=== PATIENT | female | born 1940 | race African-American/Black ===

== ENCOUNTER 2024-10-21 05:39 | Outpatient (REF) | payer MEDICARE, SELFPAY ==
--- OUTSIDE RECORDS SUMMARY | 2024-10-21 05:44 | XMS_ITS | Clinical Summary ---
Author Organization [facility] Address [address] [place] [address] Care Team Providers Care Communications Manager Name Role Phone Wander Hercules MD Primary Care Provider [phone] Social History Tobacco Use Types Packs/Day Years Used Date Smoking Tobacco: Never Assessed Comments Unknown Sex and Gender Information Value Date Recorded Sex Assigned at Female 09/03/2022 12:28 PM EDT Legal Sex Female 11:53 AM EST Gender Identity Female 09/03/2022 12:28 PM EDT Sexual Orientation Heterosexual (straight) 09/03 12:28 PM EDT Plan of Treatment Health Maintenance Due Date Last Done Comments DTaP/Tdap/Td Vaccines (1 - Tdap) 1960 Pneumococcal Vaccines 50+ (1 of 1 - PCV) 1991 Zoster (Shingles) Vaccine (1 of 2) 1991 DXA Bone Density (Females,Ages 65 and older) 2006 RSV Vaccine 60 years and older and Patients (1 - 1-dose 75+ series) 2016 COVID-19 Vaccine ( season) 2023 10/20/2021, 12/31/2020, 05/24/2020, Additional history exists Influenza Vaccine 10/30/2024 01/07/2020, 01/07/2020 Hepatitis B Vaccines Aged Out No long er eligible based on patient's age to complete this topic Insurance [employer] Care Teams Communications Manager Relationship Specialty Start Date End Date Wander Hercules MD [address] [place] [id number] PCP - General 09/03/22
--- OUTSIDE RECORDS SUMMARY | 2024-10-21 05:44 | XMS_ITS ---
Author Name [place] Organization Unknown Problems Problem Status Onset Date Problem Type Date of Resoluti on Source Pain in both knees, unspecified chronicity active EncounterDiagnosisAct CCT Arthritis pain active EncounterDiagnosisAct CCT Encounters Encounter Type Encounter Reason Primary Diagnosis Location Date Ambulatory Unspecified osteoarthritis, unspecified site [facility] 09/03/2022 Care Team Organization Name Specialty Phone Email Start Date End Da te [facility] Thu Smith Primary Care 09/03/2022 09/04/19 [facility] NO PCP Primary Care 09/03/2022 09/03/2022 [facility] THU SMITH Primary Care 09/03/2022
--- OUTSIDE RECORDS SUMMARY | 2024-10-21 05:44 | XMS_ITS | Clinical Summary ---
Author Organization [facility] Address [address] [place] [address] Phone Care Team Providers Care Motel Keeper Name Role Phone Wander Hercules MD Primary Care Provider [phone] Allergies Active Allergy Reactions Criticality Noted Date Comments Oscar Inhibitors Other (see comments) 01/13/2021 Egg White (Egg Protein) Nausea Low 06/22/2019 Furosemide 12/14/2021 Penicillins Other (see comments),Rash Low 0 Medications acetaminophen (TYLENOL) 500 MG tablet Take 1,000 mg by mouth every 6 (six) hours if needed Active albuterol HFA (PROVENTIL HFA;VENTOLIN HFA) 108 (90 Base) MCG/ACT inhaler albuterol sulfate HFA 90 mcg/actuation aerosol inhaler Active Azelastine HCl 137 MCG/SPRAY solution USE 1 SPRAY(S) IN EACH NOSTRIL TWICE DAILY 1 Active Beclomethasone Diprop HFA (Qvar RediHaler) 80 MCG/ACT aerosol 9 Active fluticasone (FLONASE) 50 MCG/ACT nasal spray 0 Active fluticasone HFA (Flovent HFA) 110 MCG/ACT inhaler Flovent HFA 110 mcg/actuation aerosol inhaler Active simvastatin (ZOCOR) 20 MG tablet simvastatin 20 mg tablet 0 Active ascorbic acid (VITAMIN C) 500 MG tablet Take by mouth 1 Active apixaban (ELIQUIS) 5 MG tablet Take 5 mg by mouth in the morning and 5 mg in the evening. Active metoprolol succinate XL (TOPROL XL) 50 MG 24 hr tablet Take 1 tablet (50 mg total) by mouth 1 (one) time each day Do not crush or chew. 90 tablet 11 2 Active Pulmicort Flexhaler 180 MCG/ACT inhaler 3 Active calcitriol (Rocaltrol) 0.25 MCG capsule Take 1 capsule (0.25 mcg total) by mouth 1 (one) time each day 90 capsule 3 4 01/07/20 25 Active furosemide (LASIX) 20 MG tablet Take 4 tablets (80 mg total) by mouth 1 (one) time each day 360 tablet 3 4 Active hydrALAZINE 25 MG tablet TAKE 1 TABLET BY MOUTH IN THE MORNING AND 1 TABLET BY MOUTH IN THE EVENING AND 1 TABLET BY MOUTH BEFORE BEDTIME 270 tablet 3 4 Active sodium bicarbonate 650 MG tablet Take 1 tablet (650 mg total) by mouth in the morning and 1 tablet (650 mg total) in the evening. 180 tablet 2 5 02/08/20 25 Active ferrous sulfate 325 (65 Fe) MG EC tablet TAKE 1 TABLET(325 MG) BY MOUTH IN THE MORNING AND IN THE EVENING. DO NOT CRUSH, CHEW, OR SPLIT 60 tablet 2 5 Active calcium carbonate (Tums) 500 MG chewable tabletIndication s:Stage 5 chronic kidney disease (HCC),Hyperphosp hatemia Chew 1 tablet (500 mg total) in the morning and 1 tablet (500 mg total) at noon and 1 tablet (500 mg total) in the evening. Chew with meals. 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 Hypertension 05/29/2021 Hyperlipidemia 05/29/2021 Nontoxic multinodular goiter 05/29/2021 Obese class I 05/29/2021 Pulmonary embolism 05/29/2021 Hemorrhage into subarachnoid space of neuraxis 0 05/29/2021 Subarachnoid hemorrhage 05/29/2021 Fibrocystic disease of liver 05/29/2021 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 Replacing diagnoses that were inactivated after the 12/31/23 Regulatory Import Stage 3 chronic kidney disease 01/10/2021 Chronic kidney disease stage 3 01/10/2021 Hypertensive chronic kidney disease, unspecified, with chronic kidney disease stage I through stage IV, or unspecified 01/10/2021 Polycystic kidney disease, adult type 01/10/2021 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 [address] [phone] Linda Smiley ARNP Stage 5 chronic kidney disease (HCC); Hypertension; Anemia in chronic kidney disease; Secondary hyperparathyroidism of renal origin (HCC); Hyperphosphatemia; Chronic metabolic acidosis 09/10/2024 10:30 AM EDT Office Visit [facility] [address] [address] Linda Smiley ARNP Stage 5 chronic kidney disease (HCC) (Primary Dx); Hypertension; Anemia in chronic kidney disease; Secondary hyperparathyroidism of renal origin (HCC); Hyperphosphatemia; Chronic metabolic acidosis 08/30/2024 Orders Only [facility] [address] [place] [phone] Linda Smiley ARNP Stage 5 chronic kidney disease (HCC); Anemia in chronic kidney disease; Hypertension; Secondary hyperparathyroidism of renal origin (HCC); Hyperphosphatemia 07/30/2024 11:00 AM EDT [facility] [address] [place] [address] Linda Smiley ARNP Stage 5 chronic kidney disease (HCC) (Primary Dx); Anemia in chronic kidney disease; Hypertension; Secondary hyperparathyroidism of renal origin (HCC); Hyperphosphatemia 07/29/2024 Refill [facility] [address] [facility] [address] [place] [phone] Raymond Prado MD from Last 3 Months Immunizations Immunization Administration Dates Next Due Influenza Split High Dose Pr eservative Free IM 01/07/2020 Influenza, Unspecified 01/07/2020 Pfizer SARS-COV-2 12/31/2020,05/24/2020,05/03/19 21 Pneumococcal Polysaccharide 04/01/2013 Family History Medical History Relation Comments Kidney disease Child 1 Hypertension Child 2 Cancer Father Stroke Father Heart disease Mother Relation Status Comments Child 1 Child 2 Father Mother Social History Tobacco Use Types Packs/Day Years Used Date Smoking Tobacco: Never Smokeless Tobacco: Never Tobacco Cessation:Counseling Given: Not Answered Alcohol Use Standard Drinks/Week Comments No 0 (1 standard drink = 0.6 oz pur e alcohol) Comments No Sex and Gender Information Value Date Recorded Sex Assigned at Not on file Legal Sex Female 5:00 PM EST Gender Identity Not on file Sexual Orientation Not on file Last Filed Vital Signs Vital Sign Reading Time Taken Comments Blood Pressure 122/56 09/10/2024 10:29 AM EDT Pulse 59 09/10/2024 10:29 AM EDT Temperature - - Respiratory Rate - - Oxygen Saturation 100% 07/30/2024 11:19 AM EDT Inhaled Oxygen Concentration - - Weight 81.3 kg (179 lb 3.2 oz) 09/10/2024 10:29 AM EDT Height 167.6 cm (5' 6 ) 05/02/2020 12:00 PM EST Body Mass Index 28.92 05/02/2020 12:00 PM EST Plan of Treatment Health Maintenance Due Date Last Done Comments Pneumococcal Vaccine: 50+ Years (2 of 2 - PCV) 04/01/2014 04/01/2013 Influenza Vaccine (#1) 2024 0, 01/07/2020 Pneumococcal Vaccine: Peds (0 to 5 Years) and At-Risk Patients (6 to 49 Years) Discontinued 04/01/2013 Hepatitis B Vaccine Aged Out No longe r eligible based on patient's age to complete this topic Procedures Procedure Name Priority Date/Time Associated Diagnosis Comments IRON PANEL (FE, TIBC, TSAT) Routine 09/04/2024 10:09 AM EDT Stage 5 chronic kidney disease (HCC) Anemia in chronic kidney disease Hypertension Secondary hyperparathyroidism of renal origin (HCC) Hyperphosphatemia FERRITIN Routine 09/04/2024 10:09 AM EDT Stage 5 chronic kidney disease (HCC) Anemia in chronic kidney disease Hypertension Secondary hyperparathyroidism of renal origin (HCC) Hyperphosphatemia CBC Routine 09/04/2024 10:09 AM EDT Stage 5 chronic kidney disease (HCC) Anemia in chronic kidney disease Hypertension Secondary hyperparathyroidism of renal origin (HCC) Hyperphosphatemia RENAL FUNCTION PANEL Routine 09/04/2024 10:09 AM EDT Stage 5 chronic kidney disease (HCC) Anemia in chronic kidney disease Hypertension Secondary hyperparathyroidism of renal origin (HCC) Hyperphosphatemia PTH, INTACT Routine 09/04/2024 10:09 AM EDT Stage 5 chronic kidney disease (HCC) Anemia in chronic kidney disease Hypertension Secondary hyperparathyroidism of renal origin (HCC) Hyperphosphatemia IRON PANEL (FE, TIBC, TSAT) Routine 07/22/2024 9:49 AM EDT Stage 5 chronic kidney disease (HCC) Anemia in chronic kidney disease Secondary hyperparathyroidism of renal origin (HCC) FERRITIN Routine 07/22/2024 9:49 AM EDT Stage 5 chronic kidney disease (HCC) Anemia in chronic kidney disease Secondary hyperparathyroidism of renal origin (HCC) CBC Routine 07/22/2024 9:49 AM EDT Stage 5 chronic kidney disease (HCC) Anemia in chronic kidney disease Secondary hyperparathyroidism of renal origin (HCC) RENAL FUNCTION PANEL Routine 07/22/2024 9:49 AM EDT Stage 5 chronic kidney disease (HCC) Anemia in chronic kidney disease Secondary hyperparathyroidism of renal origin (HCC) PTH, INTACT Routine 07/22/2024 9:49 AM EDT Stage 5 chronic kidney disease (HCC) Anemia in chronic kidney disease Secondary hyperparathyroidism of renal origin (HCC) from Last 3 Months Results * (ABNORMAL) Iron Panel (Fe, TIBC, TSAT) (09/04/2024 10:09 AM EDT) Only the most recent of2 resultswithin the time period is included. UIBC 130 118 - 369 ug/dL [facility] TIBC 188(L) 250 - 450 ug/dL [facility] Iron 58 27 - 139 ug/dL [facility] Iron Saturation (TSat) 31 15 - 55 % [facility] Blood specimen (specimen) Venous blood / Unknown 09/04/2024 10:09 AM EDT 09/04/2024 Linda PICKETT LAB BLOOD ORDERABLES Final Result [facility] [address] [place] [address] * (ABNORMAL) CBC (09/04/2024 10:09 AM EDT) Only the most recent of2 resultswithin the time period is included. WBC 6.7 3.4 - 10.8 x10E3/uL [facility] RBC 3.29(L) 3.77 - 5.28 x10E6/uL [facility] Hemoglobin 9.3(L) 11.1 - 15.9 g/dL [facility] Hematocrit 30.2(L) 34.0 - 46.6 % [facility] MCV 92 79 - 97 fL [facility] MCH 28.3 26.6 - 33.0 pg [facility] MCHC 30.8(L) 31.5 - 35.7 g/dL [facility] RDW 13.8 11.7 - 15.4 % [facility] Platelets 182 150 - 450 x10E3/uL [facility] Blood specimen (specimen) Venous blood / Unknown 09/04/2024 10:09 AM EDT 09/04/[address] [facility] LAB BLOOD ORDERABLES Final Result Performing Organization Address City/[facility]/ZIP Co de Phone Number [facility] [address] [place] [address] * (ABNORMAL) PTH, intact (09/04/2024 10:09 AM EDT) Only the most recent of2 resultswithin the time period is included. PTH 157(H) 15 - 65 pg/mL [facility] Blood specimen (specimen) Venous blood / Unknown 09/04/2024 10:09 AM EDT 09/04/[address] [facility] LAB BLOOD ORDERABLES Final Result [facility] [address] [place] [address] * (ABNORMAL) Ferritin (09/04/2024 10:09 AM EDT) Only the most recent of2 resultswithin the time period is included. Ferritin 373(H) 15 - 150 ng/mL [facility] Blood specimen (specimen) Venous blood / Unknown 09/04/2024 10:09 AM EDT 09/04/2024 Linda TODDP LAB BLOOD ORDERABLES Final Result Performing Organization Address City/[facility] Co de Phone Number [facility] [address] [place] [address] * (ABNORMAL) Renal function panel (09/04/2024 10:09 AM EDT) Only the most recent of2 resultswithin the time period is included. Glucose 115(H) 70 - 99 mg/dL [facility] BUN 89(HH) 8 - 27 mg/dL [facility] Creatinine 7.70(H) 0.57 - 1.00 mg/dL [facility] eGFR CKD-EPI CR 2020 5(L) >59 mL/min/1.7 3 [facility] BUN/Creatinine Ratio 12 12 - 28 [facility] Sodium 142 134 - 144 mmol/L [facility] Potassium 4.2 3.5 - 5.2 mmol/L [facility] Chloride 105 96 - 106 mmol/L [facility] Bicarbonate (CO2) 16(L) 20 - 29 mmol/L [facility] Calcium 9.1 8.7 - 10.3 mg/dL [facility] Albumin 4.1 3.7 - 4.7 g/dL [facility] Phosphorus 5.3(H) 3.0 - 4.3 mg/dL [facility] Blood specimen (specimen) Venous blood / Unknown 09/04/2024 10:09 AM EDT 09/04/2024 Linda Baljit [facility] LAB BLOOD ORDERABLES Final Result [facility] [address] [place] [address] from Last 3 Months Insurance [facility] Care Teams Motel Keeper Relationship Specialty Start Date End Date Wander Hercules MD [address] [place] [address] PCP - General 04/11/20
--- OUTSIDE RECORDS SUMMARY | 2024-10-21 05:44 | XMS_ITS | Clinical Summary ---
Author Organization [address] Address [address] [place] [phone] Phone Care Team Providers Care Wet Crown Blocking Operator Name Role Phone Wander Hercules MD Primary Care Provider [phone] Allergies Active Allergy Reactions Criticality Noted Date Comments Oscar Inhibitors Other (See Comments) Medium 01/13/2021 Other reaction(s): Other (See Comments) Egg Nausea Low 06/22/2019 Other reaction(s): upset stomach Egg White Nausea Low 06/22/2019 Furosemide Unknown 12/14/2021 Penicillins Rash,Other (See Comments) Medium 06/22/2019 Other reaction(s): Other (See Comments) Medications simvastatin (ZOCOR) 20 mg tablet TAKE 1 TABLET BY MOUTH ONCE DAILY AT BEDTIME 0 Active metoprolol succinate (TOPROL-XL) 50 mg XL 24 hr extended release tablet metoprolol succinate ER 50 mg tablet,extended release 24 hr Active fluticasone propionate (FLONASE) 50 mcg/actuation nasal spray USE 2 SPRAY(S) IN EACH NOSTRIL ONCE DAILY FOR 30 DAYS 0 Active QVAR REDIHALER 80 mcg/actuation HFA aerosol inhaler INHALE 2 PUFFS BY MOUTH TWICE DAILY 9 Active albuterol sulfate 90 mcg/actuation HFA aerosol inhaler ProAir HFA 90 mcg/actuation aerosol inhaler Active acetaminophen (TYLENOL) 500 mg tablet Take 2 tablets (1,000 mg total) by mouth every 6 (six) hours as needed. Active albuterol sulfate 90 mcg/actuation HFA aerosol inhaler albuterol sulfate HFA 90 mcg/actuation aerosol inhaler Active flu vac ts ,4 yr,up,-PF 45 mcg (15 mcg x 3)/0.5 mL Syrg Fluad 65yr up(PF)45 mcg(15 mcgx3)/0.5 mL intramuscular syringe Active ascorbic acid, vitamin C, (VITAMIN C) 500 mg tablet Take by mouth. 1 Active azelastine (ASTELIN) 137 mcg (0.1 %) nasal spray 2 Active amLODIPine (NORVASC) 5 mg tablet Take 1 tablet (5 mg total) by mouth every 24 hours. 2 Active ELIQUIS 5 mg Tab tablet Take 1 tablet (5 mg total) by mouth 2 (two) times daily. 3 Active furosemide (LASIX) 20 mg tablet Take 4 tablets (80 mg total) by mouth every 24 hours. 2 Active hydrALAZINE (APRESOLINE) 25 mg tablet Take 1 tablet (25 mg total) by mouth 2 (two) times daily (0800, 1800). 2 Active PULMICORT FLEXHALER 180 mcg/actuation powder inhaler 2 (two) times daily. 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 Stage 3 chronic kidney disease (HC CODE) 021 Polycystic kidney, adult type 01/10/2021 Unspecified hypertensive kid rachel disease with chronic kidney disease stage I through stage IV, or unspecified 01/10/2021 Immunizations Immunization Administration Dates Next Due Influenza, high dose, quad, 0.7 mL, preservative free 01/07/2020 Family History Medical History Relation Name Comments Head & Neck cancer Father Stroke Father Heart disease Mother Relation Name Status Comments Father Mother Social History Tobacco Use Types Packs/Day Years Used Date Smoking Tobacco: Never Smokeless Tobacco: Never Tobacco Cessation:Counseling Given: Not Answered Alcohol Use Standard Drinks/Week Comments Never 0 (1 standard drink = 0.6 oz pur e alcohol) AUDIT-C Answer Date Recorded Q1: How often do you have a drink containing alc ohol? Never 05/16/2020 Average Number of Drinks Not on file 021 Frequency of Binge Drinking Not on file 05/02 Comments Unknown Sex and Gender Information Value Date Recorded Sex Assigned at Not on file Legal Sex Female 5:38 PM EST Gender Identity Not on file Sexual Orientation Not on file Last Filed Vital Signs Vital Sign Reading Time Taken Comments Blood Pressure 124/82 06/22/2019 9:45 AM EDT Pulse - - Temperature - - Respiratory Rate - - Oxygen Saturation - - Inhaled Oxygen Concentration - - Weight 93.9 kg (207 lb) 06/03/2023 9:47 AM EST p er patient Height 167.6 cm (5' 6 ) 06/03/2023 9:47 AM EST Body Mass Index 33.41 06/03/2023 9:47 AM EST Plan of Treatment Health Maintenance Due Date Last Done Comments HIV screening 1954 Diabetes screening 1959 Tetanus adult (Td q 10,TDAP once) 1961 Lipid disorder screening 1981 Shingles vaccine (Shingrix) (1 of 2 - Shingrix (RZV) 2 Dose Standard Series) 1991 Osteoporosis screening (bone density) 2006 Pneumococcal Vaccine (50+ years) (2 of 2 - PCV) 04/01/2014 04/01/2013 RSV Immunization (1 - 1-dose 75+ series) 2016 Covid-19 vaccine series ( season) 2023 10/20/2021, 12/31/2020, 05/24/2020, Additional history exists Influenza vaccine 11/30/2024 01/07/2020 Breast cancer screening Discontinued Cervical cancer screening Discontinued Colon cancer screening, Colonoscopy Discontinued Meningococcal Vaccine Aged Out No benny umm eligible based on patient's age to complete this topic Insurance [place]IC[place] [facility] [place] [facility] [place] [facility] Care Teams Wet Crown Blocking Operator Relationship Specialty Start Date End Date Wander Hercules MD [address] [place] [phone] PCP - General Internal Medicine 04/29/19
[2024-10-21 06:24] LABS: Hematocrit 21.9 % (37.0-47.0); Hemoglobin 7.2 g/dl (12.0-16.0); Imm Gran Abs Auto 0.06 X10*3/uL (0.00-0.03); Imm Gran Pct Auto 0.6 % (0.0-0.4); Lymphocytes Absolute Auto 0.6 X10*3/uL (1.2-4.9); MANUAL DIFF FLAG SCAN; Mean Corpuscular HGB Conc 32.9 g/dl (31.0-35.0); Mean Corpuscular Hemoglobin 29.1 pg (27.0-33.0); Mean Corpuscular Volume 88.7 fL (80.0-98.0); NRBC Abs Auto 0.000 X10*3/uL (0.0-0.012); NRBC Pct Auto 0.0 /100WBC (0.0-0.2); Platelet Count 192 X10*3/uL (160-400); Red Blood Count 2.47 X10*6/uL (4.20-5.50); SCAN SMEAR FLAG 1; White Blood Count 10.7 X10*3/uL (4.8-10.8)
[2024-10-21 06:53] LABS: Alanine Aminotransferase 95 U/L (0-31); Albumin Level 2.4 g/dL (3.5-5.0); Alkaline Phosphatase 777 U/L (39-117); Anion Gap 12 (12-20); Aspartate Amino Transferase 313 U/L (5-31); Blood Urea Nitrogen 44 mg/dL (9-16); Calcium 7.7 mg/dL (8.4-10.2); Carbon Dioxide 26 mmol/L (22-29); Chloride 99 mmol/L (96-108); Estimated Glomerular Filt Rate 10; Potassium 3.9 mmol/L (3.3-5.1); Sodium 133 mmol/L (135-145); Total Protein 5.8 g/dL (6.5-8.0)
[2024-10-21 07:18] LABS: Hemoglobin A1C 55.8995 umol/L; Total Hemoglobin (HGBA1C) 1981.5737 umol/L
== END 2024-10-21 05:40 | disposition home or self-care (01) ==
LOC: HO.MMNH2L 05:39
PROVIDERS: Visit Provider Student in an Organized Health Care Education/Training Program
DX: N18.6 End stage renal disease (principal)
CPT/HCPCS: 36415; 80053; 83036; 85025

== ENCOUNTER 2024-10-26 06:14 | Outpatient (REF) | payer MEDICARE, SELFPAY ==
[2024-10-26 05:52] LABS: MANUAL DIFF FLAG NO
--- OUTSIDE RECORDS SUMMARY | 2024-10-26 06:17 | XMS_ITS | Clinical Summary ---
Author Organization [facility] Address [address] [place] [address] Care Team Providers Care Producer Name Role Phone Wander Hercules MD Primary Care Provider [phone] Social History Tobacco Use Types Packs/Day Years [...] [employer] [place] MED[employer] Care Teams Producer Relationship Specialty Start Date End Date Wander Hercules MD [address] [place] [id number] PCP - General 09/03/22
--- OUTSIDE RECORDS SUMMARY | 2024-10-26 06:17 | XMS_ITS | Clinical Summary ---
Author Organization [address] Address [address] [place] [phone] Phone Care Team Providers Care Mental Health Program Specialist Name Role Phone Wander Hercules MD Primary Care Provider [phone] Allergies Active Allergy Reactions Criticality Noted Date [...] to complete this topic Insurance [place]IC[place] [facility] Sub[place] Plan / Payer (Ef fective 2010-Present) Name:Christal Woodward Relation to Subscriber:Self Name:Christal Woodward Payer ID:[id number] Group ID:[id number] [facility] Type:Not on file Address: [address] [place] [address] MEDICARE [place] [facility] [place] Sub[place] Plan / Payer (Ef fective 2010-Present) Name:Christal Woodward Relation to Subscriber:Self Name:Christal Woodward Payer ID:[id number] Group ID:[id number] [place] Type:Not on file Address: [address] [place] [address] MEDICARE [place] [facility] Care Teams Mental Health Program Specialist Relationship Specialty Start Date End Date Wander Hercules MD [address] [place] [phone] PCP - General Internal Medicine 04/29/19
--- OUTSIDE RECORDS SUMMARY | 2024-10-26 06:17 | XMS_ITS | Clinical Summary ---
Author Organization [facility] Address [address] [facility] [address] [place] [address] Phone Care Team Providers Care Community Engagement Manager Name Role Phone Wander Hercules MD Primary Care Provider [phone] Allergies Active Allergy Reactions Criticality Noted Date [...] Orders Only [facility] [address] [address] Linda Smiley ARNP Stage 5 chronic kidney disease (HCC); Hypertension; Anemia in chronic kidney disease; Secondary hyperparathyroidism of renal origin (HCC); Hyperphosphatemia; Chronic metabolic acidosis 09/10/2024 10:30 AM EDT Office Visit [facility] [address] [address] Linda Smiley ARNP Stage 5 chronic kidney disease (HCC) (Primary Dx); Hypertension; Anemia in chronic kidney disease; Secondary hyperparathyroidism of renal origin (HCC); Hyperphosphatemia; Chronic metabolic acidosis 08/30/2024 Orders Only [facility] [address] [place] [phone] Linda Smiley ARNP Stage 5 chronic kidney disease (HCC); Anemia in chronic kidney disease; Hypertension; Secondary hyperparathyroidism of renal origin (HCC); Hyperphosphatemia 07/30/2024 11:00 AM EDT Office Visit [facility] [address] [place] [address] Linda Smiley ARNP Stage 5 chronic kidney disease (HCC) (Primary Dx); Anemia in chronic kidney disease; Hypertension; Secondary hyperparathyroidism of renal origin (HCC); Hyperphosphatemia 07/29/2024 Refill [facility] [place] [address] [facility] [address] [place] [phone] Raymond Prado MD from Last 3 Months [...] Procedure Name Priority Date/Time Associated Diagnosis Comments LIH () Routine 10/23/2024 3:00 AM EDT KT/V NATURAL LOG, URR () Routine 10/23/2024 3:00 AM EDT HEPATITIS C ABS W/REFLEX RNA DETECTR Routine 10/21/2024 3:00 AM EDT CONFIRMATION TEST HCV Routine 10/21/2024 3:00 AM EDT HEPATITIS B CORE AB TOTAL Routine 10/21/2024 3:00 AM EDT HEPATITIS B SURFACE ANTIGEN W/REFL CONFIRM Routine 10/21/2024 3:00 AM EDT FERRITIN Routine 10/21/2024 3:00 AM EDT VITAMIN D 25 HYDROXY Routine 10/21/2024 3:00 AM EDT HEPATITIS B SURFACE ANTIBODY QUANT Routine 10/21/2024 3:00 AM EDT PROTEIN, TOTAL, SERUM Routine 10/21/2024 3:00 AM EDT URIC ACID Routine 10/21/2024 3:00 AM EDT TRANSFERRIN SATURATION Routine 10/21/2024 3:00 AM EDT KT/V NATURAL LOG, URR (HC) Routine 10/21/2024 3:00 AM EDT ELECTROLYTE PANEL Routine 10/21/2024 3:0 0 AM EDT MAGNESIUM Routine 10/21/2024 3:00 AM EDT LIPID PANEL Routine 10/21/2024 3:00 AM EDT LIH (HC) Routine 10/21/2024 3:00 AM EDT LACTATE DEHYDROGENASE Routine 10/21/2024 3:00 AM EDT GLUCOSE, RANDOM Routine 10/21/2024 3:00 AM EDT BUN/CREATININE RATIO Routine 10/21/2024 3:00 AM EDT CREATININE, SERUM Routine 10/21/2024 3:0 0 AM EDT BILIRUBIN, TOTAL Routine 10/21/2024 3:00 AM EDT AST Routine 10/21/2024 3:00 AM EDT ALKALINE PHOSPHATASE Routine 10/21/2024 3:00 AM EDT ALT Routine 10/21/2024 3:00 AM EDT CALCIUM PHOSPHORUS PRODUCT, ADJUSTED (HC) Routine 10/21/2024 3:00 AM EDT CBC AND DIFFERENTIAL Routine 10/21/2024 3:00 AM EDT PTH, INTACT Routine 10/21/2024 3:00 AM EDT Stage 5 chronic kidney disease (HCC) Hypertension Anemia in chronic kidney disease Secondary hyperparathyroidism of renal origin (HCC) Hyperphosphatemia Chronic metabolic acidosis IRON PANEL (FE, TIBC, TSAT) Routine 09/04/2024 [...] Secondary hyperparathyroidism of renal origin (HCC) Hyperphosphatemia from Last 3 Months Results * LIH (10/23/2024 3:00 AM EDT) Only the most recent of2 resultswithin the time period is included. Lipemia Normal Normal [facility] Icterus Normal Normal [facility] Hemolysis Normal Normal [facility] 10/23/2024 3:00 AM EDT 10/24/2024 1:20 PM EDT us Jl Velazquez MD LAB [id number] SOLICITED RESULTS Final Result [facility] [address] [place] [address] * (ABNORMAL) Kt/V Natural Log, URR (10/23/2024 3:00 AM EDT) Treatment Time 222 min [facility] Pre-Weight, lb 92.8 kg [facility] Post-Weight, lb 90.7 kg [facility] Ultrafiltration Rate 6 <=13 mL/kg/hr [facility] Comment: Recommend achieving Ultrafiltration Rate (UFR) <=10 mL/kg/hr References: Austen SANTA et al. Kidney Int. 2010; 79(2):250-257 BUN 31(H) 7 - 25 mg/dL [facility] BUN Post Dialysis 7 7 - 25 mg/dL [facility] UREA REDUCTION RATIO (%) 77 >=65 % [facility] Kt/V Natural Log 1.70 >=1.2 [facility] 10/23/2024 3:00 AM EDT 10/24/2024 1:20 PM EDT Jl Velazquez MD LAB [id number] SOLICITED RESULTS Final Result Performing Organization Address [facility] Co de Phone Number [facility]PS [facility] [address] [place] [address] * Confirmation Test HCV (10/21/2024 3:00 AM EDT) Hep C Ab Confirmation Not needed [facility] 10/21/2024 3:00 AM EDT 10/23/2024 12:49 PM EDT Jl Velazquez MD LAB BLOOD ORDERABLES Final Re sult Performing Organization Address [facility] de Phone Number [facility]PS [facility] [address] [place] [address] * (ABNORMAL) Calcium Phosphorus Product, Adjusted (10/21/2024 3:00 AM EDT) Albumin 2.8(L) 3.6 - 5.4 g/dL [facility] Calcium 7.7(L) 8.6 - 10.3 mg/dL [facility] Phosphorus, Serum 5.4(H) 2.5 - 5.0 mg/dL [facility] Ca*PO4 41.6 <55.0 mg2/dL2 [facility] Calcium, Adjusted Total 8.7 8.6 - 10.3 mg/dL [facility] CA*PO4 CORRCTD 47.0 <55.0 mg2/dL2 [facility] 10/21/2024 3:00 AM EDT 10/23/2024 1:48 PM EDT us Jl Velazquez MD LAB [id number] SOLICITED RESULTS Final Result Performing Organization Address [facility] de Phone Number [facility]PS [facility] [address] [place] [address] * HEPATITIS C ABS W/REFLEX RNA DETECTR (10/21/2024 3:00 AM EDT) Hep C Virus Ab Non-Reacti ve Non-Reacti ve [facility] 10/21/2024 3:00 AM EDT 10/23/2024 1:48 PM EDT us Jl Velazquez MD LAB [id number] SOLICITED RESULTS Final Result Performing Organization Address [facility] de Phone Number [facility]PS [facility] [address] [place] [address] * Hepatitis B Surface Ag w/Reflex Confirmation (10/21/2024 3:00 AM EDT) Hep B Surface Antigen Negative Negative [facility] 10/21/2024 3:00 AM EDT 10/23/2024 1:48 PM EDT us Jl Velazquez MD LAB BLOOD ORDERABLES Final Re sult Performing Organization Address [facility] de Phone Number [facility]PS [facility] [address] [place] [address] * BUN/CREATININE RATIO (10/21/2024 3:00 AM EDT) BUN/Creatinine Ratio 7.8 <=23.0 [facility] 10/21/2024 3:00 AM EDT 10/23/2024 1:48 PM EDT us Jl Velazquez MD LAB [id number] SOLICITED RESULTS Final Result Performing Organization Address [facility] de Phone Number [facility] [address] [place] [address] * (ABNORMAL) TSAT (10/21/2024 3:00 AM EDT) Pathologist [facility] Iron 10(L) 50 - 170 ug/dL [facility] Transferrin 75(L) 250 - 380 mg/dL [facility] TIBC 105(L) 211 - 406 ug/dL [facility] Iron Saturation (TSat) 10(L) 22 - 52 % [facility] 10/21/2024 3:00 AM EDT 10/23/2024 1:48 PM EDT Jl Velazquez MD LAB BLOOD ORDERABLES Final Re sult Performing Organization Address [facility] de Phone Number [facility] [address] [place] [address] * Hepatitis B Core Antibody, Total (10/21/2024 3:00 AM EDT) [facility] HBc Total Ab, S Negative Negative [facility] 10/21/2024 3:00 AM EDT 10/23/2024 1:48 PM EDT Jl Velazquez MD LAB BLOOD ORDERABLES Final Re sult Performing Organization Address [facility] Phone Number [facility] [address] [place] [address] * Vitamin D 25 Hydroxy (10/21/2024 3:00 AM EDT) [facility] Vitamin D, 25-Hydroxy 40 30 - 100 ng/mL [facility] Comment: Status Adult Pediatric Deficient: <20 <15 Insufficient: 20-29 15-19 Sufficient: 30-100 20-100 10/21/2024 3:00 AM EDT 10/23/2024 1:48 PM EDT us Jl Velazquez MD LAB BLOOD ORDERABLES Final Re sult Performing Organization Address [facility] de Phone Number [facility]PS [facility] [address] [place] [address] * (ABNORMAL) Hepatitis B Surface Antibody (10/21/2024 3:00 AM EDT) Pathologist [facility] Hep B Surface Antibody <4(A) mIU/mL [facility] Comment: Interpretation: <10: No Immunity >=10: Probable Immunity 10/21/2024 3:00 AM EDT 10/23/2024 1:48 PM EDT us Jl Velazquez MD LAB BLOOD ORDERABLES Final Re sult [facility] [address] [place] [address] * (ABNORMAL) CBC and Differential (10/21/2024 3:00 AM EDT) [facility] DIFFERENTIAL MANUAL, 2 Not Indicated [facility] White Blood Cells 11.2(H) 4.0 - 10.0 K/uL [facility] RBC 2.43(L) 3.93 - 5.22 M/uL [facility] Hgb 7.0(L) 11.2 - 15.7 g/dL [facility] Hemoglobin x 3 21.0(L) 33.6 - 47.1 g/dL [facility] Hematocrit 22.5(L) 34.1 - 44.9 % [facility] MCV 92.6 79.4 - 94.8 fL [facility] MCH 28.8 25.6 - 32.2 pg [facility] MCHC 31.1(L) 32.2 - 35.5 g/dL [facility] RDW 17.7(H) 11.7 - 14.4 % [facility] Platelets 196 182 - 369 K/uL [facility] Neutrophils Relative 90.5(H) 34.0 - 71.1 % [facility] Lymphocytes Relative 4.8(L) 19.3 - 51.7 % [facility] Monocytes 3.7(L) 4.7 - 12.5 % [facility] Eosinophils Relative 0.2(L) 0.7 - 5.8 % [facility] Basophils Relative 0.4 0.1 - 1.2 % [facility] Immature Granulocytes 0.4 0.0 - 1.0 % [facility] 10/21/2024 3:00 AM EDT 10/23/2024 12:49 PM EDT us Jl Velazquez MD LAB BLOOD ORDERABLES Final Re sult Performing Organization Address [facility] de Phone Number [facility] [address] [place] [address] * Uric Acid (10/21/2024 3:00 AM EDT) Uric Acid 6.3 2.3 - 6.6 mg/dL [facility] 10/21/2024 3:00 AM EDT 10/23/2024 1:48 PM EDT Jl Velazquez MD LAB BLOOD ORDERABLES Final Re sult Performing Organization Address [facility] de Phone Number [facility] [address] [place] [address] * (ABNORMAL) ALT (10/21/2024 3:00 AM EDT) ALT (SGPT) 101(H) 10 - 49 U/L [facility] 10/21/2024 3:00 AM EDT 10/23/2024 1:48 PM EDT Jl Velazquez MD LAB BLOOD ORDERABLES Final Re sult Performing Organization Address [facility] de Phone Number [facility] [address] [place] [address] * (ABNORMAL) AST (10/21/2024 3:00 AM EDT) AST (SGOT) 313(H) <34 U/L [facility] 10/21/2024 3:00 AM EDT 10/23/2024 1:48 PM EDT us Jl Velazquez MD LAB BLOOD ORDERABLES Final Re sult Performing Organization Address [facility] de Phone Number [facility] [address] [place] [address] * (ABNORMAL) Protein, total (10/21/2024 3:00 AM EDT) Total Protein 5.5(L) 6.4 - 8.9 g/dL [facility] 10/21/2024 3:00 AM EDT 10/23/2024 1:48 PM EDT Jl Velazquez MD LAB BLOOD ORDERABLES Final Re sult Performing Organization Address [facility] Co de Phone Number [facility] [address] [place] [address] * (ABNORMAL) Alkaline phosphatase (10/21/2024 3:00 AM EDT) Alkaline Phosphatase 728(H) 46 - 116 U/L [facility] 10/21/2024 3:00 AM EDT 10/23/2024 1:48 PM EDT Jl Velazquez MD LAB BLOOD ORDERABLES Final Re sult Performing Organization Address [facility] de Phone Number [facility] [address] [place] [address] * PTH, intact (10/21/2024 3:00 AM EDT) Only the most recent of2 resultswithin the time period is included. PTH, Intact 240 160 - 721 pg/mL [facility] Comment: Suggested (KDIGO) ESRD maintenance range is two to nine times the upper normal limit (80.1 pg/mL) for the laboratory. Blood Venous blood / Unknown 10/21/2024 3:00 AM EDT 10/23/2024 1:48 PM EDT Linda PICKETT LAB BLOOD ORDERABLES Final Result Performing Organization Address [facility] de Phone Number [facility] [address] [place] [address] * Magnesium (10/21/2024 3:00 AM EDT) Magnesium 2.0 1.9 - 2.7 mg/dL [facility] 10/21/2024 3:00 AM EDT 10/23/2024 1:48 PM EDT us Jl Velazquez MD LAB BLOOD ORDERABLES Final Re sult Performing Organization Address [facility] de Phone Number [facility] [address] [place] [address] * (ABNORMAL) Lactate dehydrogenase (10/21/2024 3:00 AM EDT) LDH 344(H) 120 - 246 U/L [facility] 10/21/2024 3:00 AM EDT 10/23/2024 1:48 PM EDT us Jl Velazquez MD LAB BLOOD ORDERABLES Final Re sult Performing Organization Address [facility] Phone Number [facility] [address] [place] [address] * (ABNORMAL) Glucose, random (10/21/2024 3:00 AM EDT) Glucose 61(L) 70 - 99 mg/dL [facility] Comment: ADA guidelines outline the following fasting glucose ranges: Normal: <100 Prediabetes: 100-125 Diabetes: >125 10/21/2024 3:00 AM EDT 10/23/2024 1:48 PM EDT us Jl Velazquez MD LAB BLOOD ORDERABLES Final Re sult Performing Organization Address [facility] de Phone Number [facility] [address] [place] [address] * (ABNORMAL) Ferritin (10/21/2024 3:00 AM EDT) Only the most recent of2 resultswithin the time period is included. Ferritin 1,267(H) 10 - 291 ng/mL [facility] 10/21/2024 3:00 AM EDT 10/23/2024 1:48 PM EDT us Jl Velazquez MD LAB BLOOD ORDERABLES Final Re sult Performing Organization Address [facility] de Phone Number [facility] [address] [place] [address] * (ABNORMAL) Creatinine, serum (10/21/2024 3:00 AM EDT) Creatinine 3.97(H) 0.55 - 1.02 mg/dL [facility] 10/21/2024 3:00 AM EDT 10/23/2024 1:48 PM EDT Jl Velazquez MD LAB BLOOD ORDERABLES Final Re sult Performing Organization Address [facility] de Phone Number [facility] [address] [place] [address] * Bilirubin, total (10/21/2024 3:00 AM EDT) Total Bilirubin 0.6 0.3 - 1.2 mg/dL [facility] 10/21/2024 3:00 AM EDT 10/23/2024 1:48 PM EDT Jl Velazquez MD LAB BLOOD ORDERABLES Final Re sult Performing Organization Address [facility] de Phone Number [facility] [address] [place] [address] * (ABNORMAL) Lipid panel (10/21/2024 3:00 AM EDT) Cholesterol 72 mg/dL [facility] Comment: Optimal: <200 Borderline: 200-239 High Risk: >239 Triglycerides 110 mg/dL [facility] Comment: Optimal: <150 Borderline: 150-200 High Risk: >200 HDL 9(L) mg/dL [facility] Comment: Optimal: >59 Borderline: 40-59 High Risk: <40 LDL-Calc 41 mg/dL [facility] Comment: Optimal: <100 Borderline: 100-159 High Risk: >159 VLDL Cholesterol Ronald 22 mg/dL [facility] Comment: Optimal: <30 Borderline: 30-40 High Risk: >40 Chol/HDL Ratio 8.0(H) [facility] Comment: Optimal: <3.3 High Risk: >6.2 10/21/2024 3:00 AM EDT 10/23/2024 1:48 PM EDT Jl Velazquez MD LAB BLOOD ORDERABLES Final Re sult Performing Organization Address [facility]/ZIP Co de Phone Number [facility] [address] [place] [address] * (ABNORMAL) Electrolyte panel (10/21/2024 3:00 AM EDT) Sodium 133(L) 136 - 145 mEq/L [facility] Potassium 3.9 3.4 - 5.0 mEq/L [facility] Chloride 95(L) 98 - 107 mEq/L [facility] Bicarbonate (CO2) 26 21 - 31 mEq/L [facility] Anion Gap 12 3 - 14 mEq/L [facility] 10/21/2024 3:00 AM EDT 10/23/2024 1:48 PM EDT Jl Velazquez MD LAB BLOOD ORDERABLES Final Re sult Performing Organization Address [facility] Co de Phone Number [facility] [address] [place] [address] * (ABNORMAL) Iron Panel (Fe, TIBC, TSAT) (09/04/2024 10:09 AM EDT) UIBC 130 118 - 369 ug/dL [facility] TIBC 188(L) 250 - 450 ug/dL [facility] Iron 58 27 - 139 ug/dL [facility] Iron Saturation (TSat) 31 15 - 55 % [facility] Blood specimen (specimen) Venous blood / Unknown 09/04/2024 10:09 AM EDT 09/04/2024 Linda PICKETT LAB BLOOD ORDERABLES Final Result [facility] [address] [place] [address] * (ABNORMAL) CBC (09/04/2024 10:09 AM EDT) WBC 6.7 3.4 - 10.8 x10E3/uL [facility] RBC 3.29(L) 3.77 - 5.28 x10E6/uL [facility] Hemoglobin 9.3(L) 11.1 - 15.9 g/dL [facility] Hematocrit 30.2(L) 34.0 - 46.6 % [facility] MCV 92 79 - 97 fL [facility] MCH 28.3 26.6 - 33.0 pg [facility] MCHC 30.8(L) 31.5 - 35.7 g/dL [facility] RDW 13.8 11.7 - 15.4 % [facility] Platelets 182 150 - 450 x10E3/uL [facility] Blood specimen (specimen) Venous blood / Unknown 09/04/2024 10:09 AM EDT 09/04/2024 Linda Smiley [facility] LAB BLOOD ORDERABLES Final Result [facility] [address] [place] [address] * (ABNORMAL) Renal function panel (09/04/2024 10:09 AM EDT) Glucose 115(H) 70 - 99 mg/dL [facility] BUN 89(HH) 8 - 27 mg/dL [facility] Creatinine 7.70(H) 0.57 - 1.00 mg/dL [facility] eGFR CKD-EPI CR 2020 5(L) >59 mL/min/1.7 3 [facility] BUN/Creatinine Ratio 12 12 - 28 [facility] Sodium 142 134 - 144 mmol/L [facility] Potassium 4.2 3.5 - 5.2 mmol/L [facility] Chloride 105 96 - 106 mmol/L [facility] Bicarbonate (CO2) 16(L) 20 - 29 mmol/L [facility] Calcium 9.1 8.7 - 10.3 mg/dL [facility] Albumin 4.1 3.7 - 4.7 g/dL [facility] Phosphorus 5.3(H) 3.0 - 4.3 mg/dL [facility] Blood specimen (specimen) Venous blood / Unknown 09/04/2024 10:09 AM EDT 09/04/2024 Linda Smiley [facility] LAB BLOOD ORDERABLES Final Result [facility] [address] [place] [address] from Last 3 Months Insurance [facility] Care Teams Community Engagement Manager Relationship Specialty Start Date End Date Wander Hercules MD [address] [place] [address] PCP - General 04/11/20
[2024-10-26 06:27] LABS: Anion Gap 12 (12-20); Blood Urea Nitrogen 38 mg/dL (9-16); Calcium 7.5 mg/dL (8.4-10.2); Carbon Dioxide 27 mmol/L (22-29); Chloride 102 mmol/L (96-108); Estimated Glomerular Filt Rate 10; Potassium 3.6 mmol/L (3.3-5.1); Sodium 137 mmol/L (135-145)
[2024-10-26 06:40] LABS: Hematocrit 23.0 % (37.0-47.0); Hemoglobin 7.4 g/dl (12.0-16.0); Imm Gran Abs Auto 0.05 X10*3/uL (0.00-0.03); Imm Gran Pct Auto 0.5 % (0.0-0.4); Lymphocytes Absolute Auto 1.3 X10*3/uL (1.2-4.9); Mean Corpuscular HGB Conc 32.2 g/dl (31.0-35.0); Mean Corpuscular Hemoglobin 28.4 pg (27.0-33.0); Mean Corpuscular Volume 88.1 fL (80.0-98.0); NRBC Abs Auto 0.000 X10*3/uL (0.0-0.012); NRBC Pct Auto 0.0 /100WBC (0.0-0.2); Platelet Count 296 X10*3/uL (160-400); Red Blood Count 2.61 X10*6/uL (4.20-5.50); White Blood Count 9.5 X10*3/uL (4.8-10.8)
== END 2024-10-26 06:15 | disposition home or self-care (01) ==
LOC: HO.MMNH2L 06:14
PROVIDERS: Visit Provider Student in an Organized Health Care Education/Training Program
DX: N18.6 End stage renal disease (principal)
CPT/HCPCS: 36415; 80048; 85025

== ENCOUNTER 2024-11-02 06:40 | Outpatient (REF) | payer MEDICARE, SELFPAY ==
[2024-11-02 06:13] LABS: MANUAL DIFF FLAG NO
--- OUTSIDE RECORDS SUMMARY | 2024-11-02 06:42 | XMS_ITS | Encounter Summary ---
Author Organization [facility]. Address [address] [facility] [address] [place] [address] Phone Care Team Providers Care Preparation Supervisor Canning Name Role Phone Wander Hercules MD Primary Care Provider [phone] Encounter Details Date Type Department Care Team (Late st Contact Info) Description 10/23/2024 Treatment [facility] [address] [facility] [address] [place] [address] Debbie Norton MD [address] [facility] [address] [place] [address] End stage renal disease; Dependence on renal dialysis Social History Tobacco Use Types Packs/Day Years Used Date Smoking Tobacco: Never Smokeless Tobacco: Never Alcohol Use Standard Drinks/Week Comments No 0 (1 standard drink = 0.6 oz pur e alcohol) Comments No Sex and Gender Information Value Date Recorded Sex Assigned at Not on file Legal Sex Female 5:00 PM EST Gender Identity Not on file Sexual Orientation Not on file documented as of this encounter Miscellaneous Notes * Dialysis Note - Debbie Norton MD - 10/23/2024 12:00 AM EDT BASIC NOTE Patient: Christal Woodward : 1940 Note Author: DEBBIE NOROTN MD Service Date: 10/23/2024 Telehealth encounter using audiovisual technology, performed according to state requirements. Appropriate patient consent obtained. This patient was personally seen [id number] for a basic visit as part of routine monthly dialysis care for end stage renal disease. Attending Allergist/Md: DEBBIE NORTON Dialysis Location: [facility] Schedule: Shift: 2 OVERVIEW COMMENTS: 10/24/27 adjusting 10/26/24 adjusting to HD 10/30/24 cont ot adjust ADEQUACY ASSESSMENT Kt/V, Natural Log 1.70 (10/23/24) UREA REDUCTION RATIO (%) 77 (10/23/24) BUN 31 (10/23/24) 31 (10/21/24) 89 (09/04/24) BUN Post Dialysis 7 (10/23/24) Creatinine 3.97 (10/21/24) 7.70 (09/04/24) 7.37 (07/22/24) Bicarbonate (CO2) 26 (10/21/24) 16 (09/04/24) 16 (07/22/24) Sodium 133 (10/21/24) 142 (09/04/24) 143 (07/22/24) ANEMIA ASSESSMENT Hgb 7.2 (10/28/24) 7.0 (10/21/24) Hemoglobin 9.3 (09/04/24) 9.6 (07/22/24) 9.8 (04/24/24) Iron Saturation (TSat) 10 (10/21/24) 31 (09/04/24) 38 (07/22/24) Ferritin 1,267 (10/21/24) 373 (09/04/24) 429 (07/22/24) Iron 10 (10/21/24) 58 (09/04/24) 65 (07/22/24) TIBC 105 (10/21/24) 188 (09/04/24) 170 (07/22/24) MCV 92.6 (10/21/24) 92 (09/04/24) 89 (07/22/24) Platelets 196 (10/21/24) 182 (09/04/24) 205 (07/22/24) BMM ASSESSMENT Calcium, Adjusted Total 8.7 10/21/24 Calcium 7.7 10/21/24 9.1 09/04/24 9.2 07/22/24 Phosphorus, Serum 5.4 10/21/24 Phosphorus 5.3 09/04/24 7.0 07/22/24 5.9 04/24/24 Ca*PO4 41.6 10/21/24 PTH, Intact 240 10/21/24 PTH 157 09/04/24 165 07/22/24 121 04/24/24 Vitamin D, 25-Hydroxy 40 10/21/24 Magnesium 2.0 10/21/24 Alkaline Phosphatase 728 10/21/24 Aluminum 3 10/21/24 NUTRITION ASSESSMENT Albumin 2.8 10/21/24 4.1 09/04/24 4.1 07/22/24 Potassium 3.9 10/21/24 4.2 09/04/24 4.2 07/22/24 ADDITIONAL LABS White Blood Cells 11.2 (10/21/24) WBC 6.7 (09/04/24) 6.4 (07/22/24) 7.2 (04/24/24) Cholesterol 72 (10/21/24) HDL 9 (10/21/24) LDL-Calc 41 (10/21/24) Triglycerides 110 (10/21/24) Hep B Surface Antibody ?4 (10/21/24) Uric Acid 6.3 (10/21/24) Signed by: DEBBIE NORTON MD on 11/02/2024 at 04:10:20 AM Transcribed by: DEBBIE NORTON MD on 11/02/2024 at 04:10:20 AM documented in this encounter Plan of Treatment Not on file documented as of this encounter Visit Diagnoses Diagnosis End stage renal disease Dependence on renal dialysis documented in this encounter Care Teams Preparation Supervisor Canning Relationship Specialty Start Date End Date Wander Hercules MD [address] [place], [place] PCP - General 04/11/20 documented as of this encounter
--- OUTSIDE RECORDS SUMMARY | 2024-11-02 06:42 | XMS_ITS | Clinical Summary ---
Author Organization [address] Address [address] [place] [phone] Phone Care Team Providers Care Gantry Rigger Name Role Phone Wander Hercules MD Primary Care Provider [phone] Allergies Active Allergy Reactions Criticality Noted Date [...] to complete this topic Insurance MEDICARE [place]NAGED [facility] [place]IC[place] [facility] [place]IC[place] [facility] [facility] Care Teams Gantry Rigger Relationship Specialty Start Date End Date Wander Hercules MD [address] [place] [phone] PCP - General Internal Medicine 04/29/19
--- OUTSIDE RECORDS SUMMARY | 2024-11-02 06:42 | XMS_ITS | Clinical Summary ---
Author Organization [facility] Address [address] [place] [address] Care Team Providers Care Contracts Advisor Name Role Phone Wander Hercules MD Primary Care Provider Social History Tobacco Use Types Packs/Day Years [...] [facility] [place] [facility] MEDIC[employer] Care Teams Contracts Advisor Relationship Specialty Start Date End Date Wander Hercules MD [address] [place] [address] PCP - General 09/03/22
[2024-11-02 07:15] LABS: Hematocrit 24.0 % (37.0-47.0); Hemoglobin 7.4 g/dl (12.0-16.0); Imm Gran Abs Auto 0.16 X10*3/uL (0.00-0.03); Imm Gran Pct Auto 1.1 % (0.0-0.4); Lymphocytes Absolute Auto 3.1 X10*3/uL (1.2-4.9); Mean Corpuscular HGB Conc 30.8 g/dl (31.0-35.0); Mean Corpuscular Hemoglobin 27.8 pg (27.0-33.0); Mean Corpuscular Volume 90.2 fL (80.0-98.0); NRBC Abs Auto 0.000 X10*3/uL (0.0-0.012); NRBC Pct Auto 0.0 /100WBC (0.0-0.2); Platelet Count 349 X10*3/uL (160-400); Red Blood Count 2.66 X10*6/uL (4.20-5.50); White Blood Count 14.6 X10*3/uL (4.8-10.8)
[2024-11-02 07:32] LABS: Anion Gap 15 (12-20); Blood Urea Nitrogen 47 mg/dL (9-16); Calcium 7.9 mg/dL (8.4-10.2); Carbon Dioxide 29 mmol/L (22-29); Chloride 102 mmol/L (96-108); Potassium 3.8 mmol/L (3.3-5.1); Sodium 142 mmol/L (135-145)
[2024-11-02 08:33] LABS: Estimated Glomerular Filt Rate 9
== END 2024-11-02 06:41 | disposition home or self-care (01) ==
LOC: HO.MMNH2L 06:40
PROVIDERS: Visit Provider Student in an Organized Health Care Education/Training Program
DX: N18.6 End stage renal disease (principal)
CPT/HCPCS: 36415; 80048; 85025

== ENCOUNTER 2024-11-03 05:40 | Outpatient (REF) | payer MEDICARE, SELFPAY ==
--- OUTSIDE RECORDS SUMMARY | 2024-11-03 05:42 | XMS_ITS | Clinical Summary ---
Author Organization [address] Address [address] [place] [phone] Phone Care Team Providers Care Minibus Driver Name Role Phone Wander Hercules MD Primary Care Provider [phone] Allergies Active Allergy Reactions Criticality Noted Date [...] to complete this topic Insurance MEDICARE MANAGED [facility] Member Subscriber Plan / Payer (Ef fective 2010-Present) Name:Christal Woodward Relation to Subscriber:Self Name:Christal Woodward Payer ID:[id number] Group ID:[employer] [facility] [place] Type:Not on file Address: [address] [place] [address] MEDICARE MANAGED [facility] MEDICARE MANAGED [facility] Care Teams Minibus Driver Relationship Specialty Start Date End Date Wander Hercules MD [address] [place] [phone] PCP - General Internal Medicine 04/29/19
--- OUTSIDE RECORDS SUMMARY | 2024-11-03 05:42 | XMS_ITS | Encounter Summary ---
Author Organization [facility]. Address [address] [place] [address] Phone Care Team Providers Care Real Estate Professor Name Role Phone Wander Hercules MD Primary Care Provider [phone] Encounter Details Date Type Department Care Team (Late st Contact Info) Description 10/23/2024 Treatment [facility] [address] [place] [address] Debbie Norton MD [address] [place] [address] End stage renal disease; Dependence [...] Christal Woodward : 1940 Note Author: DEBBIE NORTON MD Service Date: 10/23/2024 Telehealth encounter using audiovisual technology, performed according to state requirements. Appropriate patient consent obtained. This patient was personally seen [id number] for a basic visit as part of routine monthly dialysis care for end stage renal disease. Attending Paper Cleaner: DEBBIE NORTON Dialysis Location: [facility] Schedule: Shift: 2 OVERVIEW COMMENTS: 10/24/27 [...] dialysis documented in this encounter Care Teams Real Estate Professor Relationship Specialty Start Date End Date Wander Hercules MD [address] [place], [place] PCP - General 04/11/20 documented as of this encounter
[2024-11-03 06:29] LABS: Uric Acid 4.0 mg/dL (2.4-5.7)
== END 2024-11-03 05:41 | disposition home or self-care (01) ==
LOC: HO.MMNH2L 05:40
PROVIDERS: Visit Provider Nurse Practitioner Family
DX: N18.6 End stage renal disease (principal); A41.9 Sepsis, unspecified organism; Z99.2 Dependence on renal dialysis
CPT/HCPCS: 36415; 84550

== ENCOUNTER 2024-11-04 06:26 | Inpatient (IN) | payer MEDICARE, SELFPAY ==
[2024-11-04] VITALS (26 sets, daily range): BP systolic 68–117; BP diastolic 36–64; PULSE 73–91; RESP 18–76; TEMP 35.8–36.6; O2SAT 96–100; BMI 31.7
--- NOTE | ~2024-11-04 | IR_ITS ---
History: 84-year-old female with life-threatening gastrointestinal bleed status post upper endoscopy with placement of clips at the duodenal bulb by report. Unfortunately, she has had persistent bleeding and presents for emergent embolization. Procedures performed: 1. Ultrasound-guided catheterization of the right common femoral artery. 2. Catheterization of the superior mesenteric artery with selective arteriography. 3. Catheterization of two third order branches of the superior mesenteric artery with selective angiography in each and embolization of the more proximal one, which represents a proximal jejunal artery. 4. Follow-up angiography in the proximal jejunal artery from the superior mesenteric artery post-ablation. 5. Selective catheterization of the celiac artery, the common hepatic artery, and the gastroduodenal artery with selective arteriography in each. 7. Use of the arterial closure device. Physician: Remedios Guillen MD Anesthesia: IV moderate sedation with intravenous fentanyl and Versed was administered under my direct supervision with continuous physiologic monitoring for a total of 60 minutes. Specimen: None Drain: None Estimated blood loss: Minimal Complications: None Procedure in detail: Informed and written consent was obtained from the patient and placed in the chart. The patient was positioned spine on the angiography table sterile preparation of both groins. Ultrasound of the right groin showed patency of the common femoral artery. 1% lidocaine was injected subcutaneously and extended to the artery. A small incision was made in the skin with a #11 blade. Through the incision and under ultrasound guidance with permanent recordings and direct visualization of needle entry into the artery, the patent right common femoral artery was catheterized in a retrograde fashion. Using the Seldinger technique, a 5 [place] x 45 cm [employer] sheath was placed with the tip in the aorta. A Sos 2 catheter was used to select the superior mesenteric artery. Selective arteriography suggested active hemorrhage from the duodenum or proximal jejunum. Using a combination of the Sos 2 catheter and a [place] catheter and alternating use of stiff and regular Glidewires, we are able to advance the sheath into the proximal superior mesenteric artery. This was a bit difficult because the artery was spasmed from blood loss and had a steep caudal angulation. In conjunction with a [place] catheter, a Progreat 2.4 microcatheter in conjunction with a [place] GT wire was used to select a candidate jejunal branch distally, entering a third order branch. Selective arteriography showed that this did not supply the area of hemorrhage. We then catheterized a more proximal jejunal branch, again obtaining third order catheterization more distally and identified active hemorrhage from this branch. Embolization was immediately commenced with coils ranging between 2 and 4 mm. Follow-up arteriography showed no residual bleeding. Next, the Sos 2 catheter was similarly used to catheterize the celiac artery where selective arteriography did not show any active hemorrhage. We used the same catheter and wire combination to obtain catheterization of the common hepatic artery as well as the gastroduodenal artery with selective arteriography in each showing no active bleeding. Satisfied with this, we elected to terminate the case. We exchanged for a short 5 [place] sheath and obtained hemostasis with a 5 [place] Celt device. A sterile dressing was applied. Summary: Active hemorrhage demonstrated from a proximal jejunal branch that was successfully coil embolized. Extensive angiography was performed in the celiac and superior mesenteric arteries as described above and no other bleeding was identified. Electronically signed by: Bartolome Guillen MD 11/06/2024 01:54 PM EDT
--- NOTE | ~2024-11-04 | CT_ITS ---
CLINICAL HISTORY: rule out infection CT abdomen and pelvis with contrast Comparison: None provided Findings: Small bilateral pleural effusions. The liver is enlarged and there are innumerable cysts within the liver and bilateral kidneys. One of the liver cysts has mass effect on the inferior vena cava without associated occlusion or thrombus. There is a small focus of hypodensity within the anterior aspect of the spleen. There is no suspicious pancreatic mass. The left adrenal gland is unremarkable. The right adrenal gland is not definitively seen. There is a small gallstone. No bowel obstruction, pneumoperitoneum, or pneumatosis. There is a small amount of pelvic free fluid. There has been a prior hysterectomy. No acute fracture. There is edema of the soft tissues. IMPRESSION: 1. Small bilateral pleural effusions. 2. There is a small focus of splenic infarction. 3. There are changes of polycystic kidney disease. 4. There is edema of the soft tissues. This document has been electronically signed by: Noelle Galaviz MD on 11/16/2024 18:28:19
--- NOTE | ~2024-11-04 | XR_ITS ---
CLINICAL HISTORY: NGT placement CHEST X-RAY FRONTAL VIEW COMPARISON: 11/17/2024. FINDINGS: A single frontal view of the chest was performed. Previously noted endotracheal tube has been removed. Malpositioned enteric tube is noted, with tip projecting at the level of the upper esophagus. Adjacent tubing material is noted which could be either internal or external to the patient. Bilateral central lines are again noted in satisfactory position. Cardiac silhouette is accentuated by the portable technique. Retrocardiac atelectasis versus infiltrate is suspected. There is also mild right basilar atelectasis. Tiny right-sided pleural effusion is noted. No pneumothorax. IMPRESSION: 1. A malpositioned enteric tube is noted, with tip projecting at the level of the upper esophagus. Repositioning is advised. 2. There is adjacent tubing material which could be either internal or external to the patient, And can be correlated with physical exam. 3. Retrocardiac atelectasis versus infiltrate is suspected. 4. Mild right basilar atelectasis. Tiny right pleural effusion. This document has been electronically signed by: Alphonso Rick M.D. on 11/20/2024 02:18:36
--- NOTE | ~2024-11-04 | XR_ITS ---
CLINICAL HISTORY: sob 1 view chest x-ray Comparison: CR/SR - XR CHEST 1 VIEW - 11/06/24 10:36 EDT Findings: The lungs are clear. Heart size is normal. No acute fracture. Stable placement of the right IJ vascular catheter. IMPRESSION: 1. No acute findings. This document has been electronically signed by: Shakeel Browning MD on 11/14/2024 18:53:09
--- NOTE | ~2024-11-04 | XR_ITS ---
CLINICAL HISTORY: OGT placement 1 view chest x-ray Comparison: Prior chest radiographs and CTs most recently on 11/16/2024 Findings: Distal end of orogastric tube projecting over left upper abdomen however the tip is out of current field of view. Endotracheal tube remains in stable and satisfactory position. Right chest central venous catheter is unchanged. Left IJ central line in stable position. Patchy bilateral airspace densities most conspicuous in the right lung base. Suspected small bilateral pleural effusions. No pneumothorax. No acute soft tissue or osseous abnormality. Impression: 1. Distal end of orogastric tube projecting over left upper abdomen however the tip is out of current field of view. 2. Mild increase in conspicuity of bilateral patchy airspace densities. 3. Suspected small bilateral pleural effusions. 4. Additional findings as above. This document has been electronically signed by: Chrissie De Santiago MD on 11/17/2024 23:03:03
--- NOTE | ~2024-11-04 | XR_ITS ---
CLINICAL HISTORY: ? source of infection 1 view chest x-ray Comparison: CR - XR CHEST 1V - 11/14/24 18:06 EDT Findings: The lungs are clear. Heart size is normal. No acute fracture. Right IJ vascular catheter is in stable position. IMPRESSION: 1. No acute disease within the chest. Stable placement of the right IJ vascular catheter. This document has been electronically signed by: Shakeel Browning MD on 11/14/2024 21:31:55
--- NOTE | ~2024-11-04 | XR_ITS ---
EXAMINATION: XR CHEST 1 VIEW HISTORY: TLC placement COMPARISON: Comparison is made with the prior examination dated 11/04/2024. FINDINGS: A single AP portable view of the chest performed at 10:36 AM is submitted. A right-sided dual-lumen dialysis catheter is unchanged in position given differences in technique. There is been interval insertion of a left-sided central venous catheter which is superimposed over the aortic arch. The catheter extends horizontally to the right and crosses the midline. The exact position is uncertain on the basis of this examination. 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 There is no pleural effusion, pneumothorax, or pulmonary vascular congestion. The heart is normal in size. The bones are intact. XR/XR chest 1V IMPRESSION: The exact location of the left-sided central venous catheter is uncertain as the catheter is superimposed on the aortic arch and extends horizontally across the midline. This could be further evaluated with CT. Findings were sent to Dr. Santos and acknowledged by secure text message on 11/06/2024 at 10:58 AM. Electronically signed by: Prince Irziarry MD 11/06/2024 10:59 AM EDT
--- NOTE | ~2024-11-04 | US_ITS ---
CLINICAL HISTORY: swelkling Venous duplex ultrasound bilateral lower extremity COMPARISON: None provided. FINDINGS: Expansile occlusive thrombus present within the posterior tibial veins on the right. Remaining visualized veins of the right lower extremity have normal Doppler flow and spectral tracings. The visualized deep veins of the left lower extremity are fully compressible with normal Doppler color flow and spectral tracings. No popliteal cyst bilaterally. IMPRESSION: 1. Acute deep venous thrombosis present within the right posterior tibial vein. 2. No evidence of deep venous thrombosis within the visualized left lower extremity veins. This document has been electronically signed by: Clay Richter MD on 11/11/2024 17:45:02
--- NOTE | ~2024-11-04 | XR_ITS ---
EXAMINATION: XR CHEST 1 VIEW HISTORY: Upper GI Bleed COMPARISON: There are no prior studies available for comparison. FINDINGS: A single AP portable view of the chest performed at 8:17 AM is submitted. A right-sided dual-lumen catheter is noted with its tip in the superior vena cava. There is linear subsegmental atelectasis versus scarring at the right lung base. There is mild elevation of the right hemidiaphragm. The left lung is clear. There is no pleural effusion, pneumothorax, or pulmonary vascular congestion. The heart is normal in size. There is degenerative disc disease of the spine. XR/XR chest 1V IMPRESSION: Right basilar subsegmental atelectasis versus scar. Electronically signed by: Prince Irizarry MD 11/04/2024 08:36 AM EDT
--- NOTE | ~2024-11-04 | XR_ITS ---
CLINICAL HISTORY: Line Tube Placement 1 view chest x-ray Comparison: CR - XR CHEST 1V - 11/14/24 20:00 EDT Findings: Unchanged asymmetric elevation of the right hemidiaphragm. No acute airspace opacity. No pleural effusion or pneumothorax. Right IJ dual lumen catheter is in appropriate position. Left IJ catheter is in appropriate position. Right IJ catheter is in appropriate position. Mild cardiomegaly. IMPRESSION: 1. Multiple vascular catheters appear to be in appropriate position. This document has been electronically signed by: Arian Miller MD on 11/15/2024 00:14:26
--- NOTE | ~2024-11-04 | CT_ITS ---
EXAMINATION: CT HEAD WITHOUT CONTRAST CLINICAL INFORMATION: Encephalopathy COMPARISON: None available. TECHNIQUE: Contiguous axial imaging was performed from the skull base to vertex without intravenous administration of contrast. This CT examination was performed using dose optimization techniques as appropriate, variously including the following: *Automated exposure control *Adjustment of mA and/or kV according to patient size (this includes techniques or standardized protocols for targeted exams where dose is matched to indication/reason for exam; i.e. extremities or head) *Use of iterative reconstruction technique DLP: 702 mGY*cm FINDINGS: There is no acute ischemic change. Mild chronic periventricular deep white matter hypodensities are present. There is no intracranial hemorrhage. There is no mass-effect or midline shift. Basal cisterns and ventricles are within normal limits for age/cerebral volume. Orbits are symmetrical and unremarkable. There is a mucous retention cyst in the left sphenoid sinus. There are no bony abnormalities. CT/CT head/brain wo IV con IMPRESSION: No acute intracranial abnormality. Chronic small vessel disease changes. Mucous retention cyst, left sphenoid sinus Electronically signed by: Bassam France MD 11/20/2024 11:34 AM EDT
--- NOTE | ~2024-11-04 | CT_ITS ---
CLINICAL HISTORY: rule out infection CT chest without contrast Comparison: None provided Findings: Mildly enlarged heart. The endotracheal tube is 8 mm superior to the ginny. A left internal jugular central venous line tip is at the junction between the left innominate vein and the superior vena cava. There is also a line within the esophagus just distal to the ginny possibly representing a pH probe. The left lobe of the thyroid gland is enlarged and contains multiple nodules measuring up to 3.5 cm in size. Small bilateral pleural effusions. There are mild atelectatic changes within the posterior aspects of the lungs. No consolidative process. The liver is enlarged and contains multiple masses. Some of these have density compatible with simple fluid. Many are slightly denser than fluid and many have peripheral calcifications. The bones are intact. IMPRESSION: 1. Small bilateral pleural effusions. No gross evidence of pneumonia. 2. There are multiple liver masses. These may represent cysts and complex cysts but metastatic disease is not excluded. 3. There are multiple nodules within the left lobe of the thyroid gland. Recommend further evaluation with ultrasound when clinically appropriate. This document has been electronically signed by: Noelle Galaviz MD on 11/16/2024 18:08:52
--- NOTE | 2024-11-04 06:52 | ED.GENADULT ---
HPI - General Adult General Chief complaint: Altered Mental Status Stated complaint: AMS Time Seen by Provider: 11/04/24 06:52 History of Present Illness ED Provider: Mono ALBERTO narrative: The patient is an 84-year-old woman with a history of chronic renal failure on dialysis. She has a history of atrial fibrillation and pulmonary embolism and is on apixaban. The patient has been out the [facility] nursing [facility] since October 20 when she was discharged from [facility]. During that hospitalization she has been found to have renal failure requiring dialysis. She was given a dialysis catheter in her right chest. She has been receiving dialysis at [facility] since then. She has a Saturday, Saturday, Saturday dialysis person. Apparently yesterday at the nursing facility she had an episode of low blood pressure which had no associated symptoms. She was given an oral dose of midodrine with improvement in her blood pressure. Apparently early this morning her blood pressure was again low and she was given another dose of midodrine. She seemed to improve sufficiently to be sent to the dialysis portion of her [facility] facility but when she arrived at dialysis her blood pressure was low and she seemed confused. At that point they called an ambulance and she was brought to the hospital. On arrival here she had a large amount of black stool with hypotension. She is apparently nonambulatory at baseline. She has a dialysis catheter in her right chest. She seems somewhat confused and is not able to give any significant history. When asked when she might have started to have black stool she replied ?I do not know. ? She denies pain currently. Specifically she denies headache, chest pain, abdominal pain. No vomiting. Related Data Home Medications ?Medication ?Instructions ?Recorded ?Confirmed albuterol sulfate 90 mcg/actuation 1 inh inhalation Q4-6H PRN 11/04/24 aerosol inhaler Shortness Of Breath Or Wheezing apixaban 2.5 mg tablet (Eliquis) 2.5 mg PO BID 11/04/24 calcitriol 0.25 mcg capsule 0.25 mcg PO DAILY 11/04/24 metoprolol succinate 50 mg 50 mg PO DAILY 11/04/24 tablet,extended release 24 hr simvastatin 20 mg tablet 20 mg PO BEDTIME 11/04/24 sodium bicarbonate 650 mg tablet 650 mg PO BID 11/04/24 Allergies Allergy/AdvReac Type Severity Reaction Status Date / Time penicillin Allergy Unknown Rash Uncoded 11/04/24 06:40 Review of Systems Review of Systems: Yes all other systems are reviewed and are negative [facility] Social History Social History Advance Directives: No Advance Directives Information Provided: Yes Physical Exam ED Vital Signs: Vital Signs - 24 hr 11/04/24 06:34 11/04/24 07:38 11/04/24 07:53 Temperature 97.5 F 96.5 F L 96.6 F L Pulse Rate 78 73 76 Respiratory Rate 24 H 32 H 30 H Blood Pressure 82/53 L 79/42 L 97/52 L Pulse Oximetry 100 Oxygen Delivery Method Room Air 11/04/24 08:19 11/04/24 08:25 11/04/24 08:29 Temperature 96.4 F L 96.4 F L 96.4 F L Pulse Rate 78 75 73 Respiratory Rate 26 H 26 H 22 H Blood Pressure 89/50 L 84/51 L 84/51 L Pulse Oximetry 100 Oxygen Delivery Method Room Air 11/04/24 09:42 11/04/24 10:04 11/04/24 10:38 Temperature 96.8 F 97.0 F 97 F Pulse Rate 77 78 Respiratory Rate 18 76 H 18 Blood Pressure 99/55 L 105/59 L 105/55 L Pulse Oximetry 100 100 Oxygen Delivery Method Room Air Room Air 11/04/24 11:11 11/04/24 11:48 11/04/24 12:05 Temperature 97.4 F 97.5 F 97.5 F Pulse Rate 80 83 83 Respiratory Rate 20 22 H 20 Blood Pressure 101/54 L 102/56 L 111/51 L Pulse Oximetry 96 Oxygen Delivery Method Room Air 11/04/24 12:14 Temperature Pulse Rate 80 Respiratory Rate 20 Blood Pressure 103/54 L Pulse Oximetry 100 Oxygen Delivery Method Room Air BMI result Body Mass Index 31.7 Const Other: The patient had just produced a very large amount of melena. She was covered in stool. She was awake and alert. She seemed somewhat pleasantly confused. She looked weak and chronically ill. She was pleasant and cooperative. HENMT Other: The face is symmetrical. ?Mucous membranes moist. Eyes Other: Pupils are round equal, conjunctivae clear, extraocular movements intact Neck Neck: Yes normal visual inspection, Yes full ROM and Yes no JVD Resp Other: The patient was tachypneic. Lungs are clear. Cardio Rate: regular rate Rhythm: regular rhythm Heart sounds: S1 normal heart sound present and S2 normal heart sound present GI Other: The abdomen did not seem tender. She seemed to have a very large liver on exam. We did not do a digital rectal exam as the patient had produce a lot of stool which was melenic. This tested heme positive. Skin Other: Skin is pale and dry. Neuro Other: The patient was awake. She was pleasant. She seemed mildly confused. Cranial nerves were intact. She seemed to have symmetrical tone in her extremities. Extrem Other: The lower legs are somewhat edematous but without pitting edema. Medications Administered Generic Name Dose Route Start Last Admin Trade Name Freq PRN Reason Stop Dose Admin Pantoprazole Sodium 80 mg/ 100 mls @ 10 mls/hr 11/04/24 07:45 11/04/24 08:03 Sodium Chloride IV 8 mg/hr .Q10H NAKUL 10 mls/hr 8 MG/HR Administration Discontinued Medications Generic Name Dose Route Start Last Admin Trade Name Freq PRN Reason Stop Dose Admin Prothrombin Complex Concent ( 80 mls @ 480 mls/hr 11/04/24 07:20 11/04/24 08:02 Human) 2,000 unit/ IV IV 11/04/24 07:29 Infused Miscellaneous Supplies .Q10M ONE Infusion Phytonadione 10 mg/ Sodium 51 mls @ 51 mls/hr 11/04/24 09:30 11/04/24 10:21 Chloride IV 11/04/24 10:29 Infused ONCE ONE Infusion Sodium Chloride 500 mls @ 500 mls/hr 11/04/24 09:45 11/04/24 12:02 Ns IV 11/04/24 10:44 Infused .Q1H NAKUL Infusion Lactated Ringer's 500 mls @ 999 mls/hr 11/04/24 13:26 11/04/24 13:58 Lr IV 11/04/24 13:56 999 mls/hr .Q31M STA Administration Desmopressin Acetate 20 mcg/ 55 mls @ 100 mls/hr 11/04/24 13:30 11/04/24 14:29 Sodium Chloride IV 11/04/24 14:03 100 mls/hr ONCE STA Administration Pantoprazole Sodium 80 mg 11/04/24 07:37 11/04/24 08:02 Pantoprazole Sodium 40 Mg/10 Ml Vial IVPUSH 11/04/24 07:38 80 mg ONCE ONE Administration Procedures EJ/Peripheral Line Neck R: Time Out Performed: Yes Skin Cleansed in Sterile Fashion: Yes Size (gauge): 20 IV Secured and Dressing Applied: Yes Patient Tolerated Procedure: well Additional Comments: This was a 20 gauge IV catheter in the patient's right external jugular vein. Medical Decision Making Medical Decision Making [facility] Narrative: The patient is an 84-year-old woman who has recently been started on dialysis at her hospitalization last month at [facility]. She has been at the [facility] receiving Saturday dialysis since October 20 when she was discharged from [facility]. She had some asymptomatic hypotension yesterday treated with midodrine. Hypotension returned today and was associated with confusion and she was sent to the hospital here by ambulance. On arrival here she produced a very large amount of melenic black stool. This was heme-positive. She was hypotensive. She was not tachycardic but she is on beta-blockers. The initial impression was that she was having an acute GI bleed and that she was hypotensive because of the GI bleed. Significant consideration of the fact that she is anticoagulated on apixaban. I ordered for factor PCC to reverse her apixaban, pantoprazole bolus and drip, transfusion of packed red blood cells. She was able to sign consent for the packed [place] cells. She was given initially 2 units of uncross matched blood because of her hypotension. IV access was established including a right 20 gauge Angiocath in her external jugular vein placed by me. The case was discussed with the intensive care unit. Recommendation was for resuscitation and re-consultation if the patient remained unstable. I also consulted Dr. Davila of Gastroenterology who requested that the patient additionally receive IV vitamin K and FFP to address an INR of 2. Therefore the patient was treated in the emergency room with 4 factor PCC, pantoprazole, PRBCs, IV fluids, IV vitamin K, and IV FFP. Her blood pressure improved and she seemed to be clinically much brighter. Given her hemodynamic improvement in the emergency department I was ultimately able to consult hospitalist service for admission. A lactate and blood cultures has been sent on arrival. However I do not feel that there was any evidence of an acute infection at work. The patient's lactate was elevated at 7.8. However it is my impression that this elevated lactate is not secondary to an infection or sepsis. I believe the elevated lactate is due to hypotension from an acute upper GI bleed causing a severe drop in the patient's hemoglobin to 4.8. Her baseline hemoglobin is 7.5. Corroborating the diagnosis of an upper GI bleed is an elevation in her BUN of 68, her baseline is in the 30s or 40s. The Lab Data 11/04/24 12:44 11/04/24 07:19 Labs: Lab Results 11/04/24 11/04/24 11/04/24 Range/Units 06:39 07:18 07:19 WBC 19.3 H (4.8-10.8) X10*3/uL RBC 1.66 L D (4.20-5.50) X10*6/uL Hgb 4.6 L* D (12.0-16.0) g/dl Hct 15.3 L* D (37.0-47.0) % MCV 92.2 (80.0-98.0) fL MCH 27.7 (27.0-33.0) pg MCHC 30.1 L (31.0-35.0) g/dl RDW 17.1 H (11.0-16.0) % Plt Count 278 (160-400) X10*3/uL MPV 10.3 (9.4-12.3) fL Immature Gran % (Auto) 3.3 H (0.0-0.4) % Neut % (Auto) 74.4 H (45-73) % Lymph % (Auto) 17.0 L (20-40) % Cotton % (Auto) 4.0 (2-11) % Eos % (Auto) 1.0 (0-4) % Baso % (Auto) 0.3 (0-2) % Lymph # (Auto) 3.3 (1.2-4.9) X10*3/uL Cotton # (Auto) 0.8 (0.1-1.2) X10*3/uL Eos # (Auto) 0.2 (0.0-0.4) X10*3/uL Baso # (Auto) 0.1 (0.0-0.2) X10*3/uL Abs Immat Gran (auto) 0.64 H (0.00-0.03) X10*3/uL Absolute Neuts (auto) 14.4 H (2.0-8.3) x10*3/uL Absolute Nucleated RBC 0.020 H (0.0-0.012) X10*3/uL Nucleated RBC % (auto) 0.1 (0.0-0.2) /100WBC Smear Path Review SEE NOTE PT 23.6 H (10.9-12.4) SEC INR 2.1 H (0.9-1.1) VBG pH (7.32-7.43) VBG pCO2 mmHg VBG pO2 mmHg VBG HCO3 (22-26) mmol/L VBG O2 Saturation VBG Base Excess mmol/L Sodium 138 (135-145) mmol/L Potassium 4.1 (3.3-5.1) mmol/L Chloride 101 (96-108) mmol/L Carbon Dioxide 20 L (22-29) mmol/L Anion Gap 21 H (12-20) BUN 68 H (9-16) mg/dL Creatinine 4.27 H* (0.5-1.4) mg/dL Estim Creat Clear Calc 11.1 Estimated GFR 10 POC Glucose 96 (60-115) mg/dL Random Glucose 113 (60-115) mg/dL Lactic Acid 7.8 H* (0.5-2.0) mmol/L Lactic Acid F/U @ 2Hr (0.5-2.0) mmol/L Calcium 7.7 L (8.4-10.2) mg/dL Magnesium 2.1 (1.6-2.6) mg/dL Total Bilirubin 0.8 (0.0-1.0) mg/dL Direct Bilirubin 0.4 (0.0-0.5) mg/dL AST 84 H (5-31) U/L ALT 40 H (0-31) U/L Alkaline Phosphatase 826 H (39-117) U/L Troponin I High Sens 43.1 H (<3.5-17.0) ng/L C-Reactive Protein 6.23 H (< or = 0.50) mg/dL B-Natriuretic Peptide 132 H (<100) pg/mL Total Protein 5.2 L (6.5-8.0) g/dL Albumin 2.2 L (3.5-5.0) g/dL Lipase 66 (8-78) U/L Urine Color Urine Appearance Urine pH (5.0-9.0) Ur Specific [place] (1.005-1.025) Urine Protein (Neg-Trace) mg/dL Urine Glucose (UA) (Negative) mg/dL Urine Ketones (Negative) mg/dL Urine Blood (Negative) Urine Nitrite (Negative) Ur Leukocyte Esterase (Negative) Urine RBC (0-2) /HPF Urine WBC (0-5) /HPF Ur Squamous Epith Cells (0-2) /HPF Urine Bacteria (None Seen) Hyaline Casts (0-2) /LPF Stool Occult Blood POSITIVE (NEGATIVE) Ethyl Alcohol 14 mg/dL Influenza Type A (PCR) (Negative) Influenza Type B (PCR) (Negative) RSV RNA Qual (PCR) (Negative) SARS-CoV-2 RNA (RT-PCR) (Negative) Blood Type A Positive Antibody Screen NEGATIVE Crossmatch See Detail 11/04/24 11/04/24 11/04/24 Range/Units 07:28 07:30 10:08 WBC (4.8-10.8) X10*3/uL RBC (4.20-5.50) X10*6/uL Hgb (12.0-16.0) g/dl Hct (37.0-47.0) % MCV (80.0-98.0) fL MCH (27.0-33.0) pg MCHC (31.0-35.0) g/dl RDW (11.0-16.0) % Plt Count (160-400) X10*3/uL MPV (9.4-12.3) fL Immature Gran % (Auto) (0.0-0.4) % Neut % (Auto) (45-73) % Lymph % (Auto) (20-40) % Cotton % (Auto) (2-11) % Eos % (Auto) (0-4) % Baso % (Auto) (0-2) % Lymph # (Auto) (1.2-4.9) X10*3/uL Cotton # (Auto) (0.1-1.2) X10*3/uL Eos # (Auto) (0.0-0.4) X10*3/uL Baso # (Auto) (0.0-0.2) X10*3/uL Abs Immat Gran (auto) (0.00-0.03) X10*3/uL Absolute Neuts (auto) (2.0-8.3) x10*3/uL Absolute Nucleated RBC (0.0-0.012) X10*3/uL Nucleated RBC % (auto) (0.0-0.2) /100WBC Smear Path Review PT (10.9-12.4) SEC INR (0.9-1.1) VBG pH 7.48 H (7.32-7.43) VBG pCO2 29 mmHg VBG pO2 52 mmHg VBG HCO3 22 (22-26) mmol/L VBG O2 Saturation TNP VBG Base Excess -1.0 mmol/L Sodium (135-145) mmol/L Potassium (3.3-5.1) mmol/L Chloride (96-108) mmol/L Carbon Dioxide (22-29) mmol/L Anion Gap (12-20) BUN (9-16) mg/dL Creatinine (0.5-1.4) mg/dL Estim Creat Clear Calc Estimated GFR POC Glucose (60-115) mg/dL Random Glucose (60-115) mg/dL Lactic Acid (0.5-2.0) mmol/L Lactic Acid F/U @ 2Hr 4.3 H* (0.5-2.0) mmol/L Calcium (8.4-10.2) mg/dL Magnesium (1.6-2.6) mg/dL Total Bilirubin (0.0-1.0) mg/dL Direct Bilirubin (0.0-0.5) mg/dL AST (5-31) U/L ALT (0-31) U/L Alkaline Phosphatase (39-117) U/L Troponin I High Sens (<3.5-17.0) ng/L C-Reactive Protein (< or = 0.50) mg/dL B-Natriuretic Peptide (<100) pg/mL Total Protein (6.5-8.0) g/dL Albumin (3.5-5.0) g/dL Lipase (8-78) U/L Urine Color Urine Appearance Urine pH (5.0-9.0) Ur Specific [place] (1.005-1.025) Urine Protein (Neg-Trace) mg/dL Urine Glucose (UA) (Negative) mg/dL Urine Ketones (Negative) mg/dL Urine Blood (Negative) Urine Nitrite (Negative) Ur Leukocyte Esterase (Negative) Urine RBC (0-2) /HPF Urine WBC (0-5) /HPF Ur Squamous Epith Cells (0-2) /HPF Urine Bacteria (None Seen) Hyaline Casts (0-2) /LPF Stool Occult Blood (NEGATIVE) Ethyl Alcohol mg/dL Influenza Type A (PCR) NEGATIVE (Negative) Influenza Type B (PCR) NEGATIVE (Negative) RSV RNA Qual (PCR) NEGATIVE (Negative) SARS-CoV-2 RNA (RT-PCR) NEGATIVE (Negative) Blood Type Antibody Screen Crossmatch 11/04/24 Range/Units 11:17 WBC (4.8-10.8) X10*3/uL RBC (4.20-5.50) X10*6/uL Hgb (12.0-16.0) g/dl Hct (37.0-47.0) % MCV (80.0-98.0) fL MCH (27.0-33.0) pg MCHC (31.0-35.0) g/dl RDW (11.0-16.0) % Plt Count (160-400) X10*3/uL MPV (9.4-12.3) fL Immature Gran % (Auto) (0.0-0.4) % Neut % (Auto) (45-73) % Lymph % (Auto) (20-40) % Cotton % (Auto) (2-11) % Eos % (Auto) (0-4) % Baso % (Auto) (0-2) % Lymph # (Auto) (1.2-4.9) X10*3/uL Cotton # (Auto) (0.1-1.2) X10*3/uL Eos # (Auto) (0.0-0.4) X10*3/uL Baso # (Auto) (0.0-0.2) X10*3/uL Abs Immat Gran (auto) (0.00-0.03) X10*3/uL Absolute Neuts (auto) (2.0-8.3) x10*3/uL Absolute Nucleated RBC (0.0-0.012) X10*3/uL Nucleated RBC % (auto) (0.0-0.2) /100WBC Smear Path Review PT (10.9-12.4) SEC INR (0.9-1.1) VBG pH (7.32-7.43) VBG pCO2 mmHg VBG pO2 mmHg VBG HCO3 (22-26) mmol/L VBG O2 Saturation VBG Base Excess mmol/L Sodium (135-145) mmol/L Potassium (3.3-5.1) mmol/L Chloride (96-108) mmol/L Carbon Dioxide (22-29) mmol/L Anion Gap (12-20) BUN (9-16) mg/dL Creatinine (0.5-1.4) mg/dL Estim Creat Clear Calc Estimated GFR POC Glucose (60-115) mg/dL Random Glucose (60-115) mg/dL Lactic Acid (0.5-2.0) mmol/L Lactic Acid F/U @ 2Hr (0.5-2.0) mmol/L Calcium (8.4-10.2) mg/dL Magnesium (1.6-2.6) mg/dL Total Bilirubin (0.0-1.0) mg/dL Direct Bilirubin (0.0-0.5) mg/dL AST (5-31) U/L ALT (0-31) U/L Alkaline Phosphatase (39-117) U/L Troponin I High Sens (<3.5-17.0) ng/L C-Reactive Protein (< or = 0.50) mg/dL B-Natriuretic Peptide (<100) pg/mL Total Protein (6.5-8.0) g/dL Albumin (3.5-5.0) g/dL Lipase (8-78) U/L Urine Color Dark Yellow Urine Appearance Clear Urine pH 7.0 (5.0-9.0) Ur Specific [place] 1.015 (1.005-1.025) Urine Protein 300 (3+) H (Neg-Trace) mg/dL Urine Glucose (UA) Negative (Negative) mg/dL Urine Ketones Negative (Negative) mg/dL Urine Blood Trace H (Negative) Urine Nitrite Negative (Negative) Ur Leukocyte Esterase Small (1+) H (Negative) Urine RBC 0-2 (0-2) /HPF Urine WBC 0-5 (0-5) /HPF Ur Squamous Epith Cells 3-5 (0-2) /HPF Urine Bacteria None Seen (None Seen) Hyaline Casts 0-2 (0-2) /LPF Stool Occult Blood (NEGATIVE) Ethyl Alcohol mg/dL Influenza Type A (PCR) (Negative) Influenza Type B (PCR) (Negative) RSV RNA Qual (PCR) (Negative) SARS-CoV-2 RNA (RT-PCR) (Negative) Blood Type Antibody Screen Crossmatch Independent Interpretation I performed an independent interpretation of an: EKG Interpretation: EKG at 07:51 shows normal sinus rhythm at 77 beats per minute. QT interval is 506. No acute ischemic changes. Critical Care Time Critical Care Time Critical Care Time: Yes Total Critical Care Time: 35 Attestation: The patient was critically ill with a high probability of imminent or life-threatening deterioration. ?I spent greater than 30 minutes of discontinuous time evaluating the patient, delivering critical care at the bedside, discussing evaluating data with consultants. ?Critical care time does not include time spent performing separately billable procedures or teaching. ?Time spent performing critical care with 35 minutes. Discharge Plan Discharge Clinical Impression: Acute upper GI bleed, Severe anemia, Renal failure Patient Disposition: Admitted As Inpatient
--- NOTE | 2024-11-04 06:55 | ECG_ITS ---
Test Reason : weakness Blood Pressure : */* mmHG Vent. Rate : 77 BPM Atrial Rate : 77 BPM P-R Int : 174 ms QRS Dur : 90 ms QT Int : 448 ms P-R-T Axes : 49 13 79 degrees QTcB Int : 506 ms Normal sinus rhythm Prolonged QT Abnormal ECG No previous ECGs available Referred By: Hebret Villareal Electronically Signed By: MILTON MOONEY
[2024-11-04 07:28] LABS: MANUAL DIFF FLAG NO
[2024-11-04 07:29] LABS: Venous Blood Gas Refer to POC result
[2024-11-04 07:30] LABS: OBS Int Ctl Valid YES; OBS1 POSITIVE (NEGATIVE)
[2024-11-04 07:33] LABS: VBG HCO3 22 mmol/L (22-26)
[2024-11-04 07:33] LABS: Glucose, Whole Blood 96 mg/dL (60-115)
[2024-11-04 07:35] LABS: INTERNATIONAL NORM RATIO 2.1 (0.9-1.1); Imm Gran Abs Auto 0.64 X10*3/uL (0.00-0.03); Imm Gran Pct Auto 3.3 % (0.0-0.4); Lymphocytes Absolute Auto 3.3 X10*3/uL (1.2-4.9); Mean Corpuscular HGB Conc 30.1 g/dl (31.0-35.0); Mean Corpuscular Hemoglobin 27.7 pg (27.0-33.0); Mean Corpuscular Volume 92.2 fL (80.0-98.0); NRBC Abs Auto 0.020 X10*3/uL (0.0-0.012); NRBC Pct Auto 0.1 /100WBC (0.0-0.2); Platelet Count 278 X10*3/uL (160-400); Prothrombin Time 23.6 SEC (10.9-12.4); Red Blood Count 1.66 X10*6/uL (4.20-5.50); White Blood Count 19.3 X10*3/uL (4.8-10.8)
[2024-11-04 07:42] LABS: Hematocrit 15.3 % (37.0-47.0); Hemoglobin 4.6 g/dl (12.0-16.0)
[2024-11-04] MEDS: Hum Prothrombin Cplx(PCC)4Fact 2,000 UNIT in Container,Empty 0 ML 480 UNIT IV (07:47)
[2024-11-04 07:51] LABS: B Type Natriuretic Peptide 132 pg/mL (<100)
[2024-11-04 07:53] LABS: Troponin-I High Sensitivity 43.1 ng/L (<3.5-17.0)
[2024-11-04 07:54] LABS: Alanine Aminotransferase 40 U/L (0-31); Albumin Level 2.2 g/dL (3.5-5.0); Alkaline Phosphatase 826 U/L (39-117); Anion Gap 21 (12-20); Aspartate Amino Transferase 84 U/L (5-31); Blood Urea Nitrogen 68 mg/dL (9-16); Calcium 7.7 mg/dL (8.4-10.2); Carbon Dioxide 20 mmol/L (22-29); Chloride 101 mmol/L (96-108); Creatinine Clr Calc Pharmacy 11.1; Estimated Glomerular Filt Rate 10; Lipase 66 U/L (8-78); Magnesium 2.1 mg/dL (1.6-2.6); Potassium 4.1 mmol/L (3.3-5.1); Sodium 138 mmol/L (135-145); Total Protein 5.2 g/dL (6.5-8.0)
[2024-11-04] MEDS: Pantoprazole Sodium 80 MG in 0.9 % Sodium Chloride 80 ML 10 MG IV ×2 (08:03→17:02)
[2024-11-04 08:27] LABS: Resp Syncy Virus RNA Qual PCR NEGATIVE (Negative); SARS COV2 PCR INHOUSE NEGATIVE (Negative)
--- NOTE | 2024-11-04 08:37 | PC.NURSE ---
jesse care of patient at 0645, patient newly arrived to ED via ems, patient coming from outpatient dialysis center, dialysis MWF. patient states she feels unwell does not go into much detail, denies pain at this time. patient had large copious amount of liquid dark tarry stool in brief/pants. patient cleaned up, aries care provided. patient noted to have deep tissue pressure injury on coccyx, aprox stage 2, along with DTPI on skin fold near groin area, patient has dialysis catheter to right chest, noted ot have bilat lower leg edema and trunk edema. patient changed into clean hospital attire. Bilat #20 IV access placed, labs drawn and obtained. patient placed on tele, noted to be NSR at this time but remains hypotensive. patient rectal temp 96.5, rectal temp probe placed for temperature monitoring, emergency release blood and consents obtained by ED doctor, first unit hung per TAR, running at 100ml/hr, secondary unit hung late due to provider permission since patient is TACO risk, currently running 100ml/hr. patient medicated per MAY. patient is alert and oriented x3, denies any pain at this time, states she feels tired and cold. patient given warm blankets, states she is in a comfortable position at this time, call jackson within reach
[2024-11-04 09:26] LABS: Reflex Lactate? Lactic Acid Added
[2024-11-04 10:37] LABS: ~Lactic Acid-LAB USE ONLY 4.3 mmol/L (0.5-2.0)
[2024-11-04 11:23] LABS: Appearance Urine Clear; Glucose Urine UA Negative (Negative); PH 7.0 (5.0-9.0); Specific Gravity - Urine 1.015 (1.005-1.025); UMIC TRIGGER UACC YES
[2024-11-04 11:30] LABS: UACC Culture Trigger YES
--- NOTE | 2024-11-04 11:59 | PC.NURSE ---
Addendum entered by Jen Loaiza RN 11/04/24 12:02: ffp running at 100ml/hr per ED provider order Original Note: patient bladder scanned showing greater than 981 ml in bladder, 16fr dominguez placed, over 900cc urine output, noted to be dark indra. see TAR for PRBC tx and FFP tx. patient remains alert and oriented x3, VSS. patient no longer hypotensive, nor hypothermic. patient son lyndsay at the bedside.
--- OUTSIDE RECORDS SUMMARY | 2024-11-04 12:05 | XMS_ITS | Encounter Summary ---
Author Organization [facility]. Address [address] [place] [address] Phone Care Team Providers Care Thermal Cutter Helper Name Role Phone Wander Hercules MD Primary Care Provider [phone] Encounter Details Date Type Department Care Team (Late st Contact Info) Description 10/23/2024 Treatment [facility] [address] [place] [address] Debbie Norton MD [address] [place] [address] End stage renal disease; Dependence [...] consent obtained. This patient was personally seen [id number] for a basic visit as part of routine monthly dialysis care for end stage renal disease. Attending Building Energy Consultant: DEBBIE NORTON Dialysis Location: [facility] Schedule: Shift: 2 OVERVIEW COMMENTS: 10/24/27 [...] dialysis documented in this encounter Care Teams Thermal Cutter Helper Relationship Specialty Start Date End Date Wander Hercules MD [address] [place], [place] PCP - General 04/11/20 documented as of this encounter
--- OUTSIDE RECORDS SUMMARY | 2024-11-04 12:05 | XMS_ITS | Clinical Summary ---
Author Organization [address] Address [address] [place] [id number] Phone Care Team Providers Care Journeyman Patternmaker Name Role Phone Wander Hercules MD Primary Care Provider [phone] Allergies Active Allergy Reactions Criticality Noted Date [...] to complete this topic Insurance MEDICARE MANAGED [facility] MEDICARE MANAGED [facility] MEDICARE MANAGED [facility] Care Teams Journeyman Patternmaker Relationship Specialty Start Date End Date Wander Hercules MD [address] [place] [id number] PCP - General Internal Medicine 04/29/19
--- OUTSIDE RECORDS SUMMARY | 2024-11-04 12:05 | XMS_ITS | Clinical Summary ---
Author Organization [facility] Address [address] [place] [address] Care Team Providers Care Bakery Technician Name Role Phone Wander Hercules MD Primary Care Provider [phone] Social History Tobacco Use Types Packs/Day Years [...] [employer] [place] [employer] MEDICARE Care Teams Bakery Technician Relationship Specialty Start Date End Date Wnader Hercules MD [address] [place] [id number] PCP - General 09/03/22
--- OUTSIDE RECORDS SUMMARY | 2024-11-04 12:06 | XMS_ITS ---
Author Organization [facility] Care Team Providers Care Pest Control Worker Name Role Phone RavinGardeniaLinda Unavailable Unavailable Itz Valdez Unavailable Unavailable Jaquan Evans Unavailable Unavailable Allergies and adverse reactions Code CodeSystem Substance Reaction Severity StartDate Concern Status 334052193 SNOMED CT Eggs Moderate 10/20/2024 active Care Team Name Role Address Phone Organization Dates Jaquan Cristina PCP [address] [place] [address], [id number], [facility] (Office): : [facility] 10/20/2024 - present Linda Ravin [address], [address], [facility] (Office): : [facility] 10/20/2024 - present Itz Bzjaime [address] [place] [address], [id number], [facility] (Office): : [facility] 10/20/2024 - present Imaging Narrative Note Date Imaging Narrative No te 11/03/2024 ANKLE 2V, LEFTFINDIN GS: The ankle mortise is preserved without fracture or dislocation. There is ankle soft tissue swelling. No foreign body is seen.CONCLUSION: Ankle swelling.ELECTRONICALLY SIGNED BY ZEINAB MOORE D.O. 11/03/2024 5:52:08 PM EDT.Reason for Study: T84.7XXA INFECTION AND INFLAMMATORY REACTION DUE TO OTHER INTERNAL ORTHOPEDIC PROSTHETIC DEVICES, IMPLANTS AND GRAFTS, INITIAL ENCOUNTERPrincipal Result Corporate Real Estate Specialist: ZEINAB MOORE ([phone])Investment Underwriter: HILDA DIGGS (BBIRKS)Dye Tub Operator Investment Underwriter: CECE Goals Section Goals Description Status Target Date I plan to discharge to: Spec tyra- To community alone, To Community with Family, [facility], LTC Placement, Other- Undecided at current time. Pending outcome of therapy sessions, clinical medical stability progress reviewed weekly. Active 01/26/2025 I will attend/participate in activities of choice (Specify i.e.3-5 times weekly) by next review date. Active 01/26/2025 I will be at reduced risk fo r complications of self care performance deficit and impaired mobility daily through the review date. Active 01/26/2025 I will be free from discomfo rt or adverse side effects of anticoagulant therapy through the review date. Active 025 I will be free from s/sx of complications of cardiac problems through the review date. Active 01/26/2025 I will be free from s/sx of dehydration through next review date. Active 01/26/2025 I will have no signs or symp toms of complications from dialysis through the next review date. Active 01/26/2025 I will maintain adequate nut ritional status as evidenced by maintaining weight within +/-5% of CBW, no s/sx of malnutrition, and consuming >51% of all meals daily through review date. Active 01/26/2025 I will maintain or improve m y independence and mobility through review date. Active 01/26/2025 I will not have complication s related to anemia through the review date. Active 01/26/2025 I will remain free of sympto ms and complications of low oxygen levels, such as shortness of breath, dizziness, tachycardia, headache through review date. Active 01/26/2025 I will verbalize adequate re lief of pain or ability to cope with incompletely relieved pain through the review date. Active My risk for zhang will be mitigated through revi ew date. Active 01/26/2025 My risk for respiratory comp lications and infections will be mitigated through the review date. Active 01/26/2025 My skin integrity will be im proved or maintained by next review date. Active 01/26/2025 The resident will have intac t skin, free of redness, blisters, or discoloration through review date. Active 01/26/2025 The resident's advance direc tives are in effect and their wishes will be carried out through the next review. Active Functional Status Code Name Recorded Time Value Entered By Eating 11/03/2024 Independent molivo Lying to sitting on side of bed 11/04/2024 Dependent levital Oral hygiene 11/04/2024 Not assessed levital Personal hygiene 11/04/2024 Substantial/maximal assi stance levital Shower/bathe self 11/03/2024 Substantial/maximal ass istance spolastri Sit to lying 11/04/2024 Dependent levital Toilet transfer 11/04/2024 Not assessed levital Toileting hygiene 11/04/2024 Substantial/maximal ass istance levital Immunizations Immunization Status Vaccine Details Vaccine Code CodeSystem Date Notes (Shingles) Vaccine completed zoster vaccine recombinant 187 CVX created date: 10/27/2024 administer ed date: 05/14/2022 first dose 03/14/20 22 PPSV23 (Previous Pneumococcal Polysaccharide)V accine completed pneumococcal polysaccharide vaccine, 23 valent 33 CVX created date: 10/21/2024 administer ed date: 04/01/2013 Pfizer Covid-19 Booster (SARS-COV-2) vaccine completed SARS-COV-2 (COVID-19) vaccine, mRNA, spike protein, LNP, preservative free, 30 mcg/0.3mL dose lotNumber: [id number] CVX created date: 10/21/2024 administer ed date: 12/31/2020 Pfizer Covid-19 Booster (SARS-COV-2) vaccine completed SARS-COV-2 (COVID-19) vaccine, mRNA, spike protein, LNP, preservative free, 30 mcg/0.3mL dose lotNumber: [id number] CVX created date: 10/21/2024 administer ed date: 05/24/2020 Pfizer Covid-19 Booster (SARS-COV-2) vaccine completed SARS-COV-2 (COVID-19) vaccine, mRNA, spike protein, LNP, preservative free, 30 mcg/0.3mL dose lotNumber: [id number] CVX created date: 10/21/2024 administer ed date: 05/03/2020 COVID-19, mRNA, LNP-S, PF, 30 mcg/0.3 mL dose, michael-sucrose completed SARS-COV-2 (COVID-19) vaccine, mRNA, spike protein, LNP, preservative free, 30 mcg/0.3mL dose, michael-sucrose formulation lotNumber: [id number] Mfg: Notice Kiosk Given 0.3 217 CVX created date: 10/21/2024 administer ed date: 10/20/2021 doseUOMN oncoded: Unknown (Influenza) FLUAD - Adjuvanted - High Dose - 65+ completed Influenza, adjuvanted, inactivated, trivalent, injectable, preservative free 168 CVX created date: 10/27/2024 administer ed date: 04/06/2024 (COVID-19) Updated Pfizer Vaccine completed SARS-COV-2 (COVID-19) vaccine, mRNA, spike protein, LNP, preservative free, michael-sucrose, 30 mcg/0.3 mL dose 309 CVX created date: 10/27/2024 administer ed date: 04/24/2024 Medications Section Medication Name Status Code CodeSystem Dose Route Frequency Admin Type Sig Text Start Date End Date Acetaminophen Oral Tablet 325 MG active 482106 RXNORM 2 tablet Oral as needed PRN Give 2 tablet by mouth every 6 hours as needed for Pain Total Dose 650mg * *DO NOT EXCEED 3 grams in 24 hours* * AND Give 2 tablet by mouth every 6 hours as needed for Temper ature greate r than 101.F Total Dose 650mg * *DO NOT EXCEED 3 grams in 24 hours* * 2024 - 401525 RXNORM 2 tablet Oral as needed PRN Give 2 tablet by mouth every 6 hours as needed for Pain Total Dose 650mg * *DO NOT EXCEED 3 grams in 24 hours* * AND Give 2 tablet by mouth every 6 hours as needed for Temper ature greate r than 101.F Total Dose 650mg * *DO NOT EXCEED 3 grams in 24 hours* * 2024 - Tubersol Solution 5 UNIT/0.1ML complete d 140182 RXNORM 0.1 ml Intrade rmal one time only One Time Only Inject 0.1 ml intrad ermall y one time only for Screen ing For TB until 2024 23:59 record indura tion in millim eters; Read PPD in 48 hours, notify physic nida if positi ve and discon tinue 2-step . 10/21 Tubersol Solution 5 UNIT/0.1ML complete d 578118 RXNORM 0.1 ml Intrade rmal one time only One Time Only Inject 0.1 ml intrad ermall y one time only for Screen ing For TB until 2024 23:59 record indura tion in millim eters; Read PPD in 48 hours, notify physic nida if positi ve. 11/04 Bisacodyl Rectal Suppository 10 MG active 112891 RXNORM 1 suppos itory Rectal as needed PRN Insert 1 suppos itory rectal ly every 24 hours as needed for Consti pation Give 1 Suppos itory (10mg) via rectum if no result s from Milk of Magnes ia after 24 hours. 2024 - Fleet Enema Rectal Enema 7-19 GM/118ML active 745278 RXNORM 1 applic ator Rectal as needed PRN Insert 1 applic ator rectal ly as needed for Consti pation Give 1 applic ator full (118 ml)if no result s from Bisaco dyl suppos itory. 2024 - Milk of Magnesia Oral Suspension 400 MG/5ML active 235057 RXNORM 30 ml Oral as needed PRN Give 30 ml by mouth every 24 hours as needed for Consti pation Give 30ml by mouth if no bowel moveme nt in 3 days (9 Shifts ). 2024 - Senna Oral Tablet 8.6 MG aborted 1 tablet Oral two times a day Routine Give 1 tablet by mouth two times a day for LAXATI VES, CHEMIC ALS 10/20 Calcitriol Oral Capsule 0.25 MCG aborted 684402 RXNORM 0.25 mcg Oral one time a day Routine Give 0.25 mcg by mouth one time a day every Mon, Wed, Fri for ENDOCR INE AND METABO LIC AGENTS - MISC., DERMAT OLOGIC ALS, GABBI 10/20 Azelastine HCl Solution 137 MCG/SPRAY aborted 296686 7 RXNORM 2 spray Nasal two times a day Routine 2 spray in both nostri ls two times a day for NASAL AGENTS - SYSTEM IC AND TOPICA L, OPHTHA LMIC AGENTS , CHEM 10/21 Senna Oral Tablet 8.6 MG aborted 1 tablet Oral two times a day Routine Give 1 tablet by mouth two times a day for Consti pation HOLD FOR LOOSE STOOLS 10/21 Beclomethason e Diprop HFA Inhalation Aerosol Breath Activated 80 MCG/ACT aborted 175858 1 RXNORM 80 mcg Inhalat ion two times a day Routine 80 mcg inhale orally two times a day for ANTIAS THMATI C AND BRONCH ODILAT OR AGENTS 10/21 Albuterol Sulfate HFA Inhalation Aerosol Solution 108 (90 Base) MCG/ACT active 017056 RXNORM 2 puff Inhalat ion as needed PRN 2 puff inhale orally every 4 hours as needed for ANTIAS THMATI C AND BRONCH ODILAT OR AGENTS 2024 - Calcitriol Oral Capsule 0.25 MCG aborted 922447 RXNORM 1 capsul e Oral one time a day Routine Give 1 capsul e by mouth one time a day every Mon, Wed, Fri for ENDOCR INE AND METABO LIC AGENTS - MISC., DERMAT OLOGIC ALS, GABBI 10/28 Ferrous Sulfate Tablet 325 (65 Fe) MG active 623323 RXNORM 1 tablet Oral one time a day Routine Give 1 tablet by mouth one time a day for supple mentat ion 2024 - hydrALAZINE HCl Oral Tablet 25 MG active 650797 RXNORM 1 tablet Oral two times a day Routine Give 1 tablet by mouth two times a day for ANTIHY PERTEN SIVES, CHEMIC ALS 2024 - Fluticasone Propionate Nasal Suspension 50 MCG/ACT active 685062 7 RXNORM 1 spray Nasal one time a day Routine 1 spray in both nostri ls one time a day for NASAL AGENTS - SYSTEM IC AND TOPICA L, DERMAT OLOGIC ALS, CHEMIC 2024 - Metoprolol Succinate ER Tablet Extended Release 24 Hour 50 MG aborted 016954 RXNORM 1 tablet Oral one time a day Routine Give 1 tablet by mouth one time a day for BETA BLOCKE RS *Hold if Systol ic Blood Pressu re is less than <100 * Hold if Apical Pulse is less than <60 10/21 Sodium Bicarbonate Oral Tablet 650 MG active 600611 RXNORM 650 mg Oral before meals Routine Give 650 mg by mouth before meals for ANTACI DS, VAGINA L AND RELATE D PRODUC TS, MINERA LS & ELECTR NARA 2024 - Simvastatin Oral Tablet 20 MG active 719801 RXNORM 20 mg Oral at bedtime Routine Give 20 mg by mouth at bedtim e for ANTIHY PERLIP IDEMIC S, CHEMIC ALS 2024 - Apixaban Oral Tablet 2.5 MG aborted 473333 5 RXNORM 2.5 mg Oral two times a day Routine Give 2.5 mg by mouth two times a day for ANTICO AGULAN TS 10/21 Metoprolol Succinate ER Tablet Extended Release 24 Hour 50 MG active 214361 RXNORM 1 tablet Oral one time a day Routine Give 1 tablet by mouth one time a day for BETA BLOCKE RS *Hold if Systol ic Blood Pressu re is LESS THAN 100 * Hold if Apical Pulse is LESS THAN 60 2024 - Senna Oral Tablet 8.6 MG active 1 tablet Oral two times a day Routine Give 1 tablet by mouth two times a day for Consti pation HOLD FOR LOOSE STOOLS 2024 - Azelastine HCl Solution 137 MCG/SPRAY active 781335 7 RXNORM 2 spray Nasal two times a day Routine 2 spray in both nostri ls two times a day for NASAL AGENTS - SYSTEM IC AND TOPICA L, OPHTHA LMIC AGENTS , CHEM 2024 - Apixaban Oral Tablet 2.5 MG active 161747 5 RXNORM 2.5 mg Oral two times a day Routine Give 2.5 mg by mouth two times a day for ANTICO AGULAN TS 2024 - Beclomethason e Diprop HFA Inhalation Aerosol Breath Activated 80 MCG/ACT active 774051 1 RXNORM 80 mcg Inhalat ion two times a day Routine 80 mcg inhale orally two times a day for ANTIAS THMATI C AND BRONCH ODILAT OR AGENTS AFTER EACH USE RINSE WITH WATER AND SPIT 2024 - Tubersol Solution 5 UNIT/0.1ML complete d 756656 RXNORM 0.1 ml Intrade rmal one time only One Time Only Inject 0.1 ml intrad ermall y one time only for screen ing until 2024 15:00 record indura tion in millim eters; Read PPD in 48 hours, notify physic nida if positi ve and discon tinue 2-step . 10/21 Docusate Sodium Capsule 100 MG complete d 827464 5 RXNORM 1 capsul e Oral two times a day Routine Give 1 capsul e by mouth two times a day for consti pation for 3 Days 10/29 Ascorbic Acid Tablet 500 MG active 808073 RXNORM 1 tablet Oral one time a day Routine Give 1 tablet by mouth one time a day for Anemia 2024 - Diclofenac Sodium External Gel 1 % active 967977 RXNORM n/a n/a Topical two times a day Routine Apply to Left Ankle topica lly two times a day for pain 2024 - Midodrine HCl Oral Tablet 5 MG active 226808 RXNORM 1 tablet Oral two times a day Routine Give 1 tablet by mouth two times a day for HOLD FOR SBP GREATE R THAN 100 DO NOT GIVE AFTER EVENIN G MEAL OR WITHIN 4 HOURS OF BEDTIM E TO AVOID SUPINE HYPERT ENSION 2024 - Midodrine HCl Oral Tablet 10 MG active 108544 RXNORM 10 mg Oral one time only One Time Only Give 10 mg by mouth one time only for low bp for 1 Day 08/05/ 2025 08/06 /2025 Mental Status Section Date Assessment Total Score Description 10/26/2024 BIMS 15 cognitively int act CAM 0 No delirium ind icated PHQ-9 00 Problems Problem # Description Date of onset Resolved Date Code CodeSystem Concern Status 1 POLYCYSTIC KIDNEY, UNSPECIFIED 10/22/[address] active 2 ACUTE KIDNEY FAILURE, UNSPECIFIED 10/20/[address] active 3 ANEMIA, UNSPECIFIED 10/20/[address] active 4 CHRONIC KIDNEY DISEASE, UNSPECIFIED 10/20/[address] active 5 DEPENDENCE ON RENAL DIALYSIS 10/20/[address] active 6 DIVERTICULITIS OF INTESTINE, PART UNSPECIFIED, WITHOUT PERFORATION OR ABSCESS WITHOUT BLEEDING 10/20/[address] active 7 ELEVATED WHITE BLOOD CELL COUNT, UNSPECIFIED 10/20/[address] active 8 END STAGE RENAL DISEASE 10/20/[address] active 9 ESSENTIAL (PRIMARY) HYPERTENSION 10/20/[address] active 10 MUSCLE WASTING AND ATROPHY, NOT ELSEWHERE CLASSIFIED, MULTIPLE SITES 10/20/[address] active 11 PERSONAL HISTORY OF PULMONARY EMBOLISM 10/20/[address] active 12 SEPSIS, UNSPECIFIED ORGANISM 10/20/[address] active 13 UNSPECIFIED ATRIAL FIBRILLATION 10/20/[address] active 14 WEAKNESS 10/20/[address] active Reason for Referral No Reasons for Referral Entered Diagnostic Results Result Code Code System Date Test Result Interpretation Reference Range Status Notes 96468-1 LOINC 2024 ANKLE 2V Completed Result for: CHRISTAL WHARTON ( 1940, F) 24546-1 LOINC 2024 ANKLE 2V Final ANKLE 2V, LEFTFINDINGS: The ankle mortise is preserved without fracture or dislocation. There is ankle soft tissue swelling. No foreign body is seen.CONCLUSI ON: Ankle swelling.ELEC TRONICALLY SIGNED BY ZEINAB MOORE D.O. 11/03/2024 5:52:08 PM EDT.Reason for Study: T84.7XXA INFECTION AND INFLAMMATORY REACTION DUE TO OTHER INTERNAL ORTHOPEDIC PROSTHETIC DEVICES, IMPLANTS AND GRAFTS, INITIAL ENCOUNTERPrin cipal Result Corporate Real Estate Specialist: ZEINAB MOORE ([phone])T echnician: HILDA DIGGS (BBIRKS)Trans cription Investment Underwriter: CECE Test Code Code System Name Date 11/03/2024 Social History Social History Observation Description Start Date End Date Code Code System Current Smoking Status Tobacco smoking consumption unknown 925460650 SNOMED CT Sex Assigned At Female 1940 [address]17-[facility] Identity Vital Signs Code Code System Vitals Name Values and Units Timing Information 9279-1 [facility] Respiratory Rate Value=18.0 Units=/m in 11/04/2024 8462-4 LOINC Blood Pressure-Diastolic Value=56 Un its=mmHg 11/04/2024 8480-6 LOINC Blood Pressure-Systolic Value=77 Uni ts=mmHg 11/04/2024 8310-5 LOINC Body Temperature Value=97.9 Units= F 11/04/2024 8867-4 LOINC Heart rate Value=89.0 Units=/min 08/2024 59563-9 LOINC Pain Level Value=0.0 11/04/2024 62368-5 [facility] O2 % BldC Oximetry Value=94.0 Units= % 11/03/2024 69208-5 LOINC Weight Rnysp=323.0 Units=Lbs 06/2024 8302-2 LOINC Height Value=66.1 Units=Inches 10/21/2024
[2024-11-04 12:11] LABS: Reflex Lactate? 2 Y
[2024-11-04 12:52] LABS: Hematocrit 23.6 % (37.0-47.0); Hemoglobin 8.0 g/dl (12.0-16.0); Mean Corpuscular HGB Conc 33.9 g/dl (31.0-35.0); Mean Corpuscular Hemoglobin 29.3 pg (27.0-33.0); Mean Corpuscular Volume 86.4 fL (80.0-98.0); NRBC Abs Auto 0.040 X10*3/uL (0.0-0.012); NRBC Pct Auto 0.2 /100WBC (0.0-0.2); Platelet Count 235 X10*3/uL (160-400); Red Blood Count 2.73 X10*6/uL (4.20-5.50); White Blood Count 19.1 X10*3/uL (4.8-10.8)
[2024-11-04 12:57] LABS: INTERNATIONAL NORM RATIO 1.4 (0.9-1.1); Prothrombin Time 16.1 SEC (10.9-12.4)
[2024-11-04 13:14] LABS: ~Lactic Acid-LAB USE ONLY 3.4 mmol/L (0.5-2.0)
[2024-11-04] MEDS: Lactated Ringers 500 ML 999 ML IV (13:58)
--- NOTE | 2024-11-04 16:07 | PM.IMHP ---
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 after she was found to have hypotension. According to ED, at the nursing facility, the patient was given oral midodrine which seemed to improve patient's blood pressure but it dropped again. She was noted to have large amount of black stools and was confused. The patient denied any headache, chest pain, shortness on breath, abdominal pain, fever or chills. Patient's son was at bedside and contributed with HPI. She denied history of tobacco smoking, alcohol abuse or illicit use. She mentioned that she takes iron pills. On arrival to the emergency department the patient was found to have hypothermia (lowest 96.4) tachypnea and hypotension (lowest 79/42). Her oxygen saturation is normal. Blood workup was remarkable for leukocytosis of 19.1. Her initial lactic acid was 7.8, most recent is 3.4. There are no significant electrolyte imbalances. BUN is 68 and creatinine 427. LFTs are elevated; total bilirubin and lipase are normal. Urinalysis showed protein and 3+, trace blood and small leukocyte esterase. Stool occult blood is positive. ETOH level is 14. Viral testing is negative for COVID-19, influenza and RSV. CXR showed right basilar subsegmental atelectasis versus scar. ECG showed normal sinus rhythm, prolonged QT (506 ms), no acute ischemic changes. ED tx: Kcentra 2000 units IV, LR 500 mL, Protonix IV infusion, vitamin K 10 mg IV, desmopressin Review of Systems Review of Systems: All 12 systems were reviewed and normal except as noted in HPI. [facility] Medical History (Updated 11/04/24 @ 16:52 by Nancie Lucero MD) Coagulopathy Elevated LFTs Nontoxic multinodular goiter Hyperlipidemia Restrictive lung disease History of pulmonary embolism Hemorrhagic shock Polycystic liver disease Essential hypertension End-stage renal disease on hemodialysis Social History Patient Tobacco Use Status: Tobacco use Unknown Advance Directives: No Advance Directives Information Provided: Yes Nutrition Risks: No Nutritional Risk Meds Allergies Allergy/AdvReac Type Severity Reaction Status Date / Time penicillin Allergy Unknown Rash Uncoded 11/04/24 06:40 Active Medications: Current Medications Pantoprazole Sodium 80 mg/ (Sodium Chloride) 100 mls @ 10 mls/hr IV .Q10H [facility] Last Admin: 11/04/24 08:03 Dose: 8 mg/hr, 10 mls/hr Melatonin (Melatonin 3 Mg Tablet) 6 mg PO BEDTIME PRN PRN Reason: Insomnia Sodium Chloride (0.9 % Sodium Chloride Flush 3 Ml Syringe) 3 ml IVFLUSH QSHIFT [facility] Last Admin: 11/04/24 15:23 Dose: Not Given Home Medications ?Medication ?Instructions ?Recorded ?Confirmed ?Last Taken ?Type albuterol sulfate 90 mcg/actuation 1 inh inhalation Q4-6H PRN 11/04/24 Unknown History aerosol inhaler Shortness Of Breath Or Wheezing apixaban 2.5 mg tablet (Eliquis) 2.5 mg PO BID 11/04/24 Unknown History calcitriol 0.25 mcg capsule 0.25 mcg PO DAILY 11/04/24 Unknown History ferrous sulfate 325 mg (65 mg 325 mg PO BID 11/04/24 Unknown History iron) tablet,delayed release fluticasone propionate 50 spray intranasal 11/04/24 Unknown History mcg/actuation nasal spray,suspension hydralazine 25 mg tablet 25 mg PO TID 11/04/24 Unknown History metoprolol succinate 50 mg 50 mg PO DAILY 11/04/24 Unknown History tablet,extended release 24 hr simvastatin 20 mg tablet 20 mg PO BEDTIME 11/04/24 Unknown History sodium bicarbonate 650 mg tablet 650 mg PO BID 11/04/24 Unknown History Physical Exam Vital Signs and Narrative: Vital Signs: Last Vital Signs Temp 97.5 F 11/04/24 15:25 Pulse 87 11/04/24 15:25 Resp 20 11/04/24 15:25 BP 95/49 L 11/04/24 15:25 Pulse Ox 100 11/04/24 12:14 O2 Del Method Room Air 11/04/24 12:14 BMI result Body Mass Index 31.7 Constitutional - Awake and Alert, No apparent distress HEENT - PER, EOMI Heart - RRR, (+) murmur. Lungs - Normal lung expansion, Normal respiratory effort, No respiratory distress, CTA bilaterally Chest - right-sided hemodialysis catheter in place. Abdomen - NT / ND; +BS; No rebound or guarding Extremities - Pitting edema to the lower extremities. Musculoskeletal - Normal inspection, normal ROM Skin - Warm/Dry. Pallor. Neurological - Alert & oriented x3. No facial droop. Normal speech. Psychological - Depressed affect Results Labs 11/04/24 12:44 11/04/24 07:19 Labs: Laboratory Results - last 24 hr 11/04/24 11/04/24 11/04/24 06:39 07:18 07:19 MCV 92.2 MCH 27.7 MCHC 30.1 L RDW 17.1 H Plt Count 278 MPV 10.3 Immature Gran % (Auto) 3.3 H Neut % (Auto) 74.4 H Lymph % (Auto) 17.0 L [place] % (Auto) 4.0 Eos % (Auto) 1.0 Baso % (Auto) 0.3 Lymph # (Auto) 3.3 [place] # (Auto) 0.8 Eos # (Auto) 0.2 Baso # (Auto) 0.1 Abs Immat Gran (auto) 0.64 H Absolute Neuts (auto) 14.4 H Absolute Nucleated RBC 0.020 H Nucleated RBC % (auto) 0.1 Smear Path Review SEE NOTE PT 23.6 H INR 2.1 H VBG pH VBG pCO2 VBG pO2 VBG HCO3 VBG O2 Saturation VBG Base Excess Anion Gap 21 H Estim Creat Clear Calc 11.1 Estimated GFR 10 POC Glucose 96 Random Glucose 113 Lactic Acid 7.8 H* Lactic Acid F/U @ 2Hr Lactic Acid F/U @ 4Hr Calcium 7.7 L Magnesium 2.1 Total Bilirubin 0.8 Direct Bilirubin 0.4 AST 84 H ALT 40 H Alkaline Phosphatase 826 H C-Reactive Protein 6.23 H B-Natriuretic Peptide 132 H Total Protein 5.2 L Albumin 2.2 L Lipase 66 Urine Color Urine Appearance Urine pH Ur Specific [place] Urine Protein Urine Glucose (UA) Urine Ketones Urine Blood Urine Nitrite Ur Leukocyte Esterase Urine RBC Urine WBC Ur Squamous Epith Cells Urine Bacteria Hyaline Casts Stool Occult Blood POSITIVE Ethyl Alcohol 14 Influenza Type A (PCR) Influenza Type B (PCR) RSV RNA Qual (PCR) SARS-CoV-2 RNA (RT-PCR) Blood Type A Positive Antibody Screen NEGATIVE Crossmatch See Detail 11/04/24 11/04/24 11/04/24 07:28 07:30 10:08 MCV MCH MCHC RDW Plt Count MPV Immature Gran % (Auto) Neut % (Auto) Lymph % (Auto) [place] % (Auto) Eos % (Auto) Baso % (Auto) Lymph # (Auto) [place] # (Auto) Eos # (Auto) Baso # (Auto) Abs Immat Gran (auto) Absolute Neuts (auto) Absolute Nucleated RBC Nucleated RBC % (auto) Smear Path Review PT INR VBG pH 7.48 H VBG pCO2 29 VBG pO2 52 VBG HCO3 22 VBG O2 Saturation TNP VBG Base Excess -1.0 Anion Gap Estim Creat Clear Calc Estimated GFR POC Glucose Random Glucose Lactic Acid Lactic Acid F/U @ 2Hr 4.3 H* Lactic Acid F/U @ 4Hr Calcium Magnesium Total Bilirubin Direct Bilirubin AST ALT Alkaline Phosphatase C-Reactive Protein B-Natriuretic Peptide Total Protein Albumin Lipase Urine Color Urine Appearance Urine pH Ur Specific [place] Urine Protein Urine Glucose (UA) Urine Ketones Urine Blood Urine Nitrite Ur Leukocyte Esterase Urine RBC Urine WBC Ur Squamous Epith Cells Urine Bacteria Hyaline Casts Stool Occult Blood Ethyl Alcohol Influenza Type A (PCR) NEGATIVE Influenza Type B (PCR) NEGATIVE RSV RNA Qual (PCR) NEGATIVE SARS-CoV-2 RNA (RT-PCR) NEGATIVE Blood Type Antibody Screen Crossmatch 11/04/24 11/04/24 11/04/24 11:17 12:42 12:44 MCV 86.4 D MCH 29.3 MCHC 33.9 RDW 15.1 Plt Count 235 MPV 9.7 Immature Gran % (Auto) Neut % (Auto) Lymph % (Auto) [place] % (Auto) Eos % (Auto) Baso % (Auto) Lymph # (Auto) [place] # (Auto) Eos # (Auto) Baso # (Auto) Abs Immat Gran (auto) Absolute Neuts (auto) Absolute Nucleated RBC 0.040 H Nucleated RBC % (auto) 0.2 Smear Path Review PT 16.1 H D INR 1.4 H VBG pH VBG pCO2 VBG pO2 VBG HCO3 VBG O2 Saturation VBG Base Excess Anion Gap Estim Creat Clear Calc Estimated GFR POC Glucose Random Glucose Lactic Acid Lactic Acid F/U @ 2Hr Lactic Acid F/U @ 4Hr 3.4 H* Calcium Magnesium Total Bilirubin Direct Bilirubin AST ALT Alkaline Phosphatase C-Reactive Protein B-Natriuretic Peptide Total Protein Albumin Lipase Urine Color Dark Yellow Urine Appearance Clear Urine pH 7.0 Ur Specific [place] 1.015 Urine Protein 300 (3+) H Urine Glucose (UA) Negative Urine Ketones Negative Urine Blood Trace H Urine Nitrite Negative Ur Leukocyte Esterase Small (1+) H Urine RBC 0-2 Urine WBC 0-5 Ur Squamous Epith Cells 3-5 Urine Bacteria None Seen Hyaline Casts 0-2 Stool Occult Blood Ethyl Alcohol Influenza Type A (PCR) Influenza Type B (PCR) RSV RNA Qual (PCR) SARS-CoV-2 RNA (RT-PCR) Blood Type Antibody Screen Crossmatch Imaging Radiologist's Impressions: Impressions Chest X-Ray 11/04/24 08:20 IMPRESSION: Right basilar subsegmental atelectasis versus scar. Electronically signed by: Prince Irizarry MD 11/04/2024 08:36 AM EDT RP Assessment and Plan (1) Acute upper GI bleed: Status: Acute (2) Acute lactic acidosis: Status: Acute Plan Christal Woodward is 84 y/o woman presents with: Hemorrhagic shock secondary to gastrointestinal bleeding. Received 2 units PRBC, fresh frozen plasma, Kcentra and desmopressin. Anemia improving. NPO. Hold Eliquis. Continue Protonix IV infusion. Start midodrine. Continue to monitor H&H. Gastroenterology consult. Acute lactic acidosis, hypotension and hypothermia, likely secondary to above. Recheck lactic acid. Blood cultures obtained -will follow results. ESRD on hemodialysis. Missed HD today. Nephrology consult -Dr. Velazquez. Elevated LFTs and INR (coagulopathy), likely secondary to polycystic liver disease. INR improving after fresh frozen plasma given. Continue to monitor. Hyperlipidemia. Hold statin due to elevated LFTs. History of PE. Eliquis on hold due to acute bleeding. IR consult IVC filter placement if appropriate. History of nontoxic multinodular goiter. Check TSH. Essential hypertension. Hold hydralazine and metoprolol due to acute bleeding/hypotension. Continue to monitor BP. History of restrictive lung disease (PFTs August 2022 at [facility]). No acute signs and symptoms. Albuterol nebs as needed. Code status: Full DVT prophylaxis: SCDs. Patient will need hospitalization for at least 2 midnights for hemorrhagic stroke management with PRBC transfusion, H&H and vital signs monitoring as well as evaluation by subspecialties. Quality Stroke Does the patient have a stroke diagnosis?: No VTE Prior VTE?: No VTE Risk Level:: Medical - moderate - high VTE Device Contraindication: N/A - Device Ordered VTE Drug Contraindication: Treatment Not Indicated
[2024-11-04 16:25] LABS: Cancel Lactic Acid Canceled
--- NOTE | 2024-11-04 16:33 | MHC.EDTECH ---
Patient reposition and bed pad changed
--- NOTE | 2024-11-04 18:26 | PHA.MEDREC ---
Addendum entered by Bravo Salazar PharmD 11/04/24 18:28: reviewed Original Note: Pharmacy Consult ? Medication Reconciliation Pharmacy has completed the medication reconciliation.Spoke to patient to confirm med list. Patient last had her medications this morning.
[2024-11-04 18:30] LABS: MANUAL DIFF FLAG NO
[2024-11-04 18:34] LABS: Imm Gran Abs Auto 0.30 X10*3/uL (0.00-0.03); Imm Gran Pct Auto 1.8 % (0.0-0.4); Lymphocytes Absolute Auto 2.4 X10*3/uL (1.2-4.9); Mean Corpuscular HGB Conc 33.7 g/dl (31.0-35.0); Mean Corpuscular Hemoglobin 29.0 pg (27.0-33.0); Mean Corpuscular Volume 86.1 fL (80.0-98.0); NRBC Abs Auto 0.040 X10*3/uL (0.0-0.012); NRBC Pct Auto 0.2 /100WBC (0.0-0.2); Platelet Count 199 X10*3/uL (160-400); Red Blood Count 2.31 X10*6/uL (4.20-5.50); White Blood Count 16.8 X10*3/uL (4.8-10.8)
[2024-11-04 18:36] LABS: Hemoglobin 6.7 g/dl (12.0-16.0)
[2024-11-04 18:37] LABS: Hematocrit 19.9 % (37.0-47.0)
--- NOTE | 2024-11-04 18:55 | MHC.SHP ---
Pre-Procedural Eval Section A - 24 Hr Update-Section A only Date of Service: 11/05/24 The patient is an INPATIENT: Yes The patient has been examined within 24 hours of the surgical procedure. The History & Physical has been completed within 30 days and I have reviewed it.: Yes Section B - Complete if H&P > 30 days Chief Complaint: Blood loss anemia, GI Bleed Allergies: Allergies Allergy/AdvReac Type Severity Reaction Status Date / Time penicillin Allergy Unknown Rash Uncoded 11/04/24 06:40 Plan I have reviewed the history and physical and performed a pertinent physical examination on my patient. No changes have occurred unless specified. Time Spent With Patient Time: Total time managing care of this patient today ____ minutes.
--- NOTE | 2024-11-04 18:55 | PM.EVENT ---
Event Note Date of Service: 11/04/24 Event Note: GI Consult-Full note dictated-History from patient, son, RN, and EMR Imp: UGI bleed with melena in an 84 yo female on Eliquis. Presently stable after PRBC's, FFP, Kcentra, DDAVP, and Vit K. No further melena since this morning. Diff dx: PUD, Gastritis, UGI neoplasm, AVM's, Portal Gastropathy/Varices in relation to polycystic liver disease, Esophagitis. Rec: EGD on 11/05. Hold Eliquis. Full consent obtained from the patient and her son, Bright, including risks of bleeding and perf. F/U labs in the AM, including PT/INR and Hgb. Transfuse as needed to maintain Hgb > 8.0. Time Spent With Patient Time: Total time managing care of this patient today ____ minutes.
[2024-11-04 18:59] LABS: Alanine Aminotransferase 34 U/L (0-31); Albumin Level 2.3 g/dL (3.5-5.0); Alkaline Phosphatase 631 U/L (39-117); Anion Gap 16 (12-20); Aspartate Amino Transferase 79 U/L (5-31); Blood Urea Nitrogen 72 mg/dL (9-16); Calcium 7.6 mg/dL (8.4-10.2); Carbon Dioxide 26 mmol/L (22-29); Chloride 102 mmol/L (96-108); Creatinine Clr Calc Pharmacy 11.3; Estimated Glomerular Filt Rate 10; Potassium 3.8 mmol/L (3.3-5.1); Sodium 140 mmol/L (135-145); Total Protein 5.0 g/dL (6.5-8.0)
[2024-11-04 19:19] LABS: Thyroid Stimulating Hormone 1.64 uIU/mL (0.32-4.0)
--- NOTE | 2024-11-04 19:56 | PC.NURSE ---
patient 3rd unit of RBC ordered and started by this RN. recommenced TACO rate is 75 ml/hour/ reached out to provider at 75 ml /hour will not infuse total volume of 350mls in 4 hours. stated ok to run at 100 ml/hour. adjusted pump so rate would complete unit of blood in 4 hours, rate of 87.5.
--- NOTE | 2024-11-04 20:59 | PC.NURSE ---
assumed care of pt, pt denies pain, respirations even and unlabored.
--- NOTE | 2024-11-04 21:00 | ECG_ITS ---
Test Reason : F/U PROLONGED QT Blood Pressure : */* mmHG Vent. Rate : 89 BPM Atrial Rate : 89 BPM P-R Int : 208 ms QRS Dur : 90 ms QT Int : 404 ms P-R-T Axes : 56 11 91 degrees QTcB Int : 491 ms Normal sinus rhythm Prolonged QT Abnormal ECG When compared with ECG of 04-Nov-2024 07:51, No significant change was found Referred By: Nancie Lucero Electronically Signed By: MILTON MOONEY
--- NOTE | 2024-11-04 21:09 | PC.NURSE ---
pt medicated per MAR with small sip of water as pt is NPO.
[2024-11-04] MEDS: 0.9 % Sodium Chloride Flush 3 ML SYRINGE IVFLUSH (23:52)
[2024-11-05] VITALS (26 sets, daily range): BP systolic 78–130; BP diastolic 30–80; PULSE 70–91; RESP 14–23; TEMP 35.3–36.8; O2SAT 95–100
--- NOTE | 2024-11-05 | ECG_ITS ---
Test Reason : PROLONGED QT Blood Pressure : */* mmHG Vent. Rate : 87 BPM Atrial Rate : 87 BPM P-R Int : 172 ms QRS Dur : 76 ms QT Int : 402 ms P-R-T Axes : 47 -1 79 degrees QTcB Int : 483 ms Normal sinus rhythm Nonspecific ST and T wave abnormality Abnormal ECG When compared with ECG of 04-Nov-2024 20:41, No significant change was found Referred By: Sharan Santos Electronically Signed By: MILTON MOONEY
[2024-11-05] MEDS: Pantoprazole Sodium 80 MG in 0.9 % Sodium Chloride 80 ML 10 MG IV ×2 (02:55→22:43)
--- NOTE | 2024-11-05 03:28 | PC.NURSE ---
3rd unit of RBC infused. pt tolerated well.
--- NOTE | 2024-11-05 04:20 | CONS_ITS ---
DATE OF SERVICE: 11/04/2024 REASON FOR CONSULTATION: Melena and anemia. HISTORY OF PRESENT ILLNESS: This has been obtained from the patient, the medical record, her nurse, and her son, Bright. The patient is an 84-year-old female with multiple medical problems including renal failure. She has been residing at a usp since a hospitalization at [facility] earlier this summer. She was at dialysis today, but was not feeling well and was transferred to the ER today. Subsequent to being in the ER, she had a large black stool with some hypotension and drop in hemoglobin. There was no hematemesis nor coffee-ground emesis. There was no hematochezia. The patient is on chronic Eliquis in relation to pulmonary emboli and atrial fibrillation. She has also been on iron. She has been stable after resuscitation with 2 units of packed red blood cells and 2 units of FFP. She also received DDAVP, IV vitamin K, and Kcentra. She has had a poor appetite but denies any other localizing GI symptoms. She denies any significant heartburn or abdominal pain. She denies any history of ulcer disease. She does not appear to be receiving any chronic aspirin or NSAIDs. She has not been a smoker nor user of significant alcohol. MEDICATIONS: Her present medications include albuterol inhaler p.r.n., melatonin p.r.n., midodrine, IV pantoprazole infusion. Her medications as an outpatient included albuterol inhaler, Eliquis, iron, furosemide, hydralazine, metoprolol, simvastatin, and sodium bicarbonate. PAST MEDICAL HISTORY: Renal failure for which she is on hemodialysis. She has had a history of polycystic disease involving her kidneys and liver. She describes history of pulmonary emboli and atrial fibrillation. She describes hypertension, hyperlipidemia, TIAs, multinodular goiter, and some restrictive lung disease. SURGERIES: Include carpal tunnel on the right, tonsils, throat cyst, and partial hysterectomy. She denies any history of PA, stroke or diabetes. . SOCIAL HISTORY: She is presently living in a usp. She is . She does not smoke nor use any significant amounts of alcohol. FAMILY HISTORY: Noncontributory. REVIEW OF SYSTEMS: CONSTITUTIONAL: She has been feeling relatively poorly since being on dialysis with poor appetite and fatigue. CARDIAC: No chest pain. PULMONARY: No coughing or hemoptysis. GI: As above. PHYSICAL EXAMINATION: GENERAL: The patient is a pleasant, alert, comfortable-appearing female, in no distress. SKIN: Warm and dry. HEENT: Anicteric sclerae. Moist mucous membranes. CARDIAC: Normal S1, S2. ABDOMEN: Soft. Bowel sounds are normal. She has enlarged liver with a palpable and slightly tender liver edge at least 4 or 5 fingerbreadths below the right costal margin. LABORATORY DATA: She has a baseline hemoglobin of 7.4 at the end of September. Hemoglobin on arrival to the ER was 4.6 this morning. Her most recent hemoglobin was 8.0 at noon time today and then 6.7 this evening. Platelets 199,000. PT was 23.6 with INR 2.1 this morning and repeat at noon was 16.1 with INR 1.4. She had normal electrolytes. BUN was 68 with a creatinine of 4.3. Total bilirubin 0.8, AST 84, ALT 40, and an Albumin 2.2. Stool was Hemoccult positive. Chest x-ray report describes some atelectasis in the right lung base. IMPRESSION: The patient is an 84-year-old female with multiple medical problems, presenting with what appears to have been an acute upper gastrointestinal bleed with associated melena, hypotension, and anemia. She has had no further signs of bleeding since admission to the ER and treatment with IV PPI, vitamin K, Kcentra, and packed red blood cells. Her bleeding may be in relation to silent ulcer disease, significant gastritis, or upper GI neoplasm. She does have a history of polycystic liver disease and elevated LFTs with associated prolonged INR and therefore she may have some component of liver disease with gastropathy and/or varices. At this point since she appears stable after resuscitation treatment in the ER, I would recommend upper endoscopy by tomorrow for further evaluation. I did advise that it would be important to try to make a definitive diagnosis of the source of her bleeding before leaving the hospital such that her providers would know whether or not it will be safe at some point to get her back on a blood thinner for the underlying atrial fibrillation and pulmonary embolus. Full consent was obtained from the patient and her son for the procedure, including risks of bleeding and perforation. In the meantime, I would continue supportive care and follow up laboratories including a CBC and PT with INR. At this time, I do not think there is any indication for colonoscopy. The patient and her son were comfortable with this plan. Thank you for the consultation. MD PEDRO Mcdaniel/KM / [phone] MTDD
[2024-11-05 05:54] LABS: MANUAL DIFF FLAG NO
[2024-11-05 05:55] LABS: Hematocrit 25.1 % (37.0-47.0); Hemoglobin 9.0 g/dl (12.0-16.0); Imm Gran Abs Auto 0.15 X10*3/uL (0.00-0.03); Imm Gran Pct Auto 1.0 % (0.0-0.4); Lymphocytes Absolute Auto 2.1 X10*3/uL (1.2-4.9); Mean Corpuscular HGB Conc 35.9 g/dl (31.0-35.0); Mean Corpuscular Hemoglobin 30.1 pg (27.0-33.0); Mean Corpuscular Volume 83.9 fL (80.0-98.0); NRBC Abs Auto 0.020 X10*3/uL (0.0-0.012); NRBC Pct Auto 0.1 /100WBC (0.0-0.2); Platelet Count 173 X10*3/uL (160-400); Red Blood Count 2.99 X10*6/uL (4.20-5.50); White Blood Count 15.5 X10*3/uL (4.8-10.8)
[2024-11-05 06:14] LABS: INTERNATIONAL NORM RATIO 1.3 (0.9-1.1); Prothrombin Time 15.3 SEC (10.9-12.4)
--- NOTE | 2024-11-05 06:19 | PC.NURSE ---
spoke with Shante at short stay, report given, Dr Davila not available for consult but she will likely be admitted before another GI doctor can consult. They ask that pt remain NPO.
[2024-11-05 06:25] LABS: Alanine Aminotransferase 27 U/L (0-31); Albumin Level 2.1 g/dL (3.5-5.0); Alkaline Phosphatase 518 U/L (39-117); Anion Gap 13 (12-20); Aspartate Amino Transferase 61 U/L (5-31); Blood Urea Nitrogen 85 mg/dL (9-16); Calcium 7.3 mg/dL (8.4-10.2); Carbon Dioxide 24 mmol/L (22-29); Chloride 105 mmol/L (96-108); Creatinine Clr Calc Pharmacy 10.7; Estimated Glomerular Filt Rate 9; Potassium 3.9 mmol/L (3.3-5.1); Sodium 138 mmol/L (135-145); Total Protein 4.5 g/dL (6.5-8.0)
[2024-11-05] MEDS: 0.9 % Sodium Chloride Flush 3 ML SYRINGE IVFLUSH (07:15)
--- NOTE | 2024-11-05 08:46 | PC.NURSE ---
Call received from Jannette in Short Stay Surgery. Jannette advises that Pt will need Vitamin K and she will reach out to attending for an order. AM medications reviewed and per Jannette, hold all AM meds at this time--Protonix OK. Pt is scheduled for sweet pickled fruit maker around 1200.
--- NOTE | 2024-11-05 09:15 | MHC.CM.PN ---
Patient has s/s of Confusion; CM spoke with Only Contact/Son/Bright @ [phone] and mailed the original IMM to him @ [address], [facility] [id number](a copy of the IMM will also be placed on the chart). Patient came to [facility] from [facility] at [facility] where patient also receives her HD Q M/W/F. Goal is to return to [facility] @ [facility] and CM has initiated and will follow for dc planning. PCP is Dr. Wander Hercules and CM has requested a copy of the HCP from [facility]. Patient will require BLS transport back to SNF.
--- NOTE | 2024-11-05 09:33 | PC.NURSE ---
Call received from Yen in Dialysis stating that spot is available now for Pt to receive treatment. Consulted with Shante in [facility] and advised Vitamin K is running and Pt has an available dialysis spot. Per Shante, Pt may proceed to dialysis for treatment and [facility] will pick Pt up from dialysis. Coordinating transports/tele pack at this time.
[2024-11-05] MEDS: Lactated Ringers 1,000 ML 100 ML IVCONT ×2 (11:31→19:23)
--- NOTE | 2024-11-05 11:46 | P.CONNP_ITS ---
History of Present Illness Reason for Consult Consult date: 11/05/24 Chief Complaint Chief complaint: Blood loss anemia, GI Bleed History of Present Illness Narrative: 84 years old woman with history of ESRD on hemodialysis admitted with upper GI bleed. In summary she was brought to the ED from nursing facility [facility] after she was found to have hypotension. She was noted to have large amount of black stools and was confused. At the time of the consultation she denies chest pain, shortness on breath, abdominal pain, fever or chills. On arrival to the emergency department the patient was found to have hypotension (lowest 79/42). Review of Systems Review of Systems 10 points ROS negative except for pertinent in HPI PMFSH Past Medical History Medical History (Updated 11/05/24 @ 11:51 by Beau Prado MD) Coagulopathy Elevated LFTs Nontoxic multinodular goiter Hyperlipidemia Restrictive lung disease History of pulmonary embolism Hemorrhagic shock Polycystic liver disease Essential hypertension End-stage renal disease on hemodialysis Social History Social History Household Members: Spouse Housing: Apartment Do you presently have visiting nurse or other home services: No Patient Tobacco Use Status: Never used Tobacco service: No Meds Allergies Allergy/AdvReac Type Severity Reaction Status Date / Time penicillin Allergy Unknown Rash Uncoded 11/04/24 06:40 Active Medications: Current Medications Albuterol Sulfate (Albuterol Sulfate (0.083%) 2.5 Mg/3 Ml Vial.Neb) 2.5 mg INHALE Q4H PRN PRN Reason: Wheezing Atorvastatin Calcium (Atorvastatin Calcium 10 Mg Tablet) 10 mg PO BEDTIME [facility] Last Admin: 11/04/24 21:06 Dose: 10 mg Calcitriol (Calcitriol 0.25 Mcg Capsule) 0.25 mcg PO DAILY [facility] Last Admin: 11/05/24 08:48 Dose: Not Given Fluticasone Propionate (Fluticasone Propionate Nasal 16 Gm [place]) 1 spray NOSTRIL-B DAILY [facility] Last Admin: 11/05/24 08:48 Dose: Not Given Pantoprazole Sodium 80 mg/ (Sodium Chloride) 100 mls @ 10 mls/hr IV .Q10H [facility] Last Infusion: 11/05/24 11:18 Dose: Infused Lactated Ringer's (Lr) 1,000 mls @ 100 mls/hr IVCONT .Q10H [facility] Last Admin: 11/05/24 11:31 Dose: 100 mls/hr Melatonin (Melatonin 3 Mg Tablet) 6 mg PO BEDTIME PRN PRN Reason: Insomnia Midodrine (Midodrine Hcl 5 Mg Tablet) 5 mg PO TID [facility] Last Admin: 11/05/24 08:48 Dose: Not Given Sodium Bicarbonate (Sodium Bicarbonate 650 Mg Tablet) 650 mg PO BID [facility] Last Admin: 11/05/24 08:48 Dose: Not Given Sodium Chloride (0.9 % Sodium Chloride Flush 3 Ml Syringe) 3 ml IVFLUSH QSHIFT [facility] Last Admin: 11/05/24 07:15 Dose: 3 ml Home Medications ?Medication ?Instructions ?Recorded ?Confirmed ?Last Taken ?Type acetaminophen 325 mg tablet 650 mg PO Q4H PRN Fever Or Pain 11/04/24 11/04/24 Unknown History albuterol sulfate 90 mcg/actuation 1 inh inhalation Q4 -6H PRN 11/04/24 11/04/24 Unknown History aerosol inhaler Shortness Of Breath Or Wheez ing apixaban 2.5 mg tablet (Eliquis) 2.5 mg PO BID 5 11/04/24 11/04/24 History azelastine 137 mcg (0.1 %) nasal 1 spray intranasal BI D 11/04/24 11/04/24 Unknown History spray calcitriol 0.25 mcg capsule 0.25 mcg PO DAILY 11/04/24 11/04/24 11/04/24 History ferrous sulfate 325 mg (65 mg 325 mg PO BID 11/04/24 0 11/04/24 11/04/24 History iron) tablet,delayed release fluticasone propionate 50 1 spray intranasal DAILY 09/2311/04/24 11/04/24 History mcg/actuation nasal spray,suspension furosemide 20 mg tablet 80 mg PO DAILY 11/04/24 0809/2311/04/24 History hydralazine 25 mg tablet 25 mg PO TID 11/04/2411/04/24 History metoprolol succinate 50 mg 50 mg PO DAILY 11/04/2409/2311/04/24 History tablet,extended release 24 hr simvastatin 20 mg tablet 20 mg PO BEDTIME 11/04/2411/03/24 History sodium bicarbonate 650 mg tablet 650 mg PO BID 5 11/04/24 11/04/24 History Physical Exam Vital Signs: Last Vital Signs Temp 97.7 F 11/05/24 07:13 Pulse 83 11/05/24 10:10 Resp 19 11/05/24 10:10 BP 112/61 11/05/24 10:10 Pulse Ox 99 11/05/24 10:10 O2 Del Method Room Air 11/05/24 10:10 BMI result Body Mass Index 31.7 Const General: no acute distress, alert and awake HEENT Head: Yes normocephalic and Yes atraumatic Neck Neck: Yes supple Resp Auscultation: diminished lung sounds Cardio Heart sounds: S1 normal heart sound present and S2 normal heart sound present GI Palpation (GI): Soft to palpation and nontender Extrem General: Yes edema Results Lab Results 11/05/24 05:50 11/05/24 05:50 Lab results: Chemistry 11/04/24 11/04/24 11/05/24 07:19 18:26 05:50 Sodium 138 140 138 Potassium 4.1 3.8 3.9 Carbon Dioxide 20 L 26 24 BUN 68 H 72 H 85 H Creatinine 4.27 H* 4.21 H* 4.46 H* Calcium 7.7 L 7.6 L 7.3 L Hematology 11/04/24 11/04/24 11/04/24 07:19 12:44 18:26 WBC 19.3 H 19.1 H 16.8 H Hgb 4.6 L* D 8.0 L D 6.7 L* Plt Count 278 235 199 11/05/24 05:50 WBC 15.5 H Hgb 9.0 L D Plt Count 173 Urinalysis 11/04/24 11:17 Urine Color Dark Yellow Urine Appearance Clear Urine pH 7.0 Ur Specific [place] 1.015 Urine Protein 300 (3+) H Urine Glucose (UA) Negative Urine Ketones Negative Urine Blood Trace H Urine Nitrite Negative Ur Leukocyte Esterase Small (1+) H Urine RBC 0-2 Urine WBC 0-5 Ur Squamous Epith Cells 3-5 Hyaline Casts 0-2 Assessment and Plan (1) ESRD (end stage renal disease): Status: Acute (2) Acute upper GI bleed: Status: Acute (3) Anemia: Status: Acute Plan known ESRD due to PCKD and HTN on HD at [facility] via PC followed by Dr Velazquez (patient was my office patient) admitted with GI bleed combination of nephrogenic anemia and GIB REC HD per schedule renal diet ESAP binder GI consult EGD transfuse blood as needed desmopressin IV PPI follow h/h Procedures Date of Service Date of Service: 11/05/24
--- NOTE | 2024-11-05 12:07 | HO.SKINPHOTO ---
Location: Category: Stage: Length: Width: Depth: cm Location: Category: Stage: Length: Width: Depth: cm Location: Category: Stage: Length: Width: Depth: cm Location: Category: Stage: Length: Width: Depth: cm Location: Category: Stage: Length: Width: Depth: cm Location: Category: Stage: Length: Width: Depth: cm
--- NOTE | 2024-11-05 13:39 | HO.ANESPROP2 ---
[facility] Active Problems Active Problems: All Active Problems (Updated 11/05/24 @ 11:51 by Beau Prado MD) Anemia (Acute) ESRD (end stage renal disease) (Acute) Acute lactic acidosis (Acute) Renal failure (Acute) Severe anemia (Acute) Acute upper GI bleed (Acute) Past Medical History Medical History Coagulopathy Elevated LFTs Nontoxic multinodular goiter Hyperlipidemia Restrictive lung disease History of pulmonary embolism Hemorrhagic shock Polycystic liver disease Essential hypertension End-stage renal disease on hemodialysis Cognitive capacity: normal Functional capacity: independent ambulation Family History Family history of problems with anesthesia: No Surgical History History of Problems with Anesthesia: No Social History Social History Household Members: Spouse Housing: Apartment Do you presently have visiting nurse or other home services: No Patient Tobacco Use Status: Never used Tobacco service: No Meds Allergies Allergy/AdvReac Type Severity Reaction Status Date / Time penicillin Allergy Unknown Rash Uncoded 11/04/24 06:40 Active Medications: Current Medications Albuterol Sulfate (Albuterol Sulfate (0.083%) 2.5 Mg/3 Ml Vial.Neb) 2.5 mg INHALE Q4H PRN PRN Reason: Wheezing Atorvastatin Calcium (Atorvastatin Calcium 10 Mg Tablet) 10 mg PO BEDTIME [facility] Last Admin: 11/04/24 21:06 Dose: 10 mg Calcitriol (Calcitriol 0.25 Mcg Capsule) 0.25 mcg PO DAILY [facility] Last Admin: 11/05/24 08:48 Dose: Not Given Fluticasone Propionate (Fluticasone Propionate Nasal 16 Gm [place]) 1 spray NOSTRIL-B DAILY [facility] Last Admin: 11/05/24 08:48 Dose: Not Given Pantoprazole Sodium 80 mg/ (Sodium Chloride) 100 mls @ 10 mls/hr IV .Q10H [facility] Last Infusion: 11/05/24 11:18 Dose: Infused Lactated Ringer's (Lr) 1,000 mls @ 100 mls/hr IVCONT .Q10H [facility] Last Admin: 11/05/24 11:31 Dose: 100 mls/hr Melatonin (Melatonin 3 Mg Tablet) 6 mg PO BEDTIME PRN PRN Reason: Insomnia Midodrine (Midodrine Hcl 5 Mg Tablet) 5 mg PO TID [facility] Last Admin: 11/05/24 08:48 Dose: Not Given Sodium Bicarbonate (Sodium Bicarbonate 650 Mg Tablet) 650 mg PO BID [facility] Last Admin: 11/05/24 08:48 Dose: Not Given Sodium Chloride (0.9 % Sodium Chloride Flush 3 Ml Syringe) 3 ml IVFLUSH QSHIFT [facility] Last Admin: 11/05/24 07:15 Dose: 3 ml Home Medications ?Medication ?Instructions ?Recorded ?Confirmed ?Last Taken ?Type acetaminophen 325 mg tablet 650 mg PO Q4H PRN Fever Or Pain 11/04/24 11/04/24 Unknown History albuterol sulfate 90 mcg/actuation 1 inh inhalation Q4-6H PRN 11/04/24 11/04/24 Unknown History aerosol inhaler Shortness Of Breath Or Wheezing apixaban 2.5 mg tablet (Eliquis) 2.5 mg PO BID 11/04/24 11/04/24 11/04/24 History azelastine 137 mcg (0.1 %) nasal 1 spray intranasal BID 11/04/24 11/04/24 Unknown History spray calcitriol 0.25 mcg capsule 0.25 mcg PO DAILY 11/04/24 11/04/24 11/04/24 History ferrous sulfate 325 mg (65 mg 325 mg PO BID 11/04/24 11/04/24 11/04/24 History iron) tablet,delayed release fluticasone propionate 50 1 spray intranasal DAILY 11/04/24 11/04/24 11/04/24 History mcg/actuation nasal spray,suspension furosemide 20 mg tablet 80 mg PO DAILY 11/04/24 11/04/24 11/04/24 History hydralazine 25 mg tablet 25 mg PO TID 11/04/24 11/04/24 11/04/24 History metoprolol succinate 50 mg 50 mg PO DAILY 11/04/24 11/04/24 11/04/24 History tablet,extended release 24 hr simvastatin 20 mg tablet 20 mg PO BEDTIME 11/04/24 11/04/24 11/03/24 History sodium bicarbonate 650 mg tablet 650 mg PO BID 11/04/24 11/04/24 11/04/24 History Exam Height,Weight and Vital Signs: Height 5 ft 6 in Weight 89 kg Last Vital Signs Temp 98.2 F 11/05/24 13:33 Pulse 85 11/05/24 13:33 Resp 16 11/05/24 13:33 BP 130/74 11/05/24 13:33 Pulse Ox 98 11/05/24 13:33 O2 Del Method Room Air 11/05/24 13:33 Pertinent Lab Results Pertinent Lab Results: Laboratory Tests 11/04/24 11/04/24 11/04/24 06:39 07:18 07:19 WBC 19.3 H RBC 1.66 L D Hgb 4.6 L* D Hct 15.3 L* D MCV 92.2 MCH 27.7 MCHC 30.1 L RDW 17.1 H Plt Count 278 MPV 10.3 Immature Gran % (Auto) 3.3 H Neut % (Auto) 74.4 H Lymph % (Auto) 17.0 L [place] % (Auto) 4.0 Eos % (Auto) 1.0 Baso % (Auto) 0.3 Lymph # (Auto) 3.3 [place] # (Auto) 0.8 Eos # (Auto) 0.2 Baso # (Auto) 0.1 Abs Immat Gran (auto) 0.64 H Absolute Neuts (auto) 14.4 H Absolute Nucleated RBC 0.020 H Nucleated RBC % (auto) 0.1 Smear Path Review SEE NOTE PT 23.6 H INR 2.1 H VBG pH VBG pCO2 VBG pO2 VBG HCO3 VBG O2 Saturation VBG Base Excess Sodium 138 Potassium 4.1 Chloride 101 Carbon Dioxide 20 L Anion Gap 21 H BUN 68 H Creatinine 4.27 H* Estim Creat Clear Calc 11.1 Estimated GFR 10 POC Glucose 96 Random Glucose 113 Lactic Acid 7.8 H* Lactic Acid F/U @ 2Hr Lactic Acid F/U @ 4Hr Calcium 7.7 L Magnesium 2.1 Total Bilirubin 0.8 Direct Bilirubin 0.4 AST 84 H ALT 40 H Alkaline Phosphatase 826 H Troponin I High Sens 43.1 H C-Reactive Protein 6.23 H B-Natriuretic Peptide 132 H Total Protein 5.2 L Albumin 2.2 L Lipase 66 TSH Urine Color Urine Appearance Urine pH Ur Specific [place] Urine Protein Urine Glucose (UA) Urine Ketones Urine Blood Urine Nitrite Ur Leukocyte Esterase Urine RBC Urine WBC Ur Squamous Epith Cells Urine Bacteria Hyaline Casts Stool Occult Blood POSITIVE Ethyl Alcohol 14 Influenza Type A (PCR) Influenza Type B (PCR) RSV RNA Qual (PCR) SARS-CoV-2 RNA (RT-PCR) Blood Type A Positive Antibody Screen NEGATIVE Crossmatch See Detail 11/04/24 11/04/24 11/04/24 07:28 07:30 10:08 WBC RBC Hgb Hct MCV MCH MCHC RDW Plt Count MPV Immature Gran % (Auto) Neut % (Auto) Lymph % (Auto) [place] % (Auto) Eos % (Auto) Baso % (Auto) Lymph # (Auto) [place] # (Auto) Eos # (Auto) Baso # (Auto) Abs Immat Gran (auto) Absolute Neuts (auto) Absolute Nucleated RBC Nucleated RBC % (auto) Smear Path Review PT INR VBG pH 7.48 H VBG pCO2 29 VBG pO2 52 VBG HCO3 22 VBG O2 Saturation TNP VBG Base Excess -1.0 Sodium Potassium Chloride Carbon Dioxide Anion Gap BUN Creatinine Estim Creat Clear Calc Estimated GFR POC Glucose Random Glucose Lactic Acid Lactic Acid F/U @ 2Hr 4.3 H* Lactic Acid F/U @ 4Hr Calcium Magnesium Total Bilirubin Direct Bilirubin AST ALT Alkaline Phosphatase Troponin I High Sens C-Reactive Protein B-Natriuretic Peptide Total Protein Albumin Lipase TSH Urine Color Urine Appearance Urine pH Ur Specific [place] Urine Protein Urine Glucose (UA) Urine Ketones Urine Blood Urine Nitrite Ur Leukocyte Esterase Urine RBC Urine WBC Ur Squamous Epith Cells Urine Bacteria Hyaline Casts Stool Occult Blood Ethyl Alcohol Influenza Type A (PCR) NEGATIVE Influenza Type B (PCR) NEGATIVE RSV RNA Qual (PCR) NEGATIVE SARS-CoV-2 RNA (RT-PCR) NEGATIVE Blood Type Antibody Screen Crossmatch 11/04/24 11/04/24 11/04/24 11:17 12:42 12:44 WBC 19.1 H RBC 2.73 L D Hgb 8.0 L D Hct 23.6 L D MCV 86.4 D MCH 29.3 MCHC 33.9 RDW 15.1 Plt Count 235 MPV 9.7 Immature Gran % (Auto) Neut % (Auto) Lymph % (Auto) [place] % (Auto) Eos % (Auto) Baso % (Auto) Lymph # (Auto) [place] # (Auto) Eos # (Auto) Baso # (Auto) Abs Immat Gran (auto) Absolute Neuts (auto) Absolute Nucleated RBC 0.040 H Nucleated RBC % (auto) 0.2 Smear Path Review PT 16.1 H D INR 1.4 H VBG pH VBG pCO2 VBG pO2 VBG HCO3 VBG O2 Saturation VBG Base Excess Sodium Potassium Chloride Carbon Dioxide Anion Gap BUN Creatinine Estim Creat Clear Calc Estimated GFR POC Glucose Random Glucose Lactic Acid Lactic Acid F/U @ 2Hr Lactic Acid F/U @ 4Hr 3.4 H* Calcium Magnesium Total Bilirubin Direct Bilirubin AST ALT Alkaline Phosphatase Troponin I High Sens C-Reactive Protein B-Natriuretic Peptide Total Protein Albumin Lipase TSH Urine Color Dark Yellow Urine Appearance Clear Urine pH 7.0 Ur Specific [place] 1.015 Urine Protein 300 (3+) H Urine Glucose (UA) Negative Urine Ketones Negative Urine Blood Trace H Urine Nitrite Negative Ur Leukocyte Esterase Small (1+) H Urine RBC 0-2 Urine WBC 0-5 Ur Squamous Epith Cells 3-5 Urine Bacteria None Seen Hyaline Casts 0-2 Stool Occult Blood Ethyl Alcohol Influenza Type A (PCR) Influenza Type B (PCR) RSV RNA Qual (PCR) SARS-CoV-2 RNA (RT-PCR) Blood Type Antibody Screen Crossmatch 11/04/24 11/05/24 18:26 05:50 WBC 16.8 H 15.5 H RBC 2.31 L 2.99 L D Hgb 6.7 L* 9.0 L D Hct 19.9 L* 25.1 L D MCV 86.1 83.9 MCH 29.0 30.1 MCHC 33.7 35.9 H RDW 15.5 14.9 Plt Count 199 173 MPV 10.0 10.0 Immature Gran % (Auto) 1.8 H 1.0 H Neut % (Auto) 77.7 H 78.8 H Lymph % (Auto) 14.1 L 13.6 L [place] % (Auto) 4.9 4.5 Eos % (Auto) 1.0 1.6 Baso % (Auto) 0.5 0.5 Lymph # (Auto) 2.4 2.1 [place] # (Auto) 0.8 0.7 Eos # (Auto) 0.2 0.2 Baso # (Auto) 0.1 0.1 Abs Immat Gran (auto) 0.30 H 0.15 H Absolute Neuts (auto) 13.1 H 12.2 H Absolute Nucleated RBC 0.040 H 0.020 H Nucleated RBC % (auto) 0.2 0.1 Smear Path Review PT 15.3 H INR 1.3 H VBG pH VBG pCO2 VBG pO2 VBG HCO3 VBG O2 Saturation VBG Base Excess Sodium 140 138 Potassium 3.8 3.9 Chloride 102 105 Carbon Dioxide 26 24 Anion Gap 16 13 BUN 72 H 85 H Creatinine 4.21 H* 4.46 H* Estim Creat Clear Calc 11.3 10.7 Estimated GFR 10 9 POC Glucose Random Glucose 93 84 Lactic Acid Lactic Acid F/U @ 2Hr Lactic Acid F/U @ 4Hr Calcium 7.6 L 7.3 L Magnesium Total Bilirubin 1.1 H 1.1 H Direct Bilirubin AST 79 H 61 H ALT 34 H 27 Alkaline Phosphatase 631 H 518 H Troponin I High Sens C-Reactive Protein B-Natriuretic Peptide Total Protein 5.0 L 4.5 L Albumin 2.3 L 2.1 L Lipase TSH 1.64 Urine Color Urine Appearance Urine pH Ur Specific [place] Urine Protein Urine Glucose (UA) Urine Ketones Urine Blood Urine Nitrite Ur Leukocyte Esterase Urine RBC Urine WBC Ur Squamous Epith Cells Urine Bacteria Hyaline Casts Stool Occult Blood Ethyl Alcohol Influenza Type A (PCR) Influenza Type B (PCR) RSV RNA Qual (PCR) SARS-CoV-2 RNA (RT-PCR) Blood Type Antibody Screen Crossmatch Airway Mallampati Class: II TM Dist: >3cm Neck ROM: Full Loose/Missing/Broken Teeth: No Heart: a fib Lungs: cta Other: normal Assessment and Plan Assessment Anesthesia Assessment: Anesthesia Plan Discussed and Chart Reviewed Final Anesthetic Review Family History of Problems with Anesthesia: No History of Problems with Anesthesia: No NPO: Yes ASA Class: IV and Emergency Final Preanesthetic Review: No Changes in Pt Med Stat, Meds/Allgs Chart Reviewed, Consent Obtained/Reviewed and Anes Risks/Benef Reviewed Patient Risk: High Procedure Risk: High Anesthetic Plan Anesthetic Plan: MAC: Disposition: Standard PACU
--- NOTE | 2024-11-05 14:50 | P.PNIM_ITS ---
Subjective Subjective Date of Service: 11/05/24 Interval History: No acute issues overnight. No further bleeding Review of Systems Admits to extreme fatigue Denies chest pain Denies shortness of breath Denies nausea vomiting diarrhea Denies fever chills Physical Exam 2 Vital Signs: Vital Signs: Last Vital Signs Temp 98.2 F 11/05/24 13:33 Pulse 85 11/05/24 13:33 Resp 16 11/05/24 13:33 BP 130/74 11/05/24 13:33 Pulse Ox 98 11/05/24 13:33 O2 Del Method Room Air 11/05/24 13:33 BMI result Body Mass Index 31.7 Const: Other: Somnolent but arousable no acute distress Resp: Other: Clear to auscultation bilaterally no rales rhonchi or wheezes Cardio: Other: No S4; positive S1-S2; no S3 murmurs rubs or gallops GI: Other: Soft nontender nondistended normoactive bowel sounds Extrem: Other: No edema bilaterally Objective Data Active Medications Albuterol Sulfate (Albuterol Sulfate (0.083%) 2.5 Mg/3 Ml Vial.Neb) 2.5 mg INHALE Q4H PRN PRN Reason: Wheezing Atorvastatin Calcium (Atorvastatin Calcium 10 Mg Tablet) 10 mg PO BEDTIME [facility] Last Admin: 11/04/24 21:06 Dose: 10 mg Documented By: EMELY Calcitriol (Calcitriol 0.25 Mcg Capsule) 0.25 mcg PO DAILY [facility] Last Admin: 11/05/24 08:48 Dose: Not Given Documented By: CYRUS Non-Admin Reason: Hold per Short Stay Surgery. Fluticasone Propionate (Fluticasone Propionate Nasal 16 Gm [place]) 1 spray NOSTRIL-B DAILY [facility] Last Admin: 11/05/24 08:48 Dose: Not Given Documented By: CYRUS Non-Admin Reason: Hold per Short Stay Surgery. Pantoprazole Sodium 80 mg/ (Sodium Chloride) 100 mls @ 10 mls/hr IV .Q10H [facility] Last Infusion: 11/05/24 11:18 Dose: Infused Documented By: REJI Lactated Ringer's (Lr) 1,000 mls @ 100 mls/hr IVCONT .Q10H [facility] Last Admin: 11/05/24 11:31 Dose: 100 mls/hr Documented By: REJI Melatonin (Melatonin 3 Mg Tablet) 6 mg PO BEDTIME PRN PRN Reason: Insomnia Midodrine (Midodrine Hcl 5 Mg Tablet) 5 mg PO TID [facility] Last Admin: 11/05/24 08:48 Dose: Not Given Documented By: CYRUS Non-Admin Reason: Hold per Short Stay Surgery. Naloxone HCl (Naloxone Hcl 0.4 Mg/Ml Vial) 0.04 mg IVPUSH Q5M PRN PRN Reason: Excessive sedation or RR < 8 Ondansetron HCl (Ondansetron Hcl 4 Mg/2 Ml Vial) 4 mg IVPUSH ONCE PRN PRN Reason: Nausea and Vomiting Stop: 11/05/24 19:43 Sodium Bicarbonate (Sodium Bicarbonate 650 Mg Tablet) 650 mg PO BID [facility] Last Admin: 11/05/24 08:48 Dose: Not Given Documented By: CYRUS Non-Admin Reason: Hold per Short Stay Surgery. Sodium Chloride (0.9 % Sodium Chloride Flush 3 Ml Syringe) 3 ml IVFLUSH QSHIFT [facility] Last Admin: 11/05/24 07:15 Dose: 3 ml Documented By: CYRUS Labs 11/05/24 05:50 11/05/24 05:50 Labs: Laboratory Results - last 24 hr 11/04/24 11/04/24 11/05/24 07:18 18:26 05:50 MCV 86.1 83.9 MCH 29.0 30.1 MCHC 33.7 35.9 H RDW 15.5 14.9 Plt Count 199 173 MPV 10.0 10.0 Immature Gran % (Auto) 1.8 H 1.0 H Neut % (Auto) 77.7 H 78.8 H Lymph % (Auto) 14.1 L 13.6 L [place] % (Auto) 4.9 4.5 Eos % (Auto) 1.0 1.6 Baso % (Auto) 0.5 0.5 Lymph # (Auto) 2.4 2.1 [place] # (Auto) 0.8 0.7 Eos # (Auto) 0.2 0.2 Baso # (Auto) 0.1 0.1 Abs Immat Gran (auto) 0.30 H 0.15 H Absolute Neuts (auto) 13.1 H 12.2 H Absolute Nucleated RBC 0.040 H 0.020 H Nucleated RBC % (auto) 0.2 0.1 PT 15.3 H INR 1.3 H Anion Gap 16 13 Estim Creat Clear Calc 11.3 10.7 Estimated GFR 10 9 Random Glucose 93 84 Calcium 7.6 L 7.3 L Total Bilirubin 1.1 H 1.1 H AST 79 H 61 H ALT 34 H 27 Alkaline Phosphatase 631 H 518 H Total Protein 5.0 L 4.5 L Albumin 2.3 L 2.1 L TSH 1.64 Blood Type A Positive Antibody Screen NEGATIVE Crossmatch See Detail Microbiology Microbiology Results: Microbiology 11/04/24 Unknown Urine Culture - Final Urine Catheterized - Kim Catheter No growth. 11/04/24 07:53 Blood Culture - Preliminary Blood - Venous No growth after 24 hours. 11/04/24 07:18 Blood Culture - Preliminary Blood - Venous No growth after 24 hours. 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 after she was found to have hypotension. Initial hemoglobin 6.7 responded well to volume. 1. Acute Blood loss Anemia(LGIB) -Received 2 units PRBC, fresh frozen plasma, Kcentra and desmopressin. -good response to transfusion -hold Eliquis -await results of today's endoscopy -follow daily CBC 2.ESRD/HD -HD postponed today in favor of endoscopy -as per renal -follow renals/divalent 3.Hx PE -elliquis on hold -await EGD results to restart Eliquis. 4. Hypertension (mildly hypotensive on presentation) -hold therapies -add back when appropriate Full SCDs. Patient will require ongoing hospitalization for complete workup of lower GI bleed and specialty consultation Quality Stroke Does the patient have a stroke diagnosis?: No VTE Prior VTE?: No VTE Risk Level:: Medical - moderate - high VTE Device Contraindication: N/A - Device Ordered VTE Drug Contraindication: Treatment Not Indicated
--- NOTE | 2024-11-05 15:09 | HO.WOUND ---
Wound Consult: Initial 84 yr old?female admitted to [facility] on 11/04/24 12:15- See progress notes and H&P for detailed history.? Wound consult placed for .? Patient agreeable to assessment and photo documentation.? Etiology: ??Present on Admission Measurements: cm x cm x cm Wound Bed: Drainage / Odor: Edges: ? Rosalina wound: ? No Induration, Fluctuance or Warmth noted Pain: Goals of Treatment: ? Recommendations: 1. Turn and Reposition every 2 hours and as needed for patient comfort.? Use pillows or wedges to support off loading positions. 2. Off Load all bony prominences with use of pillows and heel boots if needed.? Apply Preventative foams where needed. ? 3. Monitor for incontinence and moisture control, use barrier creams when needed for prevention and treatment. 4. Provide adequate and supplemental nutrition.? 5. Order or Continue low air loss mattress. 6. When applicable maintain blood glucose levels per Providers order. Re-consult wound care Nurse for wound deterioration or wound changes.
--- NOTE | 2024-11-05 15:10 | HO.WOUND ---
Wound Consult: Initial 84 yr old?female admitted to [facility] on 11/04/24 12:15- See progress notes and H&P for detailed history.? Wound consult placed for Sacrum and Coccyx wound POA.? Patient agreeable to assessment and photo documentation.? Chart review and photo review. Coccyx and Left Sacrum Etiology: ?Stage 3 Pressure Injury ?Present on Admission Wound Bed: thin yellow slough - pink moist tissue Edges: ? irregular and epibole Rosalina wound: MASD and hyperpigmentation noted - ? No Induration, Fluctuance or Warmth noted Goals of Treatment: ? Off Load Pressure and Triad to allow for autolytic debridement and moist wound healing Recommendations: 1. Turn and Reposition every 2 hours and as needed for patient comfort.? Use pillows or wedges to support off loading positions. 2. Off Load all bony prominences with use of pillows and heel boots if needed.? Apply Preventative foams where needed. ? 3. Monitor for incontinence and moisture control, use barrier creams when needed for prevention and treatment. 4. Provide adequate and supplemental nutrition.? 5. Order low air loss mattress. 6. When applicable maintain blood glucose levels per Providers order. Coccyx and Sacrum - Off Load Pressure with Q2 hr turns and use of pillows - Cleanse with PH balance spray or wipes, pat dry. ?Apply thin layer of Triad to wound bed - only pat and dab no scrub and rub when soiling occurs. Reapply thin layer PRN after each episode of incontinence. Re-consult wound care Nurse for wound deterioration or wound changes.
--- NOTE | 2024-11-05 16:12 | P.BOP_ITS ---
Brief Operative Note Date of Service: 11/05/24 Pre-op diagnosis: UGI Bleed Post-op diagnosis: other (Duodenal ulcer) Procedure: EGD with sclerotherapy with 1:10,000 Epi, Gold probe, application of 1 Resolution clip on edge of ulcer for marking purposes, and Hemospray. Surgeon: Prince Davila MD Anesthesia: GETA Was an Construction Project Administrator used for this Procedure?: No Estimated blood loss (mL): 100.00 Pathology: none sent Condition: stable Disposition: PACU
--- NOTE | 2024-11-05 16:15 | PM.EVENT ---
Event Note Date of Service: 11/05/24 Event Note: GI-EGD-Full note dictated Findings: 1. Fresh blood in stomach and duodenum with active bleeding coming from the duodenal bulb area. 2. Able to visualize an approx. 12mm fairly deep ulcer with overlying clot and blood in the duodenal bulb on the posterior wall, with occasional fresh active bleeding 3. Ulcer treated with 1:10,000 Epi, Gold probe cautery, and Hemospray. A single clip was put on the edge of the ulcer for marking in case she rebleeds and needs IR intervention Imp: Duodenal ulcer with bleeding Rec: Observe, continue IV PPI infusion for at least 72 hours, NPO except for ice and sips for now, recheck CBC now, and and repeat labs in AM. If she rebleeds I would have IR attempt procedure to stop the bleeding that way given her high surgical risk. D/W patient and her son Bright in detail. Thanks Time Spent With Patient Time: Total time managing care of this patient today ____ minutes.
[2024-11-05 16:57] LABS: Glucose, Whole Blood 116 mg/dL (60-115)
--- NOTE | 2024-11-05 17:04 | P.EN_ITS ---
Event Note Date of Service: 11/05/24 Event Note: BROADCAST FIELD SUPERVISOR CALLED ON PATIENT 04:45 PM Hypotensive, increased somnolence. BROADCAST FIELD SUPERVISOR called by floor RN for hypotension. BP recorded as 80/50mmHg by bedside. Patient noted to be soiled with bloody stool post PACU discharge (new) after having an EGD for UGIB - found to have large deep duodenal ulceration requiring intervention by GI team. Evaluation revealing distressed female, with increased somnolence, cool to touch, no pain endorsed. Physical exam revealing HR of 90bpm, HD fistula (missed HD today, with creatinine 4.1), BP of 100/70mmHg while in trendelenburg position. Lab work repeated by bedside; CBC, comprehensive panel & Lactic acid. PLAN - Ordered 2u PRBC for transfusion - Maintain trendelenburg until transfusion complete - Octreotide not needed at this time - Desmopressin administered due to HD status (and to counter uremia re comps) - Access secured - Q2-4 hourly checks post BROADCAST FIELD SUPERVISOR - Contacted GI to relay events and to establish care plan formally - No need for MICU at this time given hemodynamic stability with preserved MAP and no continuous overt bleeding at this time Time Spent With Patient Time: Total time managing care of this patient today ____ minutes.
[2024-11-05 17:49] LABS: Anion Gap 17 (12-20); Blood Urea Nitrogen 100 mg/dL (9-16); Calcium 6.8 mg/dL (8.4-10.2); Carbon Dioxide 19 mmol/L (22-29); Chloride 108 mmol/L (96-108); Creatinine Clr Calc Pharmacy 10.8; Estimated Glomerular Filt Rate 10; Potassium 5.0 mmol/L (3.3-5.1); Sodium 139 mmol/L (135-145)
[2024-11-05 18:45] LABS: Hematocrit 23.9 % (37.0-47.0); Hemoglobin 8.5 g/dl (12.0-16.0); Imm Gran Abs Auto 0.57 X10*3/uL (0.00-0.03); Imm Gran Pct Auto 2.5 % (0.0-0.4); Lymphocytes Absolute Auto 2.0 X10*3/uL (1.2-4.9); MANUAL DIFF FLAG SCAN; Mean Corpuscular HGB Conc 35.6 g/dl (31.0-35.0); Mean Corpuscular Hemoglobin 30.0 pg (27.0-33.0); Mean Corpuscular Volume 84.5 fL (80.0-98.0); NRBC Abs Auto 0.020 X10*3/uL (0.0-0.012); NRBC Pct Auto 0.1 /100WBC (0.0-0.2); PLT CLUMP 1; Red Blood Count 2.83 X10*6/uL (4.20-5.50); SCAN SMEAR FLAG 1
[2024-11-05 19:16] LABS: Platelet Count 102 X10*3/uL (160-400); White Blood Count 23.1 X10*3/uL (4.8-10.8)
--- NOTE | 2024-11-05 19:36 | PC.NURSE ---
patient is very weak and tired , she does not feel well . MD is aware and BP is constantly being monitored. Vitals all recorded and manual BP's were done as BP too low for automatic. Temp orally was 95.5, multiple warm blankets applied, feels cold . MD is aware of all the above.
[2024-11-05 20:42] LABS: Reflex Lactate? Lactic Acid Added
[2024-11-05 21:46] LABS: ~Lactic Acid-LAB USE ONLY 2.4 mmol/L (0.5-2.0)
[2024-11-05 23:22] LABS: Reflex Lactate? 2 Y
[2024-11-05 23:54] LABS: Hematocrit 28.9 % (37.0-47.0); Hemoglobin 10.2 g/dl (12.0-16.0)
[2024-11-06] VITALS (85 sets, daily range): BP systolic 76–133; BP diastolic 44–82; PULSE 78–120; RESP 16–44; TEMP 35.8–36.7; O2SAT 96–100; BMI 34.5
[2024-11-06 00:05] LABS: ~Lactic Acid-LAB USE ONLY 1.6 mmol/L (0.5-2.0)
[2024-11-06] MEDS: Lactated Ringers 1,000 ML 999 ML IV ×3 (02:42→10:10)
--- NOTE | 2024-11-06 03:12 | OP_ITS ---
DATE OF SERVICE: 11/05/2024 SURGEON: Prince Davila MD PREOPERATIVE DIAGNOSIS: Upper gastrointestinal bleeding. POSTOPERATIVE DIAGNOSIS: PROCEDURE PERFORMED: Esophagogastroduodenoscopy with sclerotherapy with epinephrine in a dilution of 1:10,000; gold probe cauterization; application of 1 resolution clip to edge of ulcer; and application of Hemospray for control of duodenal ulcer bleeding. Full consent has been obtained from the patient and her son, Bright, for this, including risks of bleeding and perforation. ESTIMATED BLOOD LOSS: COMPLICATIONS: ANESTHESIA: She was initially under monitored anesthesia care, but this was converted to general anesthesia due to the active upper GI bleeding. Glucagon 1 mg IV x 2 doses during the procedure. She did receive 1 unit of packed red blood cells during the procedure as well. ASSISTANTS: SPECIMENS: POSTOPERATIVE DIAGNOSES: Upper gastrointestinal bleeding, duodenal bulb ulcer with active bleeding. DESCRIPTION OF PROCEDURE: The patient was initially placed in the left lateral decubitus position. The Olympus video gastroscope was passed in the posterior oropharynx and upper esophagus under direct vision. The scope was passed slowly into the distal esophagus. The gastroesophageal junction appeared at 35 cm. There was evidence of some active esophagitis with some overlying exudate at this level. There was no sign of any mass. There was no evidence of any varices or bleeding. The scope entered the stomach. There was a small hiatal hernia. Immediately upon entering the stomach, I could see some dark blood. However, as the scope approached the pylorus, I could see fresh blood coming from the pylorus. The duodenum was cannulated to the descending portion. There was fresh blood in the descending duodenum. The scope was withdrawn back to the duodenal bulb. With a lot of irrigation and suctioning, I was finally able to see a duodenal ulcer on the posterior wall. However, there was fresh blood coming from it. This was on the posterior wall. Given the active bleeding and what was turning out to be a lengthy procedure, I opted to have the anesthesiologist convert her to general anesthesia for better airway protection and safety. The scope was withdrawn from the patient. She was intubated by the anesthesiologist. The patient was kept in the supine position, although at times was turned into the left lateral decubitus position during the procedure. The scope was re-entered into the posterior oropharynx and upper esophagus under direct vision. The scope was advanced back into the stomach. The pylorus was cannulated to the descending portion of the duodenal bulb. The second and third portions of duodenum appeared normal once the fresh blood was irrigated and suctioned away. After some time, and administration of glucagon, I was able to visualize the ulcer crater along the posterior wall of the duodenal bulb. This had some adherent blood and clot, as well as some fresh oozing from it. I injected multiple 2 cc doses of epinephrine 1:10,000 into the margins of the ulcer with good blanching of the mucosa. After irrigating the area, I was able to visualize the ulcer crater, which appeared to have some adherent clot. The gold probe was applied to this area several times with good application. Again, after irrigation, I was able to visualize the ulcer crater clearly and there did not appear to be any sign of active bleeding or visible vessel at that point. Several more injections with epinephrine were made as well. A single Resolution clip was applied to the edge of the ulcer so as to facilitate localization of the ulcer in the event she has recurrent bleeding and needs IR intervention. The remainder of the duodenal bulb had duodenitis, but no evidence of any ulcer disease otherwise. The scope was withdrawn back into the stomach. The gastric antrum and body appeared normal with good peristalsis. The scope was retroflexed visualizing the proximal stomach carefully, which appeared normal, without any sign of mass or ulceration. There were no varices. The scope was straightened. The scope was readvanced back into the duodenum. The area was irrigated and observed and there were no further signs of bleeding. At that point, I applied Hemospray to the ulcer crater with good application. The scope was withdrawn back in the stomach and then into the esophagus. The esophageal mucosa appeared normal. The scope was withdrawn from the patient. She tolerated the procedure well and was returned to the recovery area in stable condition. IMPRESSION: 1. Duodenal bulb ulcer with active bleeding, status post sclerotherapy with epinephrine, heater probe cauterization, and Hemospray. A single Resolution was applied to the edge of the ulcer. 2. Erosive esophagitis at gastroesophageal junction. 3. Small hiatal hernia. PLAN: The patient will be observed. She will be kept on IV PPI infusion for at least 72 hours. She will be kept n.p.o. except for some ice chips and sips of liquid today. If stable, that can be advanced gradually over the next 48 hours. She should obviously avoid all blood thinners, aspirin, and NSAIDs long-term. Of note, I did place a single resolution clip onto the edge of the ulcer such that if she does bleed again, then this clip can be used as a radiopaque marker by the interventional radiologist if they try to do a procedure to stop the bleeding in that manner. At this point, if she was to rebleed, I would recommend that be done by Interventional Radiology as opposed to any type of surgical procedure given her very high risk. This has all been discussed with the patient and her son, Bright. MD PEDRO Mcdaniel/KM / [id number] MTDDhara
--- NOTE | 2024-11-06 03:17 | PM.EVENT ---
Event Note Date of Service: 11/06/24 Event Note: Patient with multiple episodes of large bloody bowel movements overnight. Patient received multiple units of PRBC since admission. Hypotension briefly improved with crystalloid resuscitation. Nurse reported blood pressure 88/56 with another bloody bowel movement. Ordered 2 more units of PRBC, FFP and platelets. Patient was evaluated earlier by ICU provider who accepted transfer to ICU for closer monitoring. Also ordered colloids Time Spent With Patient Time: Total time managing care of this patient today ____ minutes.
--- NOTE | 2024-11-06 04:15 | PC.NURSE ---
1950 MD Martin notified of bp 96/40 and patient feeling absolutely terrible and shivering cold despite multiple blankets on patient. ICU TRAILER TRUCK DRIVER to bedside to assess patient. Per TRAILER TRUCK DRIVER, to receive second blood transfusion and reassess after. 2218 MD Martin updated on patients current bp of 104/58 and blood transfusion infusing. 2315 MD Martin and TRAILER TRUCK DRIVER Porsche notified of patient with completely bloody bm with clots noted. Stat h/h checked and resulted at 10.2/28.9. 0153 MD Martin notified of bp 86/50 and patient having another completely bloody bm with more clots noted. IVF bolus ordered and started. 0250 Notified that patient had x2 more completely bloody bms. BP 93/55. 0315 Patient with massive bloody bm oozing down to knees. Lots of clots seen. Patient had more blood oozing out while getting cleaned. notified. BP at that time 88/56. MD ordered PRBC. Patient to be transferred to ICU. Blood transfusion started. Patient transferred to ICU with BATCH HEAT TREAT OPERATOR and nursing coding clerks supervisor. Patient fully alert and oriented. Intermittently sleepy. Able to wake to name. Patient with multiple open areas to coccyx and buttocks stage 3. Triad and foam in place. Patient also has open area to upper L thigh. Triad applied. Patient has a dominguez draining dark indra urine. No foul odor noted. Patient with a total of 6 blood bms with clots for this group underwriter. Protonix gtt infusing at 8mg/hr.
[2024-11-06] MEDS: Albumin Human 25 % 100 ML 133.33 ML IV ×2 (04:26→05:14)
[2024-11-06] MEDS: Calcium Chloride 1 GM/10 ML SYRINGE IVPUSH (04:36)
[2024-11-06] MEDS: Pantoprazole Sodium 80 MG in 0.9 % Sodium Chloride 80 ML 10 MG IV ×2 (06:24→16:29)
--- NOTE | 2024-11-06 07:09 | PC.NURSE ---
Stave Grader responded to bedside of this patient at approximately 04:00 with RN avionics supervisor to assume care of this patient and transfer to ICU due to low BPs in the setting of GI bleed despite RBCs, fluid bolus, and scheduled midodrine interventions.? On ticket writer arrival, LR bolus finished infusing and one unit pRBC was initiated with previous RN at a rate of 110ml/hr per UNDER TRIMMER Porsche Gates. Protonix gtt infusing per MAR as confirmed at bedside with prior RN. Patient was drowsy though appropriately arousable to voice and responding to ticket writer's assessment questions. Patient educated on plan of care including escalation of care and was transferred to the ICU by this ticket writer with the RN avionics supervisor.? This patient remains A&Ox4, drowsy though easily arousable to voice, neuros intact.? NSR with PVCs on tele. Generalized edema; non-pitting to BUE, labia, and +pitting to BLE. +palpable distal pulses. +CMS. Denies chest pain, palpitations, or dizziness. SCDs applied instead of TEDS per UNDER TRIMMER verbal order. Albumin x2 and 1x IVP calcium chloride were administered per MAR.? LS clear on RA. Denies sob. Breathing is even and unlabored without distress. Active GIB; incontinent of small, dark red liquid bloody BM with some small clots. External hemorrhoid noted on incontinence care. UNDER TRIMMER Kody notified. Abdomen is soft, non-tender to palpation with +BSx4. ? F/C in place on transfer to ICU from S[facility], patent of 30ml for duration of ticket writer's care. Patient reported to this ticket writer her last completed course of HD was Thursday 11/02. Covering UNDER TRIMMER was notified of UOP and last HD. F/C care provided. Per review, pt on HD via [place] chest [place] [facility] [place] to [place]C from there to [facility]. Permacath dressing was changed today 11/06 and remains c/d/i.? Coccyx/left sacrum stage III, aries-area MASD. Wound care has been consulted and recently saw this patient. Barrier cream and foam were replaced after incontinence care. Heels offloaded and q2hr turning/repositioning. Pt on low air loss bed pump. UNDER TRIMMER verbal orders to wait one half hour after completion of RBCs to draw morning labs, then continue with blood products administration as per prior orders. ? Bed is low and locked with call jackson within reach and educated on use. Please see flowsheet for full details.? Approximately 06:30: Patient noted to be more hypotensive, lowest 82/45. Pt noted to have been incontinent of a large bloody BM. Patient mentation maintained, easily arousable. UNDER TRIMMER immediately notified with verbal orders to this ticket writer to run the remainder of blood wide-open, initiate levophed as well as LR bolus. Initiated with +effect. UNDER TRIMMER advised plan to obtain another unit RBC as well as plts now, order placed for IR. Handoff report given to oncoming RN who is obtaining RBC and plts now ready.?
[2024-11-06] MEDS: 0.9 % Sodium Chloride Flush 3 ML SYRINGE IVFLUSH ×2 (07:42→15:31)
--- NOTE | 2024-11-06 08:24 | HO.POSTANES ---
Post Anesthesia Evaluation Post Anesthesia Evaluation Date of Service: 11/06/24 Vital Signs: Vital Signs Temp Pulse Resp BP Pulse Ox O2 Del Method 11/06/24 07:50 97.9 F 90 24 H 109/58 L 11/06/24 07:43 98.1 F 93 26 H 120/54 L 11/06/24 07:41 97.7 F 92 27 H 124/61 11/06/24 07:23 96.7 F L 78 22 H 121/60 11/06/24 07:00 84 20 124/56 L 99 Room Air 11/06/24 06:48 98 F 84 22 H 100/55 L 11/06/24 06:40 82 82/45 L 11/06/24 06:00 85 21 H 115/57 L 99 Room Air 11/06/24 05:00 91 23 H 110/61 99 Room Air 11/06/24 04:42 84 19 124/65 99 Room Air 11/06/24 04:19 97.0 F 87 22 H 107/55 L 100 Room Air 11/06/24 04:17 97.0 F 92 20 107/55 L 11/06/24 03:58 97.8 F 97 17 98/57 L 11/06/24 03:34 97.3 F 97 20 91/56 L 100 Room Air 11/06/24 03:17 88/56 L 11/06/24 02:55 93/55 L 11/06/24 01:55 86/50 L 11/06/24 00:34 97.5 F 91 18 96/56 L 100 Room Air 11/06/24 00:25 99/55 L 11/05/24 22:41 97.4 F 91 17 104/60 11/05/24 21:59 104/58 L 11/05/24 20:46 97 F 91 17 94/44 L 11/05/24 20:26 96 F L 76 19 90/42 L Anesthesia: General Anesthesia-Related Issues: No Anes. Related Issues Comments: events noted, pt reciving multiple blood products , transf to icu
[2024-11-06] MEDS: Tranexamic Acid 1,000 MG in 0.9 % Sodium Chloride 50 ML 360 MG IV (09:23)
[2024-11-06 09:51] LABS: MANUAL DIFF FLAG NO
[2024-11-06 09:57] LABS: Imm Gran Abs Auto 0.32 X10*3/uL (0.00-0.03); Imm Gran Pct Auto 2.0 % (0.0-0.4); Lymphocytes Absolute Auto 2.8 X10*3/uL (1.2-4.9); Mean Corpuscular HGB Conc 36.6 g/dl (31.0-35.0); Mean Corpuscular Hemoglobin 31.7 pg (27.0-33.0); Mean Corpuscular Volume 86.6 fL (80.0-98.0); NRBC Abs Auto 0.040 X10*3/uL (0.0-0.012); NRBC Pct Auto 0.2 /100WBC (0.0-0.2); Platelet Count 100 X10*3/uL (160-400); Red Blood Count 2.02 X10*6/uL (4.20-5.50); White Blood Count 16.2 X10*3/uL (4.8-10.8)
[2024-11-06 09:59] LABS: Hemoglobin 6.4 g/dl (12.0-16.0)
[2024-11-06 10:00] LABS: Hematocrit 17.5 % (37.0-47.0)
[2024-11-06 11:03] LABS: INTERNATIONAL NORM RATIO 1.6 (0.9-1.1); Prothrombin Time 18.1 SEC (10.9-12.4)
--- NOTE | 2024-11-06 11:09 | PM.PNNEP ---
Subjective Subjective Date of Service: 11/06/24 Interval history: Seen and examiend, events noted Active GIB requiring xfusion and now to be eval by IR for possible embolization Physical Exam Vital Signs: Vital Signs: Last Vital Signs Temp 97.7 F 11/06/24 10:33 Pulse 107 H 11/06/24 10:33 Resp 22 H 11/06/24 10:33 BP 110/47 L 11/06/24 10:33 Pulse Ox 100 11/06/24 10:00 O2 Del Method Room Air 11/06/24 10:00 O2 Flow Rate 6 11/05/24 15:34 BMI result Body Mass Index 34.5 Const: General: no acute distress, alert and awake HEENT: Head: Yes normocephalic and Yes atraumatic Neck: Neck: Yes supple Resp: Auscultation: diminished lung sounds Cardio: Heart sounds: S1 normal heart sound present and S2 normal heart sound present GI: Palpation (GI): Soft to palpation and nontender Extrem: General: Yes edema Objective Data Labs 11/06/24 09:47 11/05/24 17:19 Labs: Laboratory Results - last 24 hr 11/04/24 11/05/24 11/05/24 07:18 16:48 17:19 WBC RBC Hgb Hct MCV MCH MCHC RDW Plt Count MPV Immature Gran % (Auto) Neut % (Auto) Lymph % (Auto) [place] % (Auto) Eos % (Auto) Baso % (Auto) Lymph # (Auto) [place] # (Auto) Eos # (Auto) Baso # (Auto) Abs Immat Gran (auto) Absolute Neuts (auto) Absolute Nucleated RBC Nucleated RBC % (auto) Smear Tech's Comments Hold Purple Top PT INR Hold Blue Top Sodium 139 Potassium 5.0 D Chloride 108 Carbon Dioxide 19 L Anion Gap 17 BUN 100 H Creatinine 4.41 H* Estim Creat Clear Calc 10.8 Estimated GFR 10 POC Glucose 116 H Random Glucose 128 H Lactic Acid Lactic Acid F/U @ 2Hr Lactic Acid F/U @ 4Hr Calcium 6.8 L D Blood Type A Positive Antibody Screen NEGATIVE Crossmatch See Detail 11/05/24 11/05/24 11/05/24 18:26 18:33 21:18 WBC 23.1 H RBC 2.83 L Hgb 8.5 L Hct 23.9 L MCV 84.5 MCH 30.0 MCHC 35.6 H RDW 14.6 Plt Count 102 L D MPV 10.5 Immature Gran % (Auto) 2.5 H Neut % (Auto) 83.3 H Lymph % (Auto) 8.7 L [place] % (Auto) 4.6 Eos % (Auto) 0.5 Baso % (Auto) 0.4 Lymph # (Auto) 2.0 [place] # (Auto) 1.1 Eos # (Auto) 0.1 Baso # (Auto) 0.1 Abs Immat Gran (auto) 0.57 H Absolute Neuts (auto) 19.2 H Absolute Nucleated RBC 0.020 H Nucleated RBC % (auto) 0.1 Smear Tech's Comments VERIFIED Hold Purple Top PT INR Hold Blue Top Sodium Potassium Chloride Carbon Dioxide Anion Gap BUN Creatinine Estim Creat Clear Calc Estimated GFR POC Glucose Random Glucose Lactic Acid 2.4 H* Lactic Acid F/U @ 2Hr 2.4 H* Lactic Acid F/U @ 4Hr Calcium Blood Type Antibody Screen Crossmatch 11/05/24 11/06/24 11/06/24 23:44 09:47 10:36 WBC 16.2 H RBC 2.02 L D Hgb 10.2 L 6.4 L* D Hct 28.9 L D 17.5 L* D MCV 86.6 MCH 31.7 MCHC 36.6 H RDW 14.3 Plt Count 100 L MPV 10.6 Immature Gran % (Auto) 2.0 H Neut % (Auto) 73.2 H Lymph % (Auto) 17.3 L [place] % (Auto) 5.4 Eos % (Auto) 1.8 Baso % (Auto) 0.3 Lymph # (Auto) 2.8 [place] # (Auto) 0.9 Eos # (Auto) 0.3 Baso # (Auto) 0.1 Abs Immat Gran (auto) 0.32 H Absolute Neuts (auto) 11.9 H Absolute Nucleated RBC 0.040 H Nucleated RBC % (auto) 0.2 Smear Tech's Comments Hold Purple Top PT 18.1 H INR 1.6 H Hold Blue Top Sodium Potassium Chloride Carbon Dioxide Anion Gap BUN Creatinine Estim Creat Clear Calc Estimated GFR POC Glucose Random Glucose Lactic Acid Lactic Acid F/U @ 2Hr Lactic Acid F/U @ 4Hr 1.6 Calcium Blood Type Antibody Screen Crossmatch 11/06/24 10:43 WBC RBC Hgb Hct MCV MCH MCHC RDW Plt Count MPV Immature Gran % (Auto) Neut % (Auto) Lymph % (Auto) [place] % (Auto) Eos % (Auto) Baso % (Auto) Lymph # (Auto) [place] # (Auto) Eos # (Auto) Baso # (Auto) Abs Immat Gran (auto) Absolute Neuts (auto) Absolute Nucleated RBC Nucleated RBC % (auto) Smear Tech's Comments Hold Purple Top SEE NOTE PT INR Hold Blue Top Cancelled Sodium Potassium Chloride Carbon Dioxide Anion Gap BUN Creatinine Estim Creat Clear Calc Estimated GFR POC Glucose Random Glucose Lactic Acid Lactic Acid F/U @ 2Hr Lactic Acid F/U @ 4Hr Calcium Blood Type Antibody Screen Crossmatch Microbiology Microbiology Results: Microbiology 11/04/24 07:53 Blood - Venous Blood Culture - Preliminary No growth after 48 hours. 11/04/24 07:18 Blood - Venous Blood Culture - Preliminary No growth after 48 hours. 11/04/24 Unknown Urine Catheterized - Kim Catheter Urine Culture - Final No growth. 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 Progress Note: Quality Stroke Does the patient have a stroke diagnosis?: No
[2024-11-06 11:17] LABS: Alanine Aminotransferase 8 U/L (0-31); Albumin Level 2.0 g/dL (3.5-5.0); Alkaline Phosphatase 287 U/L (39-117); Anion Gap 14 (12-20); Aspartate Amino Transferase 41 U/L (5-31); Blood Urea Nitrogen 98 mg/dL (9-16); Calcium 7.0 mg/dL (8.4-10.2); Carbon Dioxide 21 mmol/L (22-29); Chloride 108 mmol/L (96-108); Creatinine Clr Calc Pharmacy 11.6; Estimated Glomerular Filt Rate 10; Magnesium 1.6 mg/dL (1.6-2.6); Potassium 4.2 mmol/L (3.3-5.1); Sodium 139 mmol/L (135-145); Total Protein 3.2 g/dL (6.5-8.0)
--- NOTE | 2024-11-06 11:58 | W.PM.CCHP ---
Procedures Date of Service Date of Service: 11/06/24 Central Line Placement Left IJ: Central Line Comments: Patient with development of hemorrhagic shock and rapidly escalating pressor requirements requiring emergent central venous access. Left internal jugular triple venous catheter emergently placed under ultrasound guidance and usual sterile conditions with no immediate complications. Line position verified on chest x-ray.
--- NOTE | 2024-11-06 12:01 | P.PNCC_ITS ---
Subjective Subjective Date of Service: 11/06/24 Interval History: 84-year-old lady with underlying polycystic liver, essential hypertension, ESRD on hemodialysis, PE on Eliquis admitted on 11/04/2024 with hypotension injury to upper GI bleed, patient initially with good response to resuscitation with blood products and IV fluid, admitted to telemetry service. Patient did have an EGD on 11/05/2024 showing duodenal bulb actively bleeding ulcer, treated with sclerotherapy and clipping. Overnight after procedure patient with repeat hemorrhage with poor response to IV fluids and blood products requiring transferred to intensive care unit and utilization of pressor support. Critical Care Time (minutes): 120 Physical Exam 2 Vital Signs: Vital Signs: Last Vital Signs Temp 98.0 F 11/06/24 11:32 Pulse 104 H 11/06/24 11:32 Resp 23 H 11/06/24 11:32 BP 122/59 L 11/06/24 11:32 Pulse Ox 100 11/06/24 11:30 O2 Del Method Room Air 11/06/24 11:30 O2 Flow Rate 6 11/06/24 11:20 BMI result Body Mass Index 34.5 Const: General: no acute distress and alert Nutritional Appearance: not obese Orientation/consciousness: Other orientation findings ( oriented) HEENT: Head: Yes atraumatic Eyes: General: appearance normal, both eyes and all related structures S clerae: sclerae normal EOM: EOMs intact bilaterally Neck: Neck: Yes supple Lymphatic: no lymphadenopathy noted Resp: Effort & Inspection: normal respiratory effort and no use of accessory muscles Auscultation: clear to auscultation bilaterally Cardio: Rate: tachycardic Rhythm: regular rhythm Heart sounds: no gallops, no murmurs and no rubs GI: Palpation (GI): Soft to palpation and Other GI palpation findings present ( Nontender) Auscultation: normal bowel sounds Skin: General skin exam: other ( warm) Extrem: General: No clubbing, No cyanosis and Yes edema (1+ bilateral) Objective Data Labs 11/06/24 09:47 11/06/24 10:36 Labs: Laboratory Results - last 24 hr 11/04/24 11/05/24 11/05/24 07:18 16:48 17:19 WBC RBC Hgb Hct MCV MCH MCHC RDW Plt Count MPV Immature Gran % (Auto) Neut % (Auto) Lymph % (Auto) [place] % (Auto) Eos % (Auto) Baso % (Auto) Lymph # (Auto) [place] # (Auto) Eos # (Auto) Baso # (Auto) Abs Immat Gran (auto) Absolute Neuts (auto) Absolute Nucleated RBC Nucleated RBC % (auto) Smear Tech's Comments Hold Purple Top PT INR Hold Blue Top Sodium 139 Potassium 5.0 D Chloride 108 Carbon Dioxide 19 L Anion Gap 17 BUN 100 H Creatinine 4.41 H* Estim Creat Clear Calc 10.8 Estimated GFR 10 POC Glucose 116 H Random Glucose 128 H Fasting Glucose Lactic Acid Lactic Acid F/U @ 2Hr Lactic Acid F/U @ 4Hr Calcium 6.8 L D Phosphorus Magnesium Total Bilirubin Direct Bilirubin AST ALT Alkaline Phosphatase Total Protein Albumin Blood Type A Positive Antibody Screen NEGATIVE Crossmatch See Detail 11/05/24 11/05/24 11/05/24 18:26 18:33 21:18 WBC 23.1 H RBC 2.83 L Hgb 8.5 L Hct 23.9 L MCV 84.5 MCH 30.0 MCHC 35.6 H RDW 14.6 Plt Count 102 L D MPV 10.5 Immature Gran % (Auto) 2.5 H Neut % (Auto) 83.3 H Lymph % (Auto) 8.7 L [place] % (Auto) 4.6 Eos % (Auto) 0.5 Baso % (Auto) 0.4 Lymph # (Auto) 2.0 [place] # (Auto) 1.1 Eos # (Auto) 0.1 Baso # (Auto) 0.1 Abs Immat Gran (auto) 0.57 H Absolute Neuts (auto) 19.2 H Absolute Nucleated RBC 0.020 H Nucleated RBC % (auto) 0.1 Smear Tech's Comments VERIFIED Hold Purple Top PT INR Hold Blue Top Sodium Potassium Chloride Carbon Dioxide Anion Gap BUN Creatinine Estim Creat Clear Calc Estimated GFR POC Glucose Random Glucose Fasting Glucose Lactic Acid 2.4 H* Lactic Acid F/U @ 2Hr 2.4 H* Lactic Acid F/U @ 4Hr Calcium Phosphorus Magnesium Total Bilirubin Direct Bilirubin AST ALT Alkaline Phosphatase Total Protein Albumin Blood Type Antibody Screen Crossmatch 11/05/24 11/06/24 11/06/24 23:44 09:47 10:36 WBC 16.2 H RBC 2.02 L D Hgb 10.2 L 6.4 L* D Hct 28.9 L D 17.5 L* D MCV 86.6 MCH 31.7 MCHC 36.6 H RDW 14.3 Plt Count 100 L MPV 10.6 Immature Gran % (Auto) 2.0 H Neut % (Auto) 73.2 H Lymph % (Auto) 17.3 L [place] % (Auto) 5.4 Eos % (Auto) 1.8 Baso % (Auto) 0.3 Lymph # (Auto) 2.8 [place] # (Auto) 0.9 Eos # (Auto) 0.3 Baso # (Auto) 0.1 Abs Immat Gran (auto) 0.32 H Absolute Neuts (auto) 11.9 H Absolute Nucleated RBC 0.040 H Nucleated RBC % (auto) 0.2 Smear Tech's Comments Hold Purple Top PT 18.1 H INR 1.6 H Hold Blue Top Sodium 139 Potassium 4.2 Chloride 108 Carbon Dioxide 21 L Anion Gap 14 BUN 98 H Creatinine 4.27 H* Estim Creat Clear Calc 11.6 Estimated GFR 10 POC Glucose Random Glucose Fasting Glucose 146 H Lactic Acid Lactic Acid F/U @ 2Hr Lactic Acid F/U @ 4Hr 1.6 Calcium 7.0 L Phosphorus 3.8 Magnesium 1.6 Total Bilirubin 1.7 H Direct Bilirubin 1.1 H AST 41 H ALT 8 Alkaline Phosphatase 287 H Total Protein 3.2 L Albumin 2.0 L Blood Type Antibody Screen Crossmatch 11/06/24 10:43 WBC RBC Hgb Hct MCV MCH MCHC RDW Plt Count MPV Immature Gran % (Auto) Neut % (Auto) Lymph % (Auto) [place] % (Auto) Eos % (Auto) Baso % (Auto) Lymph # (Auto) [place] # (Auto) Eos # (Auto) Baso # (Auto) Abs Immat Gran (auto) Absolute Neuts (auto) Absolute Nucleated RBC Nucleated RBC % (auto) Smear Tech's Comments Hold Purple Top SEE NOTE PT INR Hold Blue Top Cancelled Sodium Potassium Chloride Carbon Dioxide Anion Gap BUN Creatinine Estim Creat Clear Calc Estimated GFR POC Glucose Random Glucose Fasting Glucose Lactic Acid Lactic Acid F/U @ 2Hr Lactic Acid F/U @ 4Hr Calcium Phosphorus Magnesium Total Bilirubin Direct Bilirubin AST ALT Alkaline Phosphatase Total Protein Albumin Blood Type Antibody Screen Crossmatch Microbiology Microbiology Results: Microbiology 11/04/24 07:53 Blood - Venous Blood Culture - Preliminary No growth after 48 hours. 11/04/24 07:18 Blood - Venous Blood Culture - Preliminary No growth after 48 hours. 11/04/24 Unknown Urine Catheterized - Kim Catheter Urine Culture - Final No growth. Progress Note: A&P Assessment and plan (1) Hemorrhagic shock: Status: Acute (2) Acute upper GI bleed: Status: Acute (3) ESRD (end stage renal disease): Status: Acute Plan Assessment: 84-year-old lady admitted with an upper GI date on a background of utilization of Eliquis for prior DVT, noted to have duodenal bulb ulcer UD, unfortunately with postprocedure recurrence of upper GI bleed resulting in hemorrhagic shock. Plan: Neuro: No acute issues. Cardiac: Hemorrhagic shock, continue to titrate off pressor support as tolerated. Underlying CAD. Pulmonary: No acute issues. Renal: No acute issues. ESRD on hemodialysis. Nephrology service care appreciated. Endo: No acute issues. GI: Duodenal bulb ulcer status post sclerotherapy/clipping. Gastroenterology service care appreciated. Now with rebleeding, patient planned for IR embolization. ID: No acute issues Heme/Onc: Hemorrhagic shock secondary to an upper GI bleed continue with blood product support, hemoglobin threshold of 7. Psych: No acute issues. Miscellaneous: No acute issues. Prophylaxis: Pneumatic compression Diet: NPO Critical care time spent: 120 minutes excluding separately billable procedures. Quality Stroke Does the patient have a stroke diagnosis?: No VTE Prior VTE?: No VTE Risk Level:: Medical - moderate - high VTE Device Contraindication: N/A - Device Ordered VTE Drug Contraindication: Treatment Not Indicated
--- NOTE | 2024-11-06 12:10 | MHC.CLN ---
PT WITH INCREASED NUTRITION RISK R/T PRESSURE INJURY PT IS CURRENTLY NPO WHEN DIET TO ADVANCE, RECOMMEND ADDING ENSURE CLEAR TID TO PROMOTE WOUND HEALING SUPPLEMENT WILL PROVIDE 720KCALS, 27G PROTEIN (SUPPLEMENT IS RENAL FRIENDLY) FOLLOWING FOR DIET ADVANCEMENT SEE FULL ASSESSMENT
--- NOTE | 2024-11-06 14:34 | MHC.CM.PN ---
PT REMAINS IN ICU ON PRESSOR SUPPORT/ SCHEDULED FOR IR EMBOLIZATION TODAY. CM WILL CONTINUE TO FOLLOW HOSPITAL COURSE.
[2024-11-06 15:35] LABS: MANUAL DIFF FLAG NO
--- NOTE | 2024-11-06 15:49 | PC.NURSE ---
Addendum entered by Beatrice Mesa RN 11/06/24 16:10: H&H critically low - see results - MD notified - additional 2u PRBC ordered and administer over 1hr each. Original Note: Assumed care at 0700. Multiple large liquid episodes of melena w/ clots - MD notified - okay to place rectal tube per MD - approx 1200cc output from rectal tube from [id number] - 3u PRBC, 1u FFP, 1u PLT administered per TAR for critically low H&H - see results. Levo titrated to maintain MAP >65 - see MAR titrations. L IJ TLC placed by station gateman w/o incidence - CXR completed - see report. Patient transferred to IR via bed at 1100 for embolization - Handoff given to Melissa Fregoso RN. Patient brought back to ICU via bed at 1345. 1530 Patient c/o sudden dull 7/10 RLQ pain - surgical site to R groin intact, no s/s of bleeding, abdomen soft, decrease output to rectal tube noted, Levo titrated to maintain MAP >65 - MD notified and at bedside - fentanyl 50mcg VO Dr Santos ordered and administered, stat CBC & BMP ordered and obtained - results pending. DTI noted to R Heel w/ AM assessment - heel boots placed, repo q2hr. Care ongoing.
[2024-11-06 15:58] LABS: Imm Gran Abs Auto 0.27 X10*3/uL (0.00-0.03); Imm Gran Pct Auto 1.5 % (0.0-0.4); Lymphocytes Absolute Auto 1.5 X10*3/uL (1.2-4.9); Mean Corpuscular HGB Conc 35.1 g/dl (31.0-35.0); Mean Corpuscular Hemoglobin 29.3 pg (27.0-33.0); Mean Corpuscular Volume 83.7 fL (80.0-98.0); NRBC Abs Auto 0.040 X10*3/uL (0.0-0.012); NRBC Pct Auto 0.2 /100WBC (0.0-0.2); Red Blood Count 2.08 X10*6/uL (4.20-5.50); White Blood Count 17.6 X10*3/uL (4.8-10.8)
[2024-11-06 15:59] LABS: Platelet Count 81 X10*3/uL (160-400)
[2024-11-06 16:02] LABS: Hematocrit 17.4 % (37.0-47.0); Hemoglobin 6.1 g/dl (12.0-16.0)
[2024-11-06 16:32] LABS: Anion Gap 16 (12-20); Blood Urea Nitrogen 91 mg/dL (9-16); Calcium 6.5 mg/dL (8.4-10.2); Carbon Dioxide 16 mmol/L (22-29); Chloride 109 mmol/L (96-108); Creatinine Clr Calc Pharmacy 11.8; Estimated Glomerular Filt Rate 10; Potassium 4.4 mmol/L (3.3-5.1); Sodium 137 mmol/L (135-145)
[2024-11-06 16:49] LABS: Glucose, Whole Blood 142 mg/dL (60-115)
[2024-11-06 20:29] LABS: Hematocrit 29.9 % (37.0-47.0); Hemoglobin 10.6 g/dl (12.0-16.0); Mean Corpuscular HGB Conc 35.5 g/dl (31.0-35.0); Mean Corpuscular Hemoglobin 29.4 pg (27.0-33.0); Mean Corpuscular Volume 82.8 fL (80.0-98.0); NRBC Abs Auto 0.050 X10*3/uL (0.0-0.012); NRBC Pct Auto 0.2 /100WBC (0.0-0.2); Red Blood Count 3.61 X10*6/uL (4.20-5.50); White Blood Count 20.9 X10*3/uL (4.8-10.8)
[2024-11-06 20:30] LABS: Platelet Count 76 X10*3/uL (160-400)
[2024-11-06 21:15] LABS: Anion Gap 16 (12-20); Blood Urea Nitrogen 93 mg/dL (9-16); Calcium 6.7 mg/dL (8.4-10.2); Carbon Dioxide 17 mmol/L (22-29); Chloride 109 mmol/L (96-108); Creatinine Clr Calc Pharmacy 11.5; Estimated Glomerular Filt Rate 10; Magnesium 1.7 mg/dL (1.6-2.6); Potassium 4.7 mmol/L (3.3-5.1); Sodium 137 mmol/L (135-145)
[2024-11-07] VITALS (48 sets, daily range): BP systolic 58–148; BP diastolic 29–71; PULSE 68–122; RESP 20–28; TEMP 36.2–37.6; O2SAT 95–100; BMI 33.7
[2024-11-07] MEDS: Pantoprazole Sodium 80 MG in 0.9 % Sodium Chloride 80 ML 10 MG IV ×3 (02:03→22:41)
[2024-11-07] MEDS: 0.9 % Sodium Chloride Flush 3 ML SYRINGE IVFLUSH ×4 (02:03→23:17)
[2024-11-07 05:28] LABS: VBG HCO3 16 mmol/L (22-26); VBG O2 % Saturation 100.0 %
[2024-11-07 05:32] LABS: Venous Blood Gas Refer to POC result
[2024-11-07 05:40] LABS: MANUAL DIFF FLAG NO
[2024-11-07 05:42] LABS: Hematocrit 27.5 % (37.0-47.0); Hemoglobin 9.7 g/dl (12.0-16.0); Imm Gran Abs Auto 0.23 X10*3/uL (0.00-0.03); Imm Gran Pct Auto 1.2 % (0.0-0.4); Lymphocytes Absolute Auto 1.9 X10*3/uL (1.2-4.9); Mean Corpuscular HGB Conc 35.3 g/dl (31.0-35.0); Mean Corpuscular Hemoglobin 29.4 pg (27.0-33.0); Mean Corpuscular Volume 83.3 fL (80.0-98.0); NRBC Abs Auto 0.050 X10*3/uL (0.0-0.012); NRBC Pct Auto 0.3 /100WBC (0.0-0.2); Platelet Count 104 X10*3/uL (160-400); Red Blood Count 3.30 X10*6/uL (4.20-5.50); White Blood Count 19.2 X10*3/uL (4.8-10.8)
[2024-11-07 06:12] LABS: Alanine Aminotransferase 17 U/L (0-31); Albumin Level 1.9 g/dL (3.5-5.0); Alkaline Phosphatase 269 U/L (39-117); Anion Gap 16 (12-20); Aspartate Amino Transferase 62 U/L (5-31); Blood Urea Nitrogen 94 mg/dL (9-16); Calcium 6.8 mg/dL (8.4-10.2); Carbon Dioxide 16 mmol/L (22-29); Chloride 108 mmol/L (96-108); Creatinine Clr Calc Pharmacy 10.7; Estimated Glomerular Filt Rate 9; Magnesium 1.7 mg/dL (1.6-2.6); Potassium 4.6 mmol/L (3.3-5.1); Sodium 135 mmol/L (135-145); Total Protein 3.8 g/dL (6.5-8.0)
[2024-11-07] MEDS: Albumin Human 25 % 100 ML IV ×4 (08:35→20:58)
--- NOTE | 2024-11-07 10:35 | PM.CCPN ---
Subjective Subjective Date of Service: 11/07/24 Interval History: 84-year-old lady with underlying polycystic liver, essential hypertension, ESRD on hemodialysis, PE on Eliquis admitted on 11/04/2024 with hypotension injury to upper GI bleed, patient initially with good response to resuscitation with blood products and IV fluid, admitted to telemetry service. Patient did have an EGD on 11/05/2024 showing duodenal bulb actively bleeding ulcer, treated with sclerotherapy and clipping. Overnight after procedure patient with repeat hemorrhage with poor response to IV fluids and blood products requiring transferred to intensive care unit and utilization of pressor support. Status post IR embolization on 11/06/2024 with stabilization of hemoglobin and no further rebleeding. Continues to require significant pressor support. Critical Care Time (minutes): 45 Physical Exam Vital Signs: Vital Signs: Last Vital Signs Temp 98.1 F 11/07/24 10:00 Pulse 68 11/07/24 10:00 Resp 24 H 11/07/24 10:00 BP 95/52 L 11/07/24 10:00 Pulse Ox 100 11/07/24 10:00 O2 Del Method Room Air 11/07/24 10:00 O2 Flow Rate 6 11/06/24 11:20 BMI result Body Mass Index 33.7 Const: General: no acute distress, alert and awake Eyes: Sclerae: sclerae normal EOM: EOMs intact bilaterally Neck: Neck: Yes no lymphadenopathy, Yes trachea midline and Yes supple Resp: Effort & Inspection: normal respiratory effort and no respiratory distress Auscultation: clear to auscultation bilaterally Cardio: Rate: tachycardic Rhythm: regular rhythm Heart sounds: no gallops, no murmurs and no rubs GI: Palpation (GI): Soft to palpation and Other GI palpation findings present ( Nontender) Auscultation: normal bowel sounds Extrem: General: Yes no pedal edema, No clubbing and No cyanosis Objective Data Labs 11/07/24 05:17 11/07/24 05:17 Labs: Laboratory Results - last 24 hr 11/04/24 11/06/24 11/06/24 07:18 10:36 10:43 WBC RBC Hgb Hct MCV MCH MCHC RDW Plt Count MPV Immature Gran % (Auto) Neut % (Auto) Lymph % (Auto) [place] % (Auto) Eos % (Auto) Baso % (Auto) Lymph # (Auto) [place] # (Auto) Eos # (Auto) Baso # (Auto) Abs Immat Gran (auto) Absolute Neuts (auto) Absolute Nucleated RBC Nucleated RBC % (auto) Hold Purple Top SEE NOTE PT 18.1 H INR 1.6 H Hold Blue Top Cancelled VBG pH VBG pCO2 VBG pO2 VBG HCO3 VBG O2 Saturation VBG Base Excess Sodium 139 Potassium 4.2 Chloride 108 Carbon Dioxide 21 L Anion Gap 14 BUN 98 H Creatinine 4.27 H* Estim Creat Clear Calc 11.6 Estimated GFR 10 POC Glucose Random Glucose Fasting Glucose 146 H Calcium 7.0 L Phosphorus 3.8 Magnesium 1.6 Total Bilirubin 1.7 H Direct Bilirubin 1.1 H AST 41 H ALT 8 Alkaline Phosphatase 287 H Total Protein 3.2 L Albumin 2.0 L Blood Type A Positive Antibody Screen NEGATIVE Crossmatch See Detail 11/06/24 11/06/24 11/06/24 15:29 16:45 20:09 WBC 17.6 H 20.9 H RBC 2.08 L 3.61 L D Hgb 6.1 L* 10.6 L D Hct 17.4 L* 29.9 L D MCV 83.7 82.8 MCH 29.3 29.4 MCHC 35.1 H 35.5 H RDW 15.7 15.4 Plt Count 81 L 76 L MPV 10.7 10.8 Immature Gran % (Auto) 1.5 H Neut % (Auto) 86.1 H Lymph % (Auto) 8.4 L [place] % (Auto) 3.4 Eos % (Auto) 0.3 Baso % (Auto) 0.3 Lymph # (Auto) 1.5 [place] # (Auto) 0.6 Eos # (Auto) 0.1 Baso # (Auto) 0.1 Abs Immat Gran (auto) 0.27 H Absolute Neuts (auto) 15.1 H Absolute Nucleated RBC 0.040 H 0.050 H Nucleated RBC % (auto) 0.2 0.2 Hold Purple Top PT INR Hold Blue Top VBG pH VBG pCO2 VBG pO2 VBG HCO3 VBG O2 Saturation VBG Base Excess Sodium 137 137 Potassium 4.4 4.7 Chloride 109 H 109 H Carbon Dioxide 16 L 17 L Anion Gap 16 16 BUN 91 H 93 H Creatinine 4.23 H* 4.35 H* Estim Creat Clear Calc 11.8 11.5 Estimated GFR 10 10 POC Glucose 142 H Random Glucose 209 H 186 H Fasting Glucose Calcium 6.5 L D 6.7 L Phosphorus 4.7 H Magnesium 1.7 Total Bilirubin Direct Bilirubin AST ALT Alkaline Phosphatase Total Protein Albumin Blood Type Antibody Screen Crossmatch 11/07/24 11/07/24 05:17 05:24 WBC 19.2 H RBC 3.30 L Hgb 9.7 L Hct 27.5 L MCV 83.3 MCH 29.4 MCHC 35.3 H RDW 16.9 H Plt Count 104 L D MPV 11.2 Immature Gran % (Auto) 1.2 H Neut % (Auto) 82.7 H Lymph % (Auto) 9.9 L [place] % (Auto) 5.1 Eos % (Auto) 0.6 Baso % (Auto) 0.5 Lymph # (Auto) 1.9 [place] # (Auto) 1.0 Eos # (Auto) 0.1 Baso # (Auto) 0.1 Abs Immat Gran (auto) 0.23 H Absolute Neuts (auto) 15.9 H Absolute Nucleated RBC 0.050 H Nucleated RBC % (auto) 0.3 H Hold Purple Top PT INR Hold Blue Top VBG pH 7.56 H VBG pCO2 18 VBG pO2 97 VBG HCO3 16 L VBG O2 Saturation 100.0 VBG Base Excess -3.8 Sodium 135 Potassium 4.6 Chloride 108 Carbon Dioxide 16 L Anion Gap 16 BUN 94 H Creatinine 4.60 H* Estim Creat Clear Calc 10.7 Estimated GFR 9 POC Glucose Random Glucose 142 H Fasting Glucose Calcium 6.8 L Phosphorus 4.5 Magnesium 1.7 Total Bilirubin 1.5 H Direct Bilirubin AST 62 H ALT 17 Alkaline Phosphatase 269 H Total Protein 3.8 L Albumin 1.9 L Blood Type Antibody Screen Crossmatch Microbiology Microbiology Results: Microbiology 11/04/24 07:53 Blood - Venous Blood Culture - Preliminary No growth after 48 hours. 11/04/24 07:18 Blood - Venous Blood Culture - Preliminary No growth after 48 hours. 11/04/24 Unknown Urine Catheterized - Kim Catheter Urine Culture - Final No growth. Progress Note: A&P Assessment and plan (1) Hemorrhagic shock: Status: Acute (2) Acute upper GI bleed: Status: Acute (3) ESRD (end stage renal disease): Status: Acute Plan Assessment: 84-year-old lady admitted with an upper GI date on a background of utilization of Eliquis for prior DVT, noted to have duodenal bulb ulcer UD, unfortunately with postprocedure recurrence of upper GI bleed resulting in hemorrhagic shock. Plan: Neuro: No acute issues. Cardiac: Hemorrhagic shock, improving, continue to titrate off pressor support as tolerated. Underlying CAD. Pulmonary: No acute issues. Renal: No acute issues. ESRD on hemodialysis. Nephrology service care appreciated. Endo: No acute issues. GI: Duodenal bulb ulcer status post sclerotherapy/clipping. Gastroenterology service care appreciated. Now status post IR embolization with no further rebleeding. ID: No acute issues Heme/Onc: Hemorrhagic shock secondary to an upper GI bleed, improving. Hemoglobin level stabilized. Continue to monitor hemoglobin, transfusion threshold of 7. Psych: No acute issues. Miscellaneous: No acute issues. Prophylaxis: Pneumatic compression Diet: Clear liquids Critical care time spent: 45 minutes Quality Stroke Does the patient have a stroke diagnosis?: No VTE Prior VTE?: No VTE Risk Level:: Medical - moderate - high VTE Device Contraindication: N/A - Device Ordered VTE Drug Contraindication: Treatment Not Indicated
--- NOTE | 2024-11-07 12:38 | MHC.CM.PN ---
Pt continues care in ICU on pressors: Pt will return to [facility] following acute care via BLS. CM to follow for finalization of d/c planning needs
[2024-11-07 17:54] LABS: MANUAL DIFF FLAG NO
--- NOTE | 2024-11-07 17:57 | PC.NURSE ---
Assumed care 0700? Neuro/Respiratory: Alert and Oriented, clear lung sounds on RA Cardiac: Sinus Tachy on tele, On Levophed per MAR. GI/: LBM 11/06, Anuric? Skin: Impaired skin integrity- see skin assessment? Temp: Afebrile? Lines: ??TLC? to [facility]
[2024-11-07 18:16] LABS: Hemoglobin 7.1 g/dl (12.0-16.0); Imm Gran Abs Auto 0.13 X10*3/uL (0.00-0.03); Imm Gran Pct Auto 0.7 % (0.0-0.4); Lymphocytes Absolute Auto 1.3 X10*3/uL (1.2-4.9); Mean Corpuscular HGB Conc 36.2 g/dl (31.0-35.0); Mean Corpuscular Hemoglobin 30.0 pg (27.0-33.0); Mean Corpuscular Volume 82.7 fL (80.0-98.0); NRBC Abs Auto 0.000 X10*3/uL (0.0-0.012); NRBC Pct Auto 0.0 /100WBC (0.0-0.2); Red Blood Count 2.37 X10*6/uL (4.20-5.50); White Blood Count 17.6 X10*3/uL (4.8-10.8)
[2024-11-07 18:19] LABS: Hematocrit 19.6 % (37.0-47.0); Platelet Count 87 X10*3/uL (160-400)
--- NOTE | 2024-11-07 19:10 | HO.SKINPHOTO ---
Location: Left upper leg Location: Right breast Location: Left breast
[2024-11-08] VITALS (37 sets, daily range): BP systolic 102–144; BP diastolic 52–79; PULSE 71–120; RESP 20–31; TEMP 36.1–36.8; O2SAT 95–100; BMI 33.4
[2024-11-08 00:45] LABS: Hematocrit 22.6 % (37.0-47.0); Hemoglobin 8.1 g/dl (12.0-16.0); Mean Corpuscular HGB Conc 35.8 g/dl (31.0-35.0); Mean Corpuscular Hemoglobin 30.9 pg (27.0-33.0); Mean Corpuscular Volume 86.3 fL (80.0-98.0); NRBC Abs Auto 0.000 X10*3/uL (0.0-0.012); NRBC Pct Auto 0.0 /100WBC (0.0-0.2); Red Blood Count 2.62 X10*6/uL (4.20-5.50); White Blood Count 15.6 X10*3/uL (4.8-10.8)
[2024-11-08 00:50] LABS: Platelet Count 79 X10*3/uL (160-400)
[2024-11-08] MEDS: Albumin Human 25 % 100 ML IV (03:27)
[2024-11-08 05:42] LABS: MANUAL DIFF FLAG NO
[2024-11-08 05:45] LABS: Hematocrit 21.2 % (37.0-47.0); Hemoglobin 7.5 g/dl (12.0-16.0); Imm Gran Abs Auto 0.09 X10*3/uL (0.00-0.03); Imm Gran Pct Auto 0.6 % (0.0-0.4); Lymphocytes Absolute Auto 0.7 X10*3/uL (1.2-4.9); Mean Corpuscular HGB Conc 35.4 g/dl (31.0-35.0); Mean Corpuscular Hemoglobin 30.6 pg (27.0-33.0); Mean Corpuscular Volume 86.5 fL (80.0-98.0); NRBC Abs Auto 0.020 X10*3/uL (0.0-0.012); NRBC Pct Auto 0.1 /100WBC (0.0-0.2); Red Blood Count 2.45 X10*6/uL (4.20-5.50); White Blood Count 14.3 X10*3/uL (4.8-10.8)
[2024-11-08 06:00] LABS: Platelet Count 78 X10*3/uL (160-400)
[2024-11-08 06:20] LABS: Albumin Level 3.3 g/dL (3.5-5.0); Anion Gap 15 (12-20); Blood Urea Nitrogen 51 mg/dL (9-16); Calcium 7.5 mg/dL (8.4-10.2); Carbon Dioxide 24 mmol/L (22-29); Chloride 103 mmol/L (96-108); Creatinine Clr Calc Pharmacy 14.5; Estimated Glomerular Filt Rate 13; Magnesium 1.7 mg/dL (1.6-2.6); Potassium 3.5 mmol/L (3.3-5.1); Sodium 138 mmol/L (135-145)
[2024-11-08] MEDS: 0.9 % Sodium Chloride Flush 3 ML SYRINGE IVFLUSH ×2 (08:15→16:27)
[2024-11-08] MEDS: Pantoprazole Sodium 80 MG in 0.9 % Sodium Chloride 80 ML 10 MG IV ×2 (08:49→18:18)
[2024-11-08] MEDS: Calcium Gluconate/NaCl,Iso-Osm 1 GM/50 ML PLAST..BAG IV (09:46)
--- NOTE | 2024-11-08 09:55 | MHC.CM.PN ---
Pt remains in ICU on pressor support: plans for weaning ongoing. Pt from [facility] and will need to return for skilled rehab. Referral made: BLS transport. CM to follow
--- NOTE | 2024-11-08 10:36 | PM.CCPN ---
Subjective Subjective Date of Service: 11/08/24 Interval History: 84-year-old lady with underlying polycystic liver, essential hypertension, ESRD on hemodialysis, PE on Eliquis admitted on 11/04/2024 with hypotension injury to upper GI bleed, patient initially with good response to resuscitation with blood products and IV fluid, admitted to telemetry service. Patient did have an EGD on 11/05/2024 showing duodenal bulb actively bleeding ulcer, treated with sclerotherapy and clipping. Overnight after procedure patient with repeat hemorrhage with poor response to IV fluids and blood products requiring transferred to intensive care unit and utilization of pressor support. Status post IR embolization on 11/06/2024 with stabilization of hemoglobin and no further rebleeding. Pressor requirements improving significantly. Critical Care Time (minutes): 45 Physical Exam Vital Signs: Vital Signs: Last Vital Signs Temp 97.0 F 11/08/24 10:01 Pulse 114 H 11/08/24 10:01 Resp 29 H 11/08/24 10:01 BP 118/70 11/08/24 10:01 Pulse Ox 98 11/08/24 10:00 O2 Del Method Room Air 11/08/24 10:00 O2 Flow Rate 6 11/06/24 11:20 BMI result Body Mass Index 33.4 Const: General: no acute distress and alert Nutritional Appearance: not obese Orientation/consciousness: Other orientation findings ( oriented) HEENT: Head: Yes atraumatic Eyes: General: appearance normal, both eyes and all related structures Sclerae: sclerae normal EOM: EOMs intact bilaterally Neck: Neck: Yes supple Lymphatic: no lymphadenopathy noted Resp: Effort & Inspection: normal respiratory effort and no use of accessory muscles Auscultation: clear to auscultation bilaterally Cardio: Rate: regular rate Rhythm: regular rhythm Heart sounds: no gallops, no murmurs and no rubs Skin: General skin exam: other ( warm) Extrem: General: No clubbing, No cyanosis and No edema Objective Data Labs 11/08/24 05:19 11/08/24 05:19 Labs: Laboratory Results - last 24 hr 11/07/24 11/07/24 11/08/24 17:50 19:37 00:20 WBC 17.6 H 15.6 H RBC 2.37 L D 2.62 L Hgb 7.1 L D 8.1 L Hct 19.6 L* D 22.6 L MCV 82.7 86.3 MCH 30.0 30.9 MCHC 36.2 H 35.8 H RDW 17.4 H 18.6 H Plt Count 87 L 79 L MPV 10.3 10.4 Immature Gran % (Auto) 0.7 H Neut % (Auto) 84.8 H Lymph % (Auto) 7.5 L [place] % (Auto) 5.1 Eos % (Auto) 1.6 Baso % (Auto) 0.3 Lymph # (Auto) 1.3 [place] # (Auto) 0.9 Eos # (Auto) 0.3 Baso # (Auto) 0.1 Abs Immat Gran (auto) 0.13 H Absolute Neuts (auto) 14.9 H Absolute Nucleated RBC 0.000 0.000 Nucleated RBC % (auto) 0.0 0.0 Sodium Potassium Chloride Carbon Dioxide Anion Gap BUN Creatinine Estim Creat Clear Calc Estimated GFR Random Glucose Calcium Phosphorus Magnesium Albumin Blood Type A Positive Antibody Screen NEGATIVE Crossmatch See Detail 11/08/24 05:19 WBC 14.3 H RBC 2.45 L Hgb 7.5 L Hct 21.2 L MCV 86.5 MCH 30.6 MCHC 35.4 H RDW 17.8 H Plt Count 78 L MPV 10.4 Immature Gran % (Auto) 0.6 H Neut % (Auto) 86.1 H Lymph % (Auto) 5.0 L [place] % (Auto) 4.6 Eos % (Auto) 3.4 Baso % (Auto) 0.3 Lymph # (Auto) 0.7 L [place] # (Auto) 0.7 Eos # (Auto) 0.5 H Baso # (Auto) 0.0 Abs Immat Gran (auto) 0.09 H Absolute Neuts (auto) 12.3 H Absolute Nucleated RBC 0.020 H Nucleated RBC % (auto) 0.1 Sodium 138 Potassium 3.5 D Chloride 103 Carbon Dioxide 24 Anion Gap 15 BUN 51 H Creatinine 3.37 H Estim Creat Clear Calc 14.5 Estimated GFR 13 Random Glucose 86 Calcium 7.5 L D Phosphorus 3.4 Magnesium 1.7 Albumin 3.3 L Blood Type Antibody Screen Crossmatch Microbiology Microbiology Results: Microbiology 11/04/24 07:53 Blood - Venous Blood Culture - Preliminary No growth after 48 hours. 11/04/24 07:18 Blood - Venous Blood Culture - Preliminary No growth after 48 hours. 11/04/24 Unknown Urine Catheterized - Kim Catheter Urine Culture - Final No growth. Progress Note: A&P Assessment and plan (1) Hemorrhagic shock: Status: Acute (2) Acute upper GI bleed: Status: Acute (3) ESRD (end stage renal disease): Status: Acute Plan Assessment: 84-year-old lady admitted with an upper GI date on a background of utilization of Eliquis for prior DVT, noted to have duodenal bulb ulcer UD, unfortunately with postprocedure recurrence of upper GI bleed resulting in hemorrhagic shock. Plan: Neuro: No acute issues. Cardiac: Hemorrhagic shock, improving, continue to titrate off pressor support as tolerated. Underlying CAD. Pulmonary: No acute issues. Renal: No acute issues. ESRD on hemodialysis. Nephrology service care appreciated. Endo: No acute issues. GI: Duodenal bulb ulcer status post sclerotherapy/clipping. Gastroenterology service care appreciated. Now status post IR embolization with no further rebleeding. ID: No acute issues Heme/Onc: Hemorrhagic shock secondary to an upper GI bleed, improving. Hemoglobin level stabilized. Continue to monitor hemoglobin, transfusion threshold of 7. Psych: No acute issues. Miscellaneous: No acute issues. Prophylaxis: Pneumatic compression Diet: Full liquids Critical care time spent: 45 minutes Quality Stroke Does the patient have a stroke diagnosis?: No VTE Prior VTE?: No VTE Risk Level:: Medical - moderate - high VTE Device Contraindication: N/A - Device Ordered VTE Drug Contraindication: Treatment Not Indicated
--- NOTE | 2024-11-08 17:02 | PC.NURSE ---
Assumed care @ 0700? Neuro/Respiratory: Alert and Oriented, clear lung sounds on RA Cardiac: Sinus Rhythm on tele, Levophed titrated off? per MAY. GI/: LBM 8, Josselyn color stools, Full liquid Diet, Anuric? Skin: Impaired skin integrity- see skin assessment? Temp: Afebrile? Lines: ??TLC? to [facility]
[2024-11-08 18:09] LABS: Hematocrit 25.2 % (37.0-47.0); Hemoglobin 9.1 g/dl (12.0-16.0); Mean Corpuscular HGB Conc 36.1 g/dl (31.0-35.0); Mean Corpuscular Hemoglobin 31.8 pg (27.0-33.0); Mean Corpuscular Volume 88.1 fL (80.0-98.0); NRBC Abs Auto 0.000 X10*3/uL (0.0-0.012); NRBC Pct Auto 0.0 /100WBC (0.0-0.2); Red Blood Count 2.86 X10*6/uL (4.20-5.50); White Blood Count 13.5 X10*3/uL (4.8-10.8)
[2024-11-08 18:10] LABS: Platelet Count 70 X10*3/uL (160-400)
[2024-11-09] VITALS (13 sets, daily range): BP systolic 91–148; BP diastolic 50–77; PULSE 71–97; RESP 17–25; TEMP 36.1–37; O2SAT 97–100; BMI 34.7
[2024-11-09] MEDS: 0.9 % Sodium Chloride Flush 3 ML SYRINGE IVFLUSH ×3 (00:13→16:08)
[2024-11-09 00:16] LABS: Hematocrit 26.3 % (37.0-47.0); Hemoglobin 9.3 g/dl (12.0-16.0); Mean Corpuscular HGB Conc 35.4 g/dl (31.0-35.0); Mean Corpuscular Hemoglobin 31.4 pg (27.0-33.0); Mean Corpuscular Volume 88.9 fL (80.0-98.0); NRBC Abs Auto 0.000 X10*3/uL (0.0-0.012); NRBC Pct Auto 0.0 /100WBC (0.0-0.2); Red Blood Count 2.96 X10*6/uL (4.20-5.50); White Blood Count 12.9 X10*3/uL (4.8-10.8)
[2024-11-09 00:25] LABS: Platelet Count 76 X10*3/uL (160-400)
[2024-11-09] MEDS: Pantoprazole Sodium 80 MG in 0.9 % Sodium Chloride 80 ML 10 MG IV (04:46)
[2024-11-09 06:05] LABS: MANUAL DIFF FLAG NO
[2024-11-09 06:17] LABS: Hematocrit 26.8 % (37.0-47.0); Hemoglobin 9.3 g/dl (12.0-16.0); Imm Gran Abs Auto 0.06 X10*3/uL (0.00-0.03); Imm Gran Pct Auto 0.5 % (0.0-0.4); Lymphocytes Absolute Auto 0.9 X10*3/uL (1.2-4.9); Mean Corpuscular HGB Conc 34.7 g/dl (31.0-35.0); Mean Corpuscular Hemoglobin 31.3 pg (27.0-33.0); Mean Corpuscular Volume 90.2 fL (80.0-98.0); NRBC Abs Auto 0.000 X10*3/uL (0.0-0.012); NRBC Pct Auto 0.0 /100WBC (0.0-0.2); Platelet Count 69 X10*3/uL (160-400); Red Blood Count 2.97 X10*6/uL (4.20-5.50); White Blood Count 12.2 X10*3/uL (4.8-10.8)
[2024-11-09 06:26] LABS: Albumin Level 2.5 g/dL (3.5-5.0); Anion Gap 11 (12-20); Blood Urea Nitrogen 53 mg/dL (9-16); Calcium 7.2 mg/dL (8.4-10.2); Carbon Dioxide 25 mmol/L (22-29); Chloride 105 mmol/L (96-108); Creatinine Clr Calc Pharmacy 12.8; Estimated Glomerular Filt Rate 11; Magnesium 1.7 mg/dL (1.6-2.6); Potassium 3.4 mmol/L (3.3-5.1); Sodium 138 mmol/L (135-145)
[2024-11-09 06:59] LABS: Glucose, Whole Blood 124 mg/dL (60-115)
[2024-11-09] MEDS: Albumin Human 25 % 100 ML IV ×3 (08:28→21:04)
--- NOTE | 2024-11-09 09:13 | PC.NURSE ---
Assumed care 0700? Neuro/Respiratory: Alert and Oriented, clear lung sounds on RA Cardiac: Sinus Rhythm on tele, Levophed titrated off? since 11/08 GI/: LBM 11/09, Regular diet, Oliguric?? Skin: Impaired skin integrity- see skin assessment? Temp: Afebrile? Lines: ??TLC? to [facility]? Plan: Transfer to [facility]. No longer requiring ICU-level care.
--- NOTE | 2024-11-09 10:12 | P.PNCC_ITS ---
Subjective Subjective Date of Service: 11/09/24 Interval History: 84-year-old lady with underlying polycystic liver, essential hypertension, ESRD on hemodialysis, PE on Eliquis admitted on 11/04/2024 with hypotension injury to upper GI bleed, patient initially with good response to resuscitation with blood products and IV fluid, admitted to telemetry service. Patient did have an EGD on 11/05/2024 showing duodenal bulb actively bleeding ulcer, treated with sclerotherapy and clipping. Overnight after procedure patient with repeat hemorrhage with poor response to IV fluids and blood products requiring transferred to intensive care unit and utilization of pressor support. Status post IR embolization on 11/06/2024 with stabilization of hemoglobin and no further rebleeding. No events overnight. Did not require pressors since 11/08/2024. Critical Care Time (minutes): 0 Physical Exam 2 Vital Signs: Vital Signs: Last Vital Signs Temp 97.0 F 11/09/24 08:00 Pulse 81 11/09/24 09:00 Resp 22 H 11/09/24 09:00 BP 115/68 11/09/24 09:00 Pulse Ox 98 11/09/24 09:00 O2 Del Method Room Air 11/09/24 09:00 O2 Flow Rate 6 11/06/24 11:20 BMI result Body Mass Index 34.7 Const: General: no acute distress, alert and awake Eyes: Sclerae: sclerae normal EOM: EOMs intact bilaterally Neck: Neck: Yes no lymphadenopathy, Yes trachea midline and Yes supple Resp: Effort & Inspection: normal respiratory effort and no respiratory distress Auscultation: clear to auscultation bilaterally Cardio: Rate: regular rate Rhythm: regular rhythm Heart sounds: no gallops, no murmurs and no rubs GI: Palpation (GI): Soft to palpation and Other GI palpation findings present ( Nontender) Auscultation: normal bowel sounds Extrem: General: Yes no pedal edema, No clubbing and No cyanosis Objective Data Labs 11/09/24 05:54 11/09/24 05:41 Labs: Laboratory Results - last 24 hr 11/08/24 11/09/24 11/09/24 17:59 00:10 05:41 WBC 13.5 H 12.9 H RBC 2.86 L 2.96 L Hgb 9.1 L D 9.3 L Hct 25.2 L 26.3 L MCV 88.1 88.9 MCH 31.8 31.4 MCHC 36.1 H 35.4 H RDW 17.6 H 18.0 H Plt Count 70 L 76 L MPV 10.2 10.7 Immature Gran % (Auto) Neut % (Auto) Lymph % (Auto) [place] % (Auto) Eos % (Auto) Baso % (Auto) Lymph # (Auto) [place] # (Auto) Eos # (Auto) Baso # (Auto) Abs Immat Gran (auto) Absolute Neuts (auto) Absolute Nucleated RBC 0.000 0.000 Nucleated RBC % (auto) 0.0 0.0 Sodium 138 Potassium 3.4 Chloride 105 Carbon Dioxide 25 Anion Gap 11 L BUN 53 H Creatinine 3.89 H Estim Creat Clear Calc 12.8 Estimated GFR 11 POC Glucose Random Glucose 56 L* Calcium 7.2 L Phosphorus 3.7 Magnesium 1.7 Albumin 2.5 L 11/09/24 11/09/24 05:54 06:56 WBC 12.2 H RBC 2.97 L Hgb 9.3 L Hct 26.8 L MCV 90.2 MCH 31.3 MCHC 34.7 RDW 17.9 H Plt Count 69 L MPV 11.0 Immature Gran % (Auto) 0.5 H Neut % (Auto) 85.2 H Lymph % (Auto) 7.0 L [place] % (Auto) 2.8 Eos % (Auto) 4.3 H Baso % (Auto) 0.2 Lymph # (Auto) 0.9 L [place] # (Auto) 0.3 Eos # (Auto) 0.5 H Baso # (Auto) 0.0 Abs Immat Gran (auto) 0.06 H Absolute Neuts (auto) 10.4 H Absolute Nucleated RBC 0.000 Nucleated RBC % (auto) 0.0 Sodium Potassium Chloride Carbon Dioxide Anion Gap BUN Creatinine Estim Creat Clear Calc Estimated GFR POC Glucose 124 H Random Glucose Calcium Phosphorus Magnesium Albumin Microbiology Microbiology Results: Microbiology 11/04/24 07:53 Blood - Venous Blood Culture - Final No growth after 5 days. 11/04/24 07:18 Blood - Venous Blood Culture - Final No growth after 5 days. 11/04/24 Unknown Urine Catheterized - Kim Catheter Urine Culture - Final No growth. Progress Note: A&P Assessment and plan (1) Hemorrhagic shock: Status: Acute (2) Acute upper GI bleed: Status: Acute (3) ESRD (end stage renal disease): Status: Acute Plan Assessment: 84-year-old lady admitted with an upper GI date on a background of utilization of Eliquis for prior DVT, noted to have duodenal bulb ulcer UD, unfortunately with postprocedure recurrence of upper GI bleed resulting in hemorrhagic shock. Plan: Neuro: No acute issues. Cardiac: Hemorrhagic shock, resolved titrated off pressor support. Underlying CAD. Pulmonary: No acute issues. Renal: No acute issues. ESRD on hemodialysis. Nephrology service care appreciated. Endo: No acute issues. GI: Duodenal bulb ulcer status post sclerotherapy/clipping. Gastroenterology service care appreciated. Now status post IR embolization with no further rebleeding. ID: No acute issues Heme/Onc: Hemorrhagic shock secondary to an upper GI bleed, improving. Hemoglobin level stabilized. Continue to monitor hemoglobin, transfusion threshold of 7. Psych: No acute issues. Miscellaneous: No acute issues. Prophylaxis: Pneumatic compression Diet: Regular Quality Stroke Does the patient have a stroke diagnosis?: No VTE Prior VTE?: No VTE Risk Level:: Medical - moderate - high VTE Device Contraindication: N/A - Device Ordered VTE Drug Contraindication: Treatment Not Indicated
--- NOTE | 2024-11-09 10:23 | MHC.CLN ---
F/U PT WITH INCREASED NUTRITION RISK R/T PRESSURE INJURY DIET ADVANCED TO REGULAR RECOMMEND ADDING ENSURE CLEAR TID TO PROMOTE WOUND HEALING SUPPLEMENT WILL PROVIDE 720KCALS, 27G PROTEIN (SUPPLEMENT IS RENAL FRIENDLY) MONITOR PO INTAKE AND ENCOURAGE SUPPLEMENTS
--- NOTE | 2024-11-09 10:30 | PM.EVENT ---
Event Note Date of Service: 11/09/24 Event Note: ICU transfer. Discussed with ICU attending. Admitted for acute anemia secondary to GI bleed secondary to Eliquis use Treated with endoscopy, embolization Hypotension treated with IV pressors Patient is stable to transfer to medical telemetry Time Spent With Patient Time: Total time managing care of this patient today ____ minutes.
--- NOTE | 2024-11-09 14:59 | MHC.CM.PN ---
PT HAS BEEN DOWNGRADED TO THE MED-TELE UNIT FROM ICU. CM WILL CONTINUE TO FOLLOW FOR DC PLAN.
--- NOTE | 2024-11-09 19:02 | P.PNNP_ITS ---
Subjective Subjective Date of Service: 11/09/24 Interval history: Seen and examined,e vents noted Physical Exam 2 Vital Signs: Vital Signs: Last Vital Signs Temp 97.7 F 11/09/24 16:00 Pulse 84 11/09/24 16:00 Resp 18 11/09/24 16:00 BP 140/73 H 11/09/24 16:00 Pulse Ox 98 11/09/24 16:00 O2 Del Method Room Air 11/09/24 16:00 O2 Flow Rate 6 11/06/24 11:20 BMI result Body Mass Index 34.7 Const: General: no acute distress, alert and awake HEENT: Head: Yes normocephalic and Yes atraumatic Neck: Neck: Yes supple Resp: Auscultation: diminished lung sounds Cardio: Heart sounds: S1 normal heart sound present and S2 normal heart sound present GI: Palpation (GI): Soft to palpation and nontender Extrem: General: Yes edema Objective Data Labs 11/09/24 05:54 11/09/24 05:41 Labs: Laboratory Results - last 24 hr 11/09/24 11/09/24 11/09/24 00:10 05:41 05:54 WBC 12.9 H 12.2 H RBC 2.96 L 2.97 L Hgb 9.3 L 9.3 L Hct 26.3 L 26.8 L MCV 88.9 90.2 MCH 31.4 31.3 MCHC 35.4 H 34.7 RDW 18.0 H 17.9 H Plt Count 76 L 69 L MPV 10.7 11.0 Immature Gran % (Auto) 0.5 H Neut % (Auto) 85.2 H Lymph % (Auto) 7.0 L [place] % (Auto) 2.8 Eos % (Auto) 4.3 H Baso % (Auto) 0.2 Lymph # (Auto) 0.9 L [place] # (Auto) 0.3 Eos # (Auto) 0.5 H Baso # (Auto) 0.0 Abs Immat Gran (auto) 0.06 H Absolute Neuts (auto) 10.4 H Absolute Nucleated RBC 0.000 0.000 Nucleated RBC % (auto) 0.0 0.0 Sodium 138 Potassium 3.4 Chloride 105 Carbon Dioxide 25 Anion Gap 11 L BUN 53 H Creatinine 3.89 H Estim Creat Clear Calc 12.8 Estimated GFR 11 POC Glucose Random Glucose 56 L* Calcium 7.2 L Phosphorus 3.7 Magnesium 1.7 Albumin 2.5 L 11/09/24 06:56 WBC RBC Hgb Hct MCV MCH MCHC RDW Plt Count MPV Immature Gran % (Auto) Neut % (Auto) Lymph % (Auto) [place] % (Auto) Eos % (Auto) Baso % (Auto) Lymph # (Auto) [place] # (Auto) Eos # (Auto) Baso # (Auto) Abs Immat Gran (auto) Absolute Neuts (auto) Absolute Nucleated RBC Nucleated RBC % (auto) Sodium Potassium Chloride Carbon Dioxide Anion Gap BUN Creatinine Estim Creat Clear Calc Estimated GFR POC Glucose 124 H Random Glucose Calcium Phosphorus Magnesium Albumin Microbiology Microbiology Results: Microbiology 11/04/24 07:53 Blood - Venous Blood Culture - Final No growth after 5 days. 11/04/24 07:18 Blood - Venous Blood Culture - Final No growth after 5 days. 11/04/24 Unknown Urine Catheterized - Kim Catheter Urine Culture - Final No growth. 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 Progress Note: Quality Stroke Does the patient have a stroke diagnosis?: No
[2024-11-10 03:09] VITALS: BP 146/80; PULSE 97; RESP 20; TEMP 37.1; O2SAT 100
[2024-11-10 06:00] VITALS: BMI 35.2
[2024-11-10] MEDS: Albumin Human 25 % 100 ML IV (06:12)
[2024-11-10 07:46] VITALS: BP 147/78; PULSE 96; RESP 18; TEMP 36.7; O2SAT 100
[2024-11-10] MEDS: Metoprolol Succinate ER 50 MG TAB.ER.24H PO (08:07)
[2024-11-10 12:00] VITALS: BP 133/64; PULSE 80; RESP 18; TEMP 36.7; O2SAT 96
--- NOTE | 2024-11-10 14:35 | HO.WOUND ---
Wound Consult: Follow up 84 yr old?female admitted [place] [facility] [place]04/24 12:15- See progress notes and H&P for detailed history.? Wound consult? follow up for Sacrum and Coccyx wound POA in addition to Right Heel documentation of DTI.? Patient agreeable to assessment and photo documentation.? Patient reports significant improvement in pain to her sacrum and buttock area.? Notified by patrol community service officer staff documenting on Right Heel DTI. Skin assessed DTI present and detailed below.? The DTI was not noted at the time of admission but was noted with in 48hrs of admission. Per NPIAP (National Pressure Advisory Panel), Deep tissue pressure injury remains one of the most serious forms of pressure injury. The pressure is exerted at the muscle-bone interface, but due to the resiliency of? the skin, the color change is not immediate, in contrast to a bruise. The process leading to deep tissue pressure injury precedes the visible signs of purple or maroon? skin by about 48 hours. Then about 24 hours later, the epidermis lifts and reveals a dark wound bed. This phase of deep tissue injury evolution is often confused with?skin tears. Within another week, the wound bed is often necrotic. The lag between the ?pressure event? and the change in color of the skin makes the root cause analysis?complex. The National Pressure Injury Advisory Panel (NPIAP) has created the photographic timeline to help clinicians more reliability determine the events?leading to deep tissue pressure injury. It is important to be aware that 48 hours prior to the patient?s skin being deep red, maroon, or purple, he/she may not have been?in your facility. The above reference supports this Deep Tissue Pressure Injury occurring prior to admission and declaring during the first 48hours of admission, the wound will therefore be Present on Admission. 11/04/24 arrival to ED 11/05/24 Admission with the inpatient unit, 11/06/24 First documentation of DTI to Right Heel. Right Heel Etiology: Deep Tissue Injury ??Present on Admission Measurements: 3cm x 1.5cm Wound Bed: Intact dark purple nonblanchable tissue Drainage / Odor: None Edges: ? well defined Rosal[place] wound: pink tissue noted ? No Induration, Fluctuance or Warmth noted Pain: tenderness reported Goals of Treatment: ? Off Load Pressure Foam dressing to protect from friciton and pressure - heel boot protector when patient agreeable pillows to float heels when boots not in use. Foam dressing applied. Coccyx and Left Sacrum Etiology: ?Stage 3 Pressure Injury ?Present on Admission Wound Bed: Clean red wound beds improving wound beds Edges: ? irregular and epibole Rosalina wound: MASD and hyperpigmentation noted? - ? No Induration, Fluctuance or Warmth noted Goals of Treatment: ? Off Load Pressure and Triad to allow for autolytic debridement and moist wound healing Of note the patient felt warm to touch skin assessed - noted for trunk and upper leg redness warmth and swelling - provider and direct care nurse notified. Etiology unknown unclear causation at this time. Recommendations: 1. Turn and Reposition every 2 hours and as needed for patient comfort.? Use pillows or wedges to support off loading positions. 2. Off Load all bony prominences with use of pillows and heel boots if needed.? Apply Preventative foams where needed. ? 3. Monitor for incontinence and moisture control, use barrier creams when needed for prevention and treatment. 4. Provide adequate and supplemental nutrition.? 5. Order? low air loss mattress. 6. When applicable maintain blood glucose levels per Providers order. Coccyx and Sacrum? - Off Load Pressure with Q2 hr turns and use of pillows - Cleanse with PH balance spray or wipes, pat dry. ?Apply thin layer of Triad to wound bed - only pat and dab no scrub and rub when soiling occurs. Reapply thin layer PRN after each episode of incontinence. Right Heel - Bilateral Heels? - Elevate heels off of bed surface with pillows.? Float heels off of pillows.? Apply skin prep allow to dry.? Apply heel foam dressings, peel back and assess Q shift and change every 5-7 days and PRN. Re-consult wound care Nurse for wound deterioration or wound changes.
--- NOTE | 2024-11-10 16:34 | HO.PM.IMPN ---
Subjective Subjective Date of Service: 11/10/24 Review of Systems Follow up ICU transfer GI bleed hypotension Physical Exam Exam: Exam: Appearing in no acute distress lung sounds are clear to auscultation heart regular rate rhythm, clear S1, S2 positive bowel sounds, abdomen is soft, nontender neuro patient is alert x3, no focal deficits Abd and groin erythema Vital Signs: Vital Signs: Last Vital Signs Temp 98.1 F 11/10/24 12:00 Pulse 80 11/10/24 12:00 Resp 18 11/10/24 12:00 BP 133/64 11/10/24 12:00 Pulse Ox 96 11/10/24 12:00 O2 Del Method Room Air 11/10/24 12:00 O2 Flow Rate 6 11/06/24 11:20 BMI result Body Mass Index 35.2 Objective Data Active Medications Albuterol Sulfate (Albuterol Sulfate (0.083%) 2.5 Mg/3 Ml Vial.Neb) 2.5 mg INHALE Q4H PRN PRN Reason: Wheezing Calcitriol (Calcitriol 0.25 Mcg Capsule) 0.25 mcg PO DAILY [facility] Last Admin: 11/10/24 08:07 Dose: 0.25 mcg Documented By: ZELDA Fluticasone Propionate (Fluticasone Propionate Nasal 16 Gm [place]) 1 spray NOSTRIL-B DAILY [facility] Last Admin: 11/10/24 09:41 Dose: 1 spray Documented By: KEVIN Hydrocortisone (Hydrocortisone 1 % Cream 28.35 Gm Tube) 1 appl TOPICAL BID PRN; Protocol PRN Reason: itching Melatonin (Melatonin 3 Mg Tablet) 6 mg PO BEDTIME PRN PRN Reason: Insomnia Last Admin: 11/05/24 23:49 Dose: 6 mg Documented By: LALA Metoprolol Succinate (Metoprolol Succinate Er 50 Mg Tab.Er.24h) 50 mg PO DAILY [facility]; Protocol Last Admin: 11/10/24 08:07 Dose: 50 mg Documented By: ZELDA Naloxone HCl (Naloxone Hcl 0.4 Mg/Ml Vial) 0.04 mg IVPUSH Q5M PRN PRN Reason: Excessive sedation or RR < 8 Sodium Bicarbonate (Sodium Bicarbonate 650 Mg Tablet) 650 mg PO BID [facility] Last Admin: 11/10/24 08:07 Dose: 650 mg Documented By: ZELDA Sodium Chloride (0.9 % Sodium Chloride Flush 3 Ml Syringe) 3 ml IVFLUSH QSHIFT [facility] Last Admin: 11/10/24 08:07 Dose: Not Given Documented By: ZELDA Non-Admin Reason: IV Running Labs 11/09/24 05:54 11/09/24 05:41 Labs: Laboratory Results - last 24 hr 11/04/24 07:18 Crossmatch See Detail Assessment and Plan (1) Hemorrhagic shock: Status: Acute Plan 84 year old women with history of polycystic liver, hypertension, end-stage renal disease, PE on Eliquis. initially admitted to med tele and tx to ICU 11/06/24. tx to ICU foor active GI bleeding that required blood transfusion, EGD and embolization Hemorrhagic shock secondary to Acute GI bleed initially put response on medical floor Had EGD on 11/05/2024 showing due to duodenal bulb actively bleeding ulcer, treated with sclerotherapy and clipping Patient has subsequently developed repeat hemorrhage with poor response to IV fluids and blood products and transferred to the ICU for pressor support Patient transferred to medical floor on 02/23 and remained stable H&H stable no further bleeding episodes Hypotension Secondary to GI bleed Treated in the ICU with pressor support End-stage renal disease on dialysis Continue regular dialysis schedule History of pulmonary embolus. Has been on Eliquis but has been stopped due to GI bleed, discussed with Gastroenterology with close to discharge Hypertension Continue metoprolol Holding furosemide and hydralazine, restart when blood pressure allows Restrictive lung disease. History. No exacerbation Albuterol as needed erythema abd and groin no open sores or wounds monitor closely Hyperlipidemia Statin DVT prophylaxis with pneumatic compression boots secondary to GI bleed Full code Quality Stroke Does the patient have a stroke diagnosis?: No VTE Prior VTE?: No VTE Risk Level:: Medical - moderate - high VTE Device Contraindication: N/A - Device Ordered VTE Drug Contraindication: Treatment Not Indicated
[2024-11-10 16:44] VITALS: BP 134/66; PULSE 85; RESP 18; TEMP 37; O2SAT 98
[2024-11-10] MEDS: 0.9 % Sodium Chloride Flush 3 ML SYRINGE IVFLUSH ×2 (18:29→21:05)
[2024-11-10 20:00] VITALS: BP 128/78; PULSE 96; RESP 18; TEMP 37.3; O2SAT 97
[2024-11-11] VITALS (7 sets, daily range): BP systolic 95–154; BP diastolic 53–75; PULSE 62–102; RESP 16–20; TEMP 36.4–37.2; O2SAT 97–98; BMI 36.2
[2024-11-11] MEDS: Metoprolol Succinate ER 50 MG TAB.ER.24H PO (09:37)
[2024-11-11] MEDS: 0.9 % Sodium Chloride Flush 3 ML SYRINGE IVFLUSH ×3 (09:45→20:22)
--- NOTE | 2024-11-11 11:20 | MHC.CLN ---
F/U PO INTAKE 50% X2 MEALS DIET RX: REGULAR RECEIVING ENSURE CLEAR TID TO PROMOTE WOUND HEALING SUPPLEMENT PROVIDES 720KCALS, 27G PROTEIN (SUPPLEMENT IS RENAL FRIENDLY) MONITOR PO INTAKE AND ENCOURAGE SUPPLEMENTS
--- NOTE | 2024-11-11 12:29 | P.PNIM_ITS ---
Subjective Subjective Date of Service: 11/11/24 Interval History: bilateral leg pain, swelling, rash Physical Exam 2 Exam: Exam: General: AO X 3, no acute distress Resp: CTA bilateral, no accessory muscles used CVS: S1,S2,RRR GI: soft, non tender, non distended Neuro: motor grossly intact, alert Psych: appropriate affect, appropriate insight 3+ bilateral le edema with erythema most ly on thighs and lower abdomen Vital Signs: Vital Signs: Last Vital Signs Temp 97.6 F 11/11/24 11:14 Pulse 100 11/11/24 11:14 Resp 18 11/11/24 11:14 BP 154/75 H 11/11/24 11:14 Pulse Ox 97 11/11/24 11:14 O2 Del Method Room Air 11/11/24 11:14 O2 Flow Rate 6 11/06/24 11:20 BMI result Body Mass Index 36.2 Objective Data Active Medications Albuterol Sulfate (Albuterol Sulfate (0.083%) 2.5 Mg/3 Ml Vial.Neb) 2.5 mg INHALE Q4H PRN PRN Reason: Wheezing Calcitriol (Calcitriol 0.25 Mcg Capsule) 0.25 mcg PO DAILY [facility] Last Admin: 11/11/24 09:37 Dose: 0.25 mcg Documented By: ANÍBAL Fluticasone Propionate (Fluticasone Propionate Nasal 16 Gm [place]) 1 spray NOSTRIL-B DAILY [facility] Last Admin: 11/11/24 09:37 Dose: 1 spray Documented By: ANÍBAL Hydrocortisone (Hydrocortisone 1 % Cream 28.35 Gm Tube) 1 appl TOPICAL BID PRN; Protocol PRN Reason: itching Melatonin (Melatonin 3 Mg Tablet) 6 mg PO BEDTIME PRN PRN Reason: Insomnia Last Admin: 11/05/24 23:49 Dose: 6 mg Documented By: LALA Metoprolol Succinate (Metoprolol Succinate Er 50 Mg Tab.Er.24h) 50 mg PO DAILY [facility]; Protocol Last Admin: 11/11/24 09:37 Dose: 50 mg Documented By: ANÍBAL Morphine Sulfate (Morphine Sulfate 2 Mg/Ml Cartridge) 2 mg IVPUSH Q4H PRN; Protocol PRN Reason: Pain, Severe (Pain Scale 7-10) Last Admin: 11/11/24 09:37 Dose: 2 mg Documented By: ANÍBAL Naloxone HCl (Naloxone Hcl 0.4 Mg/Ml Vial) 0.04 mg IVPUSH Q5M PRN PRN Reason: Excessive sedation or RR < 8 Sodium Bicarbonate (Sodium Bicarbonate 650 Mg Tablet) 650 mg PO BID [facility] Last Admin: 11/11/24 09:37 Dose: 650 mg Documented By: ANÍBAL Sodium Chloride (0.9 % Sodium Chloride Flush 3 Ml Syringe) 3 ml IVFLUSH QSHIFT [facility] Last Admin: 11/11/24 09:45 Dose: 3 ml Documented By: ANÍBAL Labs 11/09/24 05:54 11/09/24 05:41 Labs: Laboratory Results - last 24 hr 11/04/24 07:18 Crossmatch See Detail Assessment and Plan (1) Hemorrhagic shock: Status: Acute Plan 84F PMH polycystic liver and kidney disease with end-stage renal disease on hemodialysis, hypertension, pulmonary embolism on Eliquis, hyperlipidemia, TIA, restrictive lung disease presented 11/04/[address] [facility] for hypotension found to have black stool and anemia. Patient underwent EGD 11/05/2024 which showed bleeding ulcer, became hypotensive on 11/06/2024 transferred to intensive care unit for hemorrhagic shock underwent IR embolization of the celiac artery and SMA. Has since stabilize been downgraded to medical floor on 11/09/24, now course complicated by lower extremity pain bilateral with erythema of legs and abdomen Acute blood loss anemia with hemorrhagic shock due to bleeding duodenal ulcer Status post EGD 11/05/2024 with clipping and sclerotherapy Status post IR embolization of celiac artery and SMA on 11/06/2024 Hemoglobin now stable, continue ppi, monitor hgb erythematous rash ?alelrgic vs fungal vs cellulitis topical antifungal monitor le swelling and pain check doppler esrd hd history of PE off eliquis for life threatening bleed dvt prophylaxis - mechanical due to bleed full code reason for continued hospitalization:work up rash, edema Quality Stroke Does the patient have a stroke diagnosis?: No VTE Prior VTE?: No VTE Risk Level:: Medical - moderate - high VTE Device Contraindication: N/A - Device Ordered VTE Drug Contraindication: Treatment Not Indicated
--- NOTE | 2024-11-11 13:23 | MHC.CM.PN ---
Per rounds, pt. to have further assessment for leg pain. her DCP is [facility], referral into [facility], where she came to hospital from.
--- NOTE | 2024-11-11 13:52 | P.PNNP_ITS ---
Subjective Subjective Date of Service: 11/11/24 Interval history: Seen and examined, events noted Physical Exam 2 Vital Signs: Vital Signs: Last Vital Signs Temp 97.6 F 11/11/24 11:14 Pulse 100 11/11/24 11:14 Resp 18 11/11/24 11:14 BP 154/75 H 11/11/24 11:14 Pulse Ox 97 11/11/24 11:14 O2 Del Method Room Air 11/11/24 11:14 O2 Flow Rate 6 11/06/24 11:20 BMI result Body Mass Index 36.2 Const: General: no acute distress, alert and awake HEENT: Head: Yes normocephalic and Yes atraumatic Neck: Neck: Yes supple Resp: Auscultation: diminished lung sounds Cardio: Heart sounds: S1 normal heart sound present and S2 normal heart sound present GI: Palpation (GI): Soft to palpation and nontender Extrem: General: Yes edema Objective Data Labs 11/09/24 05:54 11/09/24 05:41 Labs: Laboratory Results - last 24 hr 11/04/24 07:18 Crossmatch See Detail Microbiology Microbiology Results: Microbiology 11/04/24 07:53 Blood - Venous Blood Culture - Final No growth after 5 days. 11/04/24 07:18 Blood - Venous Blood Culture - Final No growth after 5 days. 11/04/24 Unknown Urine Catheterized - Kim Catheter Urine Culture - Final No growth. 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 Progress Note: Quality Stroke Does the patient have a stroke diagnosis?: No
--- NOTE | 2024-11-12 00:27 | PM.EVENT ---
Event Note Date of Service: 11/11/24 Event Note: 7:42 pm -Contacted by RN to notify venous US results --> acute DVT present within the right posterior tibial vein. IR consult for possible IVC filter placement as the patient recently had a life-threatening bleeding. Time Spent With Patient Time: Total time managing care of this patient today ____ minutes.
[2024-11-12 03:52] VITALS: BP 102/57; PULSE 87; RESP 18; TEMP 37.2; O2SAT 96
[2024-11-12 06:00] VITALS: BMI 35.3; BMI 36.2
[2024-11-12 07:21] VITALS: BP 125/60; PULSE 96; RESP 17; TEMP 36.5; O2SAT 98
[2024-11-12 07:53] LABS: Hematocrit 29.0 % (37.0-47.0); Hemoglobin 9.7 g/dl (12.0-16.0); Mean Corpuscular HGB Conc 33.4 g/dl (31.0-35.0); Mean Corpuscular Hemoglobin 31.2 pg (27.0-33.0); Mean Corpuscular Volume 93.2 fL (80.0-98.0); NRBC Abs Auto 0.000 X10*3/uL (0.0-0.012); NRBC Pct Auto 0.0 /100WBC (0.0-0.2); Red Blood Count 3.11 X10*6/uL (4.20-5.50); White Blood Count 20.8 X10*3/uL (4.8-10.8)
[2024-11-12 07:54] LABS: Platelet Count 112 X10*3/uL (160-400)
[2024-11-12 08:10] LABS: Anion Gap 16 (12-20); Blood Urea Nitrogen 44 mg/dL (9-16); Calcium 7.7 mg/dL (8.4-10.2); Carbon Dioxide 22 mmol/L (22-29); Chloride 103 mmol/L (96-108); Creatinine Clr Calc Pharmacy 11.6; Estimated Glomerular Filt Rate 10; Potassium 3.7 mmol/L (3.3-5.1); Sodium 137 mmol/L (135-145)
[2024-11-12] MEDS: Metoprolol Succinate ER 50 MG TAB.ER.24H PO (08:38)
[2024-11-12] MEDS: 0.9 % Sodium Chloride Flush 3 ML SYRINGE IVFLUSH ×2 (09:23→17:18)
--- NOTE | 2024-11-12 10:58 | P.PNIM_ITS ---
Subjective Subjective Date of Service: 11/12/24 Interval History: bilateral leg pain, swelling, rash Physical Exam 2 Exam: Exam: General: AO X 3, no acute distress Resp: CTA bilateral, no accessory muscles used CVS: S1,S2,RRR GI: soft, non tender, non distended Neuro: motor grossly intact, alert Psych: appropriate affect, appropriate insight 3+ bilateral le edema with erythema most ly on thighs and lower abdomen Vital Signs: Vital Signs: Last Vital Signs Temp 97.7 F 11/12/24 07:21 Pulse 96 11/12/24 07:21 Resp 17 11/12/24 07:21 BP 125/60 11/12/24 07:21 Pulse Ox 98 11/12/24 07:21 O2 Del Method Room Air 11/12/24 07:21 O2 Flow Rate 6 11/06/24 11:20 BMI result Body Mass Index 36.2 Const: General: no acute distress, alert and awake HEENT: Head: Yes normocephalic and Yes atraumatic Neck: Neck: Yes supple Resp: Auscultation: diminished lung sounds Cardio: Heart sounds: S1 normal heart sound present and S2 normal heart sound present GI: Palpation (GI): Soft to palpation and nontender Extrem: General: Yes edema Objective Data Active Medications Calcitriol (Calcitriol 0.25 Mcg Capsule) 0.25 mcg PO DAILY [facility] Last Admin: 11/12/24 08:38 Dose: 0.25 mcg Documented By: ANÍBAL Fluticasone Propionate (Fluticasone Propionate Nasal 16 Gm [place]) 1 spray NOSTRIL-B DAILY [facility] Last Admin: 11/12/24 08:38 Dose: 1 spray Documented By: ANÍBAL Hydrocortisone (Hydrocortisone 1 % Cream 28.35 Gm Tube) 1 appl TOPICAL BID PRN; Protocol PRN Reason: itching Melatonin (Melatonin 3 Mg Tablet) 6 mg PO BEDTIME PRN PRN Reason: Insomnia Last Admin: 11/05/24 23:49 Dose: 6 mg Documented By: LALA Metoprolol Succinate (Metoprolol Succinate Er 50 Mg Tab.Er.24h) 50 mg PO DAILY [facility]; Protocol Last Admin: 11/12/24 08:38 Dose: 50 mg Documented By: ANÍBAL Morphine Sulfate (Morphine Sulfate 2 Mg/Ml Cartridge) 2 mg IVPUSH Q4H PRN; Protocol PRN Reason: Pain, Severe (Pain Scale 7-10) Last Admin: 11/11/24 09:37 Dose: 2 mg Documented By: ANÍBAL Naloxone HCl (Naloxone Hcl 0.4 Mg/Ml Vial) 0.04 mg IVPUSH Q5M PRN PRN Reason: Excessive sedation or RR < 8 Nystatin (Nystatin Cream 15 Gm Tube) 1 appl TOPICAL BID [facility]; Protocol Last Admin: 11/12/24 08:38 Dose: 1 appl Documented By: ANÍBAL Omeprazole (Omeprazole 40 Mg Capsule.) 40 mg PO BID@0630,1630 [facility] Last Admin: 11/12/24 06:32 Dose: 40 mg Documented By: FINA Sodium Bicarbonate (Sodium Bicarbonate 650 Mg Tablet) 650 mg PO BID [facility] Last Admin: 11/12/24 08:38 Dose: 650 mg Documented By: ANÍBAL Sodium Chloride (0.9 % Sodium Chloride Flush 3 Ml Syringe) 3 ml IVFLUSH QSHIFT [facility] Last Admin: 11/12/24 09:23 Dose: 3 ml Documented By: ANÍBAL Labs 11/12/24 07:23 11/12/24 07:23 Labs: Laboratory Results - last 24 hr 11/12/24 07:23 MCV 93.2 MCH 31.2 MCHC 33.4 RDW 18.7 H Plt Count 112 L D MPV 10.4 Absolute Nucleated RBC 0.000 Nucleated RBC % (auto) 0.0 Anion Gap 16 Estim Creat Clear Calc 11.6 Estimated GFR 10 Random Glucose 98 Calcium 7.7 L D Assessment and Plan (1) Hemorrhagic shock: Status: Acute Plan 84F PMH polycystic liver and kidney disease with end-stage renal disease on hemodialysis, hypertension, pulmonary embolism on Eliquis, hyperlipidemia, TIA, restrictive lung disease presented 11/04/2024 from [facility] for hypotension found to have black stool and anemia. Patient underwent EGD 11/05/2024 which showed bleeding ulcer, became hypotensive on 11/06/2024 transferred to intensive care unit for hemorrhagic shock underwent IR embolization of the celiac artery and SMA. Has since stabilize been downgraded to medical floor on 11/09/24, now course complicated by lower extremity pain bilateral with erythema of legs and abdomen Acute blood loss anemia with hemorrhagic shock due to bleeding duodenal ulcer Status post EGD 11/05/2024 with clipping and sclerotherapy Status post IR embolization of celiac artery and SMA on 11/06/2024 Hemoglobin now stable, continue ppi, monitor hgb erythematous rash ?alelrgic vs fungal vs cellulitis topical antifungal without improvement will give empiric steroids and benadryl no signs of sepsis monitor right tibial dvt ac contraindicated, vascular eval, ?ivc filter esrd hd history of PE off eliquis for life threatening bleed dvt prophylaxis - mechanical due to bleed full code reason for continued hospitalization:work up rash Quality Stroke Does the patient have a stroke diagnosis?: No VTE Prior VTE?: No VTE Risk Level:: Medical - moderate - high VTE Device Contraindication: N/A - Device Ordered VTE Drug Contraindication: Treatment Not Indicated
[2024-11-12 15:03] VITALS: BP 98/52; PULSE 96; RESP 18; TEMP 37; O2SAT 98
[2024-11-12 20:00] VITALS: BP 108/57; PULSE 88; RESP 16; TEMP 36.3; O2SAT 97
[2024-11-13] VITALS: BP 113/61; PULSE 80; RESP 18; TEMP 36.4; O2SAT 96
[2024-11-13 04:00] VITALS: BP 117/68; PULSE 85; RESP 16; TEMP 36.7; O2SAT 95
[2024-11-13 06:00] VITALS: BMI 36.2
[2024-11-13] MEDS: Hydrocortisone 1 % Cream 28.35 GM TUBE 1 APPL TOPICAL (06:29)
[2024-11-13 07:07] LABS: Hematocrit 26.8 % (37.0-47.0); Hemoglobin 9.1 g/dl (12.0-16.0); Mean Corpuscular HGB Conc 34.0 g/dl (31.0-35.0); Mean Corpuscular Hemoglobin 31.5 pg (27.0-33.0); Mean Corpuscular Volume 92.7 fL (80.0-98.0); NRBC Abs Auto 0.000 X10*3/uL (0.0-0.012); NRBC Pct Auto 0.0 /100WBC (0.0-0.2); Platelet Count 114 X10*3/uL (160-400); Red Blood Count 2.89 X10*6/uL (4.20-5.50); White Blood Count 21.5 X10*3/uL (4.8-10.8)
[2024-11-13 07:23] LABS: Anion Gap 16 (12-20); Blood Urea Nitrogen 31 mg/dL (9-16); Calcium 7.9 mg/dL (8.4-10.2); Carbon Dioxide 26 mmol/L (22-29); Chloride 101 mmol/L (96-108); Creatinine Clr Calc Pharmacy 16.7; Estimated Glomerular Filt Rate 14; Potassium 3.8 mmol/L (3.3-5.1); Sodium 139 mmol/L (135-145)
--- NOTE | 2024-11-13 07:29 | P.PNNP_ITS ---
Subjective Subjective Date of Service: 11/12/24 Interval history: Seen andexamined,events noted Physical Exam 2 Vital Signs: Vital Signs: Last Vital Signs Temp 98.1 F 11/13/24 04:00 Pulse 85 11/13/24 04:00 Resp 16 11/13/24 04:00 BP 117/68 11/13/24 04:00 Pulse Ox 95 11/13/24 04:00 O2 Del Method Room Air 11/13/24 04:00 O2 Flow Rate 6 11/06/24 11:20 BMI result Body Mass Index 36.2 Const: General: no acute distress, alert and awake HEENT: Head: Yes normocephalic and Yes atraumatic Neck: Neck: Yes supple Resp: Auscultation: diminished lung sounds Cardio: Heart sounds: S1 normal heart sound present and S2 normal heart sound present GI: Palpation (GI): Soft to palpation and nontender Extrem: General: Yes edema Objective Data Labs 11/13/24 06:28 11/13/24 06:28 Labs: Laboratory Results - last 24 hr 11/12/24 11/13/24 07:23 06:28 WBC 20.8 H 21.5 H RBC 3.11 L 2.89 L Hgb 9.7 L 9.1 L Hct 29.0 L 26.8 L MCV 93.2 92.7 MCH 31.2 31.5 MCHC 33.4 34.0 RDW 18.7 H 18.4 H Plt Count 112 L D 114 L MPV 10.4 10.6 Absolute Nucleated RBC 0.000 0.000 Nucleated RBC % (auto) 0.0 0.0 Sodium 137 139 Potassium 3.7 3.8 Chloride 103 101 Carbon Dioxide 22 26 Anion Gap 16 16 BUN 44 H 31 H Creatinine 4.41 H* 3.08 H Estim Creat Clear Calc 11.6 16.7 Estimated GFR 10 14 Random Glucose 98 105 Calcium 7.7 L D 7.9 L Microbiology Microbiology Results: Microbiology 11/04/24 07:53 Blood - Venous Blood Culture - Final No growth after 5 days. 11/04/24 07:18 Blood - Venous Blood Culture - Final No growth after 5 days. 11/04/24 Unknown Urine Catheterized - Kim Catheter Urine Culture - Final No growth. 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 Progress Note: Quality Stroke Does the patient have a stroke diagnosis?: No
[2024-11-13 07:45] VITALS: BP 105/60; PULSE 80; RESP 20; TEMP 36.4; O2SAT 99
[2024-11-13] MEDS: 0.9 % Sodium Chloride Flush 3 ML SYRINGE IVFLUSH ×3 (08:31→20:23)
[2024-11-13] MEDS: Metoprolol Succinate ER 50 MG TAB.ER.24H PO (08:31)
--- NOTE | 2024-11-13 11:00 | P.PNIM_ITS ---
Subjective Subjective Date of Service: 11/13/24 Interval History: leg pain Physical Exam 2 Exam: Exam: General: AO X 3, no acute distress Resp: CTA bilateral, no accessory muscles used CVS: S1,S2,RRR GI: soft, non tender, non distended Neuro: motor grossly intact, alert Psych: appropriate affect, appropriate insight 3+ bilateral le edema with erythema most ly on thighs and lower abdomen - improving Vital Signs: Vital Signs: Last Vital Signs Temp 97.5 F 11/13/24 07:45 Pulse 80 11/13/24 07:45 Resp 20 11/13/24 07:45 BP 105/60 11/13/24 07:45 Pulse Ox 99 11/13/24 07:45 O2 Del Method Room Air 11/13/24 07:45 O2 Flow Rate 6 11/06/24 11:20 BMI result Body Mass Index 36.2 Const: General: no acute distress, alert and awake HEENT: Head: Yes normocephalic and Yes atraumatic Neck: Neck: Yes supple Resp: Auscultation: diminished lung sounds Cardio: Heart sounds: S1 normal heart sound present and S2 normal heart sound present GI: Palpation (GI): Soft to palpation and nontender Extrem: General: Yes edema Objective Data Active Medications Acetaminophen (Acetaminophen 325 Mg Tablet) 650 mg PO Q4H PRN PRN Reason: Fever Last Admin: 11/12/24 13:59 Dose: 650 mg Documented By: AGUILA Calcitriol (Calcitriol 0.25 Mcg Capsule) 0.25 mcg PO DAILY [facility] Last Admin: 11/13/24 08:31 Dose: 0.25 mcg Documented By: KERRIE Fluticasone Propionate (Fluticasone Propionate Nasal 16 Gm [place]) 1 spray NOSTRIL-B DAILY [facility] Last Admin: 11/13/24 08:35 Dose: 1 spray Documented By: KERRIE Hydrocortisone (Hydrocortisone 1 % Cream 28.35 Gm Tube) 1 appl TOPICAL BID PRN; Protocol PRN Reason: itching Last Admin: 11/13/24 06:29 Dose: 1 appl Documented By: ZOILA Melatonin (Melatonin 3 Mg Tablet) 6 mg PO BEDTIME PRN PRN Reason: Insomnia Last Admin: 11/05/24 23:49 Dose: 6 mg Documented By: LALA Metoprolol Succinate (Metoprolol Succinate Er 50 Mg Tab.Er.24h) 50 mg PO DAILY [facility]; Protocol Last Admin: 11/13/24 08:31 Dose: 50 mg Documented By: KERRIE Morphine Sulfate (Morphine Sulfate 2 Mg/Ml Cartridge) 2 mg IVPUSH Q4H PRN; Protocol PRN Reason: Pain, Severe (Pain Scale 7-10) Last Admin: 11/11/24 09:37 Dose: 2 mg Documented By: ANÍBAL Naloxone HCl (Naloxone Hcl 0.4 Mg/Ml Vial) 0.04 mg IVPUSH Q5M PRN PRN Reason: Excessive sedation or RR < 8 Nystatin (Nystatin Cream 15 Gm Tube) 1 appl TOPICAL BID [facility]; Protocol Last Admin: 11/13/24 08:35 Dose: 1 appl Documented By: KERRIE Omeprazole (Omeprazole 40 Mg Capsule.Dr) 40 mg PO BID@0630,1630 [facility] Last Admin: 11/13/24 06:29 Dose: 40 mg Documented By: ZOILA Sodium Bicarbonate (Sodium Bicarbonate 650 Mg Tablet) 650 mg PO BID [facility] Last Admin: 11/13/24 08:31 Dose: 650 mg Documented By: KERRIE Sodium Chloride (0.9 % Sodium Chloride Flush 3 Ml Syringe) 3 ml IVFLUSH QSHIFT [facility] Last Admin: 11/13/24 08:31 Dose: 3 ml Documented By: KERRIE Labs 11/13/24 06:28 11/13/24 06:28 Labs: Laboratory Results - last 24 hr 11/13/24 06:28 MCV 92.7 MCH 31.5 MCHC 34.0 RDW 18.4 H Plt Count 114 L MPV 10.6 Absolute Nucleated RBC 0.000 Nucleated RBC % (auto) 0.0 Anion Gap 16 Estim Creat Clear Calc 16.7 Estimated GFR 14 Random Glucose 105 Calcium 7.9 L Assessment and Plan (1) Hemorrhagic shock: Status: Acute Plan 84F PMH polycystic liver and kidney disease with end-stage renal disease on hemodialysis, hypertension, pulmonary embolism on Eliquis, hyperlipidemia, TIA, restrictive lung disease presented 11/04/[address] [facility] for hypotension found to have black stool and anemia. Patient underwent EGD 11/05/2024 which showed bleeding ulcer, became hypotensive on 11/06/2024 transferred to intensive care unit for hemorrhagic shock underwent IR embolization of the celiac artery and SMA. Has since stabilize been downgraded to medical floor on 11/09/24, now course complicated by lower extremity pain bilateral with erythema of legs and abdomen Acute blood loss anemia with hemorrhagic shock due to bleeding duodenal ulcer Status post EGD 11/05/2024 with clipping and sclerotherapy Status post IR embolization of celiac artery and SMA on 11/06/2024 Hemoglobin now stable, continue ppi, monitor hgb erythematous rash ?alelrgic vs fungal vs cellulitis topical antifungal without improvement given empiric steroids and benadryl no signs of sepsis monitor, seems to be improving right tibial dvt ac contraindicated, vascular eval, ?ivc filter vs short term follow up esrd hd history of PE off eliquis for life threatening bleed dvt prophylaxis - mechanical due to bleed full code reason for continued hospitalization:work up rash Quality Stroke Does the patient have a stroke diagnosis?: No VTE Prior VTE?: No VTE Risk Level:: Medical - moderate - high VTE Device Contraindication: N/A - Device Ordered VTE Drug Contraindication: Treatment Not Indicated
[2024-11-13 11:22] VITALS: BP 105/55; PULSE 80; RESP 20; TEMP 36.8; O2SAT 98
--- NOTE | 2024-11-13 12:08 | MHC.CLN ---
F/U PO INTAKE VARIABLE DIET RX: REGULAR RECEIVING ENSURE CLEAR TID TO PROMOTE WOUND HEALING SUPPLEMENT PROVIDES 720KCALS, 27G PROTEIN (SUPPLEMENT IS RENAL FRIENDLY) MONITOR PO INTAKE AND ENCOURAGE SUPPLEMENTS
--- NOTE | 2024-11-13 14:59 | MHC.CM.PN ---
Pt. not ready to DC, DCP is STR, update sent to Semaj Sweeney.
[2024-11-13 16:00] VITALS: BP 114/68; PULSE 81; RESP 18; TEMP 37; O2SAT 99
[2024-11-13 20:00] VITALS: BP 117/70; PULSE 81; RESP 20; TEMP 36.4; O2SAT 97
--- NOTE | 2024-11-13 22:11 | P.PNNP_ITS ---
Subjective Subjective Date of Service: 11/13/24 Interval history: Seen and examined,e cherie Physical Exam 2 Vital Signs: Vital Signs: Last Vital Signs Temp 97.6 F 11/13/24 20:00 Pulse 81 11/13/24 20:00 Resp 20 11/13/24 20:00 BP 117/70 11/13/24 20:00 Pulse Ox 97 11/13/24 20:00 O2 Del Method Room Air 11/13/24 20:00 O2 Flow Rate 6 11/06/24 11:20 BMI result Body Mass Index 36.2 Const: General: no acute distress, alert and awake HEENT: Head: Yes normocephalic and Yes atraumatic Neck: Neck: Yes supple Resp: Auscultation: diminished lung sounds Cardio: Heart sounds: S1 normal heart sound present and S2 normal heart sound present GI: Palpation (GI): Soft to palpation and nontender Extrem: General: Yes edema Objective Data Labs 11/13/24 06:28 11/13/24 06:28 Labs: Laboratory Results - last 24 hr 11/13/24 06:28 WBC 21.5 H RBC 2.89 L Hgb 9.1 L Hct 26.8 L MCV 92.7 MCH 31.5 MCHC 34.0 RDW 18.4 H Plt Count 114 L MPV 10.6 Absolute Nucleated RBC 0.000 Nucleated RBC % (auto) 0.0 Sodium 139 Potassium 3.8 Chloride 101 Carbon Dioxide 26 Anion Gap 16 BUN 31 H Creatinine 3.08 H Estim Creat Clear Calc 16.7 Estimated GFR 14 Random Glucose 105 Calcium 7.9 L Microbiology Microbiology Results: Microbiology 11/04/24 07:53 Blood - Venous Blood Culture - Final No growth after 5 days. 11/04/24 07:18 Blood - Venous Blood Culture - Final No growth after 5 days. 11/04/24 Unknown Urine Catheterized - Kim Catheter Urine Culture - Final No growth. Procedures Date of Service Date of Service: 11/13/24 Assessment & Plan Assessment and plan (1) ESRD (end stage renal disease): Status: Acute (2) Acute upper GI bleed: Status: Acute (3) Anemia: Status: Acute Plan ESRD PT who was Xfer to ICU for active GIB and hypotension which has now resolved and back on floor as bleeding stopped and Hb stable known ESRD due to PCKD and HTN on HD -w-f at [facility] HD unit via PC followed by Dr Velazquez combination of nephrogenic anemia and GIB REC Cont optimize HDynamic and xfuse as needed cont HD 3x/wk d/c planning will follow w team Time Spent With Patient Time: Total time managing care of this patient today ____ minutes. Progress Note: Quality Stroke Does the patient have a stroke diagnosis?: No
[2024-11-14] VITALS (25 sets, daily range): BP systolic 39–178; BP diastolic 21–102; PULSE 90–168; RESP 18–40; TEMP 32–38.9; O2SAT 93–99; BMI 36.3
[2024-11-14] MEDS: Metoprolol Succinate ER 50 MG TAB.ER.24H PO (08:31)
[2024-11-14] MEDS: 0.9 % Sodium Chloride Flush 3 ML SYRINGE IVFLUSH ×3 (08:32→19:47)
--- NOTE | 2024-11-14 09:15 | P.PNIM_ITS ---
Subjective Subjective Date of Service: 11/14/24 Interval History: leg pain Physical Exam 2 Exam: Exam: General: AO X 3, no acute distress Resp: CTA bilateral, no accessory muscles used CVS: S1,S2,RRR GI: soft, non tender, non distended Neuro: motor grossly intact, alert Psych: appropriate affect, appropriate insight 3+ bilateral le edema with erythema most ly on thighs and lower abdomen - improving Vital Signs: Vital Signs: Last Vital Signs Temp 98.1 F 11/14/24 08:00 Pulse 100 11/14/24 08:00 Resp 18 11/14/24 08:00 BP 115/68 11/14/24 08:00 Pulse Ox 96 11/14/24 08:00 O2 Del Method Room Air 11/14/24 08:00 O2 Flow Rate 6 11/06/24 11:20 BMI result Body Mass Index 36.3 Const: General: no acute distress, alert and awake HEENT: Head: Yes normocephalic and Yes atraumatic Neck: Neck: Yes supple Resp: Auscultation: diminished lung sounds Cardio: Heart sounds: S1 normal heart sound present and S2 normal heart sound present GI: Palpation (GI): Soft to palpation and nontender Extrem: General: Yes edema Objective Data Active Medications Acetaminophen (Acetaminophen 325 Mg Tablet) 650 mg PO Q4H PRN PRN Reason: Fever Last Admin: 11/12/24 13:59 Dose: 650 mg Documented By: AGUILA Calcitriol (Calcitriol 0.25 Mcg Capsule) 0.25 mcg PO DAILY [facility] Last Admin: 11/14/24 08:31 Dose: 0.25 mcg Documented By: KERRIE Fluticasone Propionate (Fluticasone Propionate Nasal 16 Gm [place]) 1 spray NOSTRIL-B DAILY [facility] Last Admin: 11/14/24 08:32 Dose: 1 spray Documented By: KERRIE Furosemide (Furosemide 40 Mg Tablet) 80 mg PO DAILY [facility]; Protocol Last Admin: 11/14/24 08:31 Dose: 80 mg Documented By: KERRIE Hydrocortisone (Hydrocortisone 1 % Cream 28.35 Gm Tube) 1 appl TOPICAL BID PRN; Protocol PRN Reason: itching Last Admin: 11/13/24 06:29 Dose: 1 appl Documented By: ZOILA Melatonin (Melatonin 3 Mg Tablet) 6 mg PO BEDTIME PRN PRN Reason: Insomnia Last Admin: 11/05/24 23:49 Dose: 6 mg Documented By: LALA Metoprolol Succinate (Metoprolol Succinate Er 50 Mg Tab.Er.24h) 50 mg PO DAILY [facility]; Protocol Last Admin: 11/14/24 08:31 Dose: 50 mg Documented By: KERRIE Morphine Sulfate (Morphine Sulfate 2 Mg/Ml Cartridge) 2 mg IVPUSH Q4H PRN; Protocol PRN Reason: Pain, Severe (Pain Scale 7-10) Last Admin: 11/11/24 09:37 Dose: 2 mg Documented By: ANÍBAL Naloxone HCl (Naloxone Hcl 0.4 Mg/Ml Vial) 0.04 mg IVPUSH Q5M PRN PRN Reason: Excessive sedation or RR < 8 Nystatin (Nystatin Cream 15 Gm Tube) 1 appl TOPICAL BID [facility]; Protocol Last Admin: 11/14/24 08:36 Dose: 1 appl Documented By: KERRIE Omeprazole (Omeprazole 40 Mg Capsule.Dr) 40 mg PO BID@0630,1630 [facility] Last Admin: 11/14/24 06:33 Dose: 40 mg Documented By: VAISHNAVI Prednisone (Prednisone 20 Mg Tablet) 40 mg PO DAILY [facility] Last Admin: 11/14/24 08:31 Dose: 40 mg Documented By: KERRIE Sodium Bicarbonate (Sodium Bicarbonate 650 Mg Tablet) 650 mg PO BID [facility] Last Admin: 11/14/24 08:31 Dose: 650 mg Documented By: KERRIE Sodium Chloride (0.9 % Sodium Chloride Flush 3 Ml Syringe) 3 ml IVFLUSH QSHIFT [facility] Last Admin: 11/14/24 08:32 Dose: 3 ml Documented By: KERRIE Labs 11/13/24 06:28 11/13/24 06:28 Assessment and Plan (1) Hemorrhagic shock: Status: Acute Plan 84F PMH polycystic liver and kidney disease with end-stage renal disease on hemodialysis, hypertension, pulmonary embolism on Eliquis, hyperlipidemia, TIA, restrictive lung disease presented 11/04/2024 from [facility] for hypotension found to have black stool and anemia. Patient underwent EGD 11/05/2024 which showed bleeding ulcer, became hypotensive on 11/06/2024 transferred to intensive care unit for hemorrhagic shock underwent IR embolization of the celiac artery and SMA. Has since stabilize been downgraded to medical floor on 11/09/24, now course complicated by lower extremity pain bilateral with erythema of legs and abdomen Acute blood loss anemia with hemorrhagic shock due to bleeding duodenal ulcer Status post EGD 11/05/2024 with clipping and sclerotherapy Status post IR embolization of celiac artery and SMA on 11/06/2024 Hemoglobin now stable, continue ppi, monitor hgb erythematous rash ?alelrgic vs fungal vs cellulitis topical antifungal without improvement givingempiric steroids and benadryl no signs of sepsis monitor, seems to be improving right tibial dvt ac contraindicated, vascular appreciated plan to repeat Doppler in 2 weeks esrd hd history of PE off eliquis for life threatening bleed dvt prophylaxis - mechanical due to bleed full code reason for continued hospitalization:work up rash, leukocytosis Dispo -will likely need rehab on discharge Quality Stroke Does the patient have a stroke diagnosis?: No VTE Prior VTE?: No VTE Risk Level:: Medical - moderate - high VTE Device Contraindication: N/A - Device Ordered VTE Drug Contraindication: Treatment Not Indicated
--- NOTE | 2024-11-14 17:37 | ECG_ITS ---
Test Reason : rapid afib Blood Pressure : */* mmHG Vent. Rate : 166 BPM Atrial Rate : * BPM P-R Int : * ms QRS Dur : 84 ms QT Int : 286 ms P-R-T Axes : * -5 111 degrees QTcB Int : 475 ms Atrial fibrillation with rapid ventricular response with premature ventricular or aberrantly conducted complexes Nonspecific ST and T wave abnormality Abnormal ECG When compared with ECG of 05-Nov-2024 16:52, Atrial fibrillation has replaced Sinus rhythm Vent. rate has increased by 79 bpm Referred By: Gino Solis Electronically Signed By: Antonio Vee
[2024-11-14 18:57] LABS: Hematocrit 26.2 % (37.0-47.0); Hemoglobin 8.9 g/dl (12.0-16.0); Mean Corpuscular HGB Conc 34.0 g/dl (31.0-35.0); Mean Corpuscular Hemoglobin 31.0 pg (27.0-33.0); Mean Corpuscular Volume 91.3 fL (80.0-98.0); Red Blood Count 2.87 X10*6/uL (4.20-5.50)
[2024-11-14 18:59] LABS: Platelet Count 93 X10*3/uL (160-400); WBC ABN SCTR FOR CBC 1; White Blood Count 3.3 X10*3/uL (4.8-10.8)
--- NOTE | 2024-11-14 19:11 | PC.NURSE ---
1725 patient went into rapid afib on tele into 160-170's vitals signs stable initially pt asymptomatic. Dr Solis notified EKG completed 5mg IV metoprolol given as well as 250 NS bolus given with little effect. Dr Solis at bedside IV tylenol given per order per pt request for pain in RLE. Temp 99.4. 10 mg IV diltiazem given per order with some effect HR 130-140's. Pt slightly more tachypneic at this time. VSS remains stable. Chest xray completed and labs drawn per order. Pt resting comfortably in bed
[2024-11-14 19:25] LABS: Anion Gap 19 (12-20); Blood Urea Nitrogen 50 mg/dL (9-16); Calcium 7.8 mg/dL (8.4-10.2); Carbon Dioxide 19 mmol/L (22-29); Chloride 104 mmol/L (96-108); Creatinine Clr Calc Pharmacy 12.0; Estimated Glomerular Filt Rate 10; Magnesium 1.5 mg/dL (1.6-2.6); Potassium 3.5 mmol/L (3.3-5.1); Sodium 138 mmol/L (135-145); Troponin-I High Sensitivity 28.9 ng/L (<3.5-17.0)
--- NOTE | 2024-11-14 20:20 | PM.EVENT ---
Event Note Date of Service: 11/15/24 Event Note: 8:00 PM - rapid response activated as the patient developed hypotension, 83/53, fever and rapid atrial fibrillation. Patient received 1.5 bolus of normal saline (unable to give 30ml/kg due to high risk for overload), albumin 133 ml/hr, Tylenol 1 g IV, Solu-Medrol IV, vancomycin per pharmacy protocol and cefepime 2 g IV stat. Last stat revealed WBC 3.3, high anion gap metabolic acidosis/lactic acidosis of 4.7. Blood cultures x2 obtained. CXR stat showed no acute findings. Urinalysis consistent with urinary tract infection. Despite these interventions the patient persistent with profound hypotension and developed acute respiratory symptoms. Patient accepted by ICU team for vasopressors. Time Spent With Patient Time: Total time managing care of this patient today ____ minutes.
[2024-11-14] MEDS: Albumin Human 25 % 100 ML 133.33 ML IV (20:39)
[2024-11-14 20:45] LABS: Appearance Urine Turbid; Glucose Urine UA Negative (Negative); PH 6.0 (5.0-9.0); Specific Gravity - Urine 1.015 (1.005-1.025); UMIC TRIGGER UACC YES
[2024-11-14] MEDS: cefEPime HCl/D5W 2 GM/50 ML PIGGYBACK IV (20:46)
[2024-11-14 20:59] LABS: UACC Culture Trigger YES
--- NOTE | 2024-11-14 21:38 | W.PM.CCCN ---
History of Present Illness Data of Consult Service Date: 11/14/24 Requesting physician: Nancie Lucero Primary Care Provider: Wander Hercules MD [facility] Reason for consult: Hypotension 84-year-old female with a past medical history of polycystic liver, hypertension, end-stage renal disease ( on HD M/W/F), pulmonary embolism (? Eliquis on hold) admitted to Hospital Medicine on 11/04/2024 with hypotension due to upper GI bleed, patient initially with good response to resuscitation with blood products and IV fluid.? Patient did have an EGD on 11/05/2024 showing duodenal bulb actively bleeding ulcer, treated with sclerotherapy and clipping.? Overnight after procedure patient with repeat hemorrhage with poor response to IV fluids and blood products requiring transferred to intensive care unit and utilization of pressor support.? Status post IR embolization on 11/06/2024 with stabilization of hemoglobin transfer to? medical floor on 11/09/2024.? ?Today around 1700 in new AFib with RVR,? treated with IV Lopressor, due to recent GI bleed unable to do anticoagulation. ??Later,? patient? with a rapid response? due to hypotension to systolic of 70s,? febrile to 101.5,? AFib with RVR (130s to 150s).?? ?Lactic elevated to 4.7, BUN 50, creatinine 4.26, urine? consistent with a UTI, ? due to underlying ESRD patient received 500 mL bolus, and 100 mL of albumin.? Started on cefepime and vancomycin. ? Despite fluid administration patient?s blood pressure continued to be systolic of 70s.? ?On my initial assessment ? in the medical floor, patient alert and oriented,? satting 99% on room air,? respiratory rate 16-20,? speaking in full sentences. Blood pressure systolic of 80s.? ?While transferring patient to the ICU,? patient in acute in respiratory distress,? altered,? respiratory rate 40s to 50s, ? suddenly hypoxic,? satting 50% on non-rebreather,? requiring emergent intubation on arrival to the intensive care unit.? Review of Systems Constitutional: Constitutional: Denies body ache(s), Denies chills, Reports fatigue, Reports fever(s) and Denies headache(s) ENT: Denies headache(s) Cardiovascular: Cardiovascular: Denies chest pain and Reports dyspnea Respiratory: Respiratory: Denies cough and Reports dyspnea Gastrointestinal: Gastrointestinal: Denies abdominal pain Musculoskeletal: Musculoskeletal: Denies myalgias, Reports muscle weakness and Denies numbness Neurologic: Denies headache(s) and Denies numbness Endocrine: Endocrine: Reports fatigue PMFSH Past Medical History Medical History (Updated 11/15/24 @ 01:08 by Courtney Junior NP) Coagulopathy Elevated LFTs Nontoxic multinodular goiter Hyperlipidemia Restrictive lung disease History of pulmonary embolism Hemorrhagic shock Polycystic liver disease Essential hypertension End-stage renal disease on hemodialysis Social History Social History Household Members: Spouse Housing: Apartment Do you presently have visiting nurse or other home services: No Patient Tobacco Use Status: Never used Tobacco service: No Meds Allergies Allergy/AdvReac Type Severity Reaction Status Date / Time penicillin Allergy Unknown Rash Uncoded 11/04/24 06:40 Active Medications: Current Medications Acetaminophen (Acetaminophen 325 Mg Tablet) 650 mg PO Q4H PRN PRN Reason: Fever Last Admin: 11/12/24 13:59 Dose: 650 mg Calcitriol (Calcitriol 0.25 Mcg Capsule) 0.25 mcg PO DAILY NAKUL Last Admin: 11/14/24 08:31 Dose: 0.25 mcg Fluticasone Propionate (Fluticasone Propionate Nasal 16 Gm [place]) 1 spray NOSTRIL-B DAILY NAKUL Last Admin: 11/14/24 08:32 Dose: 1 spray Furosemide (Furosemide 40 Mg Tablet) 80 mg PO DAILY NAKUL; Protocol Last Admin: 11/14/24 08:31 Dose: 80 mg Hydrocortisone (Hydrocortisone 1 % Cream 28.35 Gm Tube) 1 appl TOPICAL BID PRN; Protocol PRN Reason: itching Last Admin: 11/13/24 06:29 Dose: 1 appl Vancomycin HCl (Vancomycin/Ns) 2,000 mg in 500 mls @ 250 mls/hr IV ONCE ONE Stop: 11/14/24 22:59 Magnesium Sulfate (Magnesium Sulfate/H2o) 2 gm in 50 mls @ 25 mls/hr IV ONCE STA Stop: 11/14/24 22:05 Norepinephrine Bitartrate (Levophed) 8 mg in 250 mls @ 0 mls/hr IVCONT .Q0M NAKUL; Protocol Melatonin (Melatonin 3 Mg Tablet) 6 mg PO BEDTIME PRN PRN Reason: Insomnia Last Admin: 11/05/24 23:49 Dose: 6 mg Metoprolol Succinate (Metoprolol Succinate Er 50 Mg Tab.Er.24h) 50 mg PO DAILY [facility]; Protocol Last Admin: 11/14/24 08:31 Dose: 50 mg Metoprolol Tartrate (Metoprolol Tartrate 5 Mg/5 Ml Vial) 5 mg IVPUSH Q6H PRN; Protocol PRN Reason: hr>100 Last Admin: 11/14/24 17:44 Dose: 5 mg Metoprolol Tartrate (Metoprolol Tartrate 5 Mg/5 Ml Vial) 5 mg IVPUSH Q15M PRN; Protocol PRN Reason: HR >110 Morphine Sulfate (Morphine Sulfate 2 Mg/Ml Cartridge) 2 mg IVPUSH Q4H PRN; Protocol PRN Reason: Pain, Severe (Pain Scale 7-10) Last Admin: 11/11/24 09:37 Dose: 2 mg Naloxone HCl (Naloxone Hcl 0.4 Mg/Ml Vial) 0.04 mg IVPUSH Q5M PRN PRN Reason: Excessive sedation or RR < 8 Nystatin (Nystatin Cream 15 Gm Tube) 1 appl TOPICAL BID [facility]; Protocol Last Admin: 11/14/24 19:51 Dose: 1 appl Omeprazole (Omeprazole 40 Mg Capsule.Dr) 40 mg PO BID@0630,1630 [facility] Last Admin: 11/14/24 16:28 Dose: 40 mg Pharmacy Consult (Consult Rx Vancomycin Dosing) 1 each MISCELLANE DAILY STA Stop: 11/14/24 20:05 Prednisone (Prednisone 20 Mg Tablet) 40 mg PO DAILY [facility] Last Admin: 11/14/24 08:31 Dose: 40 mg Sodium Bicarbonate (Sodium Bicarbonate 650 Mg Tablet) 650 mg PO BID [facility] Last Admin: 11/14/24 19:51 Dose: 650 mg Sodium Chloride (0.9 % Sodium Chloride Flush 3 Ml Syringe) [address] [facility] Last Admin: 11/14/24 19:47 Dose: 3 ml Home Medications ?Medication ?Instructions ?Recorded ?Confirmed ?Last Taken ?Type acetaminophen 325 mg tablet 650 mg PO Q4H PRN Fever Or Pain 11/04/24 11/04/24 Unknown History albuterol sulfate 90 mcg/actuation 1 inh inhalation Q4-6H PRN 11/04/24 11/04/24 Unknown History aerosol inhaler Shortness Of Breath Or Wheezing apixaban 2.5 mg tablet (Eliquis) 2.5 mg PO BID 11/04/24 11/04/24 11/04/24 History azelastine 137 mcg (0.1 %) nasal 1 spray intranasal BID 11/04/24 11/04/24 Unknown History spray calcitriol 0.25 mcg capsule 0.25 mcg PO DAILY 11/04/24 11/04/24 11/04/24 History ferrous sulfate 325 mg (65 mg 325 mg PO BID 11/04/24 11/04/24 11/04/24 History iron) tablet,delayed release fluticasone propionate 50 1 spray intranasal DAILY 11/04/24 11/04/24 11/04/24 History mcg/actuation nasal spray,suspension furosemide 20 mg tablet 80 mg PO DAILY 11/04/24 11/04/24 11/04/24 History hydralazine 25 mg tablet 25 mg PO TID 11/04/24 11/04/24 11/04/24 History metoprolol succinate 50 mg 50 mg PO DAILY 11/04/24 11/04/24 11/04/24 History tablet,extended release 24 hr simvastatin 20 mg tablet 20 mg PO BEDTIME 11/04/24 11/04/24 11/03/24 History sodium bicarbonate 650 mg tablet 650 mg PO BID 11/04/24 11/04/24 11/04/24 History Physical Exam Exam: Exam: Sepsis focus exam performed at 2300 ?General:? Intubated, sedated ?HEENT:? Head is normocephalic, atraumatic, pupils equal round reactive to light accommodation bilaterally.? Extraocular movements appear intact.? Buccal mucosa is dry, Neck is supple ?Cardiac:? AFib on monitor, no murmurs rubs or gallops. ?Pulmonary:? Rhonchus throughout. No wheezing. ?Abdomen:? ?Abdomen soft, non-tender, non-distended. Normal bowel sounds. No pulsatile mass. No hepatosplenomegaly. ?Musculoskeletal:? Moving all 4 extremities upon request a major joints, there is no crepitus or tenderness.? The strength is 5/5 bilaterally and throughout all 4 extremities.? Gait not assessed at this point. ?Neurologic:? cranial nerves 2-12 are grossly intact.? No focal deficits noted.Motor strength as above.?? ?Skin:? Multiple pressure ulcers throughout body Vascular:? 2+ pulses upper and lower extremities distally.? Vital Signs: Vital Signs: Last Vital Signs Temp 100.9 F H 11/14/24 21:13 Pulse 153 H 11/14/24 21:13 Resp 40 H 11/14/24 21:13 BP 74/51 L 11/14/24 21:13 Pulse Ox 96 11/14/24 21:13 O2 Del Method Room Air 11/14/24 21:13 O2 Flow Rate 6 11/06/24 11:20 BMI result Body Mass Index 36.3 Results Labs 11/15/24 04:23 11/15/24 04:23 Labs: Short CBC 11/14/24 Range/Units 18:44 WBC 3.3 L (4.8-10.8) X10*3/uL Hgb 8.9 L (12.0-16.0) g/dl Hct 26.2 L (37.0-47.0) % Plt Count 93 L (160-400) X10*3/uL BMP 11/14/24 18:44 Sodium 138 Potassium 3.5 Chloride 104 Carbon Dioxide 19 L BUN 50 H Creatinine 4.26 H* Calcium 7.8 L Urine 11/14/24 Range/Units 20:26 Urine Color Yellow Urine Appearance Turbid Urine pH 6.0 (5.0-9.0) Ur Specific [place] 1.015 (1.005-1.025) Urine Protein 100 (2+) H (Neg-Trace) mg/dL Urine Glucose (UA) Negative (Negative) mg/dL Microbiology Microbiology Results: Microbiology 11/04/24 07:53 Blood - Venous Blood Culture - Final No growth after 5 days. 11/04/24 07:18 Blood - Venous Blood Culture - Final No growth after 5 days. 11/04/24 Unknown Urine Catheterized - Kim Catheter Urine Culture - Final No growth. Assessment and Plan (1) Septic shock: Status: Acute (2) Pulmonary edema: Status: Acute (3) Atrial fibrillation with rapid ventricular response: Status: Acute (4) Acute hypoxic respiratory failure: Status: Acute (5) ESRD (end stage renal disease): Status: Acute (6) Acute upper GI bleed: Status: Acute (7) Anemia: Status: Acute Plan Neuro:?? ?No acute issues Cardiac:?? ?Septic shock:? lactic acid elevated to 4.7, WBC of 3.3,? urine consistent with UTI,? covered with cefepime and vancomycin.? Due to underlying history of ESRD and concern for fluid overload? unable to do 30 mL/kg fluid bolus,? patient received 500ml bolus and 100ml of albumin.? Continue empiric antibiotics ?Pulmonary edema:? chest x-ray consistent with fluid overload,? patient refused dialysis on Saturday,? does not require emergent dialysis at this time. ? Due to ESRD unable to do Lasix. Plan for dialysis tomorrow morning ?New onset AFib RVR:? patient went into new AFib with RVR earlier during the day was treated with IV Lopressor.? Eliquis is on hold due to underlying GI bleed.? Pulmonary:? ?Acute ? Hypoxic respiratory failure requiring ventilatory support:? patient was in acute respiratory distress, hypoxic to 50s, required emergent intubation.? Chest x-ray imaging consistent with? pulmonary edema.? Will have dialysis tomorrow.? Wean off? ventilatory support as tolerated Renal:? ??ESRD-? ? patient still makes some urine,? does not meet requirement for emergent dialysis at this time.? We will likely need dialysis tomorrow morning due to missing dialysis on Saturday. Continue to check renal induces and urine output Endo:? ?No occasions GI:?? ?Underlying Acute blood loss anemia with hemorrhagic shock due to bleeding duodenal ulcer: Status post EGD 11/05/2024 with clipping and sclerotherapy. Status post IR embolization of celiac artery and SMA on 11/06/2024. Hemoglobin now stable, continue ppi, monitor hgb ID:? Septic shock:? urine studies positive for UTI.? blood cultures obtain and pending.? Continue cefepime and vancomycin. Heme/Onc:?Acute blood loss anemia:? due to bleeding ulcer.? Hemoglobin? stable.? Continue to trend hemoglobin.? Transfuse < 7 Psych:? ? no acute issues Miscellaneous: ? During initial assessment,? patient was alert and oriented x3,? patient made it clear she did not want chest compressions.? She wants to be intubated we will requests to be do not resuscitate.? Code status changed in chart to? DNR but okay to intubate.? ?I personally spoke with son Bright,? informed of patient?s clinical status and transferred to ICU.? Also informed him? of patient code status? change Prophylaxis: ? COMPRESSION DEVICE? due to GI bleed/? IV ? Protonix ? Critical care time:? X 90 minutes of critical care time,? does not include separately billable procedures ?Code? status:? FULL CODE?
[2024-11-14] MEDS: Etomidate 20 MG/10 ML VIAL IVPUSH (21:54)
[2024-11-14 22:11] LABS: Reflex Lactate? Lactic Acid Added
[2024-11-14 22:21] LABS: VBG HCO3 17 mmol/L (22-26); VBG O2 % Saturation 92.0 %
[2024-11-14] MEDS: Vasopressin 20 UNIT/100 ML INFUS..BTL 12 UNIT IVCONT (22:22)
[2024-11-14 22:52] LABS: Albumin Level 2.4 g/dL (3.5-5.0)
--- NOTE | 2024-11-14 22:58 | W.PM.CCHP ---
Procedures Date of Service Date of Service: 11/14/24 <Courtney Junior NP - Last Filed: 11/15/24 00:09> 11/15/24 <Sharan Santos MD - Last Filed: 11/15/24 10:01> Central Line Placement Left IJ: Central Line Comments: Patient high vasopressor requirement, requiring emergent left internal jugular triple lumen central venous catheter. Left IJ TLC placed in usual sterile conditions under ultrasound guidance for appropriate vascular access without immediate complications. Central line position verified with Chest XRAY. <Courtney Junior NP - Last Filed: 11/15/24 00:09> Consent for Procedure: Emergent-no informed consent obtained <Courtney Junior NP - Last Filed: 11/15/24 00:09> Time out performed: Yes <Courtney Junior NP - Last Filed: 11/15/24 00:09> Sterile Technique Used: Yes <Courtney Junior NP - Last Filed: 11/15/24 00:09> Patient placed on monitor/pulse ox: Yes <Courtney Junior NP - Last Filed: 11/15/24 00:09> prep: mask, gown and gloves <Courtney Junior NP - Last Filed: 11/15/24 00:09> Central line prep: Chlorhexidine scrub <Courtney Junior NP - Last Filed: 11/15/24 00:09> Local anesthesia used: lidocaine 1% <Courtney Junior NP - Last Filed: 11/15/24 00:09> Amount of anesthesia used (ml): 1 <Courtney Junior NP - Last Filed: 11/15/24 00:09> Ultrasound used for placement: Yes <Courtney Junior NP - Last Filed: 11/15/24 00:09> Central line lumen inserted: triple <Courtney Junior NP - Last Filed: 11/15/24 00:09> Post procedure: sutured in place, good blood return, all ports aspirated, flushed, capped and sterile dressing applied <Courtney Junior NP - Last Filed: 11/15/24 00:09> Post procedure x-ray: tip of catheter in good position <BREANN Sims Last Filed: 11/15/24 00:09> Patient tolerated procedure: well <BREANN Sims Last Filed: 11/15/24 00:09> Complications: none <BREANN Sims Last Filed: 11/15/24 00:09> Intubation Intubation Comments: Patient acute respiratory distress, respiratory rate in the 50s, saturations down to 50s on non-rebreather requiring emergent intubation for severe hypoxemia. ?Patient intubated with 7.5 cuffed ET tube under glide scope guidance with visualization of vocal cords, without immediate complications. ET tube position verified with Chest XRAY. <Courtney Junior NP - Last Filed: 11/15/24 00:09> Consent for Procedure: Emergent-no informed consent obtained <BREANN Sims Last Filed: 11/15/24 00:09> Time out performed: Yes <BREANN Sims Last Filed: 11/15/24 00:09> Sedative: propofol <BREANN Sims Last Filed: 11/15/24 00:09> Mg given: 100 <BREANN Sims Last Filed: 11/15/24 00:09> Laryngoscope: fiber optic video scope <BREANN Sims Last Filed: 11/15/24 00:09> ET tube size: 7.5 <BREANN Sims Last Filed: 11/15/24 00:09> ET tube uncuffed: No <BREANN Sims Last Filed: 11/15/24 00:09> Tube secured depth (cm): 26 <BREANN Sims Last Filed: 11/15/24 00:09> Tube secured location: lips <BREANN Sims Last Filed: 11/15/24 00:09> Tube placement confirmation: visualized tube passing through cords, equal breath sounds bilaterally, no breath sounds over epigastrium and confirmation by capnometry <BREANN Sims Last Filed: 11/15/24 00:09> Patient tolerated procedure: well <Courtney Junior NP - Last Filed: 11/15/24 00:09> Intubation complications: none <Courtney Junior NP - Last Filed: 11/15/24 00:09>
[2024-11-14 23:05] LABS: B Type Natriuretic Peptide 2529 pg/mL (<100)
[2024-11-14 23:06] LABS: Venous Blood Gas Refer to POC result
[2024-11-14 23:36] LABS: Troponin-I High Sensitivity 32.8 ng/L (<3.5-17.0)
--- NOTE | 2024-11-14 23:57 | PM.SEPBOLA4 ---
Sepsis Bolus Exclusion Sepsis Bolus Exclusion CHF/Renal Failure Date of Occurrence: 11/14/24 Time of Occurrence:: 21:00 This patient met severe sepsis criteria due to the following condition(s):: Hypotension, Lactate>=4mmol/L and Documentation of septic shock In my clinical judgement the administration of 30 ml/kg of crystalloid would be detrimental to this patient due to the patient's following conditions:: Stage III or IV Chronic Kidney Disease (GFR<30) and Concern for fluid overload Replace the 30 mls/kg with (Zero amount not acceptable and all fluids for severe sepsis must be given at GREATER than 125 mls/hr) *Note: One of the caceres must be documented Crystalloids amount given in mls: (rate must be at least 150cc/hr): 500 Colloids amount given in mls:: 100 At a rate of (must be > 125 cchr):: 133
[2024-11-14] MEDS: Magnesium Sulfate/H2O 2 GM/50 ML PIGGYBACK IV (23:59)
[2024-11-15] VITALS (57 sets, daily range): BP systolic 58–152; BP diastolic 22–86; PULSE 69–144; RESP 13–34; TEMP 32–38.4; O2SAT 95–100; BMI 35.0
[2024-11-15 00:29] LABS: Venous Blood Gas Refer to POC result
[2024-11-15 00:30] LABS: VBG HCO3 19 mmol/L (22-26); VBG O2 % Saturation 92.0 %
[2024-11-15 00:49] LABS: ~Lactic Acid-LAB USE ONLY 6.3 mmol/L (0.5-2.0)
[2024-11-15] MEDS: vancomycin/NS 2,000 MG/500 ML PLAST..BAG 250 MG IV (01:23)
--- NOTE | 2024-11-15 01:40 | PC.NURSE ---
Assumed care of this patient at 19:00. Patient HR noted to be 130-150's on tele monitor during handoff report. Of note, pt hx of PE with current known DVT to RLE this admission. Pt on continuous spo2 monitoring with spo2 maintained mid to upper 90's at this time. Offgoing RN notified attending/day Dr. Solis of the above with ? CT to r/o PE, which was deferred unless patient desats as per MD.? A temperature was obtained due to tachycardia showed pt febrile 101.5 axillary (of note, patient had recently received 1gram of IV tylenol 18:00 hour for pain). Covering Dr. Harris Lucero was notified with orders for BCx x2, lactic, and U/A, as patient has been retaining despite M/W/F HD and on ordered q.shift bladder scans. Ice was applied to bilateral axilla. Rectal temp obtained showed 102.1. MD at bedside during this time.?? Labs collected, lactic back critical 4.7 via tigertext to investigative writer and phlebotomy at 20:26.?? Full set of VS was obtained showing pt was hypotensive BP 70-80's/40-50's, confirmed manually by this investigative writer. This pt denied chest pain, sob, dizziness, n/v, or other acute s/s during this time. A rapid response was initiated. RN toy assembly supervisor and covering Dr. Harris Lucero responded to the bedside. MD ordered to initiate 1L NS bolus and assess BP at half way point. BP assessed per MD request showed patient remained hypotensive with SBP in 70's. MD was notified and remaining 500ml of the 1L bolus was resumed and albumin obtained and initiated. Skid Road Worker unable to give some magnesium or vancomycin due to limited IV access (U/S IVs) and lines in use for bolus and other meds. Vitals obtained after total 1L bolus was completed and albumin was half completed; pt remained hypotensive 74/51 and offered new c/o? trouble breathing . RR noted in the 40's with increased WOB. Lungs auscultated with new crackles in bases and expiratory wheeze throughout. MD notified and ICU consulted. ICU provider Courtney Junior to bedside. Patient accepted and level of care escalated to ICU. Patient transferred immediately to ICU with investigative writer and RN toy assembly supervisor on AED. Mid transport spo2 noted to drop as low as 30's. RT requested and to bedside with transport unit stat, NRB placed with improvement to 80's-90s. BREANN Junior called and notified via tigertext during transport and met transport unit en route.? Handoff report given to RN assuming care. All belongings transferred with this patient.? Please see MAR and VS for full details.
[2024-11-15 02:24] LABS: Reflex Lactate? 2 Y
[2024-11-15 02:28] LABS: Anion Gap 24 (12-20); Blood Urea Nitrogen 50 mg/dL (9-16); Calcium 7.6 mg/dL (8.4-10.2); Carbon Dioxide 17 mmol/L (22-29); Chloride 101 mmol/L (96-108); Creatinine Clr Calc Pharmacy 11.8; Estimated Glomerular Filt Rate 10; Magnesium 1.9 mg/dL (1.6-2.6); Potassium 3.0 mmol/L (3.3-5.1); Sodium 139 mmol/L (135-145)
[2024-11-15] MEDS: Potassium Chloride/H20 40 MEQ/100 ML PIGGYBACK 50 MEQ IV (03:09)
[2024-11-15] MEDS: Albumin Human 25 % 100 ML IV ×3 (03:09→21:41)
[2024-11-15 03:15] LABS: ~Lactic Acid-LAB USE ONLY 7.5 mmol/L (0.5-2.0)
[2024-11-15] MEDS: Vasopressin 20 UNIT/100 ML INFUS..BTL 12 UNIT IVCONT ×3 (03:21→18:08)
[2024-11-15 04:40] LABS: VBG HCO3 16 mmol/L (22-26); VBG O2 % Saturation 77.0 %
[2024-11-15 04:48] LABS: Hematocrit 25.4 % (37.0-47.0); Hemoglobin 8.5 g/dl (12.0-16.0); Mean Corpuscular HGB Conc 33.5 g/dl (31.0-35.0); Mean Corpuscular Hemoglobin 31.1 pg (27.0-33.0); Mean Corpuscular Volume 93.0 fL (80.0-98.0); NRBC Abs Auto 0.000 X10*3/uL (0.0-0.012); NRBC Pct Auto 0.0 /100WBC (0.0-0.2); Platelet Count 92 X10*3/uL (160-400); Red Blood Count 2.73 X10*6/uL (4.20-5.50); WBC ABN SCTR FOR CBC 1
[2024-11-15 05:08] LABS: Albumin Level 2.9 g/dL (3.5-5.0); Anion Gap 25 (12-20); Blood Urea Nitrogen 50 mg/dL (9-16); Calcium 7.7 mg/dL (8.4-10.2); Carbon Dioxide 15 mmol/L (22-29); Chloride 102 mmol/L (96-108); Creatinine Clr Calc Pharmacy 12.0; Estimated Glomerular Filt Rate 10; Magnesium 1.8 mg/dL (1.6-2.6); Potassium 3.8 mmol/L (3.3-5.1); Sodium 138 mmol/L (135-145)
[2024-11-15 05:43] LABS: Band Neutrophils Percent 13 % (3-5); Eosinophils Percent Manual 1 % (0-4); Large Platelet PRESENT; Lymphocytes Percent Manual 6 % (20-40); Metamyelocytes Percent 25 %; Monocytes Percent Manual 4 % (2-11); Myelocytes Percent 7 %; Neutrophils Percent Manual 41 % (45-73); Promyelocytes Percent 3 %; RBC Morphology NOTED
[2024-11-15 05:44] LABS: Acanthocytes 3+ (>5) /OIF; Burr Cells 3+ (>5) /OIF; Spherocytes 2+ (3-5) /OIF; Tear Drop Cells 2+ (3-5) /OIF
[2024-11-15 05:45] LABS: Ovalocytes 1+ (5-14) /OIF; Toxic Granulation PRESENT; Toxic Vacuolation PRESENT
[2024-11-15 05:51] LABS: Eosinophils Absolute Manual 0.1 X10*3/uL (0.0-0.4); Lymphocytes Absolute Manual 0.3 X10*3/uL (1.2-4.9); Metamyelocytes Absolute 1.3 X10*3/uL; Monocytes Absolute Manual 0.2 X10*3/uL (0.1-1.2); Myelocytes Absolute 0.4 X10*/uL; Neutrophils Absolute Manual 2.9 X10*3/uL (2.0-8.3); Promyelocytes Absolute 0.2 X10*3/uL; White Blood Count 5.3 X10*3/uL (4.8-10.8)
[2024-11-15 06:02] LABS: Venous Blood Gas Refer to POC result
--- NOTE | 2024-11-15 06:29 | PC.NURSE ---
Pt to ICU from M/T approx 2144 - emergently intubated by BREANN Junior for respiratory distress. Etomidate 20 mg IVP and Propofol 100 mg IVP administered for RSI. ETT #7.5 25 cm?@ lip. Placed on ACVC settings - see vent assessment.? Propofol gtt ordered and infusing for sedation. Versed and Fentanyl IVP administered for additional sedation - see MAR. BPs 50-60s systolic, Levophed administered and titrated per BREANN Junior, Vasopressin ordered?and administered to maintain MAP > 65. L IJ TLC inserted by BREANN Junior. Cxr to confirm placement of TLC and ETT. Pt continues to be in afib on tele, rate 120-160s. Metoprolol 5 mg IVP administered with little effect. Digoxin 0.25 mg IVP ordered and administered with good effect - see MAR. Levophed had previously been infusing through L AC IV - site noted to be leaking, surrounding area swollen and cool to touch.? IV removed and Phentolamine subcut administered. Pt continues to weep serous fluid from site. Bladder scanned for 11 ml. BULKHEAD CARPENTER notified. Pt incontinent of large brown stool. Triad and foam placed to coccyx/sacral?wounds. Bath given. Family updated by BULKHEAD CARPENTER. See MAR/flowsheet for further details.
[2024-11-15] MEDS: Chlorhexidine Gluc Oral Rinse 15 ML MOUTHWASH BUCCAL ×3 (07:50→20:12)
[2024-11-15] MEDS: 0.9 % Sodium Chloride Flush 3 ML SYRINGE IVFLUSH ×3 (07:50→23:53)
[2024-11-15 08:28] LABS: Reflex Lactate? Lactic Acid Added
[2024-11-15 09:46] LABS: ~Lactic Acid-LAB USE ONLY 9.0 mmol/L (0.5-2.0)
--- NOTE | 2024-11-15 10:02 | P.PNCC_ITS ---
Subjective Subjective Date of Service: 11/15/24 Interval History: 84-year-old lady with underlying polycystic liver, essential hypertension, ESRD on hemodialysis, PE on Eliquis admitted on 11/04/2024 with hypotension injury to upper GI bleed, patient initially with good response to resuscitation with blood products and IV fluid, admitted to telemetry service. Patient did have an EGD on 11/05/2024 showing duodenal bulb actively bleeding ulcer, treated with sclerotherapy and clipping. Overnight after procedure patient with repeat hemorrhage with poor response to IV fluids and blood products requiring transferred to intensive care unit and utilization of pressor support. Status post IR embolization on 11/06/2024 with stabilization of hemoglobin and no further rebleeding. Patient transferred to telemetry and I would 01/2025. Further hospital course significant for development of lower abdominal rash of unclear etiology treated with systemic glucocorticoids, AFib with RVR, and on 11/14/2024 septic shock with poor response to initial IV fluid resuscitation requiring pressor support and acute hypoxia requiring ventilatory support, transferred to intensive care unit. Critical Care Time (minutes): 60 Physical Exam 2 Vital Signs: Vital Signs: Last Vital Signs Temp 100.2 F 11/15/24 09:00 Pulse 106 H 11/15/24 09:00 Resp 26 H 11/15/24 09:00 BP 133/68 11/15/24 09:00 Pulse Ox 98 11/15/24 09:00 O2 Del Method Mechanical Ventil ation 11/15/24 09:00 O2 Flow Rate 6 11/06/24 11:20 FiO2 24 11/15/24 09:00 BMI result Body Mass Index 35.0 Const: General: no acute distress and other (Sedated on ventilatory support) Eyes: Sclerae: sclerae normal EOM: EOMs intact bilaterally Neck: Neck: Yes no lymphadenopathy, Yes trachea midline and Yes supple Resp: Auscultation: crackles (Mild bilateral) Cardio: Rate: tachycardic Rhythm: regular rhythm Heart sounds: no gallops, no murmurs and no rubs GI: Palpation (GI): Soft to palpation and Other GI palpation findings present ( Nontender) Auscultation: normal bowel sounds Extrem: General: No clubbing, No cyanosis and Yes edema (1+ bilateral) Objective Data Labs 11/15/24 04:23 11/15/24 04:23 Labs: Laboratory Results - last 24 hr 11/14/24 11/14/24 11/14/24 18:44 19:51 20:26 WBC 3.3 L RBC 2.87 L Hgb 8.9 L Hct 26.2 L MCV 91.3 MCH 31.0 MCHC 34.0 RDW 18.2 H Plt Count 93 L MPV 10.7 Immature Gran % (Auto) Neut % (Auto) Lymph % (Auto) [place] % (Auto) Eos % (Auto) Baso % (Auto) Lymph # (Auto) [place] # (Auto) Eos # (Auto) Baso # (Auto) Abs Immat Gran (auto) Absolute Neuts (auto) Absolute Nucleated RBC TNP Nucleated RBC % (auto) TNP Neutrophils % (Manual) Band Neutrophils % Lymphocytes % (Manual) Monocytes % (Manual) Eosinophils % (Manual) Metamyelocytes % Myelocytes % Promyelocytes % Abs Neuts (Manual) Lymphocytes # (Manual) Monocytes # (Manual) Eosinophils # (Manual) Metamyelocytes # Myelocytes # Promyelocytes # Toxic Granulation Toxic Vacuolation Platelet Estimate Large Platelets Plt Morphology Comment RBC Morphology Spherocytes Tear Drop Cells Ovalocytes [place]idy Cells Acanthocytes (Spur) VBG pH VBG pCO2 VBG pO2 VBG HCO3 VBG O2 Saturation VBG Base Excess Sodium 138 Potassium 3.5 Chloride 104 Carbon Dioxide 19 L Anion Gap 19 BUN 50 H Creatinine 4.26 H* Estim Creat Clear Calc 12.0 Estimated GFR 10 Random Glucose 109 Lactic Acid 4.7 H* Lactic Acid F/U @ 2Hr Lactic Acid F/U @ 4Hr Calcium 7.8 L Phosphorus Magnesium 1.5 L Troponin I High Sens 28.9 H B-Natriuretic Peptide Albumin Urine Color Yellow Urine Appearance Turbid Urine pH 6.0 Ur Specific [place] 1.015 Urine Protein 100 (2+) H Urine Glucose (UA) Negative Urine Ketones Negative Urine Blood Moderate (2+) H Urine Nitrite Negative Ur Leukocyte Esterase Large (3+) H Urine RBC 6-10 H Urine WBC >50 H Ur Squamous Epith Cells 0-2 Urine Bacteria 4+ Hyaline Casts 6-10 11/14/24 11/14/24 11/15/24 22:11 22:18 00:24 WBC RBC Hgb Hct MCV MCH MCHC RDW Plt Count MPV Immature Gran % (Auto) Neut % (Auto) Lymph % (Auto) [place] % (Auto) Eos % (Auto) Baso % (Auto) Lymph # (Auto) [place] # (Auto) Eos # (Auto) Baso # (Auto) Abs Immat Gran (auto) Absolute Neuts (auto) Absolute Nucleated RBC Nucleated RBC % (auto) Neutrophils % (Manual) Band Neutrophils % Lymphocytes % (Manual) Monocytes % (Manual) Eosinophils % (Manual) Metamyelocytes % Myelocytes % Promyelocytes % Abs Neuts (Manual) Lymphocytes # (Manual) Monocytes # (Manual) Eosinophils # (Manual) Metamyelocytes # Myelocytes # Promyelocytes # Toxic Granulation Toxic Vacuolation Platelet Estimate Large Platelets Plt Morphology Comment RBC Morphology Spherocytes Tear Drop Cells Ovalocytes Heidy Cells Acanthocytes (Spur) VBG pH 7.68 H* VBG pCO2 14 VBG pO2 55 VBG HCO3 17 L VBG O2 Saturation 92.0 VBG Base Excess -1.2 Sodium Potassium Chloride Carbon Dioxide Anion Gap BUN Creatinine Estim Creat Clear Calc Estimated GFR Random Glucose Lactic Acid Lactic Acid F/U @ 2Hr 6.3 H* Lactic Acid F/U @ 4Hr Calcium Phosphorus Magnesium Troponin I High Sens 32.8 H B-Natriuretic Peptide 2529 H Albumin 2.4 L Urine Color Urine Appearance Urine pH Ur Specific [place] Urine Protein Urine Glucose (UA) Urine Ketones Urine Blood Urine Nitrite Ur Leukocyte Esterase Urine RBC Urine WBC Ur Squamous Epith Cells Urine Bacteria Hyaline Casts 11/15/24 11/15/24 11/15/24 00:26 02:05 02:43 WBC RBC Hgb Hct MCV MCH MCHC RDW Plt Count MPV Immature Gran % (Auto) Neut % (Auto) Lymph % (Auto) [place] % (Auto) Eos % (Auto) Baso % (Auto) Lymph # (Auto) [place] # (Auto) Eos # (Auto) Baso # (Auto) Abs Immat Gran (auto) Absolute Neuts (auto) Absolute Nucleated RBC Nucleated RBC % (auto) Neutrophils % (Manual) Band Neutrophils % Lymphocytes % (Manual) Monocytes % (Manual) Eosinophils % (Manual) Metamyelocytes % Myelocytes % Promyelocytes % Abs Neuts (Manual) Lymphocytes # (Manual) Monocytes # (Manual) Eosinophils # (Manual) Metamyelocytes # Myelocytes # Promyelocytes # Toxic Granulation Toxic Vacuolation Platelet Estimate Large Platelets Plt Morphology Comment RBC Morphology Spherocytes Tear Drop Cells Ovalocytes [place] Cells Acanthocytes (Spur) VBG pH 7.40 VBG pCO2 30 VBG pO2 70 VBG HCO3 19 L VBG O2 Saturation 92.0 VBG Base Excess -4.4 Sodium 139 Potassium 3.0 L Chloride 101 Carbon Dioxide 17 L Anion Gap 24 H BUN 50 H Creatinine 4.33 H* Estim Creat Clear Calc 11.8 Estimated GFR 10 Random Glucose 119 H Lactic Acid Lactic Acid F/U @ 2Hr Lactic Acid F/U @ 4Hr 7.5 H* Calcium 7.6 L Phosphorus 3.5 Magnesium 1.9 Troponin I High Sens B-Natriuretic Peptide Albumin Urine Color Urine Appearance Urine pH Ur Specific [place] Urine Protein Urine Glucose (UA) Urine Ketones Urine Blood Urine Nitrite Ur Leukocyte Esterase Urine RBC Urine WBC Ur Squamous Epith Cells Urine Bacteria Hyaline Casts 11/15/24 11/15/24 11/15/24 04:23 04:37 06:22 WBC 5.3 RBC 2.73 L Hgb 8.5 L Hct 25.4 L MCV 93.0 MCH 31.1 MCHC 33.5 RDW 18.6 H Plt Count 92 L MPV 11.1 Immature Gran % (Auto) Cancelled Neut % (Auto) Cancelled Lymph % (Auto) Cancelled [place] % (Auto) Cancelled Eos % (Auto) Cancelled Baso % (Auto) Cancelled Lymph # (Auto) Cancelled [place] # (Auto) Cancelled Eos # (Auto) Cancelled Baso # (Auto) Cancelled Abs Immat Gran (auto) Cancelled Absolute Neuts (auto) Cancelled Absolute Nucleated RBC 0.000 Nucleated RBC % (auto) 0.0 Neutrophils % (Manual) 41 L Band Neutrophils % 13 H Lymphocytes % (Manual) 6 L Monocytes % (Manual) 4 Eosinophils % (Manual) 1 Metamyelocytes % 25 Myelocytes % 7 Promyelocytes % 3 Abs Neuts (Manual) 2.9 Lymphocytes # (Manual) 0.3 L Monocytes # (Manual) 0.2 Eosinophils # (Manual) 0.1 Metamyelocytes # 1.3 Myelocytes # 0.4 Promyelocytes # 0.2 Toxic Granulation PRESENT Toxic Vacuolation PRESENT Platelet Estimate DECREASED Large Platelets PRESENT Plt Morphology Comment NOTED RBC Morphology NOTED Spherocytes 2+ (3-5) Tear Drop Cells 2+ (3-5) Ovalocytes 1+ (5-14) [place] Cells 3+ (>5) Acanthocytes (Spur) 3+ (>5) VBG pH 7.36 VBG pCO2 28 VBG pO2 52 VBG HCO3 16 L VBG O2 Saturation 77.0 VBG Base Excess -7.9 Sodium 138 Potassium 3.8 D Chloride 102 Carbon Dioxide 15 L Anion Gap 25 H BUN 50 H Creatinine 4.28 H* Estim Creat Clear Calc 12.0 Estimated GFR 10 Random Glucose 125 H Lactic Acid 8.5 H* Lactic Acid F/U @ 2Hr Lactic Acid F/U @ 4Hr Calcium 7.7 L Phosphorus 3.9 Magnesium 1.8 Troponin I High Sens B-Natriuretic Peptide Albumin 2.9 L Urine Color Urine Appearance Urine pH Ur Specific [place] Urine Protein Urine Glucose (UA) Urine Ketones Urine Blood Urine Nitrite Ur Leukocyte Esterase Urine RBC Urine WBC Ur Squamous Epith Cells Urine Bacteria Hyaline Casts 11/15/24 09:00 WBC RBC Hgb Hct MCV MCH MCHC RDW Plt Count MPV Immature Gran % (Auto) Neut % (Auto) Lymph % (Auto) [place] % (Auto) Eos % (Auto) Baso % (Auto) Lymph # (Auto) [place] # (Auto) Eos # (Auto) Baso # (Auto) Abs Immat Gran (auto) Absolute Neuts (auto) Absolute Nucleated RBC Nucleated RBC % (auto) Neutrophils % (Manual) Band Neutrophils % Lymphocytes % (Manual) Monocytes % (Manual) Eosinophils % (Manual) Metamyelocytes % Myelocytes % Promyelocytes % Abs Neuts (Manual) Lymphocytes # (Manual) Monocytes # (Manual) Eosinophils # (Manual) Metamyelocytes # Myelocytes # Promyelocytes # Toxic Granulation Toxic Vacuolation Platelet Estimate Large Platelets Plt Morphology Comment RBC Morphology Spherocytes Tear Drop Cells Ovalocytes [place]idy Cells Acanthocytes (Spur) VBG pH VBG pCO2 VBG pO2 VBG HCO3 VBG O2 Saturation VBG Base Excess Sodium Potassium Chloride Carbon Dioxide Anion Gap BUN Creatinine Estim Creat Clear Calc Estimated GFR Random Glucose Lactic Acid Lactic Acid F/U @ 2Hr 9.0 H* Lactic Acid F/U @ 4Hr Calcium Phosphorus Magnesium Troponin I High Sens B-Natriuretic Peptide Albumin Urine Color Urine Appearance Urine pH Ur Specific [place] Urine Protein Urine Glucose (UA) Urine Ketones Urine Blood Urine Nitrite Ur Leukocyte Esterase Urine RBC Urine WBC Ur Squamous Epith Cells Urine Bacteria Hyaline Casts Microbiology Microbiology Results: Microbiology 11/04/24 07:53 Blood - Venous Blood Culture - Final No growth after 5 days. 11/04/24 07:18 Blood - Venous Blood Culture - Final No growth after 5 days. 11/04/24 Unknown Urine Catheterized - Kim Catheter Urine Culture - Final No growth. Progress Note: A&P Assessment and plan (1) Septic shock: Status: Acute (2) Acute hypoxic respiratory failure: Status: Acute (3) ESRD (end stage renal disease): Status: Acute (4) Atrial fibrillation with rapid ventricular response: Status: Acute Plan Assessment: 84-year-old lady admitted with an upper GI date on a background of utilization of Eliquis for prior DVT, noted to have duodenal bulb ulcer UD, unfortunately with postprocedure recurrence of upper GI bleed resulting in hemorrhagic shock, resolved after IR embolization, now with septic shock and acute hypoxia requiring pressor and ventilatory support Plan: Neuro: No acute issues. Cardiac: Septic shock, continue to titrate off pressor support as tolerated. Underlying CAD. Pulmonary: Acute hypoxic respiratory failure on the background of septic shock with possible aspiration component, continue to titrate off ventilatory support as tolerated. Renal: No acute issues. ESRD on hemodialysis. Nephrology service care appreciated. Endo: No acute issues. GI: Duodenal bulb ulcer status post sclerotherapy/clipping. Gastroenterology service care appreciated. Now status post IR embolization with no further rebleeding. ID: Suspicion for bacteremia with likely source, continue broad-spectrum antibiotics. Heme/Onc: Hemorrhagic shock secondary to an upper GI bleed, resolved. Hemoglobin level stabilized. Continue to monitor hemoglobin, transfusion threshold of 7. Psych: No acute issues. Miscellaneous: No acute issues. Prophylaxis: Pneumatic compression Diet: NPO Quality Stroke Does the patient have a stroke diagnosis?: No VTE Prior VTE?: No VTE Risk Level:: Medical - moderate - high VTE Device Contraindication: N/A - Device Ordered VTE Drug Contraindication: Treatment Not Indicated
[2024-11-15 11:03] LABS: Reflex Lactate? 2 Y
--- NOTE | 2024-11-15 11:43 | ECG_ITS ---
Test Reason : TACHYCARDIA Blood Pressure : */* mmHG Vent. Rate : 139 BPM Atrial Rate : 139 BPM P-R Int : 166 ms QRS Dur : 106 ms QT Int : 342 ms P-R-T Axes : * 82 -42 degrees QTcB Int : [address] & T wave abnormality, consider inferior ischemia ST & T wave abnormality, consider anterior ischemia Abnormal ECG When compared with ECG of 14-Nov-2024 17:39, Atrial flutter has replaced Atrial fibrillation with Aberrant conduction Referred By: Sharan Santos Electronically Signed By: RO MAURICE MD
[2024-11-15 12:08] LABS: Glucose, Whole Blood 98 mg/dL (60-115)
--- NOTE | 2024-11-15 12:21 | PM.CNCAR ---
History of Present Illness History of Present Illness Date of Service: 11/15/24 Requesting physician: Sharan Santos Chief complaint: Afib Narrative: [age] year female currently sedated and intubated in the intensive care unit who had episode of atrial fibrillation. She has end-stage renal disease and is currently on hemodialysis. She is on vasopressors and propofol currently. She has background history of polycystic liver, hypertension, PE on Eliquis and end-stage renal disease. She presented with hypotension due to upper GI bleed. She has a duodenal bulb actively bleeding ulcer which was treated with sclerotherapy and clipping. She had some further bleeding and underwent IR guided embolization. She developed septic shock after that and was intubated and was transferred to the intensive care unit. She is currently sedated and ventilated. No history is possible from the patient. She appears to be in sinus rhythm at this point. She is on propofol and pressors. FORMERLY [facility], [facility] Past Medical History Medical History (Updated 11/15/24 @ 01:08 by Courtney Junior NP) Coagulopathy Elevated LFTs Nontoxic multinodular goiter Hyperlipidemia Restrictive lung disease History of pulmonary embolism Hemorrhagic shock Polycystic liver disease Essential hypertension End-stage renal disease on hemodialysis Social History Social History Household Members: Spouse Housing: Apartment Do you presently have visiting nurse or other home services: No Patient Tobacco Use Status: Never used Tobacco service: No Meds Allergies Allergy/AdvReac Type Severity Reaction Status Date / Time penicillin Allergy Unknown Rash Uncoded 11/04/24 06:40 Active Medications: Current Medications Acetaminophen (Acetaminophen 325 Mg Tablet) 650 mg PO Q4H PRN PRN Reason: Fever Last Admin: 11/12/24 13:59 Dose: 650 mg Calcitriol (Calcitriol 0.25 Mcg Capsule) 0.25 mcg PO DAILY NAKUL Last Admin: 11/15/24 07:42 Dose: Not Given Chlorhexidine Gluconate (Chlorhexidine Gluc Oral Rinse 15 Ml Mouthwash) 15 ml BUCCAL TID NAKUL Last Admin: 11/15/24 07:50 Dose: 15 ml Hydrocortisone (Hydrocortisone 1 % Cream 28.35 Gm Tube) 1 appl TOPICAL BID PRN; Protocol PRN Reason: itching Last Admin: 11/13/24 06:29 Dose: 1 appl Vancomycin HCl 500 mg/ Sodium (Chloride) 110 mls @ 110 mls/hr IV ONCE ONE Stop: 11/14/24 22:44 Propofol (Diprivan) 1,000 mg in 100 mls @ 0 mls/hr IVCONT .Q0M [facility]; Protocol Last Admin: 11/15/24 08:50 Dose: 30 mcg/kg/min, 18.36 mls/hr Norepinephrine Bitartrate (Levophed) 8 mg in 250 mls @ 0 mls/hr IVCONT .Q0M [facility]; Protocol Last Admin: 11/15/24 10:39 Dose: 0.5 mcg/kg/min, 95.63 mls/hr Vasopressin (Vasostrict) 20 unit in 100 mls @ 12 mls/hr IVCONT .Q8H20M [facility]; Protocol Last Admin: 11/15/24 10:40 Dose: 0.04 unit/min, 12 mls/hr Cefepime HCl 1 gm/ Sodium (Chloride) 50 mls @ 100 mls/hr IV Q24H [facility] Melatonin (Melatonin 3 Mg Tablet) 6 mg PO BEDTIME PRN PRN Reason: Insomnia Last Admin: 11/05/24 23:49 Dose: 6 mg Naloxone HCl (Naloxone Hcl 0.4 Mg/Ml Vial) 0.04 mg IVPUSH Q5M PRN PRN Reason: Excessive sedation or RR < 8 Nystatin (Nystatin Cream 15 Gm Tube) 1 appl TOPICAL BID [facility]; Protocol Last Admin: 11/15/24 10:43 Dose: Not Given Pantoprazole Sodium (Pantoprazole Sodium 40 Mg/10 Ml Vial) 40 mg IVPUSH BID@0630,1630 [facility] Last Admin: 11/15/24 05:42 Dose: 40 mg Pharmacy Consult (Consult Rx Vancomycin Dosing) 1 each MISCELLANE DAILY PRN PRN Reason: Consult order Sodium Bicarbonate (Sodium Bicarbonate 650 Mg Tablet) 650 mg PO BID [facility] Last Admin: 11/15/24 07:43 Dose: Not Given Sodium Chloride (0.9 % Sodium Chloride Flush 3 Ml Syringe) 3 ml IVFLUSH QSHIFT [facility] Last Admin: 11/15/24 07:50 Dose: 3 ml Home Medications ?Medication ?Instructions ?Recorded ?Confirmed ?Last Taken ?Type acetaminophen 325 mg tablet 650 mg PO Q4H PRN Fever Or Pain 11/04/24 11/04/24 Unknown History albuterol sulfate 90 mcg/actuation 1 inh inhalation Q4-6H PRN 11/04/24 11/04/24 Unknown History aerosol inhaler Shortness Of Breath Or Wheezing apixaban 2.5 mg tablet (Eliquis) 2.5 mg PO BID 11/04/24 11/04/24 11/04/24 History azelastine 137 mcg (0.1 %) nasal 1 spray intranasal BID 11/04/24 11/04/24 Unknown History spray calcitriol 0.25 mcg capsule 0.25 mcg PO DAILY 11/04/24 11/04/24 11/04/24 History ferrous sulfate 325 mg (65 mg 325 mg PO BID 11/04/24 11/04/24 11/04/24 History iron) tablet,delayed release fluticasone propionate 50 1 spray intranasal DAILY 11/04/24 11/04/24 11/04/24 History mcg/actuation nasal spray,suspension furosemide 20 mg tablet 80 mg PO DAILY 11/04/24 11/04/24 11/04/24 History hydralazine 25 mg tablet 25 mg PO TID 11/04/24 11/04/24 11/04/24 History metoprolol succinate 50 mg 50 mg PO DAILY 11/04/24 11/04/24 11/04/24 History tablet,extended release 24 hr simvastatin 20 mg tablet 20 mg PO BEDTIME 11/04/24 11/04/24 11/03/24 History sodium bicarbonate 650 mg tablet 650 mg PO BID 11/04/24 11/04/24 11/04/24 History Physical Exam Vital Signs: Vital Signs: Last Vital Signs Temp 98.4 F 11/15/24 12:00 Pulse 101 H 11/15/24 12:00 Resp 33 H 11/15/24 12:00 BP 112/65 11/15/24 12:00 Pulse Ox 95 11/15/24 12:00 O2 Del Method Mechanical Ventil ation 11/15/24 12:00 O2 Flow Rate 6 11/06/24 11:20 FiO2 24 11/15/24 12:00 BMI result Body Mass Index 35.0 GENERAL APPEARANCE: Sedated and ventilated. NECK: Positive JVD. SKIN: no suspicious lesions, warm and dry. Right chest wall PermCath site stable. HEART: no murmurs, regular rate and rhythm. LUNGS: clear to auscultation bilaterally. EXTREMITIES: no edema. PERIPHERAL PULSES: equal. NEUROLOGIC: Sedated. Objective Labs and Meds 11/15/24 04:23 11/15/24 04:23 Lab results: Laboratory Results - last 24 hr 11/14/24 11/14/24 11/14/24 18:44 19:51 20:26 WBC 3.3 L RBC 2.87 L Hgb 8.9 L Hct 26.2 L MCV 91.3 MCH 31.0 MCHC 34.0 RDW 18.2 H Plt Count 93 L MPV 10.7 Immature Gran % (Auto) Neut % (Auto) Lymph % (Auto) Wheeler % (Auto) Eos % (Auto) Baso % (Auto) Lymph # (Auto) Wheeler # (Auto) Eos # (Auto) Baso # (Auto) Abs Immat Gran (auto) Absolute Neuts (auto) Absolute Nucleated RBC TNP Nucleated RBC % (auto) TNP Neutrophils % (Manual) Band Neutrophils % Lymphocytes % (Manual) Monocytes % (Manual) Eosinophils % (Manual) Metamyelocytes % Myelocytes % Promyelocytes % Abs Neuts (Manual) Lymphocytes # (Manual) Monocytes # (Manual) Eosinophils # (Manual) Metamyelocytes # Myelocytes # Promyelocytes # Toxic Granulation Toxic Vacuolation Platelet Estimate Large Platelets Plt Morphology Comment RBC Morphology Spherocytes Tear Drop Cells Ovalocytes [place] Cells Acanthocytes (Spur) VBG pH VBG pCO2 VBG pO2 VBG HCO3 VBG O2 Saturation VBG Base Excess Sodium 138 Potassium 3.5 Chloride 104 Carbon Dioxide 19 L Anion Gap 19 BUN 50 H Creatinine 4.26 H* Estim Creat Clear Calc 12.0 Estimated GFR 10 POC Glucose Random Glucose 109 Lactic Acid 4.7 H* Lactic Acid F/U @ 2Hr Lactic Acid F/U @ 4Hr Calcium 7.8 L Phosphorus Magnesium 1.5 L Troponin I High Sens 28.9 H B-Natriuretic Peptide Albumin Urine Color Yellow Urine Appearance Turbid Urine pH 6.0 Ur Specific [place] 1.015 Urine Protein 100 (2+) H Urine Glucose (UA) Negative Urine Ketones Negative Urine Blood Moderate (2+) H Urine Nitrite Negative Ur Leukocyte Esterase Large (3+) H Urine RBC 6-10 H Urine WBC >50 H Ur Squamous Epith Cells 0-2 Urine Bacteria 4+ Hyaline Casts 6-10 11/14/24 11/14/24 11/15/24 22:11 22:18 00:24 WBC RBC Hgb Hct MCV MCH MCHC RDW Plt Count MPV Immature Gran % (Auto) Neut % (Auto) Lymph % (Auto) Wheeler % (Auto) Eos % (Auto) Baso % (Auto) Lymph # (Auto) Wheeler # (Auto) Eos # (Auto) Baso # (Auto) Abs Immat Gran (auto) Absolute Neuts (auto) Absolute Nucleated RBC Nucleated RBC % (auto) Neutrophils % (Manual) Band Neutrophils % Lymphocytes % (Manual) Monocytes % (Manual) Eosinophils % (Manual) Metamyelocytes % Myelocytes % Promyelocytes % Abs Neuts (Manual) Lymphocytes # (Manual) Monocytes # (Manual) Eosinophils # (Manual) Metamyelocytes # Myelocytes # Promyelocytes # Toxic Granulation Toxic Vacuolation Platelet Estimate Large Platelets Plt Morphology Comment RBC Morphology Spherocytes Tear Drop Cells Ovalocytes [place] Cells Acanthocytes (Spur) VBG pH 7.68 H* VBG pCO2 14 VBG pO2 55 VBG HCO3 17 L VBG O2 Saturation 92.0 VBG Base Excess -1.2 Sodium Potassium Chloride Carbon Dioxide Anion Gap BUN Creatinine Estim Creat Clear Calc Estimated GFR POC Glucose Random Glucose Lactic Acid Lactic Acid F/U @ 2Hr 6.3 H* Lactic Acid F/U @ 4Hr Calcium Phosphorus Magnesium Troponin I High Sens 32.8 H B-Natriuretic Peptide 2529 H Albumin 2.4 L Urine Color Urine Appearance Urine pH Ur Specific [place] Urine Protein Urine Glucose (UA) Urine Ketones Urine Blood Urine Nitrite Ur Leukocyte Esterase Urine RBC Urine WBC Ur Squamous Epith Cells Urine Bacteria Hyaline Casts 11/15/24 11/15/24 11/15/24 00:26 02:05 02:43 WBC RBC Hgb Hct MCV MCH MCHC RDW Plt Count MPV Immature Gran % (Auto) Neut % (Auto) Lymph % (Auto) Wheeler % (Auto) Eos % (Auto) Baso % (Auto) Lymph # (Auto) Wheeler # (Auto) Eos # (Auto) Baso # (Auto) Abs Immat Gran (auto) Absolute Neuts (auto) Absolute Nucleated RBC Nucleated RBC % (auto) Neutrophils % (Manual) Band Neutrophils % Lymphocytes % (Manual) Monocytes % (Manual) Eosinophils % (Manual) Metamyelocytes % Myelocytes % Promyelocytes % Abs Neuts (Manual) Lymphocytes # (Manual) Monocytes # (Manual) Eosinophils # (Manual) Metamyelocytes # Myelocytes # Promyelocytes # Toxic Granulation Toxic Vacuolation Platelet Estimate Large Platelets Plt Morphology Comment RBC Morphology Spherocytes Tear Drop Cells Ovalocytes [place] Cells Acanthocytes (Spur) VBG pH 7.40 VBG pCO2 30 VBG pO2 70 VBG HCO3 19 L VBG O2 Saturation 92.0 VBG Base Excess -4.4 Sodium 139 Potassium 3.0 L Chloride 101 Carbon Dioxide 17 L Anion Gap 24 H BUN 50 H Creatinine 4.33 H* Estim Creat Clear Calc 11.8 Estimated GFR 10 POC Glucose Random Glucose 119 H Lactic Acid Lactic Acid F/U @ 2Hr Lactic Acid F/U @ 4Hr 7.5 H* Calcium 7.6 L Phosphorus 3.5 Magnesium 1.9 Troponin I High Sens B-Natriuretic Peptide Albumin Urine Color Urine Appearance Urine pH Ur Specific [place] Urine Protein Urine Glucose (UA) Urine Ketones Urine Blood Urine Nitrite Ur Leukocyte Esterase Urine RBC Urine WBC Ur Squamous Epith Cells Urine Bacteria Hyaline Casts 11/15/24 11/15/24 11/15/24 04:23 04:37 06:22 WBC 5.3 RBC 2.73 L Hgb 8.5 L Hct 25.4 L MCV 93.0 MCH 31.1 MCHC 33.5 RDW 18.6 H Plt Count 92 L MPV 11.1 Immature Gran % (Auto) Cancelled Neut % (Auto) Cancelled Lymph % (Auto) Cancelled Wheeler % (Auto) Cancelled Eos % (Auto) Cancelled Baso % (Auto) Cancelled Lymph # (Auto) Cancelled Wheeler # (Auto) Cancelled Eos # (Auto) Cancelled Baso # (Auto) Cancelled Abs Immat Gran (auto) Cancelled Absolute Neuts (auto) Cancelled Absolute Nucleated RBC 0.000 Nucleated RBC % (auto) 0.0 Neutrophils % (Manual) 41 L Band Neutrophils % 13 H Lymphocytes % (Manual) 6 L Monocytes % (Manual) 4 Eosinophils % (Manual) 1 Metamyelocytes % 25 Myelocytes % 7 Promyelocytes % 3 Abs Neuts (Manual) 2.9 Lymphocytes # (Manual) 0.3 L Monocytes # (Manual) 0.2 Eosinophils # (Manual) 0.1 Metamyelocytes # 1.3 Myelocytes # 0.4 Promyelocytes # 0.2 Toxic Granulation PRESENT Toxic Vacuolation PRESENT Platelet Estimate DECREASED Large Platelets PRESENT Plt Morphology Comment NOTED RBC Morphology NOTED Spherocytes 2+ (3-5) Tear Drop Cells 2+ (3-5) Ovalocytes 1+ (5-14) [place] Cells 3+ (>5) Acanthocytes (Spur) 3+ (>5) VBG pH 7.36 VBG pCO2 28 VBG pO2 52 VBG HCO3 16 L VBG O2 Saturation 77.0 VBG Base Excess -7.9 Sodium 138 Potassium 3.8 D Chloride 102 Carbon Dioxide 15 L Anion Gap 25 H BUN 50 H Creatinine 4.28 H* Estim Creat Clear Calc 12.0 Estimated GFR 10 POC Glucose Random Glucose 125 H Lactic Acid 8.5 H* Lactic Acid F/U @ 2Hr Lactic Acid F/U @ 4Hr Calcium 7.7 L Phosphorus 3.9 Magnesium 1.8 Troponin I High Sens B-Natriuretic Peptide Albumin 2.9 L Urine Color Urine Appearance Urine pH Ur Specific [place] Urine Protein Urine Glucose (UA) Urine Ketones Urine Blood Urine Nitrite Ur Leukocyte Esterase Urine RBC Urine WBC Ur Squamous Epith Cells Urine Bacteria Hyaline Casts 11/15/24 11/15/24 09:00 11:55 WBC RBC Hgb Hct MCV MCH MCHC RDW Plt Count MPV Immature Gran % (Auto) Neut % (Auto) Lymph % (Auto) Wheeler % (Auto) Eos % (Auto) Baso % (Auto) Lymph # (Auto) Wheeler # (Auto) Eos # (Auto) Baso # (Auto) Abs Immat Gran (auto) Absolute Neuts (auto) Absolute Nucleated RBC Nucleated RBC % (auto) Neutrophils % (Manual) Band Neutrophils % Lymphocytes % (Manual) Monocytes % (Manual) Eosinophils % (Manual) Metamyelocytes % Myelocytes % Promyelocytes % Abs Neuts (Manual) Lymphocytes # (Manual) Monocytes # (Manual) Eosinophils # (Manual) Metamyelocytes # Myelocytes # Promyelocytes # Toxic Granulation Toxic Vacuolation Platelet Estimate Large Platelets Plt Morphology Comment RBC Morphology Spherocytes Tear Drop Cells Ovalocytes [place] Cells Acanthocytes (Spur) VBG pH VBG pCO2 VBG pO2 VBG HCO3 VBG O2 Saturation VBG Base Excess Sodium Potassium Chloride Carbon Dioxide Anion Gap BUN Creatinine Estim Creat Clear Calc Estimated GFR POC Glucose 98 Random Glucose Lactic Acid Lactic Acid F/U @ 2Hr 9.0 H* Lactic Acid F/U @ 4Hr Calcium Phosphorus Magnesium Troponin I High Sens B-Natriuretic Peptide Albumin Urine Color Urine Appearance Urine pH Ur Specific [place] Urine Protein Urine Glucose (UA) Urine Ketones Urine Blood Urine Nitrite Ur Leukocyte Esterase Urine RBC Urine WBC Ur Squamous Epith Cells Urine Bacteria Hyaline Casts Assessment and Plan (1) Atrial fibrillation with rapid ventricular response: Status: Acute (2) Hemorrhagic shock: Status: Acute (3) Septic shock: Status: Acute Plan 84-year-old lady with complex medical issues who presented with hemorrhagic shock and subsequently developed sepsis and AFib with RVR. Currently sedated intubated. She is back in sinus rhythm at this point. Would favor using amiodarone to prevent episodes of atrial fibrillation because it would be challenging to control with the current pressor demand. Appropriately off anticoagulation at this point. We will follow along with you. Thank you for allowing me to participate in the care of your patient. Please feel free to contact me if you have any questions. Procedures Date of Service Date of Service: 11/15/24
[2024-11-15 12:29] LABS: ~Lactic Acid-LAB USE ONLY 5.8 mmol/L (0.5-2.0)
--- NOTE | 2024-11-15 13:26 | P.PNNPD_ITS ---
Subjective Subjective Date of Service: 11/15/24 Principal diagnosis: ESRD This patient was seen during dialysis. Patient was transferred to ICU, intubated Last dialysis was Saturday Interval history: 84-year-old lady with underlying polycystic liver, essential hypertension, ESRD on hemodialysis, PE on Eliquis admitted on 11/04/2024 with hypotension injury to upper GI bleed, patient initially with good response to resuscitation with blood products and IV fluid, admitted to telemetry service. Patient did have an EGD on 11/05/2024 showing duodenal bulb actively bleeding ulcer, treated with sclerotherapy and clipping. Overnight after procedure patient with repeat hemorrhage with poor response to IV fluids and blood products requiring transferred to intensive care unit and utilization of pressor support. Status post IR embolization on 11/06/2024 with stabilization of hemoglobin and no further rebleeding. Patient transferred to telemetry and I would 01/2025. Further hospital course significant for development of lower abdominal rash of unclear etiology treated with systemic glucocorticoids, AFib with RVR, and on 11/14/2024 septic shock with poor response to initial IV fluid resuscitation requiring pressor support and acute hypoxia requiring ventilatory support, transferred to intensive care unit. Physical Exam Vital Signs: Vital Signs: Last Vital Signs Temp 98.4 F 11/15/24 12:00 Pulse 99 11/15/24 13:12 Resp 33 H 11/15/24 12:00 BP 119/63 11/15/24 13:12 Pulse Ox 95 11/15/24 12:00 O2 Del Method Mechanical Ventil ation 11/15/24 12:00 O2 Flow Rate 6 11/06/24 11:20 FiO2 24 11/15/24 12:00 BMI result Body Mass Index 35.0 Chest: Other: REduced air emtry Resp: Percussion: dullness Cardio: Heart sounds: S1 normal heart sound present and S2 normal heart sound present GI: Inspection: Yes normal to inspection Assessment & Plan Assessment and plan (1) ESRD (end stage renal disease): Status: Acute (2) Pulmonary edema: Status: Acute Plan ESRD PT who was Xfer to ICU for fluid overload. Intubated and on pressor. Missed dialysis on Saturday known ESRD due to PCKD and HTN on HD at [facility] HD unit via followed by Dr Velazquez combination of nephrogenic anemia and GIB HB stable REC For dialysis today Patient seen on dialysis HD 4 hour with UF as tolerated. 2-2.5 Will likely need a session of UF tomorrow Time Spent With Patient Time: Total time managing care of this patient today ____ minutes. Procedures Date of Service Date of Service: 11/15/24
--- NOTE | 2024-11-15 18:38 | HO.SKINPHOTO ---
Location: left lateral upper thigh Category: rash /edema Location: right upper medial thigh Category: rash / edema
--- NOTE | 2024-11-15 18:41 | PC.NURSE ---
Assumed care of patient 0700. Patient moved from 261 to 254 due to need for dialysis. Patient -3 RASS, see shift assessment. Albumin administered per MAR orders. Dialysis session completed with 2.1L fluid removed. Patient has 2+ edema to b/l arms and legs. IV infiltrate to left upper arm improving. Jarod pad applied for weeping edema. Rash/darkened skin area of unknown etiology expanded slightly from outlined area. New blisters to upper thighs r/t edema. Patient given a full bed bath with CHG wipes at 17:30. Patient passed 3 small valencia bowel movements this shift.
[2024-11-15 19:43] LABS: Hematocrit 24.8 % (37.0-47.0); Hemoglobin 8.3 g/dl (12.0-16.0); Mean Corpuscular HGB Conc 33.5 g/dl (31.0-35.0); Mean Corpuscular Hemoglobin 31.0 pg (27.0-33.0); Mean Corpuscular Volume 92.5 fL (80.0-98.0); NRBC Abs Auto 0.000 X10*3/uL (0.0-0.012); NRBC Pct Auto 0.0 /100WBC (0.0-0.2); Red Blood Count 2.68 X10*6/uL (4.20-5.50)
[2024-11-15 19:48] LABS: Platelet Count 51 X10*3/uL (160-400); WBC ABN SCTR FOR CBC 1; White Blood Count 14.9 X10*3/uL (4.8-10.8)
[2024-11-15 19:59] LABS: Anion Gap 24 (12-20); Blood Urea Nitrogen 22 mg/dL (9-16); Calcium 7.7 mg/dL (8.4-10.2); Carbon Dioxide 17 mmol/L (22-29); Chloride 99 mmol/L (96-108); Creatinine Clr Calc Pharmacy 21.8; Estimated Glomerular Filt Rate 20; Magnesium 1.7 mg/dL (1.6-2.6); Potassium 3.6 mmol/L (3.3-5.1); Sodium 136 mmol/L (135-145)
[2024-11-15 20:05] LABS: Band Neutrophils Percent 36 % (3-5); Eosinophils Absolute Manual 0.1 X10*3/uL (0.0-0.4); Eosinophils Percent Manual 1 % (0-4); Metamyelocytes Absolute 1.9 X10*3/uL; Metamyelocytes Percent 13 %; Myelocytes Absolute 0.4 X10*/uL; Myelocytes Percent 3 %; Neutrophils Absolute Manual 12.4 X10*3/uL (2.0-8.3); Neutrophils Percent Manual 47 % (45-73)
[2024-11-15 20:06] LABS: Acanthocytes 3+ (>5) /OIF; Basophilic Stippling 1+ (0-2) /OIF; RBC Morphology NOTED
[2024-11-15 20:07] LABS: Dohle Bodies PRESENT; Toxic Vacuolation PRESENT
[2024-11-15 20:27] LABS: Albumin Level 2.8 g/dL (3.5-5.0)
[2024-11-16] VITALS (49 sets, daily range): BP systolic 62–137; BP diastolic 38–77; PULSE 72–122; RESP 18–28; TEMP 33.9–37.6; O2SAT 93–100; BMI 35.2
[2024-11-16] MEDS: Vasopressin 20 UNIT/100 ML INFUS..BTL 12 UNIT IVCONT ×3 (01:34→17:51)
[2024-11-16] MEDS: Albumin Human 25 % 100 ML IV (01:38)
[2024-11-16 05:20] LABS: VBG HCO3 21 mmol/L (22-26); VBG O2 % Saturation 81.0 %
[2024-11-16 05:31] LABS: Venous Blood Gas Refer to POC result
[2024-11-16 05:31] LABS: Hematocrit 22.1 % (37.0-47.0); Hemoglobin 7.3 g/dl (12.0-16.0); Mean Corpuscular HGB Conc 33.0 g/dl (31.0-35.0); Mean Corpuscular Hemoglobin 31.1 pg (27.0-33.0); Mean Corpuscular Volume 94.0 fL (80.0-98.0); NRBC Abs Auto 0.000 X10*3/uL (0.0-0.012); NRBC Pct Auto 0.0 /100WBC (0.0-0.2); Red Blood Count 2.35 X10*6/uL (4.20-5.50)
[2024-11-16 05:32] LABS: Platelet Count 40 X10*3/uL (160-400); WBC ABN SCTR FOR CBC 1; White Blood Count 19.9 X10*3/uL (4.8-10.8)
[2024-11-16 05:48] LABS: Alanine Aminotransferase < 6 U/L (0-31); Albumin Level 3.2 g/dL (3.5-5.0); Alkaline Phosphatase 121 U/L (39-117); Anion Gap 22 (12-20); Aspartate Amino Transferase 29 U/L (5-31); Blood Urea Nitrogen 24 mg/dL (9-16); Calcium 7.9 mg/dL (8.4-10.2); Carbon Dioxide 19 mmol/L (22-29); Chloride 98 mmol/L (96-108); Creatinine Clr Calc Pharmacy 20.2; Estimated Glomerular Filt Rate 18; Magnesium 1.6 mg/dL (1.6-2.6); Potassium 3.6 mmol/L (3.3-5.1); Sodium 135 mmol/L (135-145); Total Protein 4.6 g/dL (6.5-8.0)
[2024-11-16 06:08] LABS: Band Neutrophils Percent 29 % (3-5); Lymphocytes Absolute Manual 0.2 X10*3/uL (1.2-4.9); Lymphocytes Percent Manual 1 % (20-40); Metamyelocytes Absolute 1.8 X10*3/uL; Metamyelocytes Percent 9 %; Neutrophils Absolute Manual 17.9 X10*3/uL (2.0-8.3); Neutrophils Percent Manual 61 % (45-73)
[2024-11-16 06:09] LABS: Basophilic Stippling 1+ (0-2) /OIF; Burr Cells 1+ (0-2) /OIF; Dohle Bodies PRESENT; RBC Morphology NOTED; Target Cells 1+ (5-14) /OIF; Tear Drop Cells 1+ (0-2) /OIF; Toxic Vacuolation PRESENT
[2024-11-16 06:48] LABS: Glucose, Whole Blood 91 mg/dL (60-115)
--- NOTE | 2024-11-16 07:00 | CA_ITS ---
Transthoracic Echocardiogram Patient (Last, First, Middle): Christal Woodward A Gender: Female Date of : 1940 Age: 84 Procedure Date: 11/16/2024 Procedure Type: Transthoracic Echocardiogram Location: ICU Height: 167.64 cm Weight: 98.88 kg BSA: 2.07 m2 Heart Rate: 96 bpm BP: 108 / 59 mmHg Herbicide Sprayer: ISMAEL Referring MD: Courtney Junior NP New Car Inspector: Sterling Gonzales MD Symptoms: Pulmonary edema Study Quality: Adequate w contrast ECG Rhythm: Sinus Conclusions: - 1. Mildly reduced LV ejection fraction 45-50% with impaired relaxation filling pattern with regional wall motion abnormality 2. Calcific aortic and mitral valve changes noted with possible mild aortic stenosis 3. Normal RV systolic pressure 4. Upper limits of normal ascending aortic size 5. No gross pericardial effusion Findings Procedure Information Contrast agent, definity, is being given per protocol without apparent complications. The quality of the study was technically difficult. The study quality is limited by the presence of a ventilator. Left Ventricle Normal left ventricular cavity size. There is normal left ventricular wall thickness. The left ventricular systolic function is mildly decreased. The visually estimated ejection fraction is between 45-50%. Spectral Doppler is indicative of an impaired relaxation filling pattern. E/E prime ratio is between 8 and 15 consistent with indeterminate filling pressures. Wall Motion Rest Echo Findings The apical inferior and apical septum segments are hypokinetic. The inferoseptal wall, the basal inferior, and mid inferior segments are akinetic. All other scored wall segments showed normal motion. Right Ventricle Normal right ventricular cavity size. There is mildly decreased right ventricular systolic function. Atria The left atrium is normal in size. There is no evidence of interatrial shunt. The right atrium is normal in size. Aortic Valve There is mild calcification of the aortic valve. There is no aortic valve regurgitation. Mild aortic stenosis can not be entirely ruled out Mitral Valve There is mild anterior and moderate posterior mitral leaflet thickening. There is moderate mitral annular calcification. There is trace mitral valve regurgitation. There is no mitral valve stenosis. Pulmonic Valve The pulmonic valve was not well visualized. Tricuspid Valve Likely normal tricuspid valve structure and function. There is trace tricuspid valve regurgitation. The right ventricular systolic pressure is normal. The right ventricular systolic pressure is 28 mmHg. Normal right atrial pressure. There is no evidence of pulmonary hypertension. Great Vessels The pulmonary artery was not well visualized. Small plaque is seen in the sino tubular ridge. Venous The inferior vena cava is normal in size. Pericardium/Pleural There is no evidence of pericardial effusion. Prior Study Comparison No prior study available for comparison. Measurements 2D Linear Measurements IVSd: 0.73 0.6-0.9/0.6-1.0 cm LVIDd: 4.92 3.9-5.3/4.2-5.9 cm LVIDd Index: 2.38 2.4-3.2/2.2-3.1 cm/m2 LVIDs: 3.75 2.0-3.6 cm LVPWd: 0.66 0.7-1.1 cm LA Diam: 3.70 2.7-3.8/3.0-4.0 cm LAIDs Index: 1.79 1.5-2.3 cm/m2 LV Mass: 137.68 67-162/88-224 g LV Mass Index: 66.51 43-95/49-115 g/m2 LVOT Diam: 2.10 3.0+(-)1.3 cm 2D Systolic Function EF 4C: 35.10 >55% EF 2C: 55.60 >55% EF BiP: 46.40 >55% Mitral Valve MV VTI: 0.32 MV Pk Donovan: 1.36 MV Mn Donovan: 1.05 MV Pk Grad: 7.00 MV Mn Grad: 5.00 MV Pk E: 0.91 MV PK A: 1.13 MV Decel Time: 184.00 E/A: 0.80 E'Lateral: 9.14 E'Medial: 6.20 E/E' Med: 14.60 E/E' Lat: 9.90 PHT: 54.00 MVA PHT: 4.07 MVA Continuity: 2.25 Decel Sanborn: 4.94 Aortic Valve AoV Pk Donovan: 1.70 AoV Pk Grad: 12.00 RICKY: 2.72 LVOT LVOT Pk Donovan: 1.39 LVOT Mn Donovan: 0.84 LVOT VTI: 0.21 LVOT Pk Grad: 8.00 LVOT Mn Grad: 3.00 LVOT Diam: 2.10 LVOT Area: 3.46 Diastolic Function MV Pk E: 0.91 MV Pk A: 1.13 E/A: 0.80 E'Medial: 6.20 E/E' Med: 14.60 E' Laterial: 9.14 E/E' Lat: 9.90 Right Ventricle TAPSE (mm): 16.00 TVS' Donovan: 13.00 Tricuspid Valve TR Pk Donovan: 2.25 TR Pk Grad: 20.00 RA Press: 8.00 RVSP: 28.00 Great Vessels Aorta Sinus of Valsalva: 3.40 2.0-3.5 cm Ao Asc: 3.60 2.1-3.4 cm Ao Arch: 2.90 Pulmonary Veins Pulm Vein S/D 1.10 Pulmonary Valve PV Pk Donovan: 0.93 Peak PV Grad: 3.00 Updated in Other Vendor System with Status of Final Sterling Gonzales MD electronically signed on 11/16/2024 12:43:52 PM with status of Final
--- NOTE | 2024-11-16 07:40 | HO.SKINPHOTO ---
Location: Right medial thigh Category: Blister
[2024-11-16] MEDS: 0.9 % Sodium Chloride Flush 3 ML SYRINGE IVFLUSH ×3 (08:02→23:57)
[2024-11-16] MEDS: Chlorhexidine Gluc Oral Rinse 15 ML MOUTHWASH BUCCAL ×3 (08:15→20:01)
[2024-11-16 08:21] LABS: Glucose, Whole Blood 73 mg/dL (60-115)
--- NOTE | 2024-11-16 08:47 | P.PNCC_ITS ---
Subjective Subjective Date of Service: 11/16/24 Interval History: No new changes, continues to be on ventilator support Critical Care Time (minutes): 35 Physical Exam 2 Vital Signs: Vital Signs: Last Vital Signs Temp 97.3 F 11/16/24 08:00 Pulse 105 H 11/16/24 08:11 Resp 20 11/16/24 08:00 BP 96/52 L 11/16/24 08:11 Pulse Ox 98 11/16/24 08:00 O2 Del Method Mechanical Ventil ation 11/16/24 08:00 O2 Flow Rate 6 11/06/24 11:20 FiO2 24 11/16/24 08:00 BMI result Body Mass Index 35.2 General: Elderly lady acute distress, ill appearing and tired appearing Nutritional Appearance: well nourished and overweight Eyes: appearance normal, both eyes and all related structures; Alignment and Position: alignment normal and position normal Neck: No lymphadenopathy, no thyromegaly Resp: bilateral air entry equal, occasional added sounds present Cardio: Regular rate, regular rhythm; Heart sounds: S1 normal heart sound present and S2 normal heart sound present GI: soft, nontender, no guarding, no hepatosplenomegaly : bladder normal to inspection, bladder normal to palpation, no renal angle tenderness Skin: no rashes or lesions noted and elasticity normal Neuro: Sedated, no focal deficit Objective Data Labs 11/16/24 05:12 11/16/24 05:13 Labs: Laboratory Results - last 24 hr 11/15/24 11/15/24 11/15/24 09:00 11:55 12:03 WBC RBC Hgb Hct MCV MCH MCHC RDW Plt Count MPV Immature Gran % (Auto) Neut % (Auto) Lymph % (Auto) [place] % (Auto) Eos % (Auto) Baso % (Auto) Lymph # (Auto) [place] # (Auto) Eos # (Auto) Baso # (Auto) Abs Immat Gran (auto) Absolute Neuts (auto) Absolute Nucleated RBC Nucleated RBC % (auto) Neutrophils % (Manual) Band Neutrophils % Lymphocytes % (Manual) Eosinophils % (Manual) Metamyelocytes % Myelocytes % Abs Neuts (Manual) Lymphocytes # (Manual) Eosinophils # (Manual) Metamyelocytes # Myelocytes # Nucleated RBCs Toxic Vacuolation Dohle Bodies WBC Morphology Comment Platelet Estimate Plt Morphology Comment RBC Morphology Basophilic Stippling Target Cells Tear Drop Cells [place] Cells Acanthocytes (Spur) VBG pH VBG pCO2 VBG pO2 VBG HCO3 VBG O2 Saturation VBG Base Excess Sodium Potassium Chloride Carbon Dioxide Anion Gap BUN Creatinine Estim Creat Clear Calc Estimated GFR POC Glucose 98 Random Glucose Lactic Acid F/U @ 2Hr 9.0 H* Lactic Acid F/U @ 4Hr 5.8 H* Calcium Phosphorus Magnesium Total Bilirubin AST ALT Alkaline Phosphatase Total Protein Albumin Random Vancomycin 11/15/24 11/15/24 11/16/24 18:05 19:29 05:12 WBC 14.9 H 19.9 H RBC 2.68 L 2.35 L Hgb 8.3 L 7.3 L Hct 24.8 L 22.1 L MCV 92.5 94.0 MCH 31.0 31.1 MCHC 33.5 33.0 RDW 18.6 H 18.7 H Plt Count 51 L D 40 L MPV 11.9 12.3 Immature Gran % (Auto) Cancelled Cancelled Neut % (Auto) Cancelled Cancelled Lymph % (Auto) Cancelled Cancelled [place] % (Auto) Cancelled Cancelled Eos % (Auto) Cancelled Cancelled Baso % (Auto) Cancelled Cancelled Lymph # (Auto) Cancelled Cancelled [place] # (Auto) Cancelled Cancelled Eos # (Auto) Cancelled Cancelled Baso # (Auto) Cancelled Cancelled Abs Immat Gran (auto) Cancelled Cancelled Absolute Neuts (auto) Cancelled Cancelled Absolute Nucleated RBC 0.000 0.000 Nucleated RBC % (auto) 0.0 0.0 Neutrophils % (Manual) 47 61 Band Neutrophils % 36 H 29 H Lymphocytes % (Manual) 1 L Eosinophils % (Manual) 1 Metamyelocytes % 13 9 Myelocytes % 3 Abs Neuts (Manual) 12.4 H 17.9 H Lymphocytes # (Manual) 0.2 L Eosinophils # (Manual) 0.1 Metamyelocytes # 1.9 1.8 Myelocytes # 0.4 Nucleated RBCs 1 H Toxic Vacuolation PRESENT PRESENT Dohle Bodies PRESENT PRESENT WBC Morphology Comment DYSMORPHIC Platelet Estimate DECREASED DECREASED Plt Morphology Comment NORMAL NORMAL RBC Morphology NOTED NOTED Basophilic Stippling 1+ (0-2) 1+ (0-2) Target Cells 1+ (5-14) Tear Drop Cells 1+ (0-2) [place] Cells 1+ (0-2) Acanthocytes ([place]ur) 3+ (>5) VBG pH VBG pCO2 VBG pO2 VBG HCO3 VBG O2 Saturation VBG Base Excess Sodium 136 Potassium 3.6 Chloride 99 Carbon Dioxide 17 L Anion Gap 24 H BUN 22 H Creatinine 2.31 H Estim Creat Clear Calc 21.8 Estimated GFR 20 POC Glucose Random Glucose 74 Lactic Acid F/U @ 2Hr Lactic Acid F/U @ 4Hr Calcium 7.7 L Phosphorus 2.7 Magnesium 1.7 Total Bilirubin AST ALT Alkaline Phosphatase Total Protein Albumin 2.8 L Random Vancomycin 14.2 L 11/16/24 11/16/24 11/16/24 05:13 05:14 06:45 WBC RBC Hgb Hct MCV MCH MCHC RDW Plt Count MPV Immature Gran % (Auto) Neut % (Auto) Lymph % (Auto) [place] % (Auto) Eos % (Auto) Baso % (Auto) Lymph # (Auto) [place] # (Auto) Eos # (Auto) Baso # (Auto) Abs Immat Gran (auto) Absolute Neuts (auto) Absolute Nucleated RBC Nucleated RBC % (auto) Neutrophils % (Manual) Band Neutrophils % Lymphocytes % (Manual) Eosinophils % (Manual) Metamyelocytes % Myelocytes % Abs Neuts (Manual) Lymphocytes # (Manual) Eosinophils # (Manual) Metamyelocytes # Myelocytes # Nucleated RBCs Toxic Vacuolation Dohle Bodies WBC Morphology Comment Platelet Estimate Plt Morphology Comment RBC Morphology Basophilic Stippling Target Cells Tear Drop Cells [place] Cells Acanthocytes ([place]ur) VBG pH 7.48 H VBG pCO2 28 VBG pO2 50 VBG HCO3 21 L VBG O2 Saturation 81.0 VBG Base Excess -1.3 Sodium 135 Potassium 3.6 Chloride 98 Carbon Dioxide 19 L Anion Gap 22 H BUN 24 H Creatinine 2.50 H Estim Creat Clear Calc 20.2 Estimated GFR 18 POC Glucose 91 Random Glucose 55 L* Lactic Acid F/U @ 2Hr Lactic Acid F/U @ 4Hr Calcium 7.9 L Phosphorus 2.8 Magnesium 1.6 Total Bilirubin 2.2 H AST 29 ALT < 6 Alkaline Phosphatase 121 H Total Protein 4.6 L Albumin 3.2 L Random Vancomycin 11/16/24 08:18 WBC RBC Hgb Hct MCV MCH MCHC RDW Plt Count MPV Immature Gran % (Auto) Neut % (Auto) Lymph % (Auto) [place] % (Auto) Eos % (Auto) Baso % (Auto) Lymph # (Auto) [place] # (Auto) Eos # (Auto) Baso # (Auto) Abs Immat Gran (auto) Absolute Neuts (auto) Absolute Nucleated RBC Nucleated RBC % (auto) Neutrophils % (Manual) Band Neutrophils % Lymphocytes % (Manual) Eosinophils % (Manual) Metamyelocytes % Myelocytes % Abs Neuts (Manual) Lymphocytes # (Manual) Eosinophils # (Manual) Metamyelocytes # Myelocytes # Nucleated RBCs Toxic Vacuolation Dohle Bodies WBC Morphology Comment Platelet Estimate Plt Morphology Comment RBC Morphology Basophilic Stippling Target Cells Tear Drop Cells [place] Cells Acanthocytes (Spur) VBG pH VBG pCO2 VBG pO2 VBG HCO3 VBG O2 Saturation VBG Base Excess Sodium Potassium Chloride Carbon Dioxide Anion Gap BUN Creatinine Estim Creat Clear Calc Estimated GFR POC Glucose 73 Random Glucose Lactic Acid F/U @ 2Hr Lactic Acid F/U @ 4Hr Calcium Phosphorus Magnesium Total Bilirubin AST ALT Alkaline Phosphatase Total Protein Albumin Random Vancomycin Microbiology Microbiology Results: Microbiology 11/14/24 19:51 Blood - Venous Blood Culture - Preliminary No growth after 24 hours. 11/14/24 19:51 Blood - Venous Blood Culture - Preliminary No growth after 24 hours. 11/14/24 20:26 Urine Catheterized - Straight Catheter Urine Culture - Preliminary Culture in progress. 11/04/24 07:53 Blood - Venous Blood Culture - Final No growth after 5 days. 11/04/24 07:18 Blood - Venous Blood Culture - Final No growth after 5 days. 11/04/24 Unknown Urine Catheterized - Kim Catheter Urine Culture - Final No growth. Progress Note: A&P Assessment and plan (1) Atrial fibrillation with rapid ventricular response: Status: Acute (2) Acute upper GI bleed: Status: Acute (3) ESRD (end stage renal disease): Status: Acute (4) Septic shock: Status: Acute (5) Acute hypoxic respiratory failure: Status: Acute Plan 84-year-old lady with underlying polycystic liver, essential hypertension, ESRD on hemodialysis, PE on Eliquis admitted on 11/04/2024 with hypotension injury to upper GI bleed, patient initially with good response to resuscitation with blood products and IV fluid, admitted to telemetry service. Patient did have an EGD on 11/05/2024 showing duodenal bulb actively bleeding ulcer, treated with sclerotherapy and clipping. Overnight after procedure patient with repeat hemorrhage with poor response to IV fluids and blood products requiring transferred to intensive care unit and utilization of pressor support. Status post IR embolization on 11/06/2024 with stabilization of hemoglobin and no further rebleeding. Patient transferred to telemetry on 11/09/2024. Further hospital course significant for development of lower abdominal rash of unclear etiology treated with systemic glucocorticoids, AFib with RVR, and on 11/14/2024 septic shock with poor response to initial IV fluid resuscitation requiring pressor support and acute hypoxia requiring ventilatory support, transferred to intensive care unit. Neuro: Acute encephalopathy possibly due to metabolic encephalopathy On propofol for sedation, as needed fentanyl for analgesia we will wean sedation for pressure support trials. Close neurological status monitoring in the ICU every hour Cardiac: Septic Shock: Possibly secondary to urinary tract infection On Levophed support and vasopressin support, titrate Levophed to keep map above 65 mm Hg Paroxysmal atrial fibrillation: treated with digoxin DVT in the right leg on right posterior tibial on 11/11/2024, cannot anticoagulate her due to GI bleed. Respiratory: Acute hypoxemic respiratory failure due to severe shock Currently on ventilator support On PRVC mode FiO25%, PEEP5, TV 360, RR 16 Peak pressures and plateau pressures are under the curve Ventilator management bundle with head end elevation, aspiration precaution, chlorhexidine mouthwash, daily awakening trials, daily spontaneous breathing trials GI: on tube feeds Renal: End-stage renal disease on M/W/F maintenance hemodialysis We will closely monitor I's and O's Avoid nephrotoxic medications Heme: Chronic anemia, closely monitor H&H, transfuse for hemoglobin less than 7 grams/deciliter thrombocytopenia secondary to sepsis, 40k if she bleeds will transfuse to more leucocytosis upto 19k Endocrine: Blood sugars under control Sliding scale insulin as needed Infectious disease: Repeat urine and blood cultures on 11/14/2024- so far On empiric vancomycin and cefepime Musculoskeletal: Decubitus ulcer prevention protocol has weeping ulcers in mid thigh Lines: TLC left IJ Right subclavian permacath Prophylaxis: heparin, pantoprazole Quality Stroke Does the patient have a stroke diagnosis?: No VTE Prior VTE?: No VTE Risk Level:: Medical - moderate - high VTE Device Contraindication: N/A - Device Ordered VTE Drug Contraindication: Treatment Not Indicated
--- NOTE | 2024-11-16 10:10 | MHC.CLN ---
F/U PT TRANSFERRED TO ICU INTUBATED AND SEDATED PT CURRENTLY NPO IF TF NEEDED; RECOMMEND NEPRO AT 40ML/HR WITH 240ML FREE WATER Q 6 HRS TO PROVIDE 1728KCALS (2212KCALS WITH SEDATION; 31KCALS/KG), 78G PROTEIN (1.09G/KG), 1658ML TOTAL WATER FROM FORMULA AND FLUSHES (23ML/KG) MONITOR TOLERANCE AND LYTES
[2024-11-16 11:03] LABS: Glucose, Whole Blood 63 mg/dL (60-115)
[2024-11-16 12:15] LABS: Glucose, Whole Blood 86 mg/dL (60-115)
[2024-11-16 12:15] LABS: Glucose, Whole Blood 102 mg/dL (60-115)
--- NOTE | 2024-11-16 13:20 | MHC.CM.PN ---
Pt continues care in ICU: remains on intubation - will have CT of abd and echo today after HD session. Pt has been referred back to [facility] for STR.
[2024-11-16 14:23] LABS: Glucose, Whole Blood 82 mg/dL (60-115)
[2024-11-16 16:37] LABS: Glucose, Whole Blood 65 mg/dL (60-115)
[2024-11-16] MEDS: iohexoL 350 MG/ML 100 ML INFUS..BTL IV (17:25)
[2024-11-16 19:28] LABS: Glucose, Whole Blood 107 mg/dL (60-115)
--- NOTE | 2024-11-16 19:37 | PC.NURSE ---
Patient tolerated SAT and PSV well today. Was unable to move extremities spontaneously without sedation running therefore did not start restraints for SAT. Patient bilateral thigh dressings changed x2 today for copious serous fluid drainage. Patient had CT today, transported by RN and RT. Tolerated laying flat well. Patient on Q2 POC for close glucose monitoring. Had POC<70s twice today. per MD given D50 (see MAR)
--- NOTE | 2024-11-16 20:01 | HO.SKINPHOTO ---
Location: Right Medial and Left Lateral Thigh Category: Blister and Skin Tear Location: Right Upper Thigh - Anterior Category: Undetermined Depth Circular Wound Location: Coccyx Category: Stage 3 Location: Right Upper Thigh Posterior Category: PI Stage: Small Stage 3
[2024-11-16 20:28] LABS: Glucose, Whole Blood 107 mg/dL (60-115)
[2024-11-16 21:16] LABS: Glucose, Whole Blood 98 mg/dL (60-115)
[2024-11-16 22:15] LABS: Glucose, Whole Blood 99 mg/dL (60-115)
--- NOTE | 2024-11-16 23:03 | PM.PNNEP ---
Subjective Subjective Date of Service: 11/16/24 Principal diagnosis: ESRD Interval history: een and examined,e vents noted Physical Exam Vital Signs: Vital Signs: Last Vital Signs Temp 96.8 F 11/16/24 22:00 Pulse 89 11/16/24 22:00 Resp 18 11/16/24 22:00 BP 116/68 11/16/24 22:00 Pulse Ox 99 11/16/24 22:00 O2 Del Method Mechanical Ventil ation 11/16/24 22:00 O2 Flow Rate 6 11/06/24 11:20 FiO2 21 11/16/24 22:00 BMI result Body Mass Index 35.2 Const: General: no acute distress, alert and awake HEENT: Head: Yes normocephalic and Yes atraumatic Neck: Neck: Yes supple Chest: Other: REduced air emtry Resp: Auscultation: diminished lung sounds Percussion: dullness Cardio: Heart sounds: S1 normal heart sound present and S2 normal heart sound present GI: Inspection: Yes normal to inspection Palpation (GI): Soft to palpation and nontender Extrem: General: Yes edema Objective Data Labs 11/16/24 05:12 11/16/24 05:13 Labs: Laboratory Results - last 24 hr 11/16/24 11/16/24 11/16/24 05:12 05:13 05:14 WBC 19.9 H RBC 2.35 L Hgb 7.3 L Hct 22.1 L MCV 94.0 MCH 31.1 MCHC 33.0 RDW 18.7 H Plt Count 40 L MPV 12.3 Immature Gran % (Auto) Cancelled Neut % (Auto) Cancelled Lymph % (Auto) Cancelled [place] % (Auto) Cancelled Eos % (Auto) Cancelled Baso % (Auto) Cancelled Lymph # (Auto) Cancelled [place] # (Auto) Cancelled Eos # (Auto) Cancelled Baso # (Auto) Cancelled Abs Immat Gran (auto) Cancelled Absolute Neuts (auto) Cancelled Absolute Nucleated RBC 0.000 Nucleated RBC % (auto) 0.0 Neutrophils % (Manual) 61 Band Neutrophils % 29 H Lymphocytes % (Manual) 1 L Metamyelocytes % 9 Abs Neuts (Manual) 17.9 H Lymphocytes # (Manual) 0.2 L Metamyelocytes # 1.8 Nucleated RBCs 1 H Toxic Vacuolation PRESENT Dohle Bodies PRESENT WBC Morphology Comment DYSMORPHIC Platelet Estimate DECREASED Plt Morphology Comment NORMAL RBC Morphology NOTED Basophilic Stippling 1+ (0-2) Target Cells 1+ (5-14) Tear Drop Cells 1+ (0-2) [place] Cells 1+ (0-2) VBG pH 7.48 H VBG pCO2 28 VBG pO2 50 VBG HCO3 21 L VBG O2 Saturation 81.0 VBG Base Excess -1.3 Sodium 135 Potassium 3.6 Chloride 98 Carbon Dioxide 19 L Anion Gap 22 H BUN 24 H Creatinine 2.50 H Estim Creat Clear Calc 20.2 Estimated GFR 18 POC Glucose Random Glucose 55 L* Calcium 7.9 L Phosphorus 2.8 Magnesium 1.6 Total Bilirubin 2.2 H AST 29 ALT < 6 Alkaline Phosphatase 121 H Total Protein 4.6 L Albumin 3.2 L Random Vancomycin 11/16/24 11/16/24 11/16/24 06:45 08:18 11:00 WBC RBC Hgb Hct MCV MCH MCHC RDW Plt Count MPV Immature Gran % (Auto) Neut % (Auto) Lymph % (Auto) [place] % (Auto) Eos % (Auto) Baso % (Auto) Lymph # (Auto) [place] # (Auto) Eos # (Auto) Baso # (Auto) Abs Immat Gran (auto) Absolute Neuts (auto) Absolute Nucleated RBC Nucleated RBC % (auto) Neutrophils % (Manual) Band Neutrophils % Lymphocytes % (Manual) Metamyelocytes % Abs Neuts (Manual) Lymphocytes # (Manual) Metamyelocytes # Nucleated RBCs Toxic Vacuolation Dohle Bodies WBC Morphology Comment Platelet Estimate Plt Morphology Comment RBC Morphology Basophilic Stippling Target Cells Tear Drop Cells [place] Cells VBG pH VBG pCO2 VBG pO2 VBG HCO3 VBG O2 Saturation VBG Base Excess Sodium Potassium Chloride Carbon Dioxide Anion Gap BUN Creatinine Estim Creat Clear Calc Estimated GFR POC Glucose 91 73 63 Random Glucose Calcium Phosphorus Magnesium Total Bilirubin AST ALT Alkaline Phosphatase Total Protein Albumin Random Vancomycin 11/16/24 11/16/24 11/16/24 11:55 12:12 13:53 WBC RBC Hgb Hct MCV MCH MCHC RDW Plt Count MPV Immature Gran % (Auto) Neut % (Auto) Lymph % (Auto) [place] % (Auto) Eos % (Auto) Baso % (Auto) Lymph # (Auto) [place] # (Auto) Eos # (Auto) Baso # (Auto) Abs Immat Gran (auto) Absolute Neuts (auto) Absolute Nucleated RBC Nucleated RBC % (auto) Neutrophils % (Manual) Band Neutrophils % Lymphocytes % (Manual) Metamyelocytes % Abs Neuts (Manual) Lymphocytes # (Manual) Metamyelocytes # Nucleated RBCs Toxic Vacuolation Dohle Bodies WBC Morphology Comment Platelet Estimate Plt Morphology Comment RBC Morphology Basophilic Stippling Target Cells Tear Drop Cells [place] Cells VBG pH VBG pCO2 VBG pO2 VBG HCO3 VBG O2 Saturation VBG Base Excess Sodium Potassium Chloride Carbon Dioxide Anion Gap BUN Creatinine Estim Creat Clear Calc Estimated GFR POC Glucose 86 102 Random Glucose Calcium Phosphorus Magnesium Total Bilirubin AST ALT Alkaline Phosphatase Total Protein Albumin Random Vancomycin 12.1 L 11/16/24 11/16/24 11/16/24 14:14 16:33 19:25 WBC RBC Hgb Hct MCV MCH MCHC RDW Plt Count MPV Immature Gran % (Auto) Neut % (Auto) Lymph % (Auto) [place] % (Auto) Eos % (Auto) Baso % (Auto) Lymph # (Auto) [place] # (Auto) Eos # (Auto) Baso # (Auto) Abs Immat Gran (auto) Absolute Neuts (auto) Absolute Nucleated RBC Nucleated RBC % (auto) Neutrophils % (Manual) Band Neutrophils % Lymphocytes % (Manual) Metamyelocytes % Abs Neuts (Manual) Lymphocytes # (Manual) Metamyelocytes # Nucleated RBCs Toxic Vacuolation Dohle Bodies WBC Morphology Comment Platelet Estimate Plt Morphology Comment RBC Morphology Basophilic Stippling Target Cells Tear Drop Cells [place] Cells VBG pH VBG pCO2 VBG pO2 VBG HCO3 VBG O2 Saturation VBG Base Excess Sodium Potassium Chloride Carbon Dioxide Anion Gap BUN Creatinine Estim Creat Clear Calc Estimated GFR POC Glucose 82 65 107 Random Glucose Calcium Phosphorus Magnesium Total Bilirubin AST ALT Alkaline Phosphatase Total Protein Albumin Random Vancomycin 11/16/24 11/16/24 11/16/24 20:25 21:12 22:11 WBC RBC Hgb Hct MCV MCH MCHC RDW Plt Count MPV Immature Gran % (Auto) Neut % (Auto) Lymph % (Auto) [place] % (Auto) Eos % (Auto) Baso % (Auto) Lymph # (Auto) [place] # (Auto) Eos # (Auto) Baso # (Auto) Abs Immat Gran (auto) Absolute Neuts (auto) Absolute Nucleated RBC Nucleated RBC % (auto) Neutrophils % (Manual) Band Neutrophils % Lymphocytes % (Manual) Metamyelocytes % Abs Neuts (Manual) Lymphocytes # (Manual) Metamyelocytes # Nucleated RBCs Toxic Vacuolation Dohle Bodies WBC Morphology Comment Platelet Estimate Plt Morphology Comment RBC Morphology Basophilic Stippling Target Cells Tear Drop Cells [place] Cells VBG pH VBG pCO2 VBG pO2 VBG HCO3 VBG O2 Saturation VBG Base Excess Sodium Potassium Chloride Carbon Dioxide Anion Gap BUN Creatinine Estim Creat Clear Calc Estimated GFR POC Glucose 107 98 99 Random Glucose Calcium Phosphorus Magnesium Total Bilirubin AST ALT Alkaline Phosphatase Total Protein Albumin Random Vancomycin Microbiology Microbiology Results: Microbiology 11/14/24 19:51 Blood - Venous Blood Culture - Preliminary No growth after 48 hours. 11/14/24 19:51 Blood - Venous Blood Culture - Preliminary No growth after 48 hours. 11/14/24 20:26 Urine Catheterized - Straight Catheter Urine Culture - Preliminary Gram negative galilea Enterococcus/Streptococcus sp 11/04/24 07:53 Blood - Venous Blood Culture - Final No growth after 5 days. 11/04/24 07:18 Blood - Venous Blood Culture - Final No growth after 5 days. 11/04/24 Unknown Urine Catheterized - Kim Catheter Urine Culture - Final No growth. 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 Progress Note: Quality Stroke Does the patient have a stroke diagnosis?: No
[2024-11-17] VITALS (49 sets, daily range): BP systolic 84–140; BP diastolic 49–82; PULSE 57–96; RESP 18–28; TEMP 34.1–36.7; O2SAT 93–100; BMI 32.1
[2024-11-17 00:10] LABS: Glucose, Whole Blood 87 mg/dL (60-115)
[2024-11-17] MEDS: Vasopressin 20 UNIT/100 ML INFUS..BTL 12 UNIT IVCONT ×3 (02:01→17:06)
[2024-11-17 02:02] LABS: Glucose, Whole Blood 84 mg/dL (60-115)
[2024-11-17 04:29] LABS: VBG HCO3 24 mmol/L (22-26); VBG O2 % Saturation 95.0 %
[2024-11-17 04:29] LABS: Glucose, Whole Blood 67 mg/dL (60-115)
[2024-11-17 04:30] LABS: Venous Blood Gas Refer to POC result
[2024-11-17 04:54] LABS: Glucose, Whole Blood 138 mg/dL (60-115)
[2024-11-17 04:55] LABS: Hematocrit 24.1 % (37.0-47.0); Hemoglobin 7.9 g/dl (12.0-16.0); Mean Corpuscular HGB Conc 32.8 g/dl (31.0-35.0); Mean Corpuscular Hemoglobin 30.9 pg (27.0-33.0); Mean Corpuscular Volume 94.1 fL (80.0-98.0); NRBC Abs Auto 0.000 X10*3/uL (0.0-0.012); NRBC Pct Auto 0.0 /100WBC (0.0-0.2); PLT ABN DIST 1; PLT CLUMP 1; Red Blood Count 2.56 X10*6/uL (4.20-5.50); WBC ABN SCTR FOR CBC 1; White Blood Count 24.1 X10*3/uL (4.8-10.8)
[2024-11-17 05:01] LABS: Alanine Aminotransferase < 6 U/L (0-31); Albumin Level 2.6 g/dL (3.5-5.0); Alkaline Phosphatase 152 U/L (39-117); Anion Gap 20 (12-20); Aspartate Amino Transferase 29 U/L (5-31); Blood Urea Nitrogen 30 mg/dL (9-16); Calcium 8.0 mg/dL (8.4-10.2); Carbon Dioxide 20 mmol/L (22-29); Chloride 94 mmol/L (96-108); Creatinine Clr Calc Pharmacy 18.8; Estimated Glomerular Filt Rate 17; Magnesium 1.7 mg/dL (1.6-2.6); Potassium 5.0 mmol/L (3.3-5.1); Sodium 129 mmol/L (135-145); Total Protein 4.7 g/dL (6.5-8.0)
[2024-11-17 05:04] LABS: Platelet Count 27 X10*3/uL (160-400)
[2024-11-17 05:06] LABS: Band Neutrophils Percent 19 % (3-5); Monocytes Absolute Manual 0.5 X10*3/uL (0.1-1.2); Monocytes Percent Manual 2 % (2-11); Neutrophils Absolute Manual 23.6 X10*3/uL (2.0-8.3); Neutrophils Percent Manual 79 % (45-73)
[2024-11-17 05:07] LABS: Burr Cells 2+ (3-5) /OIF; Dohle Bodies PRESENT; Large Platelet PRESENT; RBC Morphology NOTED; Toxic Granulation PRESENT; Toxic Vacuolation PRESENT
[2024-11-17 06:33] LABS: Glucose, Whole Blood 104 mg/dL (60-115)
[2024-11-17] MEDS: 0.9 % Sodium Chloride Flush 3 ML SYRINGE IVFLUSH ×2 (07:38→15:50)
[2024-11-17] MEDS: Chlorhexidine Gluc Oral Rinse 15 ML MOUTHWASH BUCCAL ×3 (07:40→20:00)
[2024-11-17 08:12] LABS: Glucose, Whole Blood 95 mg/dL (60-115)
--- NOTE | 2024-11-17 08:47 | P.PNCC_ITS ---
Subjective Subjective Date of Service: 11/17/24 Interval History: Continues to be on ventilator support, failed weaning trials yesterday due to poor lung volumes after 4-5 hours Critical Care Time (minutes): 35 Physical Exam 2 Vital Signs: Vital Signs: Last Vital Signs Temp 97.7 F 11/17/24 08:00 Pulse 84 11/17/24 08:00 Resp 20 11/17/24 08:00 BP 92/55 L 11/17/24 08:00 Pulse Ox 99 11/17/24 08:00 O2 Del Method Mechanical Ventil ation 11/17/24 08:00 O2 Flow Rate 6 11/06/24 11:20 FiO2 21 11/17/24 08:00 BMI result Body Mass Index 32.1 General: Elderly lady in mild acute distress, she is chronically ill appearing and tired appearing Nutritional Appearance: well nourished and overweight Eyes: appearance normal, both eyes and all related structures; Alignment and Position: alignment normal and position normal Neck: No lymphadenopathy, no thyromegaly Resp: bilateral air entry equal, occasional added sounds present Cardio: Regular rate, regular rhythm; Heart sounds: S1 normal heart sound present and S2 normal heart sound present GI: soft, nontender, no guarding, no hepatosplenomegaly : bladder normal to inspection, bladder normal to palpation, no renal angle tenderness Skin: no rashes or lesions noted and elasticity normal Neuro: Drowsy, no focal deficit Objective Data Labs 11/17/24 04:02 11/17/24 04:02 Labs: Laboratory Results - last 24 hr 11/16/24 11/16/24 11/16/24 11:00 11:55 12:12 WBC RBC Hgb Hct MCV MCH MCHC RDW Plt Count MPV Immature Gran % (Auto) Neut % (Auto) Lymph % (Auto) [place] % (Auto) Eos % (Auto) Baso % (Auto) Lymph # (Auto) [place] # (Auto) Eos # (Auto) Baso # (Auto) Abs Immat Gran (auto) Absolute Neuts (auto) Absolute Nucleated RBC Nucleated RBC % (auto) Neutrophils % (Manual) Band Neutrophils % Monocytes % (Manual) Abs Neuts (Manual) Monocytes # (Manual) Toxic Granulation Toxic Vacuolation Dohle Bodies Platelet Estimate Large Platelets Plt Morphology Comment RBC Morphology Sully Cells VBG pH VBG pCO2 VBG pO2 VBG HCO3 VBG O2 Saturation VBG Base Excess Sodium Potassium Chloride Carbon Dioxide Anion Gap BUN Creatinine Estim Creat Clear Calc Estimated GFR POC Glucose 63 86 102 Random Glucose Calcium Phosphorus Magnesium Total Bilirubin AST ALT Alkaline Phosphatase Total Protein Albumin Random Vancomycin 11/16/24 11/16/24 11/16/24 13:53 14:14 16:33 WBC RBC Hgb Hct MCV MCH MCHC RDW Plt Count MPV Immature Gran % (Auto) Neut % (Auto) Lymph % (Auto) [place] % (Auto) Eos % (Auto) Baso % (Auto) Lymph # (Auto) [place] # (Auto) Eos # (Auto) Baso # (Auto) Abs Immat Gran (auto) Absolute Neuts (auto) Absolute Nucleated RBC Nucleated RBC % (auto) Neutrophils % (Manual) Band Neutrophils % Monocytes % (Manual) Abs Neuts (Manual) Monocytes # (Manual) Toxic Granulation Toxic Vacuolation Dohle Bodies Platelet Estimate Large Platelets Plt Morphology Comment RBC Morphology Heidy Cells VBG pH VBG pCO2 VBG pO2 VBG HCO3 VBG O2 Saturation VBG Base Excess Sodium Potassium Chloride Carbon Dioxide Anion Gap BUN Creatinine Estim Creat Clear Calc Estimated GFR POC Glucose 82 65 Random Glucose Calcium Phosphorus Magnesium Total Bilirubin AST ALT Alkaline Phosphatase Total Protein Albumin Random Vancomycin 12.1 L 11/16/24 11/16/24 11/16/24 19:25 20:25 21:12 WBC RBC Hgb Hct MCV MCH MCHC RDW Plt Count MPV Immature Gran % (Auto) Neut % (Auto) Lymph % (Auto) [place] % (Auto) Eos % (Auto) Baso % (Auto) Lymph # (Auto) [place] # (Auto) Eos # (Auto) Baso # (Auto) Abs Immat Gran (auto) Absolute Neuts (auto) Absolute Nucleated RBC Nucleated RBC % (auto) Neutrophils % (Manual) Band Neutrophils % Monocytes % (Manual) Abs Neuts (Manual) Monocytes # (Manual) Toxic Granulation Toxic Vacuolation Dohle Bodies Platelet Estimate Large Platelets Plt Morphology Comment RBC Morphology Sully Cells VBG pH VBG pCO2 VBG pO2 VBG HCO3 VBG O2 Saturation VBG Base Excess Sodium Potassium Chloride Carbon Dioxide Anion Gap BUN Creatinine Estim Creat Clear Calc Estimated GFR POC Glucose 107 107 98 Random Glucose Calcium Phosphorus Magnesium Total Bilirubin AST ALT Alkaline Phosphatase Total Protein Albumin Random Vancomycin 11/16/24 11/16/24 11/17/24 22:11 23:55 01:55 WBC RBC Hgb Hct MCV MCH MCHC RDW Plt Count MPV Immature Gran % (Auto) Neut % (Auto) Lymph % (Auto) [place] % (Auto) Eos % (Auto) Baso % (Auto) Lymph # (Auto) [place] # (Auto) Eos # (Auto) Baso # (Auto) Abs Immat Gran (auto) Absolute Neuts (auto) Absolute Nucleated RBC Nucleated RBC % (auto) Neutrophils % (Manual) Band Neutrophils % Monocytes % (Manual) Abs Neuts (Manual) Monocytes # (Manual) Toxic Granulation Toxic Vacuolation Dohle Bodies Platelet Estimate Large Platelets Plt Morphology Comment RBC Morphology Heidy Cells VBG pH VBG pCO2 VBG pO2 VBG HCO3 VBG O2 Saturation VBG Base Excess Sodium Potassium Chloride Carbon Dioxide Anion Gap BUN Creatinine Estim Creat Clear Calc Estimated GFR POC Glucose 99 87 84 Random Glucose Calcium Phosphorus Magnesium Total Bilirubin AST ALT Alkaline Phosphatase Total Protein Albumin Random Vancomycin 11/17/24 11/17/24 11/17/24 04:02 04:25 04:26 WBC 24.1 H RBC 2.56 L Hgb 7.9 L Hct 24.1 L MCV 94.1 MCH 30.9 MCHC 32.8 RDW 18.5 H Plt Count 27 L D MPV Not Reportable Immature Gran % (Auto) Cancelled Neut % (Auto) Cancelled Lymph % (Auto) Cancelled [place] % (Auto) Cancelled Eos % (Auto) Cancelled Baso % (Auto) Cancelled Lymph # (Auto) Cancelled [place] # (Auto) Cancelled Eos # (Auto) Cancelled Baso # (Auto) Cancelled Abs Immat Gran (auto) Cancelled Absolute Neuts (auto) Cancelled Absolute Nucleated RBC 0.000 Nucleated RBC % (auto) 0.0 Neutrophils % (Manual) 79 H Band Neutrophils % 19 H Monocytes % (Manual) 2 Abs Neuts (Manual) 23.6 H Monocytes # (Manual) 0.5 Toxic Granulation PRESENT Toxic Vacuolation PRESENT Dohle Bodies PRESENT Platelet Estimate DECREASED Large Platelets PRESENT Plt Morphology Comment NOTED RBC Morphology NOTED Sully Cells 2+ (3-5) VBG pH 7.58 H VBG pCO2 25 VBG pO2 65 VBG HCO3 24 VBG O2 Saturation 95.0 VBG Base Excess 3.0 Sodium 129 L Potassium 5.0 D Chloride 94 L Carbon Dioxide 20 L Anion Gap 20 BUN 30 H Creatinine 2.69 H Estim Creat Clear Calc 18.8 Estimated GFR 17 POC Glucose 67 Random Glucose 72 Calcium 8.0 L Phosphorus 2.5 L Magnesium 1.7 Total Bilirubin 2.0 H AST 29 ALT < 6 Alkaline Phosphatase 152 H Total Protein 4.7 L Albumin 2.6 L Random Vancomycin 11/17/24 11/17/24 11/17/24 04:51 06:30 08:05 WBC RBC Hgb Hct MCV MCH MCHC RDW Plt Count MPV Immature Gran % (Auto) Neut % (Auto) Lymph % (Auto) [place] % (Auto) Eos % (Auto) Baso % (Auto) Lymph # (Auto) [place] # (Auto) Eos # (Auto) Baso # (Auto) Abs Immat Gran (auto) Absolute Neuts (auto) Absolute Nucleated RBC Nucleated RBC % (auto) Neutrophils % (Manual) Band Neutrophils % Monocytes % (Manual) Abs Neuts (Manual) Monocytes # (Manual) Toxic Granulation Toxic Vacuolation Dohle Bodies Platelet Estimate Large Platelets Plt Morphology Comment RBC Morphology Heidy Cells VBG pH VBG pCO2 VBG pO2 VBG HCO3 VBG O2 Saturation VBG Base Excess Sodium Potassium Chloride Carbon Dioxide Anion Gap BUN Creatinine Estim Creat Clear Calc Estimated GFR POC Glucose 138 H 104 95 Random Glucose Calcium Phosphorus Magnesium Total Bilirubin AST ALT Alkaline Phosphatase Total Protein Albumin Random Vancomycin Microbiology Microbiology Results: Microbiology 11/14/24 20:26 Urine Catheterized - Straight Catheter Urine Culture - Final 11/14/24 19:51 Blood - Venous Blood Culture - Preliminary No growth after 48 hours. 11/14/24 19:51 Blood - Venous Blood Culture - Preliminary No growth after 48 hours. 11/04/24 07:53 Blood - Venous Blood Culture - Final No growth after 5 days. 11/04/24 07:18 Blood - Venous Blood Culture - Final No growth after 5 days. 11/04/24 Unknown Urine Catheterized - Kim Catheter Urine Culture - Final No growth. Progress Note: A&P Assessment and plan (1) Atrial fibrillation with rapid ventricular response: Status: Acute (2) Hemorrhagic shock: Status: Acute (3) Acute upper GI bleed: Status: Acute (4) ESRD (end stage renal disease): Status: Acute (5) Severe anemia: Status: Acute (6) Septic shock: Status: Acute (7) Pulmonary edema: Status: Acute (8) Acute hypoxic respiratory failure: Status: Acute Plan 84-year-old lady with underlying polycystic liver, essential hypertension, ESRD on hemodialysis, PE on Eliquis admitted on 11/04/2024 with hypotension injury to upper GI bleed, patient initially with good response to resuscitation with blood products and IV fluid, admitted to telemetry service. Patient did have an EGD on 11/05/2024 showing duodenal bulb actively bleeding ulcer, treated with sclerotherapy and clipping. Overnight after procedure patient with repeat hemorrhage with poor response to IV fluids and blood products requiring transferred to intensive care unit and utilization of pressor support. Status post IR embolization on 11/06/2024 with stabilization of hemoglobin and no further rebleeding. Patient transferred to telemetry on 11/09/2024. Further hospital course significant for development of lower abdominal rash of unclear etiology treated with systemic glucocorticoids, AFib with RVR, and on 11/14/2024 septic shock with poor response to initial IV fluid resuscitation requiring pressor support and acute hypoxia requiring ventilatory support, transferred to intensive care unit. Neuro: Acute encephalopathy possibly due to metabolic encephalopathy on propofol this morning, will wean it off for pressure support trials, if needed will do precedex. Close neurological status monitoring in the ICU every hour Cardiac: Septic Shock: Possibly secondary to urinary tract infection On Levophed support and vasopressin support, titrate Levophed to keep map above 65 mm Hg Paroxysmal atrial fibrillation: treated with digoxin DVT in the right leg on right posterior tibial on 11/11/2024, cannot anticoagulate her due to GI bleed. Respiratory: Acute hypoxemic respiratory failure due to severe shock Currently on ventilator support On PRVC mode FiO25%, PEEP5, TV 360, RR [address] her back on pressure support trials. Failed pressure support trials yesterday due to poor lung volumes after about 4 hours on higher settings Peak pressures and plateau pressures are under the curve Ventilator management bundle with head end elevation, aspiration precaution, chlorhexidine mouthwash, daily awakening trials, daily spontaneous breathing trials GI: on tube feeds CT abdomen showed innumerous complex liver cyst versus metastasis Needs heme Onc consult once she is extubated to rule out metastatic disease Renal: End-stage renal disease on M/W/F maintenance hemodialysis CT abdomen showing possible polycystic kidney disease We will closely monitor I's and O's Avoid nephrotoxic medications Heme: Chronic anemia, closely monitor H&H, transfuse for hemoglobin less than 7 grams/deciliter thrombocytopenia 20k possibly due to antibiotics versus sepsis; if she bleeds will transfuse to more leucocytosis increasing up to 25 K possibly due to steroids Endocrine: Blood sugars under control Sliding scale insulin as needed Infectious disease: Repeat urine and blood cultures on 11/14/2024 negative. Urine culture mixed [place] CT chest showing bilateral small pleural effusion but no consolidation, CT abdomen showing in numerous liver cysts many of them are complex. Also has polycystic kidney disease. On empiric vancomycin and cefepime Musculoskeletal: Decubitus ulcer prevention protocol has weeping ulcers in mid thigh Lines: TLC left IJ Right subclavian permacath Prophylaxis: heparin, pantoprazole Quality Stroke Does the patient have a stroke diagnosis?: No VTE Prior VTE?: No VTE Risk Level:: Medical - moderate - high VTE Device Contraindication: N/A - Device Ordered VTE Drug Contraindication: Treatment Not Indicated
[2024-11-17 09:48] LABS: Ammonia 32 umol/L (13-55)
[2024-11-17 10:15] LABS: Glucose, Whole Blood 76 mg/dL (60-115)
[2024-11-17 11:36] LABS: Glucose, Whole Blood 83 mg/dL (60-115)
[2024-11-17 14:21] LABS: Glucose, Whole Blood 74 mg/dL (60-115)
--- NOTE | 2024-11-17 15:53 | MHC.CM.PN ---
Pt on vent support: failed weaning trials - will continue: pt from [facility]: clinical updates remitted. CM to follow
[2024-11-17] MEDS: dexmedeTOMIDine HCL/NS 400 MCG/100 ML PLAST..BAG 22.58 MCG IVCONT (17:49)
[2024-11-17 17:57] LABS: Glucose, Whole Blood 57 mg/dL (60-115)
[2024-11-17 18:23] LABS: Glucose, Whole Blood 180 mg/dL (60-115)
[2024-11-17 18:36] LABS: Glucose, Whole Blood 148 mg/dL (60-115)
[2024-11-17 19:59] LABS: Glucose, Whole Blood 123 mg/dL (60-115)
[2024-11-17 22:07] LABS: Glucose, Whole Blood 108 mg/dL (60-115)
[2024-11-18] VITALS (41 sets, daily range): BP systolic 81–149; BP diastolic 49–81; PULSE 76–99; RESP 18–52; TEMP 34.8–36.1; O2SAT 90–100; BMI 32.0
[2024-11-18 00:06] LABS: Glucose, Whole Blood 96 mg/dL (60-115)
[2024-11-18] MEDS: 0.9 % Sodium Chloride Flush 3 ML SYRINGE IVFLUSH ×4 (00:51→22:31)
[2024-11-18 01:59] LABS: Glucose, Whole Blood 87 mg/dL (60-115)
[2024-11-18 04:14] LABS: Glucose, Whole Blood 71 mg/dL (60-115)
[2024-11-18 05:05] LABS: Glucose, Whole Blood 113 mg/dL (60-115)
[2024-11-18 05:12] LABS: VBG HCO3 25 mmol/L (22-26); VBG O2 % Saturation 76.0 %
[2024-11-18 05:13] LABS: Venous Blood Gas Refer to POC result
[2024-11-18 05:26] LABS: Hematocrit 23.2 % (37.0-47.0); Hemoglobin 7.8 g/dl (12.0-16.0); Mean Corpuscular HGB Conc 33.6 g/dl (31.0-35.0); Mean Corpuscular Hemoglobin 30.5 pg (27.0-33.0); Mean Corpuscular Volume 90.6 fL (80.0-98.0); NRBC Abs Auto 0.000 X10*3/uL (0.0-0.012); NRBC Pct Auto 0.0 /100WBC (0.0-0.2); Platelet Count 24 X10*3/uL (160-400); Red Blood Count 2.56 X10*6/uL (4.20-5.50); WBC ABN SCTR FOR CBC 1
[2024-11-18 05:44] LABS: Alanine Aminotransferase < 6 U/L (0-31); Albumin Level 2.5 g/dL (3.5-5.0); Alkaline Phosphatase 161 U/L (39-117); Anion Gap 16 (12-20); Aspartate Amino Transferase 11 U/L (5-31); Blood Urea Nitrogen 40 mg/dL (9-16); Calcium 8.2 mg/dL (8.4-10.2); Carbon Dioxide 23 mmol/L (22-29); Chloride 93 mmol/L (96-108); Creatinine Clr Calc Pharmacy 16.4; Estimated Glomerular Filt Rate 15; Magnesium 1.7 mg/dL (1.6-2.6); Potassium 3.5 mmol/L (3.3-5.1); Sodium 128 mmol/L (135-145); Total Protein 4.2 g/dL (6.5-8.0)
[2024-11-18 05:53] LABS: Band Neutrophils Percent 18 % (3-5); Lymphocytes Absolute Manual 1.2 X10*3/uL (1.2-4.9); Lymphocytes Percent Manual 3 % (20-40); Monocytes Absolute Manual 2.3 X10*3/uL (0.1-1.2); Monocytes Percent Manual 6 % (2-11); Neutrophils Absolute Manual 35.6 X10*3/uL (2.0-8.3); Neutrophils Percent Manual 73 % (45-73)
[2024-11-18 05:54] LABS: Dohle Bodies PRESENT; Hypochromasia 1+ (5-14) /OIF; Large Platelet PRESENT; Polychromasia 1+ (0-2) /OIF; RBC Morphology NOTED; Toxic Granulation PRESENT; Toxic Vacuolation PRESENT
--- NOTE | 2024-11-18 06:30 | PC.NURSE ---
Assumed care 1900, pt remains intubated. Tolerating without sedation. On ACVC settings - see vent assessment. MAP > 65, Levophed titrated per MAY, Vasopressin paused. OGT placed, confirmed by x-ray. Orders to start tube feeds per HERMILA Dickens. Large blisters to upper and lower bilateral legs. Draining serous fluid. Xeroform applied to open areas, abd pads placed for drainage. Oscar wrap applied to bilateral lower legs per HERMILA Dickens.?
[2024-11-18 06:39] LABS: White Blood Count 39.1 X10*3/uL (4.8-10.8)
[2024-11-18] MEDS: Albumin Human 25 % 100 ML IV ×3 (07:39→19:47)
[2024-11-18] MEDS: Chlorhexidine Gluc Oral Rinse 15 ML MOUTHWASH BUCCAL (07:39)
[2024-11-18 08:05] LABS: Glucose, Whole Blood 88 mg/dL (60-115)
--- NOTE | 2024-11-18 08:37 | PC.RT ---
At approx 0800, RN called RT and stated that pt ETT cuff is leaking after repositioning. RT assessed pt and pt was stable, SATs 100%, RR 18, and cuff had a leak. Cuff was unable to hold air. Volumes on ventilator reading between 0-100. MD called and made aware of situation, MD stated he was on his way and would be there in 15 minutes. MD stated to call emergency department if pt became unstable. Pt was monitored at bedside by RN and RT, pt remained stable with normal vital signs. Upon Md arrival, MD requested attempt at extubation to assess pt before switching ETTs. Pt was control extubated by RT with RN and Md at bedside. Pt was able to open eyes on command and nod yes or no, however still unable to move extremities. Pt had no stridor post extubation. Pt placed on HFNC 40L/21% due to mild tachypnea. Pt will continue to be monitored closely in ICU.
--- NOTE | 2024-11-18 08:53 | P.PNCC_ITS ---
Subjective Subjective Date of Service: 11/18/24 Interval History: Had a cuff leak with volume losses through the ET tube this morning. Her saturations remained normal on 21% oxygen. So instead of a tube exchange, ET tube was removed and she has been monitored for re-intubation Critical Care Time (minutes): 35 Physical Exam 2 Vital Signs: Vital Signs: Last Vital Signs Temp 96.8 F 11/18/24 08:00 Pulse 83 11/18/24 08:00 Resp 24 H 11/18/24 08:36 BP 101/49 L 11/18/24 08:00 Pulse Ox 100 11/18/24 08:00 O2 Del Method Mechanical Ventil ation 11/18/24 08:00 O2 Flow Rate 6 11/06/24 11:20 FiO2 21 11/18/24 08:00 BMI result Body Mass Index 32.0 General: Elderly lady acute distress, ill appearing and tired appearing Nutritional Appearance: well nourished and overweight Eyes: appearance normal, both eyes and all related structures; Alignment and Position: alignment normal and position normal Neck: No lymphadenopathy, no thyromegaly Resp: bilateral air entry equal, occasional added sounds present Cardio: Regular rate, regular rhythm; Heart sounds: S1 normal heart sound present and S2 normal heart sound present GI: soft, nontender, no guarding, no hepatosplenomegaly : bladder normal to inspection, bladder normal to palpation, no renal angle tenderness Skin: no rashes or lesions noted and elasticity normal Neuro: Opens eyes, tries to follow some commands, can not move her lower extremities Objective Data Labs 11/18/24 05:00 11/18/24 05:00 Labs: Laboratory Results - last 24 hr 11/17/24 11/17/24 11/17/24 09:21 10:12 11:33 WBC RBC Hgb Hct MCV MCH MCHC RDW Plt Count MPV Immature Gran % (Auto) Neut % (Auto) Lymph % (Auto) [place] % (Auto) Eos % (Auto) Baso % (Auto) Lymph # (Auto) [place] # (Auto) Eos # (Auto) Baso # (Auto) Abs Immat Gran (auto) Absolute Neuts (auto) Absolute Nucleated RBC Nucleated RBC % (auto) Neutrophils % (Manual) Band Neutrophils % Lymphocytes % (Manual) Monocytes % (Manual) Abs Neuts (Manual) Lymphocytes # (Manual) Monocytes # (Manual) Toxic Granulation Toxic Vacuolation Dohle Bodies Platelet Estimate Large Platelets Plt Morphology Comment RBC Morphology Polychromasia Hypochromasia Smear Path Review VBG pH VBG pCO2 VBG pO2 VBG HCO3 VBG O2 Saturation VBG Base Excess Sodium Potassium Chloride Carbon Dioxide Anion Gap BUN Creatinine Estim Creat Clear Calc Estimated GFR POC Glucose 76 83 Random Glucose Calcium Phosphorus Magnesium Total Bilirubin AST ALT Alkaline Phosphatase Ammonia 32 Total Protein Albumin 11/17/24 11/17/24 11/17/24 14:18 17:53 18:17 WBC RBC Hgb Hct MCV MCH MCHC RDW Plt Count MPV Immature Gran % (Auto) Neut % (Auto) Lymph % (Auto) [place] % (Auto) Eos % (Auto) Baso % (Auto) Lymph # (Auto) [place] # (Auto) Eos # (Auto) Baso # (Auto) Abs Immat Gran (auto) Absolute Neuts (auto) Absolute Nucleated RBC Nucleated RBC % (auto) Neutrophils % (Manual) Band Neutrophils % Lymphocytes % (Manual) Monocytes % (Manual) Abs Neuts (Manual) Lymphocytes # (Manual) Monocytes # (Manual) Toxic Granulation Toxic Vacuolation Dohle Bodies Platelet Estimate Large Platelets Plt Morphology Comment RBC Morphology Polychromasia Hypochromasia Smear Path Review VBG pH VBG pCO2 VBG pO2 VBG HCO3 VBG O2 Saturation VBG Base Excess Sodium Potassium Chloride Carbon Dioxide Anion Gap BUN Creatinine Estim Creat Clear Calc Estimated GFR POC Glucose 74 57 L* 180 H Random Glucose Calcium Phosphorus Magnesium Total Bilirubin AST ALT Alkaline Phosphatase Ammonia Total Protein Albumin 11/17/24 11/17/24 11/17/24 18:32 19:50 22:03 WBC RBC Hgb Hct MCV MCH MCHC RDW Plt Count MPV Immature Gran % (Auto) Neut % (Auto) Lymph % (Auto) [place] % (Auto) Eos % (Auto) Baso % (Auto) Lymph # (Auto) [place] # (Auto) Eos # (Auto) Baso # (Auto) Abs Immat Gran (auto) Absolute Neuts (auto) Absolute Nucleated RBC Nucleated RBC % (auto) Neutrophils % (Manual) Band Neutrophils % Lymphocytes % (Manual) Monocytes % (Manual) Abs Neuts (Manual) Lymphocytes # (Manual) Monocytes # (Manual) Toxic Granulation Toxic Vacuolation Dohle Bodies Platelet Estimate Large Platelets Plt Morphology Comment RBC Morphology Polychromasia Hypochromasia Smear Path Review VBG pH VBG pCO2 VBG pO2 VBG HCO3 VBG O2 Saturation VBG Base Excess Sodium Potassium Chloride Carbon Dioxide Anion Gap BUN Creatinine Estim Creat Clear Calc Estimated GFR POC Glucose 148 H 123 H 108 Random Glucose Calcium Phosphorus Magnesium Total Bilirubin AST ALT Alkaline Phosphatase Ammonia Total Protein Albumin 11/17/24 11/18/24 11/18/24 23:58 01:55 04:11 WBC RBC Hgb Hct MCV MCH MCHC RDW Plt Count MPV Immature Gran % (Auto) Neut % (Auto) Lymph % (Auto) [place] % (Auto) Eos % (Auto) Baso % (Auto) Lymph # (Auto) [place] # (Auto) Eos # (Auto) Baso # (Auto) Abs Immat Gran (auto) Absolute Neuts (auto) Absolute Nucleated RBC Nucleated RBC % (auto) Neutrophils % (Manual) Band Neutrophils % Lymphocytes % (Manual) Monocytes % (Manual) Abs Neuts (Manual) Lymphocytes # (Manual) Monocytes # (Manual) Toxic Granulation Toxic Vacuolation Dohle Bodies Platelet Estimate Large Platelets Plt Morphology Comment RBC Morphology Polychromasia Hypochromasia Smear Path Review VBG pH VBG pCO2 VBG pO2 VBG HCO3 VBG O2 Saturation VBG Base Excess Sodium Potassium Chloride Carbon Dioxide Anion Gap BUN Creatinine Estim Creat Clear Calc Estimated GFR POC Glucose 96 87 71 Random Glucose Calcium Phosphorus Magnesium Total Bilirubin AST ALT Alkaline Phosphatase Ammonia Total Protein Albumin 11/18/24 11/18/24 11/18/24 05:00 05:01 05:07 WBC 39.1 H* RBC 2.56 L Hgb 7.8 L Hct 23.2 L MCV 90.6 MCH 30.5 MCHC 33.6 RDW 17.9 H Plt Count 24 L MPV Not Reportable Immature Gran % (Auto) Cancelled Neut % (Auto) Cancelled Lymph % (Auto) Cancelled [place] % (Auto) Cancelled Eos % (Auto) Cancelled Baso % (Auto) Cancelled Lymph # (Auto) Cancelled [place] # (Auto) Cancelled Eos # (Auto) Cancelled Baso # (Auto) Cancelled Abs Immat Gran (auto) Cancelled Absolute Neuts (auto) Cancelled Absolute Nucleated RBC 0.000 Nucleated RBC % (auto) 0.0 Neutrophils % (Manual) 73 Band Neutrophils % 18 H Lymphocytes % (Manual) 3 L Monocytes % (Manual) 6 Abs Neuts (Manual) 35.6 H Lymphocytes # (Manual) 1.2 Monocytes # (Manual) 2.3 H Toxic Granulation PRESENT Toxic Vacuolation PRESENT Dohle Bodies PRESENT Platelet Estimate DECREASED Large Platelets PRESENT Plt Morphology Comment NOTED RBC Morphology NOTED Polychromasia 1+ (0-2) Hypochromasia 1+ (5-14) Smear Path Review Cancelled VBG pH 7.53 H VBG pCO2 29 VBG pO2 44 VBG HCO3 25 VBG O2 Saturation 76.0 VBG Base Excess 2.9 Sodium 128 L Potassium 3.5 D Chloride 93 L Carbon Dioxide 23 Anion Gap 16 BUN 40 H Creatinine 2.93 H Estim Creat Clear Calc 16.4 Estimated GFR 15 POC Glucose 113 Random Glucose 126 H Calcium 8.2 L Phosphorus 1.9 L Magnesium 1.7 Total Bilirubin 1.7 H AST 11 ALT < 6 Alkaline Phosphatase 161 H Ammonia Total Protein 4.2 L Albumin 2.5 L 11/18/24 08:01 WBC RBC Hgb Hct MCV MCH MCHC RDW Plt Count MPV Immature Gran % (Auto) Neut % (Auto) Lymph % (Auto) [place] % (Auto) Eos % (Auto) Baso % (Auto) Lymph # (Auto) [place] # (Auto) Eos # (Auto) Baso # (Auto) Abs Immat Gran (auto) Absolute Neuts (auto) Absolute Nucleated RBC Nucleated RBC % (auto) Neutrophils % (Manual) Band Neutrophils % Lymphocytes % (Manual) Monocytes % (Manual) Abs Neuts (Manual) Lymphocytes # (Manual) Monocytes # (Manual) Toxic Granulation Toxic Vacuolation Dohle Bodies Platelet Estimate Large Platelets Plt Morphology Comment RBC Morphology Polychromasia Hypochromasia Smear Path Review VBG pH VBG pCO2 VBG pO2 VBG HCO3 VBG O2 Saturation VBG Base Excess Sodium Potassium Chloride Carbon Dioxide Anion Gap BUN Creatinine Estim Creat Clear Calc Estimated GFR POC Glucose 88 Random Glucose Calcium Phosphorus Magnesium Total Bilirubin AST ALT Alkaline Phosphatase Ammonia Total Protein Albumin Microbiology Microbiology Results: Microbiology 11/14/24 20:26 Urine Catheterized - Straight Catheter Urine Culture - Final 11/14/24 19:51 Blood - Venous Blood Culture - Preliminary No growth after 48 hours. 11/14/24 19:51 Blood - Venous Blood Culture - Preliminary No growth after 48 hours. 11/04/24 07:53 Blood - Venous Blood Culture - Final No growth after 5 days. 11/04/24 07:18 Blood - Venous Blood Culture - Final No growth after 5 days. 11/04/24 Unknown Urine Catheterized - Kim Catheter Urine Culture - Final No growth. Progress Note: A&P Assessment and plan (1) Atrial fibrillation with rapid ventricular response: Status: Acute (2) ESRD (end stage renal disease): Status: Acute (3) Severe anemia: Status: Acute (4) Septic shock: Status: Acute (5) Acute hypoxic respiratory failure: Status: Acute (6) Pulmonary edema: Status: Acute Plan 84-year-old lady with underlying polycystic liver, essential hypertension, ESRD on hemodialysis, PE on Eliquis admitted on 11/04/2024 with hypotension injury to upper GI bleed, patient initially with good response to resuscitation with blood products and IV fluid, admitted to telemetry service. Patient did have an EGD on 11/05/2024 showing duodenal bulb actively bleeding ulcer, treated with sclerotherapy and clipping. Overnight after procedure patient with repeat hemorrhage with poor response to IV fluids and blood products requiring transferred to intensive care unit and utilization of pressor support. Status post IR embolization on 11/06/2024 with stabilization of hemoglobin and no further rebleeding. Patient transferred to telemetry on 11/09/2024. Further hospital course significant for development of lower abdominal rash of unclear etiology treated with systemic glucocorticoids, AFib with RVR, and on 11/14/2024 septic shock with poor response to initial IV fluid resuscitation requiring pressor support and acute hypoxia requiring ventilatory support, transferred to intensive care unit. Neuro: Acute encephalopathy possibly due to metabolic encephalopathy Off sedation for the past 24 hours, continues to have poor mental status possibly due to septic encephalopathy; will withold steroids due to encephalopaathy Close neurological status monitoring in the ICU every hour Cardiac: Septic Shock: Possibly secondary to urinary tract infection On Levophed support 0.04, titrate Levophed to keep map above 65 mm Hg Paroxysmal atrial fibrillation: treated with digoxin, currently in sinus rhtyhm DVT in the right leg on right posterior tibial on 11/11/2024, cannot anticoagulate her due to GI bleed. Respiratory: Acute hypoxemic respiratory failure due to severe shock This morning had a cuff leak with loss of tidal volumes, so instead of tube exchange patient has been electively extubated, we will closely monitor respiratory status and if needed we will intubate her. CT chest did not show any significant pulmonary infiltrates, has bilateral small pleural effusion secondary to ESRD GI: Tube feeds stopped after extubation, carotid for suction CT abdomen showed innumerous complex liver cyst versus metastasis Needs heme Onc consult once she is is more stable to rule out metastatic disease Renal: End-stage renal disease on M/W/F maintenance hemodialysis CT abdomen showing possible polycystic kidney disease We will closely monitor I's and O's Avoid nephrotoxic medications Heme: Chronic anemia, closely monitor H&H, transfuse for hemoglobin less than 7 grams/deciliter. Received 16 units of blood products during the stay thrombocytopenia 27k possibly due to antibiotics versus sepsis; if she bleeds will transfuse to more leucocytosis increasing in the setting of steroids but would send repeat cultures Endocrine: Blood sugars under control Sliding scale insulin as needed Infectious disease: Repeat urine and blood cultures on 11/14/2024 negative. Urine culture mixed [place] CT chest showing bilateral small pleural effusion but no consolidation, CT abdomen showing in numerous liver cysts many of them are complex. Also has polycystic kidney disease. On empiric vancomycin and cefepime Musculoskeletal: Decubitus ulcer prevention protocol has weeping ulcers in mid thigh Lines: TLC left IJ Right subclavian permacath Prophylaxis: heparin, pantoprazole Quality Stroke Does the patient have a stroke diagnosis?: No VTE Prior VTE?: No VTE Risk Level:: Medical - moderate - high VTE Device Contraindication: N/A - Device Ordered VTE Drug Contraindication: Treatment Not Indicated
[2024-11-18 10:03] LABS: Glucose, Whole Blood 80 mg/dL (60-115)
--- NOTE | 2024-11-18 10:38 | MHC.CLN ---
F/U REMAINS INTUBATED AND SEDATED DISCUSSED AT ROUNDS WITH MD OLSON FEEDING STARTED BUT NOW CURRENTLY ON HOLD PER NSG IF TF TO RE-START; RECOMMEND NEPRO AT 50ML/HR WITH 300ML FREE WATER Q 8 HRS TO PROVIDE 2160KCALS (30KCALS/KG BASED ON CMW), 97.2G PROTEIN (1.4G/KG), 1772ML TOTAL WATER FROM FORMULA AND FLUSHES (25ML/KG) MONITOR TOLERANCE AND LYTES TF WILL PROMOTE WOUND HEALING FOLLOWING WITH TEAM
--- NOTE | 2024-11-18 10:59 | MHC.CM.PN ---
Addendum entered by Linda You RN 11/18/24 13:05: CM MET W/PT'S SON DUSTY AT BEDSIDE, DUSTY REPORTS HE RECEIVED A LETTER FROM [facility] mii REQUESTING MORE INFORMATION TO COVER HOSPITAL, CM WILL FOLLOW UP W/[facility]. Original Note: EMR REVIEWED, PT NO ON HI-FLOW AFTER BEING EXTUBATED THIS AM, PER ROUNDS POSSIBILITY OF NEED FOR RE-INTUBATION, PLAN IS FOR PT TO CONT STR AT [facility], CM WILL CONT TO FOLLOW DC NEEDS.
--- NOTE | 2024-11-18 12:09 | P.PNNP_ITS ---
Subjective Subjective Date of Service: 11/18/24 Principal diagnosis: ESRD Interval history: seen and examined vented son at bedside updated Physical Exam 2 Vital Signs: Vital Signs: Last Vital Signs Temp 96.8 F 11/18/24 08:00 Pulse 78 11/18/24 11:00 Resp 22 H 11/18/24 11:07 BP 123/69 11/18/24 11:00 Pulse Ox 93 11/18/24 11:00 O2 Del Method High Flow Nasal C annula 11/18/24 11:00 O2 Flow Rate 40 11/18/24 11:00 FiO2 21 11/18/24 11:00 BMI result Body Mass Index 32.0 Const: General: other (vented) HEENT: Head: Yes normocephalic and Yes atraumatic Neck: Neck: Yes supple Resp: Auscultation: diminished lung sounds Cardio: Heart sounds: S1 normal heart sound present and S2 normal heart sound present GI: Palpation (GI): Soft to palpation and nontender Extrem: General: Yes edema Objective Data Labs 11/18/24 05:00 11/18/24 05:00 Labs: Laboratory Results - last 24 hr 11/17/24 11/17/24 11/17/24 14:18 17:53 18:17 WBC RBC Hgb Hct MCV MCH MCHC RDW Plt Count MPV Immature Gran % (Auto) Neut % (Auto) Lymph % (Auto) [place] % (Auto) Eos % (Auto) Baso % (Auto) Lymph # (Auto) [place] # (Auto) Eos # (Auto) Baso # (Auto) Abs Immat Gran (auto) Absolute Neuts (auto) Absolute Nucleated RBC Nucleated RBC % (auto) Neutrophils % (Manual) Band Neutrophils % Lymphocytes % (Manual) Monocytes % (Manual) Abs Neuts (Manual) Lymphocytes # (Manual) Monocytes # (Manual) Toxic Granulation Toxic Vacuolation Dohle Bodies Platelet Estimate Large Platelets Plt Morphology Comment RBC Morphology Polychromasia Hypochromasia Smear Path Review VBG pH VBG pCO2 VBG pO2 VBG HCO3 VBG O2 Saturation VBG Base Excess Sodium Potassium Chloride Carbon Dioxide Anion Gap BUN Creatinine Estim Creat Clear Calc Estimated GFR POC Glucose 74 57 L* 180 H Random Glucose Calcium Phosphorus Magnesium Total Bilirubin AST ALT Alkaline Phosphatase Total Protein Albumin 11/17/24 11/17/24 11/17/24 18:32 19:50 22:03 WBC RBC Hgb Hct MCV MCH MCHC RDW Plt Count MPV Immature Gran % (Auto) Neut % (Auto) Lymph % (Auto) [place] % (Auto) Eos % (Auto) Baso % (Auto) Lymph # (Auto) [place] # (Auto) Eos # (Auto) Baso # (Auto) Abs Immat Gran (auto) Absolute Neuts (auto) Absolute Nucleated RBC Nucleated RBC % (auto) Neutrophils % (Manual) Band Neutrophils % Lymphocytes % (Manual) Monocytes % (Manual) Abs Neuts (Manual) Lymphocytes # (Manual) Monocytes # (Manual) Toxic Granulation Toxic Vacuolation Dohle Bodies Platelet Estimate Large Platelets Plt Morphology Comment RBC Morphology Polychromasia Hypochromasia Smear Path Review VBG pH VBG pCO2 VBG pO2 VBG HCO3 VBG O2 Saturation VBG Base Excess Sodium Potassium Chloride Carbon Dioxide Anion Gap BUN Creatinine Estim Creat Clear Calc Estimated GFR POC Glucose 148 H 123 H 108 Random Glucose Calcium Phosphorus Magnesium Total Bilirubin AST ALT Alkaline Phosphatase Total Protein Albumin 11/17/24 11/18/24 11/18/24 23:58 01:55 04:11 WBC RBC Hgb Hct MCV MCH MCHC RDW Plt Count MPV Immature Gran % (Auto) Neut % (Auto) Lymph % (Auto) [place] % (Auto) Eos % (Auto) Baso % (Auto) Lymph # (Auto) [place] # (Auto) Eos # (Auto) Baso # (Auto) Abs Immat Gran (auto) Absolute Neuts (auto) Absolute Nucleated RBC Nucleated RBC % (auto) Neutrophils % (Manual) Band Neutrophils % Lymphocytes % (Manual) Monocytes % (Manual) Abs Neuts (Manual) Lymphocytes # (Manual) Monocytes # (Manual) Toxic Granulation Toxic Vacuolation Dohle Bodies Platelet Estimate Large Platelets Plt Morphology Comment RBC Morphology Polychromasia Hypochromasia Smear Path Review VBG pH VBG pCO2 VBG pO2 VBG HCO3 VBG O2 Saturation VBG Base Excess Sodium Potassium Chloride Carbon Dioxide Anion Gap BUN Creatinine Estim Creat Clear Calc Estimated GFR POC Glucose 96 87 71 Random Glucose Calcium Phosphorus Magnesium Total Bilirubin AST ALT Alkaline Phosphatase Total Protein Albumin 11/18/24 11/18/24 11/18/24 05:00 05:01 05:07 WBC 39.1 H* RBC 2.56 L Hgb 7.8 L Hct 23.2 L MCV 90.6 MCH 30.5 MCHC 33.6 RDW 17.9 H Plt Count 24 L MPV Not Reportable Immature Gran % (Auto) Cancelled Neut % (Auto) Cancelled Lymph % (Auto) Cancelled [place] % (Auto) Cancelled Eos % (Auto) Cancelled Baso % (Auto) Cancelled Lymph # (Auto) Cancelled [place] # (Auto) Cancelled Eos # (Auto) Cancelled Baso # (Auto) Cancelled Abs Immat Gran (auto) Cancelled Absolute Neuts (auto) Cancelled Absolute Nucleated RBC 0.000 Nucleated RBC % (auto) 0.0 Neutrophils % (Manual) 73 Band Neutrophils % 18 H Lymphocytes % (Manual) 3 L Monocytes % (Manual) 6 Abs Neuts (Manual) 35.6 H Lymphocytes # (Manual) 1.2 Monocytes # (Manual) 2.3 H Toxic Granulation PRESENT Toxic Vacuolation PRESENT Dohle Bodies PRESENT Platelet Estimate DECREASED Large Platelets PRESENT Plt Morphology Comment NOTED RBC Morphology NOTED Polychromasia 1+ (0-2) Hypochromasia 1+ (5-14) Smear Path Review Cancelled VBG pH 7.53 H VBG pCO2 29 VBG pO2 44 VBG HCO3 25 VBG O2 Saturation 76.0 VBG Base Excess 2.9 Sodium 128 L Potassium 3.5 D Chloride 93 L Carbon Dioxide 23 Anion Gap 16 BUN 40 H Creatinine 2.93 H Estim Creat Clear Calc 16.4 Estimated GFR 15 POC Glucose 113 Random Glucose 126 H Calcium 8.2 L Phosphorus 1.9 L Magnesium 1.7 Total Bilirubin 1.7 H AST 11 ALT < 6 Alkaline Phosphatase 161 H Total Protein 4.2 L Albumin 2.5 L 11/18/24 11/18/24 08:01 09:59 WBC RBC Hgb Hct MCV MCH MCHC RDW Plt Count MPV Immature Gran % (Auto) Neut % (Auto) Lymph % (Auto) [place] % (Auto) Eos % (Auto) Baso % (Auto) Lymph # (Auto) [place] # (Auto) Eos # (Auto) Baso # (Auto) Abs Immat Gran (auto) Absolute Neuts (auto) Absolute Nucleated RBC Nucleated RBC % (auto) Neutrophils % (Manual) Band Neutrophils % Lymphocytes % (Manual) Monocytes % (Manual) Abs Neuts (Manual) Lymphocytes # (Manual) Monocytes # (Manual) Toxic Granulation Toxic Vacuolation Dohle Bodies Platelet Estimate Large Platelets Plt Morphology Comment RBC Morphology Polychromasia Hypochromasia Smear Path Review VBG pH VBG pCO2 VBG pO2 VBG HCO3 VBG O2 Saturation VBG Base Excess Sodium Potassium Chloride Carbon Dioxide Anion Gap BUN Creatinine Estim Creat Clear Calc Estimated GFR POC Glucose 88 80 Random Glucose Calcium Phosphorus Magnesium Total Bilirubin AST ALT Alkaline Phosphatase Total Protein Albumin Microbiology Microbiology Results: Microbiology 11/14/24 20:26 Urine Catheterized - Straight Catheter Urine Culture - Final 11/14/24 19:51 Blood - Venous Blood Culture - Preliminary No growth after 48 hours. 11/14/24 19:51 Blood - Venous Blood Culture - Preliminary No growth after 48 hours. 11/04/24 07:53 Blood - Venous Blood Culture - Final No growth after 5 days. 11/04/24 07:18 Blood - Venous Blood Culture - Final No growth after 5 days. 11/04/24 Unknown Urine Catheterized - Kim Catheter Urine Culture - Final No growth. 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 Progress Note: Quality Stroke Does the patient have a stroke diagnosis?: No
[2024-11-18 12:11] LABS: Glucose, Whole Blood 71 mg/dL (60-115)
[2024-11-18 13:24] LABS: Glucose, Whole Blood 104 mg/dL (60-115)
[2024-11-18 14:07] LABS: Glucose, Whole Blood 98 mg/dL (60-115)
--- NOTE | 2024-11-18 15:04 | PC.NURSE ---
Assumed care of patient 0700. Sedation vacation ongoing since 11/17/24 at 19:00. At 0800 patient repositioned to left with wedges with 1 RN and 1 tech. At this time, an audible cuff leak was heard and volumes decreased on ventillator. RT called to bedside. RN added 1 mL air to ETT cuff with little improvement. Pressure manometer reading zero. RT added 6 ml to cuff, which improved volumes. RT determine that large cuff leak exists. MD notified and to bedside. PSV trial started per MD with trouble shooting cuff leak. Per MD, patient extubated 08:20 to HFNC 40L 21%. OG tube remains in place with securement device to right cheek. Patient has positive cough, weak gag, fatigued and drowsy. Follows commands to squeeze hands weakly, moves left foot to command. Patient's son Sunil at bedside to visit. CM contacted at son's request for insurance form guidance. Dialysis session started for patient approx 14:30.
[2024-11-18 17:03] LABS: Glucose, Whole Blood 76 mg/dL (60-115)
[2024-11-18 17:44] LABS: Glucose, Whole Blood 79 mg/dL (60-115)
[2024-11-18 19:46] LABS: Glucose, Whole Blood 64 mg/dL (60-115)
[2024-11-18 20:06] LABS: Glucose, Whole Blood 111 mg/dL (60-115)
[2024-11-18 22:02] LABS: Glucose, Whole Blood 116 mg/dL (60-115)
[2024-11-18] MEDS: Albuterol/Iprat 2.5/0.5MG 3 ML AMPUL.NEB INHALE (23:52)
[2024-11-19] VITALS (32 sets, daily range): BP systolic 104–136; BP diastolic 51–77; PULSE 78–113; RESP 18–32; TEMP 35.6–37.3; O2SAT 92–100; BMI 32.6
[2024-11-19 00:02] LABS: Glucose, Whole Blood 108 mg/dL (60-115)
[2024-11-19] MEDS: Albumin Human 25 % 100 ML IV (01:20)
[2024-11-19 02:05] LABS: Glucose, Whole Blood 106 mg/dL (60-115)
[2024-11-19 04:31] LABS: VBG HCO3 29 mmol/L (22-26)
[2024-11-19 04:32] LABS: Glucose, Whole Blood 56 mg/dL (60-115)
[2024-11-19 04:52] LABS: Glucose, Whole Blood 132 mg/dL (60-115)
[2024-11-19] MEDS: Albuterol/Iprat 2.5/0.5MG 3 ML AMPUL.NEB INHALE ×3 (04:56→18:07)
[2024-11-19 05:01] LABS: Red Blood Count 2.26 X10*6/uL (4.20-5.50)
[2024-11-19 05:03] LABS: Mean Corpuscular HGB Conc 34.8 g/dl (31.0-35.0); Mean Corpuscular Hemoglobin 31.0 pg (27.0-33.0); Mean Corpuscular Volume 88.9 fL (80.0-98.0); NRBC Abs Auto 0.020 X10*3/uL (0.0-0.012); NRBC Pct Auto 0.1 /100WBC (0.0-0.2)
[2024-11-19 05:12] LABS: Platelet Count 25 X10*3/uL (160-400)
[2024-11-19 05:13] LABS: PLT ABN DIST 1; WBC ABN SCTR FOR CBC 1; White Blood Count 39.0 X10*3/uL (4.8-10.8)
[2024-11-19 05:14] LABS: Hematocrit 20.1 % (37.0-47.0); Hemoglobin 7.0 g/dl (12.0-16.0)
[2024-11-19 05:25] LABS: Venous Blood Gas Refer to POC result
[2024-11-19 05:38] LABS: Alanine Aminotransferase < 6 U/L (0-31); Albumin Level 3.7 g/dL (3.5-5.0); Alkaline Phosphatase 147 U/L (39-117); Anion Gap 17 (12-20); Aspartate Amino Transferase 14 U/L (5-31); Blood Urea Nitrogen 27 mg/dL (9-16); Calcium 9.2 mg/dL (8.4-10.2); Carbon Dioxide 24 mmol/L (22-29); Chloride 98 mmol/L (96-108); Creatinine Clr Calc Pharmacy 25.2; Estimated Glomerular Filt Rate 25; Magnesium 1.9 mg/dL (1.6-2.6); Potassium 3.5 mmol/L (3.3-5.1); Sodium 135 mmol/L (135-145); Total Protein 5.2 g/dL (6.5-8.0)
[2024-11-19 05:40] LABS: Atypical Lymph Absolute Manual 0.8 x10*3/uL; Atypical Lymphs Percent Manual 2 % (0-6); Band Neutrophils Percent 24 % (3-5); Lymphocytes Absolute Manual 0.4 X10*3/uL (1.2-4.9); Lymphocytes Percent Manual 1 % (20-40); Neutrophils Absolute Manual 37.8 X10*3/uL (2.0-8.3); Neutrophils Percent Manual 73 % (45-73)
[2024-11-19 05:41] LABS: RBC Morphology NORMAL
[2024-11-19 05:42] LABS: Burr Cells 1+ (0-2) /OIF; Large Platelet PRESENT; Schistocytes 1+ (0-2) /OIF; Spherocytes 1+ (0-2) /OIF; Target Cells 1+ (5-14) /OIF
[2024-11-19 05:43] LABS: Dohle Bodies PRESENT; Polychromasia 1+ (0-2) /OIF; Smudge Cells PRESENT; Toxic Granulation PRESENT; Toxic Vacuolation PRESENT
[2024-11-19 05:54] LABS: Glucose, Whole Blood 133 mg/dL (60-115)
[2024-11-19 08:17] LABS: Glucose, Whole Blood 113 mg/dL (60-115)
--- NOTE | 2024-11-19 08:44 | PM.CCPN ---
Subjective Subjective Date of Service: 11/19/24 Interval History: Extubated yesterday, still remains a high-risk for aspiration and re-intubation due to poor mental status Underwent a session of hemodialysis yesterday Critical Care Time (minutes): 35 Physical Exam Vital Signs: Vital Signs: Last Vital Signs Temp 96.4 F L 11/19/24 08:00 Pulse 94 11/19/24 08:00 Resp 25 H 11/19/24 08:05 BP 130/63 11/19/24 08:00 Pulse Ox 93 11/19/24 08:00 O2 Del Method High Flow Nasal C annula 11/19/24 08:00 O2 Flow Rate 40 11/19/24 08:00 FiO2 21 11/19/24 08:00 BMI result Body Mass Index 32.6 General: Elderly lady in acute distress, ill appearing and tired appearing Nutritional Appearance: well nourished and overweight Eyes: appearance normal, both eyes and all related structures; Alignment and Position: alignment normal and position normal Neck: No lymphadenopathy, no thyromegaly Resp: bilateral air entry equal, crackles heard in the right lung base Cardio: Regular rate, regular rhythm; Heart sounds: S1 normal heart sound present and S2 normal heart sound present GI: soft, nontender, no guarding, no hepatosplenomegaly : bladder normal to inspection, bladder normal to palpation, no renal angle tenderness Skin: no rashes or lesions noted and elasticity normal Neuro: Drowsy, wakes up upon calling her name, does not move her extremities Objective Data Labs 11/19/24 08:35 11/19/24 04:25 Labs: Laboratory Results - last 24 hr 11/18/24 11/18/24 11/18/24 09:59 12:01 13:20 WBC RBC Hgb Hct MCV MCH MCHC RDW Plt Count MPV Immature Gran % (Auto) Neut % (Auto) Lymph % (Auto) Schley % (Auto) Eos % (Auto) Baso % (Auto) Lymph # (Auto) Schley # (Auto) Eos # (Auto) Baso # (Auto) Abs Immat Gran (auto) Absolute Neuts (auto) Absolute Nucleated RBC Nucleated RBC % (auto) Neutrophils % (Manual) Band Neutrophils % Lymphocytes % (Manual) Atypical Lymphs % (Man) Abs Neuts (Manual) Lymphocytes # (Manual) Atyp Lymphs # (Manual) Smudge Cells Toxic Granulation Toxic Vacuolation Dohle Bodies Platelet Estimate Large Platelets Plt Morphology Comment RBC Morphology Polychromasia Spherocytes Target Cells [place] Cells Schistocytes Smear Path Review VBG pH VBG pCO2 VBG pO2 VBG HCO3 VBG Base Excess Sodium Potassium Chloride Carbon Dioxide Anion Gap BUN Creatinine Estim Creat Clear Calc Estimated GFR POC Glucose 80 71 104 Random Glucose Calcium Phosphorus Magnesium Total Bilirubin AST ALT Alkaline Phosphatase Total Protein Albumin Random Vancomycin 11/18/24 11/18/24 11/18/24 14:04 15:57 16:08 WBC RBC Hgb Hct MCV MCH MCHC RDW Plt Count MPV Immature Gran % (Auto) Neut % (Auto) Lymph % (Auto) Schley % (Auto) Eos % (Auto) Baso % (Auto) Lymph # (Auto) Schley # (Auto) Eos # (Auto) Baso # (Auto) Abs Immat Gran (auto) Absolute Neuts (auto) Absolute Nucleated RBC Nucleated RBC % (auto) Neutrophils % (Manual) Band Neutrophils % Lymphocytes % (Manual) Atypical Lymphs % (Man) Abs Neuts (Manual) Lymphocytes # (Manual) Atyp Lymphs # (Manual) Smudge Cells Toxic Granulation Toxic Vacuolation Dohle Bodies Platelet Estimate Large Platelets Plt Morphology Comment RBC Morphology Polychromasia Spherocytes Target Cells [place] Cells Schistocytes Smear Path Review VBG pH VBG pCO2 VBG pO2 VBG HCO3 VBG Base Excess Sodium Potassium Chloride Carbon Dioxide Anion Gap BUN Creatinine Estim Creat Clear Calc Estimated GFR POC Glucose 98 76 Random Glucose Calcium Phosphorus Magnesium Total Bilirubin AST ALT Alkaline Phosphatase Total Protein Albumin Random Vancomycin 9.9 L 11/18/24 11/18/24 11/18/24 17:35 19:41 20:02 WBC RBC Hgb Hct MCV MCH MCHC RDW Plt Count MPV Immature Gran % (Auto) Neut % (Auto) Lymph % (Auto) Schley % (Auto) Eos % (Auto) Baso % (Auto) Lymph # (Auto) Schley # (Auto) Eos # (Auto) Baso # (Auto) Abs Immat Gran (auto) Absolute Neuts (auto) Absolute Nucleated RBC Nucleated RBC % (auto) Neutrophils % (Manual) Band Neutrophils % Lymphocytes % (Manual) Atypical Lymphs % (Man) Abs Neuts (Manual) Lymphocytes # (Manual) Atyp Lymphs # (Manual) Smudge Cells Toxic Granulation Toxic Vacuolation Dohle Bodies Platelet Estimate Large Platelets Plt Morphology Comment RBC Morphology Polychromasia Spherocytes Target Cells [place] Cells Schistocytes Smear Path Review VBG pH VBG pCO2 VBG pO2 VBG HCO3 VBG Base Excess Sodium Potassium Chloride Carbon Dioxide Anion Gap BUN Creatinine Estim Creat Clear Calc Estimated GFR POC Glucose 79 64 111 Random Glucose Calcium Phosphorus Magnesium Total Bilirubin AST ALT Alkaline Phosphatase Total Protein Albumin Random Vancomycin 11/18/24 11/18/24 11/19/24 21:58 23:57 02:00 WBC RBC Hgb Hct MCV MCH MCHC RDW Plt Count MPV Immature Gran % (Auto) Neut % (Auto) Lymph % (Auto) Schley % (Auto) Eos % (Auto) Baso % (Auto) Lymph # (Auto) Schley # (Auto) Eos # (Auto) Baso # (Auto) Abs Immat Gran (auto) Absolute Neuts (auto) Absolute Nucleated RBC Nucleated RBC % (auto) Neutrophils % (Manual) Band Neutrophils % Lymphocytes % (Manual) Atypical Lymphs % (Man) Abs Neuts (Manual) Lymphocytes # (Manual) Atyp Lymphs # (Manual) Smudge Cells Toxic Granulation Toxic Vacuolation Dohle Bodies Platelet Estimate Large Platelets Plt Morphology Comment RBC Morphology Polychromasia Spherocytes Target Cells [place] Cells Schistocytes Smear Path Review VBG pH VBG pCO2 VBG pO2 VBG HCO3 VBG Base Excess Sodium Potassium Chloride Carbon Dioxide Anion Gap BUN Creatinine Estim Creat Clear Calc Estimated GFR POC Glucose 116 H 108 106 Random Glucose Calcium Phosphorus Magnesium Total Bilirubin AST ALT Alkaline Phosphatase Total Protein Albumin Random Vancomycin 11/19/24 11/19/24 11/19/24 04:07 04:25 04:27 WBC 39.0 H* RBC 2.26 L Hgb 7.0 L* Hct 20.1 L* MCV 88.9 MCH 31.0 MCHC 34.8 RDW 18.0 H Plt Count 25 L MPV Not Reportable Immature Gran % (Auto) Cancelled Neut % (Auto) Cancelled Lymph % (Auto) Cancelled Schley % (Auto) Cancelled Eos % (Auto) Cancelled Baso % (Auto) Cancelled Lymph # (Auto) Cancelled Schley # (Auto) Cancelled Eos # (Auto) Cancelled Baso # (Auto) Cancelled Abs Immat Gran (auto) Cancelled Absolute Neuts (auto) Cancelled Absolute Nucleated RBC 0.020 H Nucleated RBC % (auto) 0.1 Neutrophils % (Manual) 73 Band Neutrophils % 24 H Lymphocytes % (Manual) 1 L Atypical Lymphs % (Man) 2 Abs Neuts (Manual) 37.8 H Lymphocytes # (Manual) 0.4 L Atyp Lymphs # (Manual) 0.8 Smudge Cells PRESENT Toxic Granulation PRESENT Toxic Vacuolation PRESENT Dohle Bodies PRESENT Platelet Estimate DECREASED Large Platelets PRESENT Plt Morphology Comment NOTED RBC Morphology NORMAL Polychromasia 1+ (0-2) Spherocytes 1+ (0-2) Target Cells 1+ (5-14) [place]idy Cells 1+ (0-2) Schistocytes 1+ (0-2) Smear Path Review Cancelled VBG pH 7.56 H VBG pCO2 32 VBG pO2 45 VBG HCO3 29 H VBG Base Excess 6.8 Sodium 135 Potassium 3.5 Chloride 98 Carbon Dioxide 24 Anion Gap 17 BUN 27 H Creatinine 1.90 H Estim Creat Clear Calc 25.2 Estimated GFR 25 POC Glucose Random Glucose 103 Calcium 9.2 D Phosphorus 2.0 L Magnesium 1.9 Total Bilirubin 1.7 H AST 14 ALT < 6 Alkaline Phosphatase 147 H Total Protein 5.2 L Albumin 3.7 Random Vancomycin 11/19/24 11/19/24 11/19/24 04:29 04:48 05:50 WBC RBC Hgb Hct MCV MCH MCHC RDW Plt Count MPV Immature Gran % (Auto) Neut % (Auto) Lymph % (Auto) Schley % (Auto) Eos % (Auto) Baso % (Auto) Lymph # (Auto) Schley # (Auto) Eos # (Auto) Baso # (Auto) Abs Immat Gran (auto) Absolute Neuts (auto) Absolute Nucleated RBC Nucleated RBC % (auto) Neutrophils % (Manual) Band Neutrophils % Lymphocytes % (Manual) Atypical Lymphs % (Man) Abs Neuts (Manual) Lymphocytes # (Manual) Atyp Lymphs # (Manual) Smudge Cells Toxic Granulation Toxic Vacuolation Dohle Bodies Platelet Estimate Large Platelets Plt Morphology Comment RBC Morphology Polychromasia Spherocytes Target Cells [place] Cells Schistocytes Smear Path Review VBG pH VBG pCO2 VBG pO2 VBG HCO3 VBG Base Excess Sodium Potassium Chloride Carbon Dioxide Anion Gap BUN Creatinine Estim Creat Clear Calc Estimated GFR POC Glucose 56 L* 132 H 133 H Random Glucose Calcium Phosphorus Magnesium Total Bilirubin AST ALT Alkaline Phosphatase Total Protein Albumin Random Vancomycin 11/19/24 08:14 WBC RBC Hgb Hct MCV MCH MCHC RDW Plt Count MPV Immature Gran % (Auto) Neut % (Auto) Lymph % (Auto) Schley % (Auto) Eos % (Auto) Baso % (Auto) Lymph # (Auto) Schley # (Auto) Eos # (Auto) Baso # (Auto) Abs Immat Gran (auto) Absolute Neuts (auto) Absolute Nucleated RBC Nucleated RBC % (auto) Neutrophils % (Manual) Band Neutrophils % Lymphocytes % (Manual) Atypical Lymphs % (Man) Abs Neuts (Manual) Lymphocytes # (Manual) Atyp Lymphs # (Manual) Smudge Cells Toxic Granulation Toxic Vacuolation Dohle Bodies Platelet Estimate Large Platelets Plt Morphology Comment RBC Morphology Polychromasia Spherocytes Target Cells [place] Cells Schistocytes Smear Path Review VBG pH VBG pCO2 VBG pO2 VBG HCO3 VBG Base Excess Sodium Potassium Chloride Carbon Dioxide Anion Gap BUN Creatinine Estim Creat Clear Calc Estimated GFR POC Glucose 113 Random Glucose Calcium Phosphorus Magnesium Total Bilirubin AST ALT Alkaline Phosphatase Total Protein Albumin Random Vancomycin Microbiology Microbiology Results: Microbiology 11/14/24 20:26 Urine Catheterized - Straight Catheter Urine Culture - Final 11/14/24 19:51 Blood - Venous Blood Culture - Preliminary No growth after 48 hours. 11/14/24 19:51 Blood - Venous Blood Culture - Preliminary No growth after 48 hours. 11/04/24 07:53 Blood - Venous Blood Culture - Final No growth after 5 days. 11/04/24 07:18 Blood - Venous Blood Culture - Final No growth after 5 days. 11/04/24 Unknown Urine Catheterized - Kim Catheter Urine Culture - Final No growth. Progress Note: A&P Assessment and plan (1) Atrial fibrillation with rapid ventricular response: Status: Acute (2) Acute upper GI bleed: Status: Acute (3) Renal failure: Status: Acute (4) Pulmonary edema: Status: Acute Plan 84-year-old lady with underlying polycystic liver, essential hypertension, ESRD on hemodialysis, PE on Eliquis admitted on 11/04/2024 with hypotension injury to upper GI bleed, patient initially with good response to resuscitation with blood products and IV fluid, admitted to telemetry service. Patient did have an EGD on 11/05/2024 showing duodenal bulb actively bleeding ulcer, treated with sclerotherapy and clipping. Overnight after procedure patient with repeat hemorrhage with poor response to IV fluids and blood products requiring transferred to intensive care unit and utilization of pressor support. Status post IR embolization on 11/06/2024 with stabilization of hemoglobin and no further rebleeding. Patient transferred to telemetry on 11/09/2024. Further hospital course significant for development of lower abdominal rash of unclear etiology treated with systemic glucocorticoids, AFib with RVR, and on 11/14/2024 septic shock with poor response to initial IV fluid resuscitation requiring pressor support and acute hypoxia requiring ventilatory support, transferred to intensive care unit. Neuro: Acute encephalopathy possibly due to metabolic encephalopathy Off sedation for the past 24 hours, continues to have poor mental status possibly due to septic encephalopathy; steroids with heard due to encephalopaathy We will add modafinil to see if that improves her mental status Close neurological status monitoring in the ICU every hour Cardiac: Septic Shock: Resolved, off pressors Paroxysmal atrial fibrillation: treated with digoxin, currently in sinus rhtyhm for several days now DVT in the right leg on right posterior tibial on 11/11/2024, cannot anticoagulate her due to GI bleed. Respiratory: Acute hypoxemic respiratory failure due to severe shock Extubated yesterday, high-risk for re-intubation due to aspiration risks. Reglan for improving GI motility, low intermittent suction CT chest did not show any significant pulmonary infiltrates, has bilateral small pleural effusion secondary to ESRD GI: Tube feeds stopped after extubation, carotid for suction CT abdomen showed innumerous complex liver cyst versus metastasis Needs heme Onc consult once she is is more stable to rule out metastatic disease Renal: End-stage renal disease on M/W/F maintenance hemodialysis CT abdomen showing possible polycystic kidney disease We will closely monitor I's and O's Avoid nephrotoxic medications Heme: Chronic anemia, closely monitor H&H, transfuse for hemoglobin less than 7 grams/deciliter. Received 16 units of blood products during the stay. Will transfuse another unit with HD tomorrow thrombocytopenia 27k possibly due to antibiotics versus sepsis; if she bleeds will transfuse to more leucocytosis increasing in the setting of steroids but would send repeat cultures Endocrine: Blood sugars under control Sliding scale insulin as needed Infectious disease: Repeat urine and blood cultures on 11/14/2024 negative. Urine culture mixed [place] CT chest showing bilateral small pleural effusion but no consolidation, CT abdomen showing in numerous liver cysts many of them are complex. Also has polycystic kidney disease. On empiric vancomycin and cefepime Musculoskeletal: Decubitus ulcer prevention protocol has weeping ulcers in mid thigh Lines: TLC left IJ - will take off central line if we get another peripheral Right subclavian permacath Prophylaxis: heparin, pantoprazole Quality Stroke Does the patient have a stroke diagnosis?: No VTE Prior VTE?: No VTE Risk Level:: Medical - moderate - high VTE Device Contraindication: N/A - Device Ordered VTE Drug Contraindication: Treatment Not Indicated
[2024-11-19 08:46] LABS: Mean Corpuscular HGB Conc 34.3 g/dl (31.0-35.0); Mean Corpuscular Hemoglobin 30.6 pg (27.0-33.0); Mean Corpuscular Volume 89.1 fL (80.0-98.0); NRBC Abs Auto 0.020 X10*3/uL (0.0-0.012); NRBC Pct Auto 0.1 /100WBC (0.0-0.2); Red Blood Count 2.29 X10*6/uL (4.20-5.50)
[2024-11-19 08:51] LABS: Platelet Count 25 X10*3/uL (160-400)
[2024-11-19 08:53] LABS: Hematocrit 20.4 % (37.0-47.0); Hemoglobin 7.0 g/dl (12.0-16.0); White Blood Count 38.3 X10*3/uL (4.8-10.8)
[2024-11-19 10:21] LABS: Glucose, Whole Blood 66 mg/dL (60-115)
[2024-11-19 10:41] LABS: Appearance Urine Cloudy; Glucose Urine UA Negative (Negative); PH 6.0 (5.0-9.0); Specific Gravity - Urine 1.020 (1.005-1.025); UMIC TRIGGER UA YES
[2024-11-19 11:01] LABS: Glucose, Whole Blood 149 mg/dL (60-115)
--- NOTE | 2024-11-19 11:29 | MHC.CLN ---
F/U PT EXTUBATED YESTERDAY DISCUSSED AT ROUNDS WITH PT TO REMAIN NPO R/T UPPER GIB FOLLOWING FOR DIET ADVANCEMENT
[2024-11-19 11:48] LABS: Glucose, Whole Blood 112 mg/dL (60-115)
[2024-11-19 14:04] LABS: Glucose, Whole Blood 102 mg/dL (60-115)
--- NOTE | 2024-11-19 14:56 | MHC.CM.PN ---
Pt continues care in ICU: slowly more awake and following some commands: Pt has been referred back to [facility] for continued [facility]F care. CM to follow
[2024-11-19 15:54] LABS: Glucose, Whole Blood 99 mg/dL (60-115)
--- NOTE | 2024-11-19 15:56 | PC.NURSE ---
Addendum entered by Brendan Barboza RN 11/19/24 18:14: pt awake, chewing on OGT. informed MD and ?'ed d/c;ing OGT Addendum entered by Brendan Barboza RN 11/19/24 18:09: dressing changed performed ot b/l LE wounds Original Note: md informed pt's R hand began twitching and both hands are cold to touch
[2024-11-19 18:23] LABS: Glucose, Whole Blood 72 mg/dL (60-115)
[2024-11-19 19:56] LABS: Glucose, Whole Blood 72 mg/dL (60-115)
[2024-11-19 22:27] LABS: Glucose, Whole Blood 93 mg/dL (60-115)
[2024-11-19 22:27] LABS: Glucose, Whole Blood 53 mg/dL (60-115)
[2024-11-20] VITALS (20 sets, daily range): BP systolic 113–152; BP diastolic 54–75; PULSE 76–88; RESP 15–32; TEMP 35.8–36.3; O2SAT 91–100; BMI 32.6
[2024-11-20 00:09] LABS: Glucose, Whole Blood 81 mg/dL (60-115)
[2024-11-20] MEDS: Albuterol/Iprat 2.5/0.5MG 3 ML AMPUL.NEB INHALE ×2 (00:49→08:06)
[2024-11-20 02:03] LABS: Glucose, Whole Blood 65 mg/dL (60-115)
[2024-11-20 02:19] LABS: Glucose, Whole Blood 73 mg/dL (60-115)
--- NOTE | 2024-11-20 02:29 | HO.SKINPHOTO ---
Location: Tracheostomy stoma site
[2024-11-20 04:02] LABS: Glucose, Whole Blood 88 mg/dL (60-115)
[2024-11-20 04:29] LABS: VBG HCO3 27 mmol/L (22-26); VBG O2 % Saturation 75.0 %
[2024-11-20 05:01] LABS: Hemoglobin 7.6 g/dl (12.0-16.0); NRBC Pct Auto 0.1 /100WBC (0.0-0.2)
[2024-11-20 05:03] LABS: Hematocrit 22.2 % (37.0-47.0); Mean Corpuscular HGB Conc 34.2 g/dl (31.0-35.0); Mean Corpuscular Hemoglobin 30.9 pg (27.0-33.0); Mean Corpuscular Volume 90.2 fL (80.0-98.0); NRBC Abs Auto 0.020 X10*3/uL (0.0-0.012); PLT CLUMP 1; Red Blood Count 2.46 X10*6/uL (4.20-5.50)
[2024-11-20 05:10] LABS: Venous Blood Gas Refer to POC result
[2024-11-20 05:17] LABS: Alanine Aminotransferase 7 U/L (0-31); Albumin Level 3.0 g/dL (3.5-5.0); Alkaline Phosphatase 124 U/L (39-117); Anion Gap 17 (12-20); Aspartate Amino Transferase 21 U/L (5-31); Blood Urea Nitrogen 40 mg/dL (9-16); Calcium 9.2 mg/dL (8.4-10.2); Carbon Dioxide 23 mmol/L (22-29); Chloride 99 mmol/L (96-108); Creatinine Clr Calc Pharmacy 21.3; Estimated Glomerular Filt Rate 21; Magnesium 2.1 mg/dL (1.6-2.6); Potassium 3.5 mmol/L (3.3-5.1); Sodium 135 mmol/L (135-145); Total Protein 4.7 g/dL (6.5-8.0)
[2024-11-20 05:21] LABS: PLT ABN DIST 1
[2024-11-20 05:27] LABS: Band Neutrophils Percent 34 % (3-5); Lymphocytes Percent Manual 3 % (20-40); Neutrophils Percent Manual 63 % (45-73)
[2024-11-20 05:29] LABS: Large Platelet PRESENT; RBC Morphology NORMAL
[2024-11-20 05:30] LABS: Burr Cells 1+ (0-2) /OIF; Dohle Bodies PRESENT; Polychromasia 1+ (0-2) /OIF; Schistocytes 1+ (0-2) /OIF; Smudge Cells PRESENT; Target Cells 1+ (5-14) /OIF; Toxic Granulation PRESENT
[2024-11-20 05:31] LABS: Lymphocytes Absolute Manual 0.9 X10*3/uL (1.2-4.9); Neutrophils Absolute Manual 27.7 X10*3/uL (2.0-8.3); Toxic Vacuolation PRESENT; White Blood Count 28.6 X10*3/uL (4.8-10.8)
[2024-11-20 05:32] LABS: Platelet Count 33 X10*3/uL (160-400)
[2024-11-20 06:07] LABS: Glucose, Whole Blood 42 mg/dL (60-115)
[2024-11-20 06:21] LABS: Glucose, Whole Blood 59 mg/dL (60-115)
[2024-11-20 06:46] LABS: Glucose, Whole Blood 146 mg/dL (60-115)
[2024-11-20] MEDS: Potassium Phosphate/NS 15 MMOL/250 ML PLAST..BAG 62.5 MMOL IV (07:43)
[2024-11-20] MEDS: 0.9 % Sodium Chloride Flush 3 ML SYRINGE IVFLUSH ×3 (07:44→23:20)
[2024-11-20 08:10] LABS: Glucose, Whole Blood 110 mg/dL (60-115)
--- NOTE | 2024-11-20 08:38 | P.PNCC_ITS ---
Subjective Subjective Date of Service: 11/20/24 Interval History: No new events, plan for hemodialysis session this morning States she has been through alot and wants to . Critical Care Time (minutes): 35 Physical Exam 2 Vital Signs: Vital Signs: Last Vital Signs Temp 97 F 11/20/24 08:00 Pulse 78 11/20/24 08:06 Resp 20 11/20/24 08:06 BP 139/68 11/20/24 08:00 Pulse Ox 100 11/20/24 08:00 O2 Del Method Room Air 11/20/24 08:00 O2 Flow Rate 40 11/19/24 13:56 FiO2 21 11/19/24 13:56 BMI result Body Mass Index 32.6 General: acute distress, ill appearing and tired appearing Nutritional Appearance: poorly nourished and overweight Eyes: appearance normal, both eyes and all related structures; Alignment and Position: alignment normal and position normal Neck: No lymphadenopathy, no thyromegaly Resp: bilateral air entry equal, occasional added sounds present Cardio: Regular rate, regular rhythm; Heart sounds: S1 normal heart sound present and S2 normal heart sound present GI: soft, nontender, no guarding, no hepatosplenomegaly : bladder normal to inspection, bladder normal to palpation, no renal angle tenderness Skin: no rashes or lesions noted and elasticity normal Neuro: Very poor mental status, opens eyes upon commands Objective Data Labs 11/20/24 04:34 11/20/24 04:34 Labs: Laboratory Results - last 24 hr 11/19/24 11/19/24 11/19/24 08:35 10:15 10:18 WBC 38.3 H* RBC 2.29 L Hgb 7.0 L* Hct 20.4 L* MCV 89.1 MCH 30.6 MCHC 34.3 RDW 17.8 H Plt Count 25 L MPV 12.6 H Immature Gran % (Auto) Neut % (Auto) Lymph % (Auto) [place] % (Auto) Eos % (Auto) Baso % (Auto) Lymph # (Auto) [place] # (Auto) Eos # (Auto) Baso # (Auto) Abs Immat Gran (auto) Absolute Neuts (auto) Absolute Nucleated RBC 0.020 H Nucleated RBC % (auto) 0.1 Neutrophils % (Manual) Band Neutrophils % Lymphocytes % (Manual) Abs Neuts (Manual) Lymphocytes # (Manual) Smudge Cells Toxic Granulation Toxic Vacuolation Dohle Bodies Platelet Estimate Large Platelets Plt Morphology Comment RBC Morphology Polychromasia Target Cells Excel Cells Schistocytes VBG pH VBG pCO2 VBG pO2 VBG HCO3 VBG O2 Saturation VBG Base Excess Sodium Potassium Chloride Carbon Dioxide Anion Gap BUN Creatinine Estim Creat Clear Calc Estimated GFR POC Glucose 66 Random Glucose Calcium Phosphorus Magnesium Total Bilirubin AST ALT Alkaline Phosphatase Total Protein Albumin Urine Color Dark Yellow Urine Appearance Cloudy Urine pH 6.0 Ur Specific [place] 1.020 Urine Protein 300 (3+) H Urine Glucose (UA) Negative Urine Ketones Negative Urine Blood Large (3+) H Urine Nitrite Negative Ur Leukocyte Esterase Moderate (2+) H Urine RBC 6-10 H Urine WBC 11-20 H Ur Squamous Epith Cells 11-20 Urine Bacteria 4+ Hyaline Casts 3-5 Blood Type A Positive Antibody Screen NEGATIVE 11/19/24 11/19/24 11/19/24 10:57 11:45 13:59 WBC RBC Hgb Hct MCV MCH MCHC RDW Plt Count MPV Immature Gran % (Auto) Neut % (Auto) Lymph % (Auto) [place] % (Auto) Eos % (Auto) Baso % (Auto) Lymph # (Auto) [place] # (Auto) Eos # (Auto) Baso # (Auto) Abs Immat Gran (auto) Absolute Neuts (auto) Absolute Nucleated RBC Nucleated RBC % (auto) Neutrophils % (Manual) Band Neutrophils % Lymphocytes % (Manual) Abs Neuts (Manual) Lymphocytes # (Manual) Smudge Cells Toxic Granulation Toxic Vacuolation Dohle Bodies Platelet Estimate Large Platelets Plt Morphology Comment RBC Morphology Polychromasia Target Cells Excel Cells Schistocytes VBG pH VBG pCO2 VBG pO2 VBG HCO3 VBG O2 Saturation VBG Base Excess Sodium Potassium Chloride Carbon Dioxide Anion Gap BUN Creatinine Estim Creat Clear Calc Estimated GFR POC Glucose 149 H 112 102 Random Glucose Calcium Phosphorus Magnesium Total Bilirubin AST ALT Alkaline Phosphatase Total Protein Albumin Urine Color Urine Appearance Urine pH Ur Specific [place] Urine Protein Urine Glucose (UA) Urine Ketones Urine Blood Urine Nitrite Ur Leukocyte Esterase Urine RBC Urine WBC Ur Squamous Epith Cells Urine Bacteria Hyaline Casts Blood Type Antibody Screen 11/19/24 11/19/24 11/19/24 15:50 18:19 19:51 WBC RBC Hgb Hct MCV MCH MCHC RDW Plt Count MPV Immature Gran % (Auto) Neut % (Auto) Lymph % (Auto) [place] % (Auto) Eos % (Auto) Baso % (Auto) Lymph # (Auto) [place] # (Auto) Eos # (Auto) Baso # (Auto) Abs Immat Gran (auto) Absolute Neuts (auto) Absolute Nucleated RBC Nucleated RBC % (auto) Neutrophils % (Manual) Band Neutrophils % Lymphocytes % (Manual) Abs Neuts (Manual) Lymphocytes # (Manual) Smudge Cells Toxic Granulation Toxic Vacuolation Dohle Bodies Platelet Estimate Large Platelets Plt Morphology Comment RBC Morphology Polychromasia Target Cells Heidy Cells Schistocytes VBG pH VBG pCO2 VBG pO2 VBG HCO3 VBG O2 Saturation VBG Base Excess Sodium Potassium Chloride Carbon Dioxide Anion Gap BUN Creatinine Estim Creat Clear Calc Estimated GFR POC Glucose 99 72 72 Random Glucose Calcium Phosphorus Magnesium Total Bilirubin AST ALT Alkaline Phosphatase Total Protein Albumin Urine Color Urine Appearance Urine pH Ur Specific [place] Urine Protein Urine Glucose (UA) Urine Ketones Urine Blood Urine Nitrite Ur Leukocyte Esterase Urine RBC Urine WBC Ur Squamous Epith Cells Urine Bacteria Hyaline Casts Blood Type Antibody Screen 11/19/24 11/19/24 11/19/24 22:01 22:23 23:57 WBC RBC Hgb Hct MCV MCH MCHC RDW Plt Count MPV Immature Gran % (Auto) Neut % (Auto) Lymph % (Auto) [place] % (Auto) Eos % (Auto) Baso % (Auto) Lymph # (Auto) [place] # (Auto) Eos # (Auto) Baso # (Auto) Abs Immat Gran (auto) Absolute Neuts (auto) Absolute Nucleated RBC Nucleated RBC % (auto) Neutrophils % (Manual) Band Neutrophils % Lymphocytes % (Manual) Abs Neuts (Manual) Lymphocytes # (Manual) Smudge Cells Toxic Granulation Toxic Vacuolation Dohle Bodies Platelet Estimate Large Platelets Plt Morphology Comment RBC Morphology Polychromasia Target Cells Excel Cells Schistocytes VBG pH VBG pCO2 VBG pO2 VBG HCO3 VBG O2 Saturation VBG Base Excess Sodium Potassium Chloride Carbon Dioxide Anion Gap BUN Creatinine Estim Creat Clear Calc Estimated GFR POC Glucose 53 L* 93 81 Random Glucose Calcium Phosphorus Magnesium Total Bilirubin AST ALT Alkaline Phosphatase Total Protein Albumin Urine Color Urine Appearance Urine pH Ur Specific [place] Urine Protein Urine Glucose (UA) Urine Ketones Urine Blood Urine Nitrite Ur Leukocyte Esterase Urine RBC Urine WBC Ur Squamous Epith Cells Urine Bacteria Hyaline Casts Blood Type Antibody Screen 11/20/24 11/20/24 11/20/24 01:59 02:16 03:58 WBC RBC Hgb Hct MCV MCH MCHC RDW Plt Count MPV Immature Gran % (Auto) Neut % (Auto) Lymph % (Auto) [place] % (Auto) Eos % (Auto) Baso % (Auto) Lymph # (Auto) [place] # (Auto) Eos # (Auto) Baso # (Auto) Abs Immat Gran (auto) Absolute Neuts (auto) Absolute Nucleated RBC Nucleated RBC % (auto) Neutrophils % (Manual) Band Neutrophils % Lymphocytes % (Manual) Abs Neuts (Manual) Lymphocytes # (Manual) Smudge Cells Toxic Granulation Toxic Vacuolation Dohle Bodies Platelet Estimate Large Platelets Plt Morphology Comment RBC Morphology Polychromasia Target Cells Excel Cells Schistocytes VBG pH VBG pCO2 VBG pO2 VBG HCO3 VBG O2 Saturation VBG Base Excess Sodium Potassium Chloride Carbon Dioxide Anion Gap BUN Creatinine Estim Creat Clear Calc Estimated GFR POC Glucose 65 73 88 Random Glucose Calcium Phosphorus Magnesium Total Bilirubin AST ALT Alkaline Phosphatase Total Protein Albumin Urine Color Urine Appearance Urine pH Ur Specific [place] Urine Protein Urine Glucose (UA) Urine Ketones Urine Blood Urine Nitrite Ur Leukocyte Esterase Urine RBC Urine WBC Ur Squamous Epith Cells Urine Bacteria Hyaline Casts Blood Type Antibody Screen 11/20/24 11/20/24 11/20/24 04:24 04:34 05:56 WBC 28.6 H RBC 2.46 L Hgb 7.6 L Hct 22.2 L MCV 90.2 MCH 30.9 MCHC 34.2 RDW 18.1 H Plt Count 33 L D MPV 13.6 H Immature Gran % (Auto) Cancelled Neut % (Auto) Cancelled Lymph % (Auto) Cancelled [place] % (Auto) Cancelled Eos % (Auto) Cancelled Baso % (Auto) Cancelled Lymph # (Auto) Cancelled [place] # (Auto) Cancelled Eos # (Auto) Cancelled Baso # (Auto) Cancelled Abs Immat Gran (auto) Cancelled Absolute Neuts (auto) Cancelled Absolute Nucleated RBC 0.020 H Nucleated RBC % (auto) 0.1 Neutrophils % (Manual) 63 Band Neutrophils % 34 H Lymphocytes % (Manual) 3 L Abs Neuts (Manual) 27.7 H Lymphocytes # (Manual) 0.9 L Smudge Cells PRESENT Toxic Granulation PRESENT Toxic Vacuolation PRESENT Dohle Bodies PRESENT Platelet Estimate DECREASED Large Platelets PRESENT Plt Morphology Comment NOTED RBC Morphology NORMAL Polychromasia 1+ (0-2) Target Cells 1+ (5-14) Excel Cells 1+ (0-2) Schistocytes 1+ (0-2) VBG pH 7.56 H VBG pCO2 30 VBG pO2 42 VBG HCO3 27 H VBG O2 Saturation 75.0 VBG Base Excess 5.5 Sodium 135 Potassium 3.5 Chloride 99 Carbon Dioxide 23 Anion Gap 17 BUN 40 H Creatinine 2.27 H Estim Creat Clear Calc 21.3 Estimated GFR 21 POC Glucose 42 L* Random Glucose 85 Calcium 9.2 Phosphorus 2.3 L Magnesium 2.1 Total Bilirubin 1.1 H AST 21 ALT 7 Alkaline Phosphatase 124 H Total Protein 4.7 L Albumin 3.0 L Urine Color Urine Appearance Urine pH Ur Specific [place] Urine Protein Urine Glucose (UA) Urine Ketones Urine Blood Urine Nitrite Ur Leukocyte Esterase Urine RBC Urine WBC Ur Squamous Epith Cells Urine Bacteria Hyaline Casts Blood Type Antibody Screen 11/20/24 11/20/24 11/20/24 06:17 06:42 08:07 WBC RBC Hgb Hct MCV MCH MCHC RDW Plt Count MPV Immature Gran % (Auto) Neut % (Auto) Lymph % (Auto) [place] % (Auto) Eos % (Auto) Baso % (Auto) Lymph # (Auto) [place] # (Auto) Eos # (Auto) Baso # (Auto) Abs Immat Gran (auto) Absolute Neuts (auto) Absolute Nucleated RBC Nucleated RBC % (auto) Neutrophils % (Manual) Band Neutrophils % Lymphocytes % (Manual) Abs Neuts (Manual) Lymphocytes # (Manual) Smudge Cells Toxic Granulation Toxic Vacuolation Dohle Bodies Platelet Estimate Large Platelets Plt Morphology Comment RBC Morphology Polychromasia Target Cells Excel Cells Schistocytes VBG pH VBG pCO2 VBG pO2 VBG HCO3 VBG O2 Saturation VBG Base Excess Sodium Potassium Chloride Carbon Dioxide Anion Gap BUN Creatinine Estim Creat Clear Calc Estimated GFR POC Glucose 59 L* 146 H 110 Random Glucose Calcium Phosphorus Magnesium Total Bilirubin AST ALT Alkaline Phosphatase Total Protein Albumin Urine Color Urine Appearance Urine pH Ur Specific [place] Urine Protein Urine Glucose (UA) Urine Ketones Urine Blood Urine Nitrite Ur Leukocyte Esterase Urine RBC Urine WBC Ur Squamous Epith Cells Urine Bacteria Hyaline Casts Blood Type Antibody Screen Microbiology Microbiology Results: Microbiology 11/14/24 19:51 Blood - Venous Blood Culture - Final No growth after 5 days. 11/14/24 19:51 Blood - Venous Blood Culture - Final No growth after 5 days. 11/14/24 20:26 Urine Catheterized - Straight Catheter Urine Culture - Final 11/04/24 07:53 Blood - Venous Blood Culture - Final No growth after 5 days. 11/04/24 07:18 Blood - Venous Blood Culture - Final No growth after 5 days. 11/04/24 Unknown Urine Catheterized - Kim Catheter Urine Culture - Final No growth. Progress Note: A&P Assessment and plan (1) Atrial fibrillation with rapid ventricular response: Status: Acute (2) Hemorrhagic shock: Status: Acute (3) Acute upper GI bleed: Status: Acute (4) Renal failure: Status: Acute (5) ESRD (end stage renal disease): Status: Acute (6) Acute lactic acidosis: Status: Acute (7) Septic shock: Status: Acute Plan 84-year-old lady with underlying polycystic liver, essential hypertension, ESRD on hemodialysis, PE on Eliquis admitted on 11/04/2024 with hypotension injury to upper GI bleed, patient initially with good response to resuscitation with blood products and IV fluid, admitted to telemetry service. Patient did have an EGD on 11/05/2024 showing duodenal bulb actively bleeding ulcer, treated with sclerotherapy and clipping. Overnight after procedure patient with repeat hemorrhage with poor response to IV fluids and blood products requiring transferred to intensive care unit and utilization of pressor support. Status post IR embolization on 11/06/2024 with stabilization of hemoglobin and no further rebleeding. Patient transferred to telemetry on 11/09/2024. Further hospital course significant for development of lower abdominal rash of unclear etiology treated with systemic glucocorticoids, AFib with RVR, and on 11/14/2024 septic shock with poor response to initial IV fluid resuscitation requiring pressor support and acute hypoxia requiring ventilatory support, transferred to intensive care unit. Neuro: Acute encephalopathy possibly due to metabolic encephalopathy will get CT head to look for any intracranial pathology continue modafinil to see if that improves her mental status Close neurological status monitoring in the ICU every hour Cardiac: Septic Shock: Resolved, off pressors Paroxysmal atrial fibrillation: treated with digoxin, currently in sinus ty for several days now DVT in the right leg on right posterior tibial on 11/11/2024, cannot anticoagulate her due to GI bleed. Respiratory: Acute hypoxemic respiratory failure due to severe shock Extubated on 11/18/2024, high-risk for re-intubation due to aspiration risks. Reglan for improving GI motility, low intermittent suction. Having family meetings regarding her goals of care I personally believe she should not be reintubated given her advanced age and multiple comorbidities CT chest did not show any significant pulmonary infiltrates, has bilateral small pleural effusion secondary to ESRD GI: Tube feeds stopped after extubation, on continuous suction CT abdomen showed innumerous complex liver cyst versus metastasis Needs heme Onc consult once she is is more stable to rule out metastatic disease Renal: End-stage renal disease on M/W/F maintenance hemodialysis CT abdomen showing possible polycystic kidney disease We will closely monitor I's and O's Avoid nephrotoxic medications Heme: Chronic anemia, closely monitor H&H, transfuse for hemoglobin less than 7 grams/deciliter. Received 16 units of blood products during the stay. Will transfuse another unit with HD today thrombocytopenia slowly improving 34k possibly due to antibiotics versus sepsis; if she bleeds will transfuse to more leucocytosis slightly better this morning, 28,000 down from 38,000 eight thousand yesterday Endocrine: Blood sugars under control Sliding scale insulin as needed Infectious disease: Repeat urine and blood cultures on 11/14/2024 negative. Urine culture mixed [place] CT chest showing bilateral small pleural effusion but no consolidation, CT abdomen showing in numerous liver cysts many of them are complex. Also has polycystic kidney disease. On empiric vancomycin and cefepime Musculoskeletal: Decubitus ulcer prevention protocol has weeping ulcers in mid thigh Lines: TLC left IJ - will take off central line if we get another peripheral Right subclavian permacath Prophylaxis: heparin, pantoprazole Quality Stroke Does the patient have a stroke diagnosis?: No VTE Prior VTE?: No VTE Risk Level:: Medical - moderate - high VTE Device Contraindication: N/A - Device Ordered VTE Drug Contraindication: Treatment Not Indicated
[2024-11-20 10:06] LABS: Glucose, Whole Blood 68 mg/dL (60-115)
--- NOTE | 2024-11-20 10:21 | MHC.CM.PN ---
Pt to have CT of head today: MD to have goals of care discussion w/family - pt verbalizing wanting more comfort focused care. Pt has been re referred to Sem[facility] Herrera CM to follow for changes in d/c planning needs
[2024-11-20 10:33] LABS: Glucose, Whole Blood 96 mg/dL (60-115)
[2024-11-20 10:41] LABS: Glucose, Whole Blood 106 mg/dL (60-115)
[2024-11-20 10:51] LABS: Glucose, Whole Blood 110 mg/dL (60-115)
--- NOTE | 2024-11-20 10:57 | MHC.CLN ---
F/U PT EXTUBATED 11/18 DISCUSSED AT ROUNDS WITH MD PLAN FOR CT, HD, & FAMILY MEETING TO DISCUSS GOC PT REMAINS NPO FOLLOWING FOR DIET ADVANCEMENT
[2024-11-20 11:35] LABS: Glucose, Whole Blood 91 mg/dL (60-115)
--- NOTE | 2024-11-20 13:27 | PM.EVENT ---
Event Note Date of Service: 11/20/24 Event Note: This is a 84-year-old lady with underlying polycystic liver, essential hypertension, ESRD on hemodialysis, PE on Eliquis admitted on 11/04/2024 with hypotension injury to upper GI bleed, patient initially with good response to resuscitation with blood products and IV fluid, admitted to telemetry service. Patient did have an EGD on 11/05/2024 showing duodenal bulb actively bleeding ulcer, treated with sclerotherapy and clipping. Overnight after procedure patient with repeat hemorrhage with poor response to IV fluids and blood products requiring transferred to intensive care unit and utilization of pressor support. Status post IR embolization on 11/06/2024 with stabilization of hemoglobin and no further rebleeding. Patient transferred to telemetry on 11/09/2024. Further hospital course significant for development of lower abdominal rash of unclear etiology treated with systemic glucocorticoids, AFib with RVR, and on 11/14/2024 septic shock with poor response to initial IV fluid resuscitation requiring pressor support and acute hypoxia requiring ventilatory support, transferred to intensive care unit. Acute blood loss anemia/hemorrhagic shock due to acute GI bleed from bleeding duodenal ulcer Status post EGD 11/05/2024 with clipping and sclerotherapy & IR embolization of celiac artery and SMA on 11/06/2024; requiring 16 units of blood Septic shock due to possible UTI requiring vasopressor support Acute hypoxic respiratory failure requiring ventilatory support Atrial fibrillation with rapid ventricular response Acute metabolic encephalopathy DVT right posterior tibial - unable to anticoagulate due to severe life-threatening GI bleeding and thrombocytopenia Thrombocytopenia Rash, unspecified ESRD on hemodialysis Patient has decided she doesn't want any further medical treatment and after family meeting 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 CM aware, dispo TBD. Patient will be downgraded from the ICU Time Spent With Patient Time: Total time managing care of this patient today ____ minutes.
--- NOTE | 2024-11-20 13:41 | MHC.CM.PN ---
Met with pt's sons to discuss [employer]/Hospice care. Pt has decided not to pursue any aggressive medical treatment and would like a more comfort focused care plan. Sons state pt's spouse is currently hospitalized at [facility] and is due to undergo surgical intervention and they would not be able to meet her care needs at home. Sons are receptive to pt returning to [facility] for [facility] [facility] [employer] care. Referral updated: awaiting acceptance and payor authorization. S transport will be needed.
[2024-11-21] VITALS (8 sets, daily range): RESP 18–24; BMI 29.8
[2024-11-21] MEDS: 0.9 % Sodium Chloride Flush 3 ML SYRINGE IVFLUSH ×3 (07:54→20:02)
--- NOTE | 2024-11-21 13:18 | P.PNIM_ITS ---
Subjective Subjective Date of Service: 11/21/24 Interval History: Patient asleep on evaluation. Minimally responsive. Opens eyes. Does not engage verbally. Review of Systems Review of Systems: Yes all other systems are reviewed and are negative Physical Exam 2 Exam: Exam: General: Minimal responsiveness engagement during visit. Possibly alert to person, not to place time or situation. Cardiac: S1, S2 auscultated with no S3/4, no MRG. Well perfused. Respiratory: Congested-sounding lungs throughout all lung zones. Nasopharyngeal congestion mostly. No wheezing. GI/ : No abdominal pain on palpation, no masses or distentions. MSK: Bed-bound no ambulation Vital Signs: Vital Signs: Last Vital Signs Temp 96.9 F 11/20/24 12:00 Pulse 78 11/20/24 13:00 Resp 24 H 11/21/24 12:35 BP 152/75 H 11/20/24 13:00 Pulse Ox 100 11/20/24 13:00 O2 Del Method Room Air 11/20/24 13:00 O2 Flow Rate 40 11/19/24 13:56 FiO2 21 11/19/24 13:56 BMI result Body Mass Index 29.8 Objective Data Active Medications Acetaminophen (Acetaminophen 325 Mg Tablet) 650 mg PO Q4H PRN PRN Reason: Fever Last Admin: 11/12/24 13:59 Dose: 650 mg Documented By: AGUILA Bisacodyl (Bisacodyl 10 Mg Supp.Rect) 10 mg PA DAILY PRN PRN Reason: Constipation Dextrose (Dextrose 50 % 25 Gm/50 Ml Syringe) 25 gm IVPUSH Q15M PRN; Protocol PRN Reason: per Hypoglycemia Standing Ord. 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 Glycopyrrolate (Glycopyrrolate 0.2 Mg/Ml Vial) 0.2 mg IVPUSH Q6H PRN PRN Reason: Respiratory secretions Haloperidol (Haloperidol 1 Mg Tablet) 1 mg PO Q4H PRN PRN Reason: Delirium Hydrocortisone (Hydrocortisone 1 % Cream 28.35 Gm Tube) 1 appl TOPICAL BID PRN; Protocol PRN Reason: itching Last Admin: 11/13/24 06:29 Dose: 1 appl Documented By: ZOILA Lorazepam (Lorazepam 1 Mg Tablet) 1 mg PO Q4H PRN PRN Reason: Myoclonic twitching/anxiety Morphine Sulfate (Morphine Sulfate 2 Mg/Ml Cartridge) 2 mg IVPUSH Q1H PRN PRN Reason: Pain, Severe (7-10)/ RR>/=24 Last Admin: 11/21/24 12:35 Dose: 2 mg Documented By: RIKI Naloxone HCl (Naloxone Hcl 0.4 Mg/Ml Vial) 0.04 mg IVPUSH Q5M PRN PRN Reason: Excessive sedation or RR < 8 Nystatin (Nystatin Powder 15 Gm Bottle) 1 appl TOPICAL BID NAKUL; Protocol Last Admin: 11/21/24 07:58 Dose: 1 appl Documented By: RIKI Ondansetron HCl (Ondansetron Odt 4 Mg Tab.Rapdis) 4 mg TRANSLINGU Q8H PRN PRN Reason: Nausea and Vomiting Prochlorperazine (Prochlorperazine 25 Mg Supp.Rect) 25 mg PA Q8H PRN PRN Reason: Nausea and Vomiting Sodium Chloride (0.9 % Sodium Chloride Flush 3 Ml Syringe) 3 ml IVFLUSH [facility] Last Admin: 11/21/24 07:54 Dose: 3 ml Documented By: RIKI Labs 11/20/24 04:34 11/20/24 04:34 Labs: Laboratory Results - last 24 hr 11/19/24 08:35 Crossmatch See Detail Microbiology Microbiology Results: Microbiology 11/19/24 10:15 Urine Culture - Final Urine Catheterized - Straight Catheter Assessment and Plan (1) Multi-organ failure with heart failure: Status: Acute Plan 84-year-old lady with underlying polycystic liver, essential hypertension, ESRD on hemodialysis, PE on Eliquis admitted on 11/04/2024 with hypotension injury to upper GI bleed, patient initially with good response to resuscitation with blood products and IV fluid, admitted to telemetry service. Patient did have an EGD on 11/05/2024 showing duodenal bulb actively bleeding ulcer, treated with sclerotherapy and clipping. Overnight after procedure patient with repeat hemorrhage with poor response to IV fluids and blood products requiring transferred to intensive care unit and utilization of pressor support. Status post IR embolization on 11/06/2024 with stabilization of hemoglobin and no further rebleeding. Patient transferred to telemetry on 11/09/2024. Further hospital course significant for development of lower abdominal rash of unclear etiology treated with systemic glucocorticoids, AFib with RVR, and on 11/14/2024 septic shock with poor response to initial IV fluid resuscitation requiring pressor support and acute hypoxia requiring ventilatory support, transferred to intensive care unit. 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 Medical issues: Acute hypoxic respiratory failure secondary to shock s/p extubation Acute septic, metabolic encephalopathy Septic shock - resolved Paroxysmal atrial fibrillation Right lower extremity DVT Complex liver cyst versus metastatic malignancy ESRD on HD MWF with possible polycystic kidney disease Acute on chronic anemia, s/p 16 units PRBC, due to UGIB Thrombocytopenia Hyperleukocytosis Mid thigh weeping ulcers Comfort Measures Only Goals of Care: The goal is to provide maximal comfort and preserved dignity, allowing for a natural dying process. Life prolonging treatments are not being pursued due to multi organ dysfunction with terminal diagnosis, poor prognosis, overwhelming disease burden. Advanced directives: Patient's advanced directive is on file and reviewed. 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 Interventions: All interventions will be focused on symptom management including pain, anxiety, dyspnea, nausea/vomiting. Resuscitation status: DNR/DNI orders are in place Total time managing care of this patient today: 20 minutes. Quality Stroke Does the patient have a stroke diagnosis?: No VTE Prior VTE?: No VTE Risk Level:: Medical - moderate - high VTE Device Contraindication: N/A - Device Ordered VTE Drug Contraindication: Treatment Not Indicated
[2024-11-22 01:06] VITALS: RESP 24
[2024-11-22 01:36] VITALS: RESP 24
[2024-11-22 07:52] VITALS: RESP 24
[2024-11-22] MEDS: 0.9 % Sodium Chloride Flush 3 ML SYRINGE IVFLUSH ×3 (07:52→20:43)
[2024-11-22 11:01] VITALS: RESP 26
--- NOTE | 2024-11-22 11:32 | HO.PM.IMPN ---
Subjective Subjective Date of Service: 11/22/24 Interval History: Asleep in bed. Awakes to stimulus. Heavy breathing by bedside. Not engaging Verbally. Review of Systems Review of Systems: Yes Unobtainable due to mental condition and Unobtainable due to mental status Physical Exam Exam: Exam: General: Minimal responsiveness engagement during visit. Possibly alert to person, not to place time or situation. Cardiac: S1, S2 auscultated with no S3/4, no MRG. Well perfused. Respiratory: Congested-sounding lungs throughout all lung zones. Nasopharyngeal congestion mostly. No wheezing. GI/ : No abdominal pain on palpation, no masses or distentions. MSK: Bed-bound no ambulation Vital Signs: Vital Signs: Last Vital Signs Temp 96.9 F 11/20/24 12:00 Pulse 78 11/20/24 13:00 Resp 26 H 11/22/24 11:01 BP 152/75 H 11/20/24 13:00 Pulse Ox 100 11/20/24 13:00 O2 Del Method Room Air 11/20/24 13:00 O2 Flow Rate 40 11/19/24 13:56 FiO2 21 11/19/24 13:56 BMI result Body Mass Index 30.0 Objective Data Active Medications Acetaminophen (Acetaminophen 325 Mg Tablet) 650 mg PO Q4H PRN PRN Reason: Fever Last Admin: 11/12/24 13:59 Dose: 650 mg Documented By: AGUILA Bisacodyl (Bisacodyl 10 Mg Supp.Rect) 10 mg [place] DAILY PRN PRN Reason: Constipation Dextrose (Dextrose 50 % 25 Gm/50 Ml Syringe) 25 gm IVPUSH Q15M PRN; Protocol PRN Reason: per Hypoglycemia Standing Ord. 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 Glycopyrrolate (Glycopyrrolate 0.2 Mg/Ml Vial) 0.2 mg IVPUSH Q6H PRN PRN Reason: Respiratory secretions Last Admin: 11/22/24 11:05 Dose: 0.2 mg Documented By: RIKI Haloperidol (Haloperidol 1 Mg Tablet) 1 mg PO Q4H PRN PRN Reason: Delirium Hydrocortisone (Hydrocortisone 1 % Cream 28.35 Gm Tube) 1 appl TOPICAL BID PRN; Protocol PRN Reason: itching Last Admin: 11/13/24 06:29 Dose: 1 appl Documented By: ZOILA Lorazepam (Lorazepam 1 Mg Tablet) 1 mg PO Q4H PRN PRN Reason: Myoclonic twitching/anxiety Morphine Sulfate (Morphine Sulfate 2 Mg/Ml Cartridge) 2 mg IVPUSH Q1H PRN PRN Reason: Pain, Severe (7-10)/ RR>/=24 Last Admin: 11/22/24 11:01 Dose: 2 mg Documented By: RIKI Naloxone HCl (Naloxone Hcl 0.4 Mg/Ml Vial) 0.04 mg IVPUSH Q5M PRN PRN Reason: Excessive sedation or RR < 8 Nystatin (Nystatin Powder 15 Gm Bottle) 1 appl TOPICAL BID NAKUL; Protocol Last Admin: 11/22/24 09:34 Dose: 1 appl Documented By: RIKI Ondansetron HCl (Ondansetron Odt 4 Mg Tab.Rapdis) 4 mg TRANSLINGU Q8H PRN PRN Reason: Nausea and Vomiting Prochlorperazine (Prochlorperazine 25 Mg Supp.Rect) 25 mg [place] Q8H PRN PRN Reason: Nausea and Vomiting Sodium Chloride (0.9 % Sodium Chloride Flush 3 Ml Syringe) 3 ml IVFLUSH [facility] Last Admin: 11/22/24 07:52 Dose: 3 ml Documented By: RIKI Labs 11/20/24 04:34 11/20/24 04:34 Assessment and Plan (1) Multi-organ failure with heart failure: Status: Acute (2) Atrial fibrillation with rapid ventricular response: Status: Acute (3) Hemorrhagic shock: Status: Acute (4) ESRD (end stage renal disease): Status: Acute (5) Severe anemia: Status: Acute (6) Septic shock: Status: Acute (7) Acute hypoxic respiratory failure: Status: Acute Plan 84-year-old lady with underlying polycystic liver, essential hypertension, ESRD on hemodialysis, PE on Eliquis admitted on 11/04/2024 with hypotension injury to upper GI bleed, patient initially with good response to resuscitation with blood products and IV fluid, admitted to telemetry service. Patient did have an EGD on 11/05/2024 showing duodenal bulb actively bleeding ulcer, treated with sclerotherapy and clipping. Overnight after procedure patient with repeat hemorrhage with poor response to IV fluids and blood products requiring transferred to intensive care unit and utilization of pressor support. Status post IR embolization on 11/06/2024 with stabilization of hemoglobin and no further rebleeding. Patient transferred to telemetry on 11/09/2024. Further hospital course significant for development of lower abdominal rash of unclear etiology treated with systemic glucocorticoids, AFib with RVR, and on 11/14/2024 septic shock with poor response to initial IV fluid resuscitation requiring pressor support and acute hypoxia requiring ventilatory support, transferred to intensive care unit. 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 Life prolonging treatments are not being pursued due to multi organ dysfunction with terminal diagnosis, poor prognosis, overwhelming disease burden. Advanced directives: Patient's advanced directive is on file and reviewed. The patient / surrogate, is aware and agrees with the plan for [employer] AND [employer] DISPATCHER. Interventions: All interventions will be focused on symptom management including pain, anxiety, dyspnea, nausea/vomiting. Resuscitation status: DNR/DNI orders are in place Total time managing care of this patient today: 20 minutes. Quality Stroke Does the patient have a stroke diagnosis?: No VTE Prior VTE?: No VTE Risk Level:: Medical - moderate - high VTE Device Contraindication: N/A - Device Ordered VTE Drug Contraindication: Treatment Not Indicated
[2024-11-22 15:10] VITALS: RESP 24
[2024-11-22 15:20] VITALS: RESP 14
--- NOTE | 2024-11-22 16:47 | HO.SKINPHOTO ---
Addendum entered by Lamar Man RN 11/22/24 16:50: thigh Original Note:
--- NOTE | 2024-11-22 21:32 | P.EN_ITS ---
Documented by User: Ritika Billings PA-C 11/22/24 23:17 Event Note Date of Service: 11/22/24 Event Note: I was called to patient's bedside to pronounce patient Christal Woodward has . No spontaneous movement were present. There was not respond to verbal or tactile stimuli. Pupils were mid dilated and fixed. No breath sounds were appreciated over either lung field. No carotid pulses were palpable. No heart sounds were auscultated over entire pericardium. Patient was pronounced at November 22, 2024 at 9:29 PM. No family members were bedside. The pt's family was alterted and her son is coming to the hospital now. The family declined autopsy. 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 Time of was 9:29 PM. Time Spent With Patient Time: Total time managing care of this patient today ____ minutes. Documented by User: Nancie Lucero MD 11/23/24 06:30 Event Note Date of Service: 11/23/24 Event Note: I was called to patient's bedside to pronounce patient Christal Woodward has . No spontaneous movement were present. There was not respond to verbal or tactile stimuli. Pupils were mid dilated and fixed. No breath sounds were appreciated over either lung field. No carotid pulses were palpable. No heart sounds were auscultated over entire pericardium. Patient was pronounced on November 22, 2024 at 9:29 PM. No family members were bedside. The pt's family was alterted and her son is coming to the hospital now. The family declined autopsy. 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 Time of was 9:29 PM.
--- NOTE | 2024-11-22 23:58 | PC.NURSE ---
212 pt with no respiration or HR. Dr. Iglesias and nursing packing and final assembly supervisor Sandra notified. No family at bedside, they were called and came in. Son took patients belongings. home Karen in [place]. KAYLI called and declined patient.
--- NOTE | 2024-12-17 19:41 | P.DN_ITS ---
Discharge Sum: Prov Provider Admitting clinician: Nancie Lucero Attending physician on admission: Hero Thompson Consults: Sharan Santos MD - surveying technician Beau Prado MD - nephrology Prince Davila MD - gastroenterology Antonio Vee MD - cardiology Pronouncing clinician: Ritika Billings Discharge Sum: Diag PCOD Cause of : Septic shock Contributing Factors (1) Atrial fibrillation with rapid ventricular response: (2) ESRD (end stage renal disease): (3) Severe anemia: (4) Bilateral pleural effusion: (5) Acute metabolic encephalopathy: (6) Multi-organ failure with heart failure: Discharge Sum: Summary Date and Time Date of admission: October Date of : 11/22/24 Time of : 21:29 Summary Details: Christal Woodward is a 84-year-old lady with underlying polycystic liver, essential hypertension, ESRD on hemodialysis, PE on Eliquis admitted on 11/04/2024 with hyp otension injury to upper GI bleed, patient initially with good response to resuscitation with blood products and IV fluid, admitted to telemetry service. Patient did have an EGD on 11/05/2024 showing duodenal bulb actively bleeding ulcer, treated with sclerotherapy and clipping. After procedure patient with repeat hemorrhage with poor response to IV fluids and blood products requiring transferred to intensive care unit and utilization of pressor support. Status post IR embolization on 11/06/2024 with stabilization of hemoglobin and no further rebleeding. Patient transferred to telemetry on 11/09/2024. Further hospital course significant for development of lower abdominal rash of unclear etiology treated with systemic glucocorticoids, AFib with RVR, and on 11/14/2024 septic shock with poor response to initial IV fluid resuscitation requiring pressor support and acute hypoxia requiring ventilatory support, transferred to intensive care unit. Subsequently, patient decide she did not want any further medical treatment and after family meeting she was changed to INTERVENTIONAL PHYSIATRIST status. On 11/22/2024 patient was pronounced . Additional Data Confirmation of as documented by pronouncing clinician: no pulse, no respirations, no heart sounds and pupils fixed and dilated Family: contacted Attending/PCP notified?: Yes Attending physician: Hero Thompson MD Was code activated?: No Autopsy requested?: No train examiner notified?: No
== END 2024-11-23 00:20 | disposition expired | DRG 356 ==
LOC: HO.ED 13:03 → HO.EDOVER 13:30 → HO.IMC 11-05 10:06 → HO.ICU 11-06 04:13 → HO.IMC 11-09 09:17 → HO.EDOVER 11-14 21:36 → HO.ICU 11-14 21:48 → HO.S3 11-20 13:30
PROVIDERS: Hospitalist; Internal Medicine; Internal Medicine Critical Care Medicine; Internal Medicine Pulmonary Disease; Nurse Practitioner Family; Physician Assistant Medical; Radiology Vascular & Interventional Radiology; Registered Nurse Community Health; Student in an Organized Health Care Education/Training Program; Admitting Provider Internal Medicine; Emergency Provider Emergency Medicine; PCP Internal Medicine; Visit Provider Hospitalist
PROC: 3E0G8GC Introduction of Other Therapeutic Substance into Upper GI, Via Natural or Artificial Opening Endoscopic (ICD-10-PCS; principal; 2024-11-05 13:00)
PROC: 04L53DZ Occlusion of Superior Mesenteric Artery with Intraluminal Device, Percutaneous Approach (ICD-10-PCS; principal; 2024-11-06 10:30)
DX: K26.4 Chronic or unspecified duodenal ulcer with hemorrhage (principal); A41.9 Sepsis, unspecified organism; N18.6 End stage renal disease; R65.21 Severe sepsis with septic shock; G93.41 Metabolic encephalopathy; D68.32 Hemorrhagic disorder due to extrinsic circulating anticoagulants; Q44.6 Cystic disease of liver; D62 Acute posthemorrhagic anemia; D68.4 Acquired coagulation factor deficiency; I82.441 Acute embolism and thrombosis of right tibial vein; N39.0 Urinary tract infection, site not specified; C78.7 Secondary malignant neoplasm of liver and intrahepatic bile duct; I13.2 Hypertensive heart and chronic kidney disease with heart failure and with stage 5 chronic kidney disease, or end stage renal disease; R21 Rash and other nonspecific skin eruption; Z51.5 Encounter for palliative care; Z86.711 Personal history of pulmonary embolism; D69.6 Thrombocytopenia, unspecified; T45.515A Adverse effect of anticoagulants, initial encounter; I48.0 Paroxysmal atrial fibrillation; I50.9 Heart failure, unspecified; Z99.2 Dependence on renal dialysis; I25.10 Atherosclerotic heart disease of native coronary artery without angina pectoris; D63.1 Anemia in chronic kidney disease; R57.8 Other shock; Z20.822 Contact with and (suspected) exposure to COVID-19; Z91.158 Patient's noncompliance with renal dialysis for other reason; Z79.01 Long term (current) use of anticoagulants; Z79.899 Other long term (current) drug therapy
CPT/HCPCS: 36415; 37244; 70450; 71045; 71250; 74177; 80048; 80053; 80076; 80202; 80307; 81001; 82040; 82140; 82272; 82803; 82947; 83605; 83690; 83735; 83880; 84100; 84443; 84484; 85007; 85014; 85018; 85025; 85027; 85610; 86140; 86850; 86900; 86901; 86920; 86923; 87040; 87086; 87637; 90999; 93005; 93306; 93970; 94002; 94003; 94640; 94799; 97162; 97530; 99285; 99499; C1769; C1770; C1887; C1889; C1894; J0131; J0168; J0330; J0613; J0616; J0618; J0692; J1160; J1163; J1596; J1610; J1644; J2250; J2270; J2405; J2470; J2597; J2598; J2704; J2760; J2765; J2919; J3010; J3373; J3374; J3430; J3475; J3480; J7120; J7168; P9016; P9017; P9047; P9073; Q9957; Q9967

== ENCOUNTER → 2024-11-04 06:55 | Outpatient (BNV) | payer MEDICARE, SELFPAY | PROVIDERS: Admitting Provider Internal Medicine; Emergency Provider Emergency Medicine; PCP Internal Medicine; Visit Provider Internal Medicine | DX: R94.31 Abnormal electrocardiogram [ECG] [EKG] (principal); Z13.6 Encounter for screening for cardiovascular disorders | CPT/HCPCS: 93010 ==

== ENCOUNTER → 2024-11-04 08:00 | Outpatient (BNV) | payer MEDICARE, SELFPAY | PROVIDERS: Emergency Provider Emergency Medicine; Visit Provider Radiology Diagnostic Radiology | DX: R68.89 Other general symptoms and signs (principal); K92.2 Gastrointestinal hemorrhage, unspecified | CPT/HCPCS: 71045 ==

== ENCOUNTER 2024-11-04 12:15 | Outpatient (BNV) | payer MEDICARE, SELFPAY | END 2024-11-06 10:23 | PROVIDERS: Admitting Provider Internal Medicine; Emergency Provider Emergency Medicine; PCP Internal Medicine; Visit Provider Radiology Diagnostic Radiology | DX: K92.2 Gastrointestinal hemorrhage, unspecified (principal); Z45.2 Encounter for adjustment and management of vascular access device | CPT/HCPCS: 36247; 36248; 37244; 71045; 75726; 75774; 76937; 99152 ==

== ENCOUNTER 2024-11-04 12:15 | Outpatient (BNV) | payer MEDICARE, SELFPAY | END 2024-11-11 17:00 | PROVIDERS: Admitting Provider Internal Medicine; Emergency Provider Emergency Medicine; PCP Internal Medicine; Visit Provider Radiology Diagnostic Radiology | DX: I82.441 Acute embolism and thrombosis of right tibial vein (principal) | CPT/HCPCS: 93970 ==

== ENCOUNTER 2024-11-04 12:15 | Outpatient (BNV) | payer MEDICARE, SELFPAY | END 2024-11-17 22:02 | PROVIDERS: Admitting Provider Internal Medicine; Emergency Provider Emergency Medicine; PCP Internal Medicine; Visit Provider Radiology Diagnostic Radiology | DX: J90 Pleural effusion, not elsewhere classified (principal) | CPT/HCPCS: 71045 ==

== ENCOUNTER 2024-11-04 12:15 | Outpatient (BNV) | payer MEDICARE, SELFPAY | END 2024-11-14 18:12 | PROVIDERS: Admitting Provider Internal Medicine; Emergency Provider Emergency Medicine; PCP Internal Medicine; Visit Provider Student in an Organized Health Care Education/Training Program | DX: R06.02 Shortness of breath (principal) | CPT/HCPCS: 71045 ==

== ENCOUNTER 2024-11-04 12:15 | Outpatient (BNV) | payer MEDICARE, SELFPAY | END 2024-11-14 17:37 | PROVIDERS: Admitting Provider Internal Medicine; Emergency Provider Emergency Medicine; PCP Internal Medicine; Visit Provider Internal Medicine Cardiovascular Disease | DX: I48.91 Unspecified atrial fibrillation (principal) | CPT/HCPCS: 93010 ==

== ENCOUNTER 2024-11-04 12:15 | Outpatient (BNV) | payer MEDICARE, SELFPAY | END 2024-11-05 16:52 | PROVIDERS: Admitting Provider Internal Medicine; Emergency Provider Emergency Medicine; PCP Internal Medicine; Visit Provider Internal Medicine | DX: R94.31 Abnormal electrocardiogram [ECG] [EKG] (principal); Z13.6 Encounter for screening for cardiovascular disorders | CPT/HCPCS: 93010 ==

== ENCOUNTER 2024-11-04 12:15 | Outpatient (BNV) | payer MEDICARE, SELFPAY | END 2024-11-16 17:11 | PROVIDERS: Admitting Provider Internal Medicine; Emergency Provider Emergency Medicine; PCP Internal Medicine; Visit Provider Radiology Diagnostic Radiology | DX: J90 Pleural effusion, not elsewhere classified (principal); Q61.2 Polycystic kidney, adult type; D73.5 Infarction of spleen; M79.89 Other specified soft tissue disorders; E04.2 Nontoxic multinodular goiter; R93.2 Abnormal findings on diagnostic imaging of liver and biliary tract | CPT/HCPCS: 71250; 74177 ==

== ENCOUNTER 2024-11-04 12:15 | Outpatient (BNV) | payer MEDICARE, SELFPAY | END 2024-11-20 01:16 | PROVIDERS: Admitting Provider Internal Medicine; Emergency Provider Emergency Medicine; PCP Internal Medicine; Visit Provider Radiology Diagnostic Radiology | DX: G93.40 Encephalopathy, unspecified (principal); I67.89 Other cerebrovascular disease; J43.1 Panlobular emphysema; Z46.59 Encounter for fitting and adjustment of other gastrointestinal appliance and device | CPT/HCPCS: 70450; 71045 ==

== ENCOUNTER 2024-11-04 12:15 | Outpatient (BNV) | payer MEDICARE, SELFPAY | END 2024-11-16 07:00 | PROVIDERS: Admitting Provider Internal Medicine; Emergency Provider Emergency Medicine; PCP Internal Medicine; Visit Provider Internal Medicine Cardiovascular Disease | DX: I34.81 Nonrheumatic mitral (valve) annulus calcification (principal); I35.8 Other nonrheumatic aortic valve disorders | CPT/HCPCS: 93306 ==

== ENCOUNTER 2024-11-04 12:15 | Outpatient (BNV) | payer MEDICARE, SELFPAY | END 2024-11-15 11:43 | PROVIDERS: Admitting Provider Internal Medicine; Emergency Provider Emergency Medicine; PCP Internal Medicine; Visit Provider Internal Medicine Cardiovascular Disease | DX: I48.92 Unspecified atrial flutter (principal) | CPT/HCPCS: 93010 ==

== ENCOUNTER → 2024-11-04 12:15 | Outpatient (BNV) | payer MEDICARE, SELFPAY | PROVIDERS: Admitting Provider Internal Medicine; Emergency Provider Emergency Medicine; PCP Internal Medicine; Visit Provider Registered Nurse Community Health | DX: I48.91 Unspecified atrial fibrillation (principal); A41.9 Sepsis, unspecified organism; R65.21 Severe sepsis with septic shock; J81.1 Chronic pulmonary edema; J96.01 Acute respiratory failure with hypoxia; N18.6 End stage renal disease; K92.2 Gastrointestinal hemorrhage, unspecified; D64.9 Anemia, unspecified | CPT/HCPCS: 31500; 36556; 99291 ==

== ENCOUNTER → 2024-11-04 12:15 | Outpatient (BNV) | payer MEDICARE, SELFPAY | PROVIDERS: Admitting Provider Internal Medicine; Emergency Provider Emergency Medicine; PCP Internal Medicine; Visit Provider Internal Medicine | DX: K92.2 Gastrointestinal hemorrhage, unspecified (principal); E87.21 Acute metabolic acidosis | CPT/HCPCS: 99223; 99232; 99499 ==

== ENCOUNTER → 2024-11-04 12:15 | Outpatient (BNV) | payer MEDICARE, SELFPAY | PROVIDERS: Admitting Provider Internal Medicine; Emergency Provider Emergency Medicine; PCP Internal Medicine; Visit Provider Internal Medicine Pulmonary Disease | DX: N18.6 End stage renal disease (principal); R57.1 Hypovolemic shock; K92.2 Gastrointestinal hemorrhage, unspecified | CPT/HCPCS: 36556; 99291; 99292 ==

== ENCOUNTER → 2024-11-04 12:15 | Outpatient (BNV) | payer MEDICARE, SELFPAY | PROVIDERS: Admitting Provider Internal Medicine; Emergency Provider Emergency Medicine; PCP Internal Medicine; Visit Provider Internal Medicine Cardiovascular Disease | DX: I48.91 Unspecified atrial fibrillation (principal); A41.9 Sepsis, unspecified organism; R65.21 Severe sepsis with septic shock | CPT/HCPCS: 99223 ==

== ENCOUNTER → 2024-11-09 | Outpatient (BNV) | payer MEDICARE, SELFPAY | PROVIDERS: Visit Provider Internal Medicine | DX: I48.91 Unspecified atrial fibrillation (principal); N18.6 End stage renal disease; D64.9 Anemia, unspecified; J90 Pleural effusion, not elsewhere classified; G93.41 Metabolic encephalopathy; I50.9 Heart failure, unspecified | CPT/HCPCS: 99238 ==